=== PATIENT | male | born 1960 | race Caucasian/White ===

== ENCOUNTER 2018-11-03 10:24 | Observation (INO) ==
[2018-11-03 11:03] LABS: Basophils # 0.1 K/mm3 (0-0.2); Basophils % 1.2 % (0.1-2.0); Eosinophils # 0.2 K/mm3 (0.0-0.4); Eosinophils % 2.7 % (0.1-12.0); Hematocrit 49.9 % (42.0-52.0); Hemoglobin 16.5 g/dL (14.1-18.0); Lymphocytes % 28.2 % (10-50); Mean Corpuscular Hemoglobin 28.8 pg (27.0-31.2); Mean Corpuscular Volume 87.2 fl (80-94); Mean Platelet Volume 7.1 fl (7.4-10.4); Monocytes # 0.4 K/mm3 (0.1-1.0); Monocytes % 6.3 % (1.7-9.3); Neutrophils # 4.3 K/mm3 (1.8-7.8); Neutrophils % 61.7 % (37.0-80.0); Platelet Count 269 K/mm3 (142-424); Red Blood Count 5.72 M/mm3 (4.60-6.20); Red Cell Distribution Width 13.9 % (11.5-17.5)
[2018-11-03 11:18] LABS: Alanine Aminotransferase 35 U/L (12-78); Albumin Level 3.8 gm/dL (3.4-5.0); Albumin/Globulin Ratio 0.9 (1.1-1.8); Alkaline Phosphatase 97 U/L (46-116); Anion Gap 15.8 mEq/L (5-15); Aspartate Amino Transferase 18 U/L (15-37); Bilirubin,Total 0.5 mg/dL (0.2-1.0); Blood Urea Nitrogen 10 mg/dL (7-18); Calcium 9.2 mg/dL (8.5-10.1); Carbon Dioxide 25 mmol/L (21.0-32.0); Chloride 102 mmol/L (98-107); Globulin 4.4 gm/dl (1.3-3.2); Glucose 107 mg/dL (74-106); Potassium 3.8 mmoL/L (3.5-5.1); Sodium 139 mmol/L (136-145); Total Protein,Serum 8.2 gm/dL (6.4-8.2)
--- NOTE | 2018-11-03 11:21 | Consult Report ---
History of Present Illness Consult date: 11/03/18 Requesting physician: Yuri Marc Consult reason: chest pain Chief complaint: Fatigue, chest pain Additional Medical History:: 1. Obesity 2. Family history coronary artery disease in his father (smoker) age 54 and grandfather (non-smoker) age 62 3. Possible sleep apnea 4. History of nephrolithiasis 5. Status post appendectomy History of present illness: 58-year-old white male admitted from outpatient clinic for recurrent episodes of chest discomfort, fatigue and diaphoresis. Patient relates greater than 1 month history of recurrent chest discomfort described as a sharp sensation that may occur in the left chest, left armpit or back area and may last up to an hour and is non-exertion related. He relates occasional palpitations that may or may not be associated with the chest discomfort and SOA. Patient has noticed a gradual decline in his exercise capability. This has at times been accompanied by diaphoresis. Sometimes the symptoms have awoken him from sleep. Patient's reports he does snore and has not been resting well recently. Patient denies hypertension, hyperlipidemia, diabetes or tobacco use. EKG today shows sinus rhythm with first-degree AV block otherwise unremarkable. Lab work is pending at this time. [facility] History Medical History: Denies:: Cancer, Diabetes Mellitus Type 1, Diabetes Mellitus Type 2, MRSA Have you ever received a pneumonia vaccine?: No Have you received a flu vaccine this season?: No Laterality Cases: Bilateral: Arthroscopy Knee Other Surgeries: Yes: Appendectomy Amputation: No Fractures: No - *Social History Educational Level: Completed High School Smoking Status: Never smoker Alcohol Intake: never Occupational Status: employed Housing: house Household Members: spouse Travel in the last 8 weeks: None - Psychiatric History Expresses thoughts of harming self/others: None Suicide Plan Description: No Plan *Family Hx:: Cancer Meds Home Medications Medication Instructions Recorded Confirmed Type No Known Home Medications 11/03/18 11/03/18 History Allergies Allergy/AdvReac Type Severity Reaction Status Date / Time ANTI-INFLAMMATORY Allergy Unknown Uncoded 10/11/17 14:26 Review of Systems - *Cardiovascular Reports chest pain, Reports shortness of breath with activity - *Respiratory Reports shortness of breath with activity, Denies cough - *Gastrointestinal Denies abdominal pain, Denies nausea, Denies vomiting - *Genitourinary Denies blood in urine - *Musculoskeletal Denies joint pain, Denies back pain Exam Vital signs and Labs for Last 24 Hours: Temp Pulse Resp BP Pulse Ox 97.8 F 73 20 167/89 H 96 11/03/18 11:07 11/03/18 11:07 11/03/18 11:07 11/03/18 11:07 11/03/18 11:07 Laboratory Results - last 24 hr 11/03/18 10:40: WBC 7.0, RBC 5.72, Hgb 16.5, Hct 49.9, MCV 87.2, MCH 28.8, MCHC 33.0, RDW 13.9, Plt Count 269, MPV 7.1 L, Neut % (Auto) 61.7, Lymph % (Auto) 28.2, [place] % (Auto) 6.3, Eos % (Auto) 2.7, Baso % (Auto) 1.2, Neut # (Auto) 4.3, Lymph # (Auto) 2.0, [place] # (Auto) 0.4, Eos # (Auto) 0.2, Baso # (Auto) 0.1 I & O for Last 24 hours: Intake & Output 10/31/18 11/01/18 11/02/18 11/03/18 11:59 11:59 11:59 11:59 Weight 281 lb 7.003 oz - *Routine Neck Exam Present: supple. Absent: JVD, carotid bruit - *Routine Respiratory Exam Present: CTA bilaterally. Absent: accessory muscle use, rales, rhonchi, wheezes - *Routine Cardiovascular Exam Present: RRR. Absent: murmur, gallop, rubs - *Routine Abdominal Exam Present: soft. Absent: tenderness, distended, guarding - *Routine Extremities Exam Absent: edema, calf tenderness - *Routine Neurological Exam Present: alert, oriented X3, moving all extremities Assessment and Plan (1) Chest pain Current visit: Yes Status: Acute Category: Medical Code(s): R07.9 - Chest pain, unspecified (2) Fatigue Current visit: Yes Status: Acute Category: Medical Code(s): R53.83 - Other fatigue (3) Dyspnea Current visit: Yes Status: Acute Category: Medical Code(s): R06.00 - Dyspnea, unspecified (4) Obesity (BMI 35.0-39.9 without comorbidity) Current visit: Yes Status: Acute Category: Medical Code(s): E66.9 - Obesity, unspecified (5) Family history of atherosclerosis Current visit: Yes Status: Acute Category: Medical Code(s): Z82.49 - Family history of ischemic heart disease and other diseases of the circulatory system (6) First degree atrioventricular block by electrocardiogram Current visit: Yes Status: Acute Category: Medical Code(s): I44.0 - Atrioventricular block, first degree - Assessment and plan all Dx Assessment and Plan for all problems:: 1. Initial troponin is normal. Second troponin pending but if normal could discharge home. 2. Echocardiogram shows preserved ejection fraction without significant valve abnormalities. 3. Agree with ASA but will add omeprazole (or other PPI) for reflux, metoprolol succinate XL 25 mg daily for BP and one time dose of GI cocktail. 4. CT of the chest was obtained showing no evidence of pulmonary embolus or aortic dissection. Patient does have a moderate sized hiatal hernia with some distal esophageal thickening suggestive of reflux. Pt also has evidence of coronary artery calcification. In light of the normal troponin, echocardiogram showing preserved ejection fraction, EKG without ST segment changes and CT of the chest showing no pulmonary embolus or aortic dissection but with evidence of coronary artery calcification, it is felt that the patient could be discharged home for an outpatient workup. Medications as noted above. Recommend exercise Myoview stress testing next week.
[2018-11-03 11:29] LABS: Chol/HDL Ratio 6.3 (1-3.5); Thyroid Stimulating Hormone 2.15 uIU/ml (0.358-3.740)
--- NOTE | 2018-11-03 11:48 | Pharmacy Consult Notes ---
[facility] Pharmacy VTE Monitoring - Patient Demographics Admission date: 11/03/18 Report Date: 11/03/18 Time: 11:48 Allergies/Adverse Reactions: Patient Allergies ANTI-INFLAMMATORY Allergy (Unknown, Uncoded 10/11/17 14:26) Height: 1.91 m Weight: 127.658 kg Patient Problems: Current Active Problems Chest pain (Acute) Fatigue (Acute) Dyspnea (Acute) Obesity (BMI 35.0-39.9 without comorbidity) (Acute) Family history of atherosclerosis (Acute) First degree atrioventricular block by electrocardiogram (Acute) - VTE Risk Labs: VTE Related Lab Results Hgb 16.5 g/dL (14.1-18.0) 11/03/18 10:40 Hct 49.9 % (42.0-52.0) 11/03/18 10:40 Plt Count 269 K/mm3 (142-424) 11/03/18 10:40 BUN 10 mg/dL (7-18) 11/03/18 10:40 Creatinine 1.08 mg/dL (0.70-1.30) 11/03/18 10:40 Estimated Creat Clear 135 mL/min (50-200) 11/03/18 10:40 VTE Score: 2 VTE Risk Level: Very Low Risk - Prophylaxis VTE Prophylaxis Ordered?: Yes Types of VTE Prophylaxis: TEDS Knee High Location of Applied Device: Bilateral Lower Extremeties - VTE Diagnosis Confirmed Treatment or plan recommended: Continue Current Treatment
--- NOTE | 2018-11-03 12:54 | History & Physical Report ---
*Admission Date: 11/03/18 *Chief complaint: chest pain, shortness of breath, diaphoresis *History of present illness: 58 year old male who has had minimal healthcare due to lack of health insurance presented to PCP office with fatigue and shortness of breath that has increased over the last few weeks. Patient states he has "spells" of shortness of breath and diaphoresis, sometimes accompanied with chest pain or palpitations, sometimes not. Chest pain is on the left side and radiates to his back. Symptoms have occurred with exertion and at rest. Yesterday, he had a "spell" of shortness of breath, chest pain and diaphoresis that took "forever" to resolve. He has decreased exercise tolerance, becomes short of breath and fatigued with minimal exertion. Father at age 54 of [place], paternal grandfather at age 62 of [place] verses aneurysm. Last labs in 2014 show LDL 151. BMI is 35. He is not a smoker. Patient was direct admitted for serial enzymes and cardiology consultation. [facility] History I have reviewed the patient's past medical history: Yes Medical History: Denies:: Cancer, Diabetes Mellitus Type 1, Diabetes Mellitus Type 2, MRSA Have you ever received a pneumonia vaccine?: No Have you received a flu vaccine this season?: No Laterality Cases: Bilateral: Arthroscopy Knee Other Surgeries: Yes: Appendectomy Amputation: No Fractures: No - *Social History Educational Level: Completed High School Smoking Status: Never smoker Alcohol Intake: never Occupational Status: employed Housing: house Household Members: spouse Travel in the last 8 weeks: None - Psychiatric History Expresses thoughts of harming self/others: None Suicide Plan Description: No Plan *Family Hx:: Cancer Review of Systems - Review of Systems Review of systems:: pertinent systems reviewed and negative unless documented below - *Cardiovascular Reports chest pain, Reports excessive sweating, Reports shortness of breath with activity, Reports rapid, pounding, or irregular heartbeat Meds Home Medications Medication Instructions Recorded Confirmed Type No Known Home Medications 11/03/18 11/03/18 History Allergies Allergy/AdvReac Type Severity Reaction Status Date / Time ANTI-INFLAMMATORY Allergy Unknown Uncoded 10/11/17 14:26 Exam Vital signs and Labs for Last 24 Hours: Temp Pulse Resp BP Pulse Ox 97.8 F 73 20 167/89 H 96 11/03/18 11:07 11/03/18 11:07 11/03/18 11:07 11/03/18 11:07 11/03/18 11:07 Laboratory Results - last 24 hr 11/03/18 10:40: Triglycerides 276 H, Cholesterol 266 H, LDL Cholesterol 169 H, VLDL Cholesterol 55 H, HDL Cholesterol 42, Cholesterol/HDL Ratio 6.3 H, TSH 2.15 11/03/18 10:40: WBC 7.0, RBC 5.72, Hgb 16.5, Hct 49.9, MCV 87.2, MCH 28.8, MCHC 33.0, RDW 13.9, Plt Count 269, MPV 7.1 L, Neut % (Auto) 61.7, Lymph % (Auto) 28.2, [place] % (Auto) 6.3, Eos % (Auto) 2.7, Baso % (Auto) 1.2, Neut # (Auto) 4.3, Lymph # (Auto) 2.0, [place] # (Auto) 0.4, Eos # (Auto) 0.2, Baso # (Auto) 0.1 11/03/18 10:40: Sodium 139, Potassium 3.8, Chloride 102, Carbon Dioxide 25, Anion Gap 15.8 H, BUN 10, Creatinine 1.08, Estimated Creat Clear 135, Estimated GFR 70, Est GFR ( Amer) 85, Glucose 107 H, Calcium 9.2, Total Bilirubin 0.5, AST 18, ALT 35, Alkaline Phosphatase 97, Troponin I < 0.02, Total Protein 8.2, Albumin 3.8, Globulin 4.4 H, Albumin/Globulin Ratio 0.9 L I & O for Last 24 hours: Intake & Output 11/01/18 11/02/18 11/03/18 11/04/18 11:59 11:59 11:59 11:59 Weight 281 lb 7.003 oz Narrative: Alert and oriented x3. Rate and rhythm regular. No murmur. No LE edema. Abdomen soft and nontender. ENT exam unremarkable. No carotid bruit. No JVD. No thyromegaly. Skin is pink, warm and dry. No neuro deficits Assessment and Plan (1) Chest pain Current visit: Yes Status: Acute Category: Medical Code(s): R07.9 - Chest pain, unspecified (2) Fatigue Current visit: Yes Status: Acute Category: Medical Code(s): R53.83 - Other fatigue (3) Dyspnea Current visit: Yes Status: Acute Category: Medical Code(s): R06.00 - Dyspnea, unspecified (4) Obesity (BMI 35.0-39.9 without comorbidity) Current visit: Yes Status: Acute Category: Medical Code(s): E66.9 - Obesity, unspecified (5) Family history of atherosclerosis Current visit: Yes Status: Acute Category: Medical Code(s): Z82.49 - Family history of ischemic heart disease and other diseases of the circulatory system (6) First degree atrioventricular block by electrocardiogram Current visit: Yes Status: Acute Category: Medical Code(s): I44.0 - Atrioventricular block, first degree - Assessment and plan all Dx Assessment and Plan for all problems:: Admit for observation, serial enzymes and cardiology consult. Will obtain Echo and monitor telemetry.
--- NOTE | 2018-11-03 13:52 | Cardiology Report ---
PROCEDURE: 2-D M-mode and color Doppler study INDICATIONS FOR THE TEST: Chest pain+ COPD Heart Murmur Tobacco Smoking Palpitations Fatigue+ Syncope Edema Hypertension Diabetes Mellitus Rheumatic Fever SOB+ZHANG Obesity+Hyperlipidemia Family History HD+ Additional History CP,SOB PATIENT INFORMATION HEIGHT: 75 WEIGHT:281 GENDER: Male B/P:167/89 2-D/M-MODE INTERPRETATION: 2-D MEASUREMENTS OBSERVED VALUES IN CMS Right Ventricular Dimension (RVDd) 3.2 Interventricular Septum (Thickness)(IVsd) 0.9 Left Ventricular Internal Dimensions(LVIDd) 4.6 Left Ventricular Posterior Wall (Thickness)(LVPWd) 0.9 Aortic Root 3.0 Aortic Cusp Separation 2.5 Left Atrial Dimensions (LAD) 4.0 2D 1. Left atrium is mildly enlarged, left ventricle is normal size, mild qualitative concentric left ventricular hypertrophy, visually estimated ejection fraction 55% with no regional wall motion abnormality. 2. The right atrium and right ventricle are mildly enlarged with normal contractility. 3. The aortic valve is minimally thickened and fibrosed. 4. The mitral and tricuspid valve are grossly normal. 5. The pulmonic valve is poorly present. 6. No significant pericardial effusion noted. DOPPLER INTERROGATION: Doppler interrogation of the aortic, mitral and tricuspid valvular presence of mild mitral and tricuspid regurgitation, tricuspid regurgitation jet velocity is inadequate for calculation of the right ventricular systolic pressure, Doppler evidence of impaired relaxation seen. There is no tissue Doppler performed to calculate left atrial pressure CONCLUSION: 1. Technically difficult study, Definity contrast was placed to delineate endocardial surfaces. 2. Left atrium is mildly enlarged, left ventricle is normal size, mild concentric left ventricular hypertrophy, visually estimated ejection fraction 55% with no regional wall motion abnormality, Doppler evidence of impaired relaxation seen. 3. Mildly enlarged right ventricle with normal contractility. 4. Mild mitral and tricuspid regurgitation 5. No significant pericardial effusion noted.
--- NOTE | 2018-11-03 16:16 | Consult Report ---
*Admission Date: 11/03/18 *Chief complaint: Reflux, hiatal hernia, and epigastric fullness *History of present illness: This is a 58-year-old female seen in consultation from his primary service for evaluation of hiatal hernia, reflux, and epigastric fullness. He presented with fatigue, redness of air, and vague chest pain. He was admitted for further evaluation to include cardiology consultation. No significant acute abnormality apparently has been discovered with regard to his cardiac evaluation. Ongoing evaluation is planned as an outpatient. He does have a known history of significant reflux and states that over the past few months he has "gotten worse". He describes epigastric fullness and "pretty severe acid burn". He states that he "used to take Nexium". He states that "Nexium is the only medicine that worked". He has a known history of hiatal hernia and a recent CTA of the chest confirmed a moderately large hiatal hernia. Below is a forwarded copy of HPI from admission H&P: 58 year old male who has had minimal healthcare due to lack of health insurance presented to PCP office with fatigue and shortness of breath that has increased over the last few weeks. Patient states he has "spells" of shortness of breath and diaphoresis, sometimes accompanied with chest pain or palpitations, sometimes not. Chest pain is on the left side and radiates to his back. Symptoms have occurred with exertion and at rest. Yesterday, he had a "spell" of shortness of breath, chest pain and diaphoresis that took "forever" to resolve. He has decreased exercise tolerance, becomes short of breath and fatigued with minimal exertion. Father at age 54 of [place], paternal grandfather at age 62 of [place] verses aneurysm. Last labs in 2014 show LDL 151. BMI is 35. He is not a smoker. Patient was direct admitted for serial enzymes and cardiology consultation. Review of Systems - Constitutional Denies chills - Eyes Denies change in vision - *Cardiovascular Reports shortness of breath - *Respiratory Denies cough - *Gastrointestinal Reports bloating, Reports heartburn - Hematologic/Lymphatic Denies easy bleeding [facility] History Medical History: Denies:: Cancer, Diabetes Mellitus Type 1, Diabetes Mellitus Type 2, MRSA Have you ever received a pneumonia vaccine?: No Have you received a flu vaccine this season?: No Laterality Cases: Bilateral: Arthroscopy Knee Other Surgeries: Yes: Appendectomy Amputation: No Fractures: No - *Social History Educational Level: Completed High School Smoking Status: Never smoker Alcohol Intake: never Occupational Status: employed Housing: house Household Members: spouse Travel in the last 8 weeks: None - Psychiatric History Expresses thoughts of harming self/others: None Suicide Plan Description: No Plan *Family Hx:: Cancer Meds Home Medications Medication Instructions Recorded Confirmed Type No Known Home Medications 11/03/18 11/03/18 History Allergies Allergy/AdvReac Type Severity Reaction Status Date / Time ANTI-INFLAMMATORY Allergy Unknown Uncoded 10/11/17 14:26 Exam Vital signs and Labs for Last 24 Hours: Temp Pulse Resp BP Pulse Ox 97.8 F 66 17 139/79 96 11/03/18 15:32 11/03/18 15:32 11/03/18 15:32 11/03/18 15:32 11/03/18 15:32 Laboratory Results - last 24 hr 11/03/18 10:40: Triglycerides 276 H, Cholesterol 266 H, LDL Cholesterol 169 H, VLDL Cholesterol 55 H, HDL Cholesterol 42, Cholesterol/HDL Ratio 6.3 H, TSH 2.15 11/03/18 10:40: WBC 7.0, RBC 5.72, Hgb 16.5, Hct 49.9, MCV 87.2, MCH 28.8, MCHC 33.0, RDW 13.9, Plt Count 269, MPV 7.1 L, Neut % (Auto) 61.7, Lymph % (Auto) 28.2, [place] % (Auto) 6.3, Eos % (Auto) 2.7, Baso % (Auto) 1.2, Neut # (Auto) 4.3, Lymph # (Auto) 2.0, [place] # (Auto) 0.4, Eos # (Auto) 0.2, Baso # (Auto) 0.1 11/03/18 10:40: Sodium 139, Potassium 3.8, Chloride 102, Carbon Dioxide 25, Anion Gap 15.8 H, BUN 10, Creatinine 1.08, Estimated Creat Clear 135, Estimated GFR 70, Est GFR ( Amer) 85, Glucose 107 H, Calcium 9.2, Total Bilirubin 0.5, AST 18, ALT 35, Alkaline Phosphatase 97, Troponin I < 0.02, Total Protein 8.2, Albumin 3.8, Globulin 4.4 H, Albumin/Globulin Ratio 0.9 L 11/03/18 10:40: Hemoglobin A1c 5.5 11/03/18 13:52: Troponin I < 0.02 I & O for Last 24 hours: Intake & Output 11/01/18 11/02/18 11/03/18 11/04/18 11:59 11:59 11:59 11:59 Weight 281 lb 7.003 oz - Constitutional no acute distress - *Routine Respiratory Exam Absent: respiratory distress - *Routine Cardiovascular Exam Present: RRR - *Routine Abdominal Exam Present: soft Comments: Diastases in epigastric region. Fingertip umbilical defect. - Routine Psychiatric Exam Present: normal affect Results - Labs 11/03/18 10:40 11/03/18 10:40 Laboratory Results - last 24 hr 11/03/18 10:40: Triglycerides 276 H, Cholesterol 266 H, LDL Cholesterol 169 H, VLDL Cholesterol 55 H, HDL Cholesterol 42, Cholesterol/HDL Ratio 6.3 H, TSH 2.15 11/03/18 10:40: WBC 7.0, RBC 5.72, Hgb 16.5, Hct 49.9, MCV 87.2, MCH 28.8, MCHC 33.0, RDW 13.9, Plt Count 269, MPV 7.1 L, Neut % (Auto) 61.7, Lymph % (Auto) 28.2, [place] % (Auto) 6.3, Eos % (Auto) 2.7, Baso % (Auto) 1.2, Neut # (Auto) 4.3, Lymph # (Auto) 2.0, [place] # (Auto) 0.4, Eos # (Auto) 0.2, Baso # (Auto) 0.1 11/03/18 10:40: Sodium 139, Potassium 3.8, Chloride 102, Carbon Dioxide 25, Anion Gap 15.8 H, BUN 10, Creatinine 1.08, Estimated Creat Clear 135, Estimated GFR 70, Est GFR ( Amer) 85, Glucose 107 H, Calcium 9.2, Total Bilirubin 0.5, AST 18, ALT 35, Alkaline Phosphatase 97, Troponin I < 0.02, Total Protein 8.2, Albumin 3.8, Globulin 4.4 H, Albumin/Globulin Ratio 0.9 L 11/03/18 10:40: Hemoglobin A1c 5.5 11/03/18 13:52: Troponin I < 0.02 Assessment and Plan (1) Chest pain Current visit: Yes Status: Acute Category: Medical Code(s): R07.9 - Chest pain, unspecified (2) Fatigue Current visit: Yes Status: Acute Category: Medical Code(s): R53.83 - Other fatigue (3) Dyspnea Current visit: Yes Status: Acute Category: Medical Code(s): R06.00 - Dyspnea, unspecified (4) Obesity (BMI 35.0-39.9 without comorbidity) Current visit: Yes Status: Acute Category: Medical Code(s): E66.9 - Obesity, unspecified (5) Family history of atherosclerosis Current visit: Yes Status: Acute Category: Medical Code(s): Z82.49 - Family history of ischemic heart disease and other diseases of the circulatory system (6) First degree atrioventricular block by electrocardiogram Current visit: Yes Status: Acute Category: Medical Code(s): I44.0 - Atrioventricular block, first degree (7) GERD (gastroesophageal reflux disease) Current visit: Yes Status: Acute Category: Medical Code(s): K21.9 - Gastro -esophageal reflux disease without esophagitis Seemingly, the patient's symptoms have responded historically to Nexium and "nothing else". -Nexium and Zantac -EGD in near future (8) Hiatal hernia Current visit: Yes Status: Acute Category: Medical Code(s): K44.9 - Diaphragmatic hernia without obstruction or gangrene No need for acute surgical intervention. Initially restarting proton pump inhibition and evaluating with endoscopy warranted. If the patient does require evaluation for possible surgical intervention, I recommend he be seen by Dr. Carlton Uriostegui at the [facility] as fundoplications are no longer performed at this facility.
--- NOTE | 2018-11-03 16:20 | Discharge Summary ---
General - General Admission date:: 11/03/18 Discharge date: 11/03/18 HPI HPI: 58 year old male who has had minimal healthcare due to lack of health insurance presented to PCP office with fatigue and shortness of breath that has increased over the last few weeks. Patient states he has "spells" of shortness of breath and diaphoresis, sometimes accompanied with chest pain or palpitations, sometimes not. Chest pain is on the left side and radiates to his back. Symptoms have occurred with exertion and at rest. Yesterday, he had a "spell" of shortness of breath, chest pain and diaphoresis that took "forever" to resolve. He has decreased exercise tolerance, becomes short of breath and fatigued with minimal exertion. Father at age 54 of [place], paternal grandfather at age 62 of [place] verses aneurysm. Last labs in 2014 show LDL 151. BMI is 35. He is not a smoker. Patient was direct admitted for serial enzymes and cardiology consultation. Hospital Course Hospital Course: Patient was admitted for observation and serial enzymes. Troponins were obtained which were negative x2. Cardiology was consulted who ordered a CTA of the chest which showed a moderate sized hiatal hernia and thickening of lower esophagus, no PE. Echo was obtained which was unremarkable with EF 55%. Lipid panel showed LDL in the 160's. Glucose was slightly elevated and HA1C was added which was 5.5. Cardiology cleared patient for discharge home on metoprolol and aspirin for Nuclear Stress Test on Tuesday. Surgery was consulted to evaluate hiatal hernia prior to discharge who recommend PPI and endoscopy as outpatient. Discharge home on aspirin, metoprolol, atorvastatin and nexium. FU with myself in one week in [place] office. Keep scheduled appointment for nuclear stress test. FU with Dr. Scott for EGD. Objective Vital signs: Temp Pulse Resp BP Pulse Ox 97.8 F 66 17 139/79 96 11/03/18 15:32 11/03/18 15:32 11/03/18 15:32 11/03/18 15:32 11/03/18 15:32 Results Labs on day of discharge: Labs from last 24 hours 11/03/18 11/03/18 11/03/18 13:52 10:40 10:40 WBC RBC Hgb Hct MCV MCH MCHC RDW Plt Count MPV Neut % (Auto) Lymph % (Auto) [place] % (Auto) Eos % (Auto) Baso % (Auto) Neut # (Auto) Lymph # (Auto) [place] # (Auto) Eos # (Auto) Baso # (Auto) Sodium 139 Potassium 3.8 Chloride 102 Carbon Dioxide 25 Anion Gap 15.8 H BUN 10 Creatinine 1.08 Estimated Creat Clear 135 Estimated GFR 70 Est GFR ( Amer) 85 Glucose 107 H Hemoglobin A1c 5.5 Calcium 9.2 Total Bilirubin 0.5 AST 18 ALT 35 Alkaline Phosphatase 97 Troponin I < 0.02 < 0.02 Total Protein 8.2 Albumin 3.8 Globulin 4.4 H Albumin/Globulin Ratio 0.9 L Triglycerides Cholesterol LDL Cholesterol VLDL Cholesterol HDL Cholesterol Cholesterol/HDL Ratio TSH 11/03/18 11/03/18 10:40 10:40 WBC 7.0 RBC 5.72 Hgb 16.5 Hct 49.9 MCV 87.2 MCH 28.8 MCHC 33.0 RDW 13.9 Plt Count 269 MPV 7.1 L Neut % (Auto) 61.7 Lymph % (Auto) 28.2 Shelby % (Auto) 6.3 Eos % (Auto) 2.7 Baso % (Auto) 1.2 Neut # (Auto) 4.3 Lymph # (Auto) 2.0 Shelby # (Auto) 0.4 Eos # (Auto) 0.2 Baso # (Auto) 0.1 Sodium Potassium Chloride Carbon Dioxide Anion Gap BUN Creatinine Estimated Creat Clear Estimated GFR Est GFR ( Amer) Glucose Hemoglobin A1c Calcium Total Bilirubin AST ALT Alkaline Phosphatase Troponin I Total Protein Albumin Globulin Albumin/Globulin Ratio Triglycerides 276 H Cholesterol 266 H LDL Cholesterol 169 H VLDL Cholesterol 55 H HDL Cholesterol 42 Cholesterol/HDL Ratio 6.3 H TSH 2.15 DS: Diagnosis - Discharge Diagnosis (1) Chest pain Status: Acute (2) Fatigue Status: Acute (3) Dyspnea Status: Acute (4) Obesity (BMI 35.0-39.9 without comorbidity) Status: Acute (5) Family history of atherosclerosis Status: Acute (6) First degree atrioventricular block by electrocardiogram Status: Acute (7) Hiatal hernia Status: Acute Discharge Plan - Patient Discharge Instructions ACTIVITY: Continue current activity DIET: continue same diet - Follow up Plan Follow up with: Martha Pate APRN [Nurse Practitioner] - 1 week Pineda Scott MD [Staff Physician] - 1 week Unknown provider or service follow up:: Nuclear Stress Test on Tuesday Disposition: Home, Self-Halfway Medications: Home Medications Medication Instructions Recorded Confirmed Type Aspirin [Aspirin 81mg chewable 81 mg PO DAILY tab.chew 11/03/18 Rx tab] Atorvastatin Calcium [Lipitor 20mg 20 mg PO HS #30 tablet 11/03/18 Rx Tablet] Esomeprazole Magnesium [Nexium] 40 mg PO DAILY #30 capsule. 11/03/18 Rx Metoprolol Succinate [Toprol XL 25 mg PO DAILY #30 tab.er.24h 11/03/18 Rx 25mg tablet] Prescriptions/Medication Reconciliation: New Aspirin [Aspirin 81mg chewable tab] 81 mg PO DAILY tab.chew Atorvastatin Calcium [Lipitor 20mg Tablet] 20 mg PO HS #30 tablet Metoprolol Succinate [Toprol XL 25mg tablet] 25 mg PO DAILY #30 tab.er.24h Esomeprazole Magnesium [Nexium] 40 mg PO DAILY #30 capsule.
== END 2018-11-03 18:02 | disposition home or self-care (01) ==
LOC: 2ND
PROVIDERS: ADMIT Internal Medicine Adolescent Medicine; ATTEND Internal Medicine Adolescent Medicine
DX: E66.9 Obesity, unspecified; R06.00 Dyspnea, unspecified; Z84.89 Family history of other specified conditions; Z88.8 Allergy status to other drugs, medicaments and biological substances; Z82.49 Family history of ischemic heart disease and other diseases of the circulatory system; Z98.890 Other specified postprocedural states; R53.83 Other fatigue; R07.9 Chest pain, unspecified; I44.0 Atrioventricular block, first degree
CPT/HCPCS: 36415; 71275; 80053; 80061; 83036; 84443; 84484; 85025; 93005; 93306; G0378; Q9967

== ENCOUNTER → 2018-11-06 05:47 | Outpatient (CLI) | payer SELFPAY ==
--- NOTE | 2018-11-06 06:41 | NM_ITS ---
SPECT MYOCARDIAL PERFUSION SCAN, REST AND STRESS: EXERCISE STRESS: [facility] REVIEW QGS EF AND WALL MOTION EVALUATION: QPS - PERFUSION EVALUATION: HISTORY: Chest pain, SOB PROCEDURE: Rest imaging performed after administration of10.40 millicuries Tc MIBI. Dose administered at6:10 a.m., with imaging thereafter. Stress imaging was then performed following7 minutes of exercise stress. The patient achieved a heart [id number] with projected heart rate of138 . Resting BP172/88 with stress 170/90. At maximum exercise stress,32.8 millicuries Tc MIBI administered at7:55 a.m. with [id number] minutes thereafter. The EKG was abnormal and [address] segment depression and was accompanied by chest pain. FINDINGS: Perfusion Evaluation: The single slice spect images as well as the [facility] bull's-eye data summary were reviewed. Wall Motion and Ejection Fraction Evaluation: Gated SPECT review and analysis used to evaluate these features. There is a 62% % left ventricular ejection fraction. There seems to be good wall motion Stress images reveal decreased activity throughout the inferior wall and a portion of the lateral wall. Rest images reveal no change in the inferior wall with improvement in the lateral wall and decreased activity in the apical septum. Gated images corrected ejection fraction 62% with normal wall motion IMPRESSION: Exercise-induced angina pectoris with [address] segment depression. This is an abnormal high risk stress test with inferior defect which does not reverse. Reverse redistribution in the apex and septal wall and mild lateral wall ischemia. Normal ejection fraction and normal wall motion.
--- NOTE | 2018-11-06 06:47 | HMH.ITSHM ---
Current Home Medications as stated by this patient Anuj Vazquez or in store representative. []ATORVASTATIN ESOMEPRAZOLE METOPROLOL
== END ==
PROVIDERS: PCP Nurse Practitioner Family; Visit Provider Nurse Practitioner Family
DX: R07.9 Chest pain, unspecified (principal)
CPT/HCPCS: 78452; 93017; A9502

== ENCOUNTER → 2019-09-13 08:30 | Outpatient (CLI) | payer SELFPAY ==
--- NOTE | 2019-09-13 08:33 | FL_ITS ---
PROCEDURE: FL UPPER GI W AIR CLINICAL INDICATION: HIATAL HERNIA Bloating, prior hiatal hernia repair COMPARISON: No exams were available for comparison TECHNIQUE: FLUOROSCOPY TIME : Fluoroscopy time: 2 minutes and 57 seconds FINDINGS: Patient gives history of having recent hiatal hernia repair. There is persistent narrowing at the distal esophagus which could be related to Sharlene fundoplication surgery. Please correlate with patient's surgical history which is not available at the time of this reading. No esophageal obstruction is evident although there is some delayed emptying. There is residual food material/secretions within the stomach despite the patient pro claiming that he has had not had anything by mouth for over 12 hours. There is delayed gastric emptying suspected. No obvious mass. No ulcer evident. IMPRESSION: Delayed gastric emptying with residual gastric contents noted consistent with gastroparesis. Suggest nuclear medicine gastric emptying scan for confirmation. Narrowing of the distal esophagus with delayed emptying which may be due to recent Sharlene fundoplication surgery. Correlation with surgical history necessary Dictated by: Fahad Jean MD 09/13/2019 15:59 Electronically signed by Fahad Jean MD in [place] 09/13/2019 15:59
== END ==
PROVIDERS: PCP Nurse Practitioner Family; Visit Provider Surgery
DX: K44.9 Diaphragmatic hernia without obstruction or gangrene (principal)
CPT/HCPCS: 74247

== ENCOUNTER → 2020-04-03 15:58 | Outpatient (CLI) | payer SELFPAY | PROVIDERS: PCP Nurse Practitioner Family; Visit Provider Nurse Practitioner Family | DX: R55 Syncope and collapse (principal); R61 Generalized hyperhidrosis | CPT/HCPCS: 93270 ==

== ENCOUNTER → 2020-05-06 10:55 | Outpatient (CLI) | payer SELFPAY ==
--- NOTE | 2020-05-06 11:03 | CA_ITS ---
APPROVED REPORT [employer]ader: INGRID Laterality: Bilateral Study Quality: Good Indications: SYNCOPE Doppler Spectral Velocity Analysis dICA (R) 72.90/23.90 cm/s dICA (L) 82.70/33.60 cm/s Dolly (R) 69.50/26.70 cm/s Dolly (L) 65.20/23.20 cm/s pICA (R) 50.70/19.80 cm/s pICA (L) 56.50/14.70 cm/s dCCA (R) 118.50/29.20 cm/s dCCA (L) 106.00/35.60 cm/s pCCA (R) 116.40/23.30 cm/s pCCA (L) 106.00/31.50 cm/s Vert (R) 87.30/25.30 cm/s Vert (L) 52.50/16.40 cm/s ICA/CCA 0.60 ICA/CCA 0.80 Findings Duplex evaluation demonstrates stenosis of the right proximal internal carotid artery <20% with PSV <140 cm/sec, EDV <100 cm/sec, and IC/CC Ratio <4.0.Duplex evaluation demonstrates stenosis of the left proximal internal carotid artery <20% with PSV <140 cm/sec, EDV <100 cm/sec, and IC/CC Ratio <4.0.Antegrade flow seen bilateral vertebral arteries. Conclusion No increased velocities to suggest hemodynamically significant stenosis in either internal carotid artery. Electronically signed by : Fahad Jean MD 05/06/2020 17:20:11
== END ==
PROVIDERS: PCP Nurse Practitioner Family; Visit Provider Nurse Practitioner Family
DX: R55 Syncope and collapse (principal); R07.89 Other chest pain
CPT/HCPCS: 93880

== ENCOUNTER → 2020-07-11 11:42 | Outpatient (CLI) | payer SELFPAY ==
--- NOTE | 2020-07-11 11:47 | CA_ITS ---
APPROVED REPORT EXAM: Comprehensive 2D, Doppler, and color-flow Echocardiogram Advisory Internship: Erica Brady RDCS Ht: 6 ft 3 in Wt: 291lbs BSA: 2.57 BP: 134/83 mmHg Indications: TIA ( BUBBLE STUDY DONE APPEARS POSITIVE ) OBESITY, HTN, HLP 2D Dimensions LVOT 2.25 cm (M/F) 1.5-2.5 M-Mode Dimensions RVDd 3.10 cm (0.9-2.6) LVDd 5.61 cm (3.5-5.7) LVDs 4.25 cm (3.5-5.7) IVSd 0.81 cm (0.6-1.1) PWd 0.81 cm (0.6-1.1) EF (Teich) 47.60% FS 24.20% EDV (Teich) 154.30 mL ESV (Teich) 80.80 mL LV Diastology E/A Ratio 0.75 Mitral Valve MV A Velocity 60.00 (40-130 cm/s) Left Ventricle Left atrium is mildly enlarged, left ventricle is normal size, mild concentric left ventricular hypertrophy, visually estimated ejection fraction 55% with no regional wall motion abnormality, grade 1 diastolic dysfunction seen without tissue Doppler evidence of raise left atrial pressure. Right Ventricle Right atrium and right ventricle are normal size and contractility. Atria Intra-atrial septum appears to be intact, there is no obvious flow across the interatrial septum, agitated saline contrast study is inconclusive for intracardiac shunt. Aortic Valve Aortic valve is minimally thickened and fibrosed, there is no aortic stenosis or aortic insufficiency. Mitral Valve Mitral valve grossly normal, there is mild mitral regurgitation. Tricuspid Valve Tricuspid valve is grossly normal, there is mild tricuspid regurgitation, tricuspid regurgitation jet velocity is inadequate for calculation of the right ventricular systolic pressure. Pulmonic Valve Pulmonic valve is poorly visualized. Great Vessels Aortic root is normal size. Pericardium No significant pericardial effusion noted. Conclusion 1. Technically difficult study because of the patient factors and poor acoustic windows. 2. Mildly enlarged left atrium, normal left ventricular size, mild concentric left ventricular hypertrophy, visually estimated ejection fraction 55% with no regional wall motion abnormality, grade 1 diastolic dysfunction seen without tissue Doppler evidence of raise left atrial pressure. 3. Mild mitral and tricuspid regurgitation. 4. Agitated saline contrast study is inconclusive for intracardiac shunt, if clinically indicated a transesophageal echocardiogram is recommended. 5. No significant pericardial effusion noted. Electronically signed by : Henry Ken, 07/11/2020 13:53:54
== END ==
PROVIDERS: PCP Nurse Practitioner Family; Visit Provider Nurse Practitioner Family
DX: R55 Syncope and collapse (principal); G45.9 Transient cerebral ischemic attack, unspecified; R61 Generalized hyperhidrosis
CPT/HCPCS: 93306

== ENCOUNTER → 2020-07-15 07:47 | Outpatient (CLI) | payer SELFPAY ==
--- NOTE | 2020-07-15 08:09 | MR_ITS ---
PROCEDURE: MR ANGIO HEAD WO CON CLINICAL INDICATION: NEAR SYNCOPE, TIA EPISODES WEAKNESS AND NEAR SYNCOPE, COLD SWEATS, AND UNABLE TO SEE. SYMPTOMS [id number]. HEADACHE. EPISODES LAST MAYBE AN HOUR AND AFTER EPISODES HAS FATIGUE AND UNABLE TO REMEMBER. NO PRIOR. COMPARISON: No exams were available for comparison TECHNIQUE: 3D [id number] imaging with multi slab reformats. FINDINGS: Vertebral basilar system has an unremarkable appearance. The internal carotids are unremarkable. No evidence of aneurysm. No evidence of AVM or major intracranial occlusive process Single-shot MRV demonstrates incomplete visualization of the inferior aspect of the sagittal sinus. This is nonspecific and could be artifactual. The remaining sagittal sinus has an unremarkable appearance. IMPRESSION: 1. Unremarkable MRA of the brain. 2. Incomplete visualization of the inferior aspect of the sagittal sinus which may be artifactual. CTA with venography may provide further evaluation of this region if clinically warranted. Dictated by: Fahad Jean MD 07/16/2020 15:02 Fahad Jean MD in [place] 07/16/2020 15:02
--- NOTE | 2020-07-15 08:09 | MR_ITS ---
PROCEDURE: MR HEAD/BRAIN WO CON CLINICAL INDICATION: NEAR SYNCOPE, TIA EPISODES WEAKNESS AND NEAR SYNCOPE, COLD SWEATS, AND UNABLE TO SEE. SYMPTOMS [id number]. HEADACHE. EPISODES LAST MAYBE AN HOUR AND AFTER EPISODES HAS FATIGUE AND UNABLE TO REMEMBER. NO PRIOR. COMPARISON: No exams were available for comparison TECHNIQUE: Routine multiplanar multi echo sequences are performed without gadolinium enhancement. FINDINGS: No midline shift, mass effect, intracranial hemorrhage, or hydrocephalus is evident. The cerebellopontine angle, cerebellum, and brainstem have an unremarkable appearance. There is no evidence of acute infarction. There are a few scattered periventricular and subcortical T2 white matter hyperintensities which are nonspecific and may be related to ischemic gliotic change from microvascular disease. The temporal horns are symmetric. Hippocampal gyri are unremarkable. The pituitary, optic chiasm, corpus callosum, and craniocervical junction have an unremarkable appearance. No mastoid effusion or sinus air-fluid level. There is a small retention cyst in the right maxillary sinus medially. IMPRESSION: 1. No acute intracranial findings. 2. There are diffuse scattered periventricular and subcortical T2 white matter hyperintensities which may be related to ischemic gliotic foci. Migraine headache would be included in the differential diagnosis. Demyelinating process not totally excluded but felt to be less likely based on imaging characteristics. Dictated by: Fahad Jean MD 07/16/2020 13:37 Fahad Jean MD in [place] 07/16/2020 13:37
== END ==
PROVIDERS: PCP Nurse Practitioner Family; Visit Provider Nurse Practitioner Family
DX: G45.9 Transient cerebral ischemic attack, unspecified (principal); R55 Syncope and collapse; R61 Generalized hyperhidrosis
CPT/HCPCS: 70544; 70551

== ENCOUNTER → 2021-03-19 13:55 | Outpatient (CLI) | payer SELFPAY ==
[2021-03-19 14:21] LABS: Basophils # 0.1 K/mm3 (0-0.2); Basophils % 1.2 % (0.1-2.0); Eosinophils # 0.3 K/mm3 (0.0-0.4); Eosinophils % 2.8 % (0.1-12.0); Hematocrit 44.8 % (42.0-52.0); Hemoglobin 15.1 g/dL (14.1-18.0); Lymphocytes # 2.6 K/mm3 (0.7-4.5); Lymphocytes % 27.7 % (10-50); Mean Corpuscular HGB Conc 33.9 g/dL (31.8-35.4); Mean Corpuscular Hemoglobin 28.8 pg (27.0-31.2); Mean Platelet Volume 7.2 fl (7.4-10.4); Monocytes # 0.6 K/mm3 (0.1-1.0); Monocytes % 6.3 % (1.7-9.3); Neutrophils # 5.9 K/mm3 (1.8-7.8); Platelet Count 309 K/mm3 (142-424); Red Blood Count 5.27 M/mm3 (4.60-6.20); Red Cell Distribution Width 13.9 % (11.5-17.5); White Blood Count 9.4 K/mm3 (4.8-10.8)
[2021-03-19 14:31] LABS: Chloride 103 mmol/L (98-107); Sodium 138 mmol/L (136-145)
[2021-03-19 14:33] LABS: Alanine Aminotransferase 30 U/L (12-78); Aspartate Amino Transferase 36 U/L (17-59); Bilirubin,Total 0.6 mg/dl (0.2-1.3); Blood Urea Nitrogen 12 mg/dl (9-20); Estimated Glomerular Filt Rate 76 ml/min (>60); GFR (African American) 92 ML/MIN (>60)
[2021-03-19 14:34] LABS: Albumin Level 4.7 g/dl (3.5-5.0); Albumin/Globulin Ratio 1.3 (1.1-1.8); Alkaline Phosphatase 104 U/L (38-126); Calcium 9.4 mg/dl (8.4-10.2); Carbon Dioxide 27 mmol/L (22.0-30.0); Globulin 3.5 g/dL (1.3-3.2); Glucose 97 mg/dl (74-100); Total Protein,Serum 8.2 g/dl (6.3-8.2)
[2021-03-19 14:46] LABS: Troponin I < 0.01 ng/ml (0.00-0.034)
== END ==
PROVIDERS: Visit Provider Nurse Practitioner Family
DX: R07.9 Chest pain, unspecified (principal); R53.1 Weakness
CPT/HCPCS: 36415; 80053; 84484; 85025

== ENCOUNTER → 2021-05-23 11:43 | Outpatient (CLI) | payer SELFPAY ==
[2021-05-23 11:49] LABS: Microscopic, Urine URINE MICROSCOPIC (MICROSCOPIC)
[2021-05-23 12:02] LABS: Basophils # 0.1 K/mm3 (0-0.2); Basophils % 0.5 % (0.1-2.0); Eosinophils # 0.2 K/mm3 (0.0-0.4); Eosinophils % 1.2 % (0.1-12.0); Hematocrit 44.1 % (42.0-52.0); Hemoglobin 14.9 g/dL (14.1-18.0); Lymphocytes # 1.9 K/mm3 (0.7-4.5); Lymphocytes % 11.6 % (10-50); Mean Corpuscular HGB Conc 33.7 g/dL (31.8-35.4); Mean Corpuscular Hemoglobin 28.8 pg (27.0-31.2); Mean Corpuscular Volume 85.3 fl (80-94); Mean Platelet Volume 7.8 fl (7.4-10.4); Monocytes # 1.1 K/mm3 (0.1-1.0); Monocytes % 6.7 % (1.7-9.3); Neutrophils # 12.8 K/mm3 (1.8-7.8); Platelet Count 260 K/mm3 (142-424); Red Blood Count 5.17 M/mm3 (4.60-6.20); Red Cell Distribution Width 14.3 % (11.5-17.5)
[2021-05-23 12:03] LABS: MANUAL DIFFERENTIAL MANUAL DIFFERENTIAL (MANUAL DIFF)
[2021-05-23 12:41] LABS: Lymphocytes % 20 % (10-50); Monocytes % 2 % (2-9); Neutrophils % 78 % (42-76); Platelet Estimate Normal; RBC Morphology Normal; Total Cells Counted 100
[2021-05-23 12:48] LABS: Appearance,Urine CLEAR (Clear); Bilirubin,Urine Negative (Negative); Blood, Urine 3+ (Negative); Color,Urine YELLOW (Yellow); Glucose,Urine (UA) Negative (Negative); Ketones,Urine Negative (Negative); Leukocyte Esterase,Urine Negative (Negative); Nitrate,Urine Negative (Negative); Protein,Urine TRACE (Negative); Specific Gravity, Urine >= 1.030 (1.005-1.030); Urobilinogen,Urine 0.2 EU/dl (0.2)
[2021-05-23 12:57] LABS: Amorphous Sediment,Urine Trace /lpf; RBC,Urine 50-100 #/hpf (0-3); Squamous Epithelial Cell,Urine Occasional #/hpf (0-5)
[2021-05-23 13:04] LABS: Alanine Aminotransferase 23 U/L (12-78); Albumin Level 4.3 g/dl (3.5-5.0); Albumin/Globulin Ratio 1.4 (1.1-1.8); Alkaline Phosphatase 96 U/L (38-126); Anion Gap 14.2 mEq/L (5-15); Aspartate Amino Transferase 22 U/L (17-59); Bilirubin,Total 1.4 mg/dl (0.2-1.3); Blood Urea Nitrogen 12 mg/dl (9-20); Calcium 9.3 mg/dl (8.4-10.2); Carbon Dioxide 28 mmol/L (22.0-30.0); Chloride 101 mmol/L (98-107); Estimated Glomerular Filt Rate 76 ml/min (>60); GFR (African American) 92 ML/MIN (>60); Glucose 101 mg/dl (74-100); Potassium 4.2 mmoL/L (3.5-5.1); Sodium 139 mmol/L (136-145); Total Protein,Serum 7.3 g/dl (6.3-8.2)
== END ==
PROVIDERS: Visit Provider Internal Medicine Adolescent Medicine
DX: R10.32 Left lower quadrant pain (principal); R31.0 Gross hematuria
CPT/HCPCS: 36415; 80053; 81001; 85007; 85025; 87086

== ENCOUNTER 2021-08-13 19:24 | Observation (INO) | payer SELFPAY ==
[2021-08-13 19:25] VITALS: BP 166/98; PULSE 70; RESP 16; TEMP 36.8; O2SAT 96; BMI 33.7
--- NOTE | 2021-08-13 19:43 | CT_ITS ---
PROCEDURE INFORMATION: Exam: CT Abdomen And Pelvis Without Contrast Exam date and time: 08/13/2021 7:43 PM Age: 61 years old Clinical indication: Abdominal pain; Flank; Right; Prior surgery; Surgery date: 6+ months; Surgery type: Hernia mesh placed; Additional info: Abd pain TECHNIQUE: Imaging protocol: Computed tomography of the abdomen and pelvis without contrast. Radiation optimization: All CT scans at this facility use at least one of these dose optimization techniques: automated exposure control; mA and/or kV adjustment per patient size (includes targeted exams where dose is matched to clinical indication); or iterative reconstruction. COMPARISON: ABDPELW/O CT ABD PELVIS W/O CONTRAST 05/04/2015 9:28 AM FINDINGS: Lungs: No mass/infiltrate at either lung base. No pleural effusion. There is a metallic body which is noted between the right atrium and left atrium. This could represent an atrial septal occluder device. Liver: The liver is normal in size and attenuation. No intrahepatic biliary dilitation. Gallbladder and bile ducts: Normal. No calcified stones. No ductal dilation. Gallbladder wall thickness is normal. Pancreas: Normal. No ductal dilation. Spleen: Normal. No splenomegaly. Granulomatous calcifications are noted. Adrenal glands: Normal. No mass. Kidneys and ureters: Mild right hydronephrosis. There is a 4 mm calculus identified within the right ureteropelvic junction. There are 2 nonobstructing nephroliths within the left renal collecting system. The largest is present within the left renal pelvis and measures 8 mm in diameter. Stomach and bowel: Again, there is a moderate hiatal hernia noted. Diverticulosis of the transverse colon, descending colon, and sigmoid colon without evidence of diverticulitis. No obstruction. No mucosal thickening. Small bowel mesentery is normal. Appendix: The appendix is poorly visualized on this examination. Intraperitoneal space: Unremarkable. No free air. No significant fluid collection. Vasculature: There are atheromatous calcifications of the aorta. No abdominal aortic aneurysm. Lymph nodes: Unremarkable. No enlarged lymph nodes. Urinary bladder: Unremarkable as visualized. Reproductive: Unremarkable as visualized. Bones/joints: There are degenerative changes noted within the thoracic and lumbar spine and within the sacroiliac joints. No acute fracture. Soft tissues: There is a small umbilical hernia. IMPRESSION: 1. There is a 4 mm calculus identified within the right ureteropelvic junction associated with moderate right hydronephrosis. 2. There are nonobstructing nephroliths identified within the left kidney. 3. Moderate hiatal hernia again noted. 4. Diverticulosis of the colon without evidence of diverticulitis.
[2021-08-13 19:55] LABS: Basophils # 0.1 K/mm3 (0-0.2); Basophils % 1.2 % (0.1-2.0); Eosinophils # 0.3 K/mm3 (0.0-0.4); Eosinophils % 3.1 % (0.1-12.0); Hematocrit 43.3 % (42.0-52.0); Hemoglobin 14.8 g/dL (14.1-18.0); Lymphocytes # 2.7 K/mm3 (0.7-4.5); Lymphocytes % 29.9 % (10-50); Mean Corpuscular HGB Conc 34.2 g/dL (31.8-35.4); Mean Corpuscular Hemoglobin 29.6 pg (27.0-31.2); Mean Corpuscular Volume 86.6 fl (80-94); Mean Platelet Volume 7.9 fl (7.4-10.4); Monocytes # 0.7 K/mm3 (0.1-1.0); Monocytes % 7.1 % (1.7-9.3); Neutrophils # 5.4 K/mm3 (1.8-7.8); Neutrophils % 58.7 % (37.0-80.0); Platelet Count 317 K/mm3 (142-424); Red Cell Distribution Width 13.9 % (11.5-17.5); White Blood Count 9.2 K/mm3 (4.8-10.8)
--- NOTE | 2021-08-13 19:58 | HMH.EDGENADL ---
ED Disposition Clinical Impression: Nephrolithiasis, Pyelonephritis Disposition: Admitted As Inpatient Condition on Discharge: Fair Instructions: DI for Low Back Pain Referrals: Martha Pate APRN [Primary Care Provider] - - Critical Care Critical Care Time: No Attestation: On 08/13/21, the high probability of a clinically significant, sudden or life threatening deterioration of the following system(s) required my full and direct attention, intervention and personal management. The time I documented below is in addition to time spent performing reported procedures but includes the following listed in this critical care notation. Medical Decision Making - Medical Records Medical records reviewed: Yes: I reviewed the patient's medical records. - Tayo Inquiry Pt receiving controlled substance: No Vital Signs: 08/13/21 19:25 Temperature 98.2 F Temperature Source Oral Pulse Rate [Left] 70 Respiratory Rate 16 Blood Pressure [Right Arm] 166/98 H Blood Pressure Mean [Right Arm] 120 02 Sat by Pulse Oximetry 96 Oxygen Delivery Method Room Air - Lab Data Lab Results 08/13/21 19:44: WBC 9.2, RBC 5.00, Hgb 14.8, Hct 43.3, MCV 86.6, MCH 29.6, MCHC 34.2, RDW 13.9, Plt Count 317, MPV 7.9, Neut % (Auto) 58.7, Lymph % (Auto) 29.9, Moca % (Auto) 7.1, Eos % (Auto) 3.1, Baso % (Auto) 1.2, Neut # (Auto) 5.4, Lymph # (Auto) 2.7, Moca # (Auto) 0.7, Eos # (Auto) 0.3, Baso # (Auto) 0.1 08/13/21 19:44: Sodium 141, Potassium 4.0, Chloride 105, Carbon Dioxide 27, Anion Gap 13.0, BUN 10, Creatinine 1.20, Estimated Creat Clear 112, Estimated GFR 62, Est GFR ( Amer) 74, Glucose 110 H, Calcium 9.6, Total Bilirubin 0.3, AST 32, ALT 25, Alkaline Phosphatase 107, Total Protein 8.0, Albumin 4.4, Globulin 3.6 H, Albumin/Globulin Ratio 1.2, Amylase 79, Lipase 83 08/13/21 21:50: Urine Color Brown, Urine Appearance Turbid, Urine pH 5.0, Ur Specific [place] >= 1.030, Urine Protein 2+, Urine Glucose (UA) Negative, Urine Ketones Trace, Urine Blood 3+, Urine Nitrate Negative, Urine Bilirubin Negative, Urine Urobilinogen 0.2, Ur Leukocyte Esterase Negative, Urine RBC Tntc, Urine WBC 5-10, Ur Squamous Epith Cells 3-5, Calcium Oxalate Crystal Trace, Urine Bacteria 4+ Result diagrams: 08/13/21 19:44 08/13/21 19:44 Orders (Tests/Meds): ED MEDICATIONS Generic Name Dose Route Start Last Admin Trade Name Freq PRN Reason Stop Dose Admin Sodium Chloride 1,000 mls @ 999 mls/hr 08/13/21 19:45 08/13/21 19:48 Sod Chlor 0.9% 1000ml Bag IV 08/13/21 20:45 999 mls/hr .Q1H1M SUZANNE Administration Discontinued Medications Generic Name Dose Route Start Last Admin Trade Name Freq PRN Reason Stop Dose Admin Hydromorphone HCl 0.5 mg 08/13/21 21:39 08/13/21 21:43 Hydromorphone 2mg/Ml Syringe IV 08/13/21 21:40 0.5 mg ONCE ONE Administration Ketorolac Tromethamine 30 mg 08/13/21 19:45 08/13/21 19:48 Ketorolac 30mg/Ml Vial IV 08/13/21 19:46 30 mg ONCE ONE Administration Morphine Sulfate 4 mg 08/13/21 20:16 08/13/21 20:41 Morphine 4mg/Ml Syringe IV 08/13/21 20:17 4 mg ONCE ONE Administration Ondansetron HCl 4 mg 08/13/21 19:45 08/13/21 19:49 Ondansetron 4mg/2ml Vial IV 08/13/21 19:46 4 mg ONCE ONE Administration Promethazine HCl 25 mg 08/13/21 21:39 08/13/21 21:43 Promethazine Hcl 25mg/Ml 1ml Vial IV 08/13/21 21:40 25 mg ONCE ONE Administration Sodium Chloride 25 ml 08/13/21 21:39 08/13/21 21:40 Sodium Chloride 0.9% 25ml Bag IV 08/13/21 21:40 25 ml ONCE ONE Administration Tamsulosin HCl 0.4 mg 08/14/21 21:44 Tamsulosin 0.4mg Capsule PO 08/14/21 21:45 ONCE ONE Tamsulosin HCl 0.4 mg 08/13/21 21:58 08/13/21 21:59 Tamsulosin 0.4mg Capsule PO 08/13/21 21:59 0.4 mg ONCE ONE Administration ORDERS Category Date Time Status Urology Consult [Consult to Urology] [CONS] Routine Cons 08/13/21 23:23 Ordered Rapid PCR Covid and Flu A/B Stat Lab 08/13/21 2
[2021-08-13 20:14] LABS: Chloride 105 mmol/L (98-107); Sodium 141 mmol/L (136-145)
[2021-08-13 20:17] LABS: Alanine Aminotransferase 25 U/L (12-78); Albumin Level 4.4 g/dl (3.5-5.0); Albumin/Globulin Ratio 1.2 (1.1-1.8); Alkaline Phosphatase 107 U/L (38-126); Amylase 79 U/L (30-110); Aspartate Amino Transferase 32 U/L (17-59); Bilirubin,Total 0.3 mg/dl (0.2-1.3); Blood Urea Nitrogen 10 mg/dl (9-20); Calcium 9.6 mg/dl (8.4-10.2); Carbon Dioxide 27 mmol/L (22.0-30.0); Creatinine Clearance Estimated 112 mL/min (50-200); Estimated Glomerular Filt Rate 62 ml/min (>60); GFR (African American) 74 ML/MIN (>60); Globulin 3.6 g/dL (1.3-3.2); Glucose 110 mg/dl (74-100); Lipase 83 U/L (23-300)
[2021-08-13 21:57] LABS: Microscopic, Urine URINE MICROSCOPIC (MICROSCOPIC)
[2021-08-13 21:59] LABS: Appearance,Urine TURBID (Clear); Blood, Urine 3+ (Negative); Color,Urine BROWN (Yellow); Glucose,Urine (UA) Negative (Negative); Ketones,Urine TRACE (Negative); Leukocyte Esterase,Urine Negative (Negative); Nitrate,Urine Negative (Negative); Protein,Urine 2+ (Negative); Specific Gravity, Urine >= 1.030 (1.005-1.030); Urobilinogen,Urine 0.2 EU/dl (0.2)
[2021-08-13 22:08] LABS: Bilirubin,Urine Negative (Negative)
[2021-08-13 22:09] LABS: Bacteria,Urine 4+ /lpf; Calcium Oxalate Crystals,Urine Trace /lpf; RBC,Urine TNTC #/hpf (0-3)
[2021-08-13 23:19] LABS: Coronavirus 19, PCR Not Detected (NotDetected); Influenza A, PCR Not Detected (NotDetected); Influenza B, PCR Not Detected (NotDetected)
--- NOTE | 2021-08-13 23:59 | PC.NURSE ---
@[id number] Dr. Soto s/w Dr. Marc for admission. Agrees admit for Dr. Morales. @[id number] S/w [facility] for bed assignment.
[2021-08-14] VITALS (7 sets, daily range): BP systolic 114–141; BP diastolic 64–79; PULSE 59–67; RESP 16–22; TEMP 36.4–37.2; O2SAT 92–96; BMI 33.3; BMI 33.4
--- NOTE | 2021-08-14 00:14 | PC.NURSE ---
patient up to floor via wheelchair @ this time
--- NOTE | 2021-08-14 00:23 | PC.NURSE ---
Dr. Soto would like Rocephin 1gr IV q24 for uti. placed blood cx as well. Notified receiving ELIZABETH Grover that cx & iv abx need to be completed.
[2021-08-14 00:40] LABS: INR 1.05 (0.9-1.1); Prothrombin Time 11.8 seconds (10.1-12.5)
--- NOTE | 2021-08-14 04:15 | PC.NURSE ---
pt has rested well this shift. a&ox4. c/o pain, PRN dilaudid admin per dec. effectiveness noted. vss. remains on RA w/ no c/o SOA.
[2021-08-14 06:05] LABS: Basophils # 0.1 K/mm3 (0-0.2); Eosinophils # 0.1 K/mm3 (0.0-0.4); Monocytes # 0.7 K/mm3 (0.1-1.0); Neutrophils # 6.2 K/mm3 (1.8-7.8); White Blood Count 8.9 K/mm3 (4.8-10.8)
[2021-08-14 06:16] LABS: Basophils % 0.8 % (0.1-2.0); Eosinophils % 1.2 % (0.1-12.0); Hematocrit 43.9 % (42.0-52.0); Lymphocytes # 1.9 K/mm3 (0.7-4.5); Lymphocytes % 21.1 % (10-50); Mean Corpuscular HGB Conc 32.6 g/dL (31.8-35.4); Mean Corpuscular Hemoglobin 29.5 pg (27.0-31.2); Mean Corpuscular Volume 90.2 fl (80-94); Mean Platelet Volume 7.4 fl (7.4-10.4); Monocytes % 7.5 % (1.7-9.3); Neutrophils % 69.4 % (37.0-80.0); Platelet Count 265 K/mm3 (142-424); Red Blood Count 4.86 M/mm3 (4.60-6.20); Red Cell Distribution Width 13.7 % (11.5-17.5)
[2021-08-14 06:48] LABS: Hemoglobin 14.3 g/dL (14.1-18.0)
[2021-08-14 06:51] LABS: Chloride 105 mmol/L (98-107); Potassium 4.1 mmoL/L (3.5-5.1); Sodium 142 mmol/L (136-145)
[2021-08-14 06:54] LABS: Anion Gap 13.1 mEq/L (5-15); Blood Urea Nitrogen 12 mg/dl (9-20); Carbon Dioxide 28 mmol/L (22.0-30.0); Creatinine Clearance Estimated 111 mL/min (50-200); Estimated Glomerular Filt Rate 62 ml/min (>60); GFR (African American) 74 ML/MIN (>60); Glucose 97 mg/dl (74-100)
--- NOTE | 2021-08-14 07:26 | P.CONPHA_ITS ---
[facility] [place] Pharmacy VTE Monitoring - Patient Demographics Admission date: 08/14/21 Report Date: 08/14/21 Time: 07:26 Allergies/Adverse Reactions: Patient Allergies No Known Allergies Allergy (Verified 08/13/21 19:53) Height: 1.91 m Weight: 121.705 kg Patient Problems: Current Active Problems Nephrolithiasis (Acute) Pyelonephritis (Acute) - VTE Risk Labs: VTE Related Lab Results Hgb 14.3 g/dL (14.1-18.0) 08/14/21 05:36 Hct 43.9 % (42.0-52.0) 08/14/21 05:36 Plt Count 265 K/mm3 (142-424) 08/14/21 05:36 PT 11.8 seconds (10.1-12.5) 08/14/21 00:20 INR 1.05 (0.9-1.1) 08/14/21 00:20 BUN 12 mg/dl (9-20) 08/14/21 05:36 Creatinine 1.20 mg/dl (0.66-1.25) 08/14/21 05:36 Estimated Creat Clear 111 mL/min (50-200) 08/14/21 05:36 Was VTE Risk Assessment Performed: Yes VTE Score: 3 VTE Risk Level: Low Risk Clinical Trial Participant: No - Prophylaxis VTE Prophylaxis Ordered?: Yes Types of VTE Prophylaxis: TEDS Knee High
--- NOTE | 2021-08-14 09:00 | HMH.HP ---
*Admission Date: 08/14/21 *Chief complaint: right flank pain *History of present illness: Mr. Vazquez is a 61-year-old male with complaint of right flank/back pain. Has had a history of kidney stones in the left side. Noted dark urine over the past 24 hours. On presentation to the ER, work-up initiated. CT of abdomen positive for 4 mm stone at the UPJ junction. Mild hydronephrosis. Urine with gross hematuria. Given obstruction, pain control needs, patient admitted to medicine for further management. Urology consulted. On assessment this morning, patient states he still having pain. Making some urine, remains dark. Denies nausea, vomiting, fever. Pain responding to Toradol and Dilaudid. Of note, patient is on aspirin and Plavix. No recent stents at our facility. Plavix reportedly started in March. We will continue to hold for now given bleeding and need for intervention. [facility] History I have reviewed the patient's past medical history: Yes Medical History: Reports:: Congestive Heart Failure, Gastroesophageal Reflux Disease(GERD), Hiatal Hernia, Hyperlipidemia, Hypertension, Kidney Stones Denies:: Cancer, Diabetes Mellitus Type 1, Diabetes Mellitus Type 2, Internal Pacemaker, Lung Disease, MRSA, Seizures *Have you ever received a pneumonia vaccine?: No *Have you received a flu vaccine this season?: No Other Medical History: Reports: Arthritis Laterality Cases: Bilateral: Arthroscopy Knee Other Surgeries: Yes: Appendectomy, Cardiac Catheterization, Other. No: Pacemaker Amputation: No Fractures: No - *Social History Last grade of school completed: High school graduate Smoking Status: Never smoker Alcohol Intake: never Substance Use Type: denies use *Occupational Status:: employed Housing: house Household Members: spouse *Travel in the last 8 weeks: None Family Hx:: Cancer, Coronary Artery Disease, Heart Attack Review of Systems - Review of Systems Review of systems:: pertinent systems reviewed and negative unless documented below (14 point review of systems performed, pertinent positives and negatives as per HPI) Meds Home Medications Medication Instructions Recorded Confirmed Type Aspirin [Aspirin 81mg chewable 81 mg PO DAILY 02/21/19 08/14/21 History tab] Atorvastatin Calcium [Lipitor 20mg 20 mg PO HS 02/21/19 08/14/21 History Tablet*] Esomeprazole Magnesium [Nexium] 40 mg PO DAILY 02/21/19 08/14/21 History Metoprolol Succinate [Toprol XL 12.5 mg PO DAILY 02/21/19 08/14/21 History 25mg tablet] cetirizine 10 mg tablet 10 mg PO DAILY 05/14/19 08/14/21 History fluticasone propionate 50 1 spray INTRANASAL DAILYP PRN 05/14/19 08/14/21 History mcg/actuation nasal spray,suspension Clopidogrel Bisulfate [Clopidogrel 75 mg PO DAILY 08/14/21 08/14/21 History 75mg Tab] Furosemide [Furosemide 20mg Tab*] 10 mg PO DAILY 08/14/21 08/14/21 History Spironolactone [Spironolactone 12.5 mg PO DAILY 08/14/21 08/14/21 History 25mg Tablet] Allergies Allergy/AdvReac Type Severity Reaction Status Date / Time No Known Allergies Allergy Verified 08/13/21 19:53 Exam Vital signs and Labs for Last 24 Hours: Temp Pulse Resp BP Pulse Ox 97.5 F L 60 16 131/66 95 08/14/21 07:19 08/14/21 07:19 08/14/21 07:19 08/14/21 07:19 08/14/21 07:19 Laboratory Results - last 24 hr 08/13/21 19:44: WBC 9.2, RBC 5.00, Hgb 14.8, Hct 43.3, MCV 86.6, MCH 29.6, MCHC 34.2, RDW 13.9, Plt Count 317, MPV 7.9, Neut % (Auto) 58.7, Lymph % (Auto) 29.9, [place] % (Auto) 7.1, Eos % (Auto) 3.1, Baso % (Auto) 1.2, Neut # (Auto) 5.4, Lymph # (Auto) 2.7, [place] # (Auto) 0.7, Eos # (Auto) 0.3, Baso # (Auto) 0.1 08/13/21 19:44: Sodium 141, Potassium 4.0, Chloride 105, Carbon Dioxide 27, Anion Gap 13.0, BUN 10, Creatinine 1.20, Estimated Creat Clear 112, Estimated GFR 62, Est GFR ( Amer) 74, Glucose 110 H, Calcium 9.6, Total Bilirubin 0.3, AST 32, ALT 25, Alkaline Phosphatase 107, Total Protein 8.0, Albumin 4.4,
--- NOTE | 2021-08-14 11:19 | HMH.CONS ---
*Admission Date: 08/14/21 *Reason for consult:: Right ureteral calculus *History of present illness: Patient with history of nephrolithiasis admitted to the emergency room last night with right flank pain. CT scan reveals a 4 mm stone at the right UPJ with associated right hydronephrosis. There are also some small stones in the left kidney. Patient was admitted for pain control. His white count was normal and his creatinine was normal. [facility] History Medical History: Reports:: Congestive Heart Failure, Gastroesophageal Reflux Disease(GERD), Hiatal Hernia, Hyperlipidemia, Hypertension, Kidney Stones Denies:: Cancer, Diabetes Mellitus Type 1, Diabetes Mellitus Type 2, Internal Pacemaker, Lung Disease, MRSA, Seizures *Have you ever received a pneumonia vaccine?: No *Have you received a flu vaccine this season?: No Other Medical History: Reports: Arthritis Laterality Cases: Bilateral: Arthroscopy Knee Other Surgeries: Yes: Appendectomy, Cardiac Catheterization, Other. No: Pacemaker Amputation: No Fractures: No - *Social History Last grade of school completed: High school graduate Smoking Status: Never smoker Alcohol Intake: never Substance Use Type: denies use *Occupational Status:: employed Housing: house Household Members: spouse *Travel in the last 8 weeks: None Family Hx:: Cancer, Coronary Artery Disease, Heart Attack Review of Systems - Review of Systems Review of systems:: pertinent systems reviewed and negative unless documented below Meds Home Medications Medication Instructions Recorded Confirmed Type Aspirin [Aspirin 81mg chewable 81 mg PO DAILY 02/21/19 08/14/21 History tab] Atorvastatin Calcium [Lipitor 20mg 20 mg PO HS 02/21/19 08/14/21 History Tablet*] Esomeprazole Magnesium [Nexium] 40 mg PO DAILY 02/21/19 08/14/21 History Metoprolol Succinate [Toprol XL 25 mg PO DAILY 02/21/19 08/14/21 History 25mg tablet] cetirizine 10 mg tablet 10 mg PO DAILY 05/14/19 08/14/21 History fluticasone propionate 50 1 spray INTRANASAL DAILYP PRN 05/14/19 08/14/21 History mcg/actuation nasal spray,suspension Clopidogrel Bisulfate [Clopidogrel 75 mg PO DAILY 08/14/21 08/14/21 History 75mg Tab] Furosemide [Furosemide 20mg Tab*] 10 mg PO DAILY 08/14/21 08/14/21 History Spironolactone [Spironolactone 25 mg PO DAILY 08/14/21 08/14/21 History 25mg Tablet] Allergies Allergy/AdvReac Type Severity Reaction Status Date / Time No Known Allergies Allergy Verified 08/13/21 19:53 Exam Vital signs and Labs for Last 24 Hours: Temp Pulse Resp BP Pulse Ox 97.5 F L 60 16 131/66 95 08/14/21 07:19 08/14/21 07:19 08/14/21 07:19 08/14/21 07:19 08/14/21 07:19 Laboratory Results - last 24 hr 08/13/21 19:44: WBC 9.2, RBC 5.00, Hgb 14.8, Hct 43.3, MCV 86.6, MCH 29.6, MCHC 34.2, RDW 13.9, Plt Count 317, MPV 7.9, Neut % (Auto) 58.7, Lymph % (Auto) 29.9, [place] % (Auto) 7.1, Eos % (Auto) 3.1, Baso % (Auto) 1.2, Neut # (Auto) 5.4, Lymph # (Auto) 2.7, [place] # (Auto) 0.7, Eos # (Auto) 0.3, Baso # (Auto) 0.1 08/13/21 19:44: Sodium 141, Potassium 4.0, Chloride 105, Carbon Dioxide 27, Anion Gap 13.0, BUN 10, Creatinine 1.20, Estimated Creat Clear 112, Estimated GFR 62, Est GFR ( Amer) 74, Glucose 110 H, Calcium 9.6, Total Bilirubin 0.3, AST 32, ALT 25, Alkaline Phosphatase 107, Total Protein 8.0, Albumin 4.4, Globulin 3.6 H, Albumin/Globulin Ratio 1.2, Amylase 79, Lipase 83 08/13/21 21:50: Urine Color Brown, Urine Appearance Turbid, Urine pH 5.0, Ur Specific [place] >= 1.030, Urine Protein 2+, Urine Glucose (UA) Negative, Urine Ketones Trace, Urine Blood 3+, Urine Nitrate Negative, Urine Bilirubin Negative, Urine Urobilinogen 0.2, Ur Leukocyte Esterase Negative, Urine RBC Tntc, Urine WBC 5-10, Ur Squamous Epith Cells 3-5, Calcium Oxalate Crystal Trace, Urine Bacteria 4+ 08/13/21 23:14: SARS-CoV-2 (PCR) Not detected, Influenza A Untype (PCR) Not detected, Influenza Type B (PCR) Not detected 08/14/21
--- NOTE | 2021-08-14 19:32 | PC.NURSE ---
Pt has only had 200 cc u/othis shift and has been drinking minimally. Called Dr. Cesar litigation associate and he ordered NS @ 150 ML/HR and toradol 30 mg q 6 hrs prn. Pt stated he was having some breakthrough pain. He stated pain had eased after resting, although this RN went on and gave toradol 30 mg at 1820. Have strained urine and not noted any stones. Urine is dark and cloudy. has been at bedside this shift.
[2021-08-15] VITALS (18 sets, daily range): BP systolic 107–138; BP diastolic 48–75; PULSE 53–71; RESP 14–20; TEMP 36.4–36.9; O2SAT 92–100; BMI 34.0
--- NOTE | 2021-08-15 | XR_ITS ---
PROCEDURE: XR KUB CLINICAL INDICATION: URETEROSCOPY WITH STENT COMPARISON: No exams were available for comparison FINDINGS: Fluoroscopy time: 1 minutes and 49 seconds Single images submitted with the C-arm demonstrating a right ureteral stent in place with the upper aspect overlying the right upper quadrant. IMPRESSION: Status post fluoroscopic assisted stent placement Dictated by: Fahad Jean MD 08/25/2021 15:08 Fahad Jean MD in [facility] 08/25/2021 15:08
--- NOTE | 2021-08-15 04:14 | PC.NURSE ---
Pt a + o x4 t/o shift. C/O pain in right flank x1. Medicated with 0.5 mg Dilaudid per MAR. No other complaints voiced to staff. Pt urine has been strained, no stones collected. Pt currently resting in bed. VSS. CB in reach. Will continue to monitor.
--- NOTE | 2021-08-15 07:57 | HMH.ANESCL ---
[facility] Anesthesia Checklist - Patient Identification Patient Identification: Arm Band - Structural Data Admitted From: Inpatient Planned Operative Procedure/s: Ureteroscopy Consent for Planned Operative Procedure(s) Verified: Yes - NPO Status Verified Time NPO: 00:00 - Additional verifications Anesthesia Reactions: No - Airway Assessment C-Spine Mobility Assessed: Yes TMJ Mobility Assessed: Yes Dentition: Good Dentition - Neurological Assessment Level of Consciousness: Awake Hx Seizures: No Numbness or tingling in extremities: No - Anesthesia Plan Anesthesia Risk discussed: Yes Anesthesia Plan: Verified ASA Class: III Anesthesia Type: General [facility] History I have reviewed the patient's past medical history: Yes Medical History: Reports:: Congestive Heart Failure, Gastroesophageal Reflux Disease(GERD), Hiatal Hernia, Hyperlipidemia, Hypertension, Kidney Stones Denies:: Cancer, Diabetes Mellitus Type 1, Diabetes Mellitus Type 2, Internal Pacemaker, Lung Disease, MRSA, Seizures *Have you ever received a pneumonia vaccine?: No *Have you received a flu vaccine this season?: No Other Medical History: Reports: Arthritis Anesthesia experience/problems:: None Laterality Cases: Bilateral: Arthroscopy Knee Other Surgeries: Yes: Appendectomy, Cardiac Catheterization, Other. No: Pacemaker Amputation: No Fractures: No - *Social History Last grade of school completed: High school graduate Smoking Status: Never smoker Alcohol Intake: never Substance Use Type: denies use *Occupational Status:: employed Housing: house Household Members: spouse *Travel in the last 8 weeks: None Family Hx:: Cancer, Coronary Artery Disease, Heart Attack
--- NOTE | 2021-08-15 08:21 | HMH.ACPN2 ---
Internal Medicine - PN: Subj *Date: 08/15/21 *Time: 08:21 Interval history: Patient is in some pain today but otherwise under no distress. No chest pain or shortness of air. Pain is in his flank Exam Vital signs and Labs for Last 24 Hours: Temp Pulse Resp BP Pulse Ox 98.3 F 64 18 127/70 92 L 08/15/21 07:56 08/15/21 07:56 08/15/21 07:56 08/15/21 07:56 08/15/21 07:56 I & O for Last 24 hours: Intake & Output 08/12/21 08/13/21 08/14/21 08/15/21 11:59 11:59 11:59 11:59 Intake Total 840 / 840 1200 / 1200 Balance 840 / 840 1200 / 1200 Weight 268 lb 5 oz 274 lb 3 oz Microbiology Reports for the Last 24 Hours: Microbiology 08/13/21 21:50 Urine,Clean Catch Urine Culture - Preliminary NO GROWTH AFTER 24 HOURS - Constitutional no acute distress - *Routine HEENT Exam Head: Present: normocephalic Eye: Present: EOMI, PERRL ENT: Present: mucous membranes moist - *Routine Neck Exam Present: supple. Absent: lymphadenopathy - *Routine Respiratory Exam Present: CTA bilaterally - *Routine Cardiovascular Exam Present: RRR - *Routine Abdominal Exam Present: soft, normoactive bowel sounds. Absent: tenderness - *Routine Extremities Exam Absent: cyanosis, clubbing, edema - *Routine Skin Exam Present: warm. Absent: rash - *Routine Neurological Exam Present: alert, oriented X3 Assessment and Plan (1) Ureteral stone with hydronephrosis Status: Acute Category: Medical Code(s): N13.2 - Hydronephrosis with renal and ureteral calculous obstruction (2) Nephrolithiasis Status: Acute Category: Medical Code(s): N20.0 - Calculus of kidney (3) HLD (hyperlipidemia) Status: Chronic Qualifiers: Hyperlipidemia type: mixed hyperlipidemia Qualified Code(s): E78.2 - Mixed hyperlipidemia Category: Medical Code(s): E78.5 - Hyperlipidemia, unspecified (4) Obesity (BMI 35.0-39.9 without comorbidity) Status: Chronic Category: Medical Code(s): E66.9 - Obesity, unspecified - Assessment and plan all Dx Assessment and Plan for all problems:: Appreciate urology input today. If stone extraction/stent placement goes well may discharge patient this afternoon.
--- NOTE | 2021-08-15 08:43 | PC.NURSE ---
pt off floor with surgery
--- NOTE | 2021-08-15 09:37 | P.PN_ITS ---
[facility] Anesthesia Record Part I Intake, IV Amount: 100 Estimated blood loss (mL): 0 Urine output (mL): 0 Blood Pressure: 136/57 SaO2: 92 Pulse Rate: 64 Respiratory Rate: 18 Temperature: 97.6 F Patient is:: Awake Stable to PACU at:: 09:37
--- NOTE | 2021-08-15 10:20 | PC.NURSE ---
1005-detailed report called to ELIZABETH Sheehan 1007-pt transported to 2nd floor room 203 via hospital bed w/swapna rails up and left in care of ELIZABETH Sheehan with bed locked in lowest position, vss, pt stable
--- NOTE | 2021-08-15 10:21 | PC.NURSE ---
pt returned from pacu. He is alert and oriented, Denies pain. c/o feeling the need to void constantly. educated. post op vitals initiated. Will continue to monitor
--- NOTE | 2021-08-15 10:30 | HMH.OPNOTE ---
Date of procedure: 08/15/21 Pre-op Diagnosis:: 4 mm right proximal ureteral stone Post-op Diagnosis:: 4 mm proximal ureteral stone/mid ureteral stricture Procedure performed:: Right ureteroscopy, stone manipulation, right stent placement Surgeon:: Иван Conroy MD FIRE PRODUCTION OPERATOR:: Vannessa Lozoya Anesthesia: LMA Estimated blood loss (mL): 0 Clinical Note:: 61-year-old white male with history of nephrolithiasis admitted with a right renal colic. CT scan shows a 4 mm proximal right ureteral stone with hydronephrosis. He also has a 1 cm stone in the left renal pelvis for which he is asymptomatic. He presents for urologic management. Operative findings:: Right proximal ureteral stone manipulated into the renal pelvis, right mid ureteral stricture which was too tight to pass our flexible ureteroscope for a 6 Cymraes ureteral stent. 24.8 Cymraes stent was able to be passed. Operative note:: Patient taken to the operating room after informed consent was obtained. Was placed on the operating table in the supine position and general anesthesia administered. Sequential compression devices placed. He was on antibiotics on the floor. He was placed into the dorsal lithotomy position and prepped and draped in the standard surgical fashion. 20 Tomas passed into the urethra and into the bladder without difficulty. The bladder was examined in a systematic fashion and no abnormalities were noted. The ureteral orifices in their normal anatomic position. A 0.035 guidewire passed into the right ureteral orifice and under fluoroscopy passed up to the renal pelvis without resistance. There was some brownish debris elicited with passage of the wire indicating some relief of obstruction. We then removed the cystoscope and passed our flexible ureteroscope over a second guidewire that had been placed. There was some resistance to passing the scope into the right ureteral orifice so the ureteroscope was removed and then 09/05 navigator ureteral sheath was passed over the guidewire and into the right ureter. The sheath would not pass past a point in the junction between the mid and distal ureter. The ureteroscope was passed through the sheath and into the right ureter. The ureteroscope passed to the mid ureter where another stricture was noted in I was unable to pass the ureteroscope by this point. The ureteroscope was then removed and the cystoscope was replaced. A 5 Cymraes ureteral catheter was passed over the guidewire and the proximal ureteral stone was manipulated into the renal pelvis. A 6 x 26 Cymraes stent was then attempted to be passed over the guidewire but there was resistance at the point of the mid ureteral stricture so the 6 Cymraes stent was removed and a 4.8 Cymraes stent was passed over the guidewire and it passed up without difficulty. Under fluoroscopy the wire was removed and a good curl was noted proximally and distally. The string was left on for later removal. Urojet placed into the urethra and patient transported to the recovery in stable condition. I discussed the findings with the patient's and we will bring him back this week and with an x-ray and discussed ESWL the left kidney stone and assess the 4 mm right stone at that time as well. Condition: stable Disposition: PACU Specimens:: None Complications:: None
--- NOTE | 2021-08-15 14:26 | HMH.DCSUM ---
General - General Admission date:: 08/14/21 Discharge date: 08/15/21 HPI HPI: Mr. Vazquez is a 61-year-old male with complaint of right flank/back pain. Has had a history of kidney stones in the left side. Noted dark urine over the past 24 hours. On presentation to the ER, work-up initiated. CT of abdomen positive for 4 mm stone at the UPJ junction. Mild hydronephrosis. Urine with gross hematuria. Given obstruction, pain control needs, patient admitted to medicine for further management. Urology consulted. On assessment this morning, patient states he still having pain. Making some urine, remains dark. Denies nausea, vomiting, fever. Pain responding to Toradol and Dilaudid. Of note, patient is on aspirin and Plavix. No recent stents at our facility. Plavix reportedly started in March. We will continue to hold for now given bleeding and need for intervention. Hospital Course Hospital Course: Patient was admitted for observation and pain control, blood and urine cultures were obtained which were negative at the time of discharge. Urology consult the patient on the day after admission but patient had eaten that morning and as a result cystoscopy was held over until the next morning and was performed without difficulty. Appreciate urology input and operative notes were reviewed. Briefly, stent was placed, left in because of significant obstructive issues. Follow-up plan has been made by urology. Patient did well postoperatively and is eating and drinking well with much less pain. Plan will be to discharge home. Urology appointment has been scheduled, we will schedule follow-up in our office for with Ms. Pate, antibiotics and pain control prescribed as noted. Commended continuing holding Plavix given very remote history of atherosclerotic stents and current foreign body in bladder with risk of bleeding. Objective Vital signs: Temp Pulse Resp BP Pulse Ox 98.2 F 63 20 138/63 95 08/15/21 10:07 08/15/21 10:07 08/15/21 10:07 08/15/21 10:07 08/15/21 10:07 no acute distress - *Routine HEENT Exam Head: Present: normocephalic Eye: Present: EOMI, PERRL ENT: Present: mucous membranes moist - *Routine Neck Exam Present: supple - *Routine Respiratory Exam Present: CTA bilaterally - *Routine Cardiovascular Exam Present: RRR - *Routine Abdominal Exam Present: soft, normoactive bowel sounds. Absent: tenderness - *Routine Extremities Exam Absent: cyanosis, clubbing, edema - *Routine Skin Exam Present: warm. Absent: rash - Detailed Eye Exam Eyelids: Bilateral normal inspection Results Labs on day of discharge: Preliminary micro results at discharge 08/13/21 21:50 Urine Culture - Preliminary Urine,Clean Catch NO GROWTH AFTER 24 HOURS DS: Diagnosis - Discharge Diagnosis (1) Ureteral stone with hydronephrosis Status: Resolved (2) Nephrolithiasis Status: Chronic (3) HLD (hyperlipidemia) Status: Chronic (4) Obesity (BMI 35.0-39.9 without comorbidity) Status: Chronic Discharge Plan - Patient Discharge Instructions ACTIVITY: Continue current activity DIET: continue same diet, low salt diet Patient Instructions: Kidney Stones -- Adult, Kidney Infection, DI for Ureteroscopy - Follow up Plan Follow up with: Martha Pate APRN [Nurse Practitioner] - 08/20/21 Disposition: Home, Self-Care Condition at discharge:: Improved Home Medications: Home Medications Medication Instructions Recorded Confirmed Type Aspirin [Aspirin 81mg chewable 81 mg PO DAILY 02/21/19 08/14/21 History tab] Atorvastatin Calcium [Lipitor 20mg 20 mg PO HS 02/21/19 08/14/21 History Tablet*] Esomeprazole Magnesium [Nexium] 40 mg PO DAILY 02/21/19 08/14/21 History Metoprolol Succinate [Toprol XL 12.5 mg PO DAILY 02/21/19 08/14/21 History 25mg tablet] cetirizine 10 mg tablet 10 mg PO DAILY 05/14/19 08/14/21 History fluticasone propionate 50
--- NOTE | 2021-08-15 14:43 | HMH.PHAINT ---
MEDICATION DISCHARGE COUNSELING COMPLETED. DISCUSSED HOLDING THE PLAVIX DUE TO BLOOD IN URINE. PATIENT STATED THAT HE DIDN'T THINK HIS HEART DR WOULD WANT THAT. I ADVISED TO TELL THE ART DEALER HE WAS HAVING BLOOD IN HIS URINE AND TO ADDRESS THAT AT THIS FOLLOW UP UROLOGY APPOINTMENT. DISCUSSED THE LEVAQUIN, HOW TO TAKE, SIDE EFFECTS. PATIENT ENDORSED NO FURTHER QUESTIONS.
--- NOTE | 2021-08-15 15:17 | PC.NURSE ---
pt has been discharged @ 1505. Took all of his belongings with him and voiced understanding of all discharge education and follow up appts. will call Tuesday in am to schedule appt for per Dr. Ron. He denies any pain @ this time. Has urinated 3x. picked up prescription form clinic pharmacy. Educated to contact pcp or surgeon if any symptoms worsen
--- NOTE | 2021-08-17 07:12 | P.PN_ITS ---
[facility] Anesthesia Record Part II Discharge Time: 10:07 Destination: Second Floor PACU nurse assessment reviewed?: Yes Patient Condition:: Good Anesthesia Complications:: None Swallowing reflex intact?: Yes Cyanosis?: No Blood Pressure: 138/63 Pulse Rate: 63 Temperature: 98.2 F Mental Status: Alert & Oriented Pain level:: 0 Nausea and/or vomitting:: None Intake, IV Amount: 0
[2021-08-17 07:13] VITALS: BP 138/63; PULSE 63; TEMP 36.8
== END 2021-08-15 15:00 | disposition home or self-care (01) ==
LOC: ER 23:27 → 2ND 23:57
PROVIDERS: Emergency Medicine; Urology; Admitting Provider Internal Medicine Adolescent Medicine; Emergency Provider Internal Medicine Adolescent Medicine; PCP Internal Medicine Adolescent Medicine; Visit Provider Internal Medicine Adolescent Medicine
PROC: (CPT 52352; principal; 2021-08-15 08:00)
DX: N13.2 Hydronephrosis with renal and ureteral calculous obstruction (principal); I11.0 Hypertensive heart disease with heart failure; I50.9 Heart failure, unspecified; E78.5 Hyperlipidemia, unspecified; Z20.822 Contact with and (suspected) exposure to COVID-19
CPT/HCPCS: 52352; 52332; 36415; 74018; 74176; 76000; 80048; 80053; 81001; 82150; 83690; 85025; 85610; 87040; 87086; 99284; C2617; C9803; G0378; J2405; U0003; U0005

== ENCOUNTER → 2021-08-20 11:32 | Outpatient (CLI) | payer SELFPAY ==
--- NOTE | 2021-08-20 11:37 | XR_ITS ---
PROCEDURE: XR KUB CLINICAL INDICATION: urethral stone COMPARISON: CT CT ABDOMEN PELVIS WO CON from 08/13/2021 CR XR KUB from 08/15/2021 FINDINGS: A right ureteral stent is in place with the proximal aspect in the region the renal pelvis and the distal aspect curled in the region of the urinary bladder. A 3 mm stone is suspected at the right UPJ/proximal ureter region. 9 mm stone overlies the left renal pelvis. There is mild lumbar scoliosis convex left IMPRESSION: Status post right ureteral stent placement with proximal right ureteral stone and left nephrolithiasis. Dictated by: Fahad Jean MD 08/24/2021 07:32 Fahad Jean MD in [facility] 08/24/2021 07:32
== END ==
PROVIDERS: PCP Nurse Practitioner Family; Visit Provider Urology
DX: N21.1 Calculus in urethra (principal)
CPT/HCPCS: 74018

== ENCOUNTER → 2021-08-25 09:28 | Outpatient (CLI) | payer SELFPAY ==
--- NOTE | 2021-08-25 09:34 | XR_ITS ---
PROCEDURE: XR KUB CLINICAL INDICATION: urethral stone COMPARISON: CR XR KUB from 08/20/2021 FINDINGS: There is a right ureteral stent present in satisfactory position. A 3 mm stone is present in the lower pole of the right kidney. A 9 mm stone is noted in the mid aspect of the left kidney with smaller stones along the lower pole on the left. No obvious ureteral calculus. Previously noted stone along the proximal right ureter is no longer apparent. Mild lumbar scoliosis convex left. IMPRESSION: Right ureteral stent in place with bilateral nephrolithiasis Dictated by: Fahad Jean MD 08/25/2021 18:13 Fahad Jean MD in [facility] 08/25/2021 18:13
== END ==
PROVIDERS: PCP Nurse Practitioner Family; Visit Provider Urology
DX: N21.1 Calculus in urethra (principal)
CPT/HCPCS: 74018

== ENCOUNTER 2021-08-26 13:22 | Inpatient (IN) | payer SELFPAY ==
[2021-08-26] VITALS (9 sets, daily range): BP systolic 91–161; BP diastolic 48–78; PULSE 91–105; RESP 17; TEMP 36.7–37; O2SAT 90–96; BMI 33.7; BMI 33.6
--- NOTE | 2021-08-26 13:42 | CT_ITS ---
PROCEDURE: CT ABDOMEN PELVIS W CON CLINICAL INDICATION: abdominal pain Right-sided abdominal and flank pain COMPARISON: CT ABDPELW/O CT ABD PELVIS W/O CONTRAST from 05/04/[address] ABDOMEN PELVIS WO CON from 08/13/2021 TECHNIQUE: IV Contrast: 75ML Isovue 370 Oral Contrast None Axial images obtained with sagittal and coronal reformats. All CT scans at the facility use one or more dose reduction, viz: automated exposure control, ma/kV adjustment per patient size (including targeted exams where dose is matched to indication, i.e. head), or iterative reconstruction technique. FINDINGS: LOWER THORAX: No acute finding ABDOMEN & PELVIS: There is a subtle hypodensity in the right hepatic lobe at 7 mm nonspecific. An additional hypodensity is present in the right hepatic lobe inferiorly and laterally at 11 mm possibly due to small cyst unchanged from an older CT of 05/04/2015. There is a small hiatal hernia. The spleen, adrenal glands, and pancreas have an unremarkable appearance. No radiopaque gallstones apparent. A 7 mm stone is present in the left renal pelvis non-obstructing. There is mild right hydronephrosis and hydroureter secondary to a 3 mm stone in the mid to distal right ureter at the S1 level. There is mild haziness of the [place] ureteral fat proximal to this region. No evidence of appendicitis. No intestinal obstruction or free air. There is a tiny umbilical hernia containing fat. There is mild colonic diverticulosis. No evidence of diverticulitis. Degenerative changes are present in the lumbar spine with mild lumbar scoliosis convex left. There is sclerosis of the left SI joint with bridging anteriorly IMPRESSION: 3 mm stone in the mid to distal right ureter at the S1 level with mild right-sided hydronephrosis and hydroureter. Left nephrolithiasis. Nonspecific hepatic hypodensities possibly due to small cysts. Stability may be confirmed with follow-up. Dictated by: Fahad Jean MD 08/26/2021 16:05 Fahad Jean MD in [facility] 08/26/2021 16:05
--- NOTE | 2021-08-26 14:14 | PC.NURSE ---
Called rad spoke with yoli to notify about ct abdomen.
[2021-08-26 14:28] LABS: Chloride 104 mmol/L (98-107); Potassium 3.7 mmoL/L (3.5-5.1); Sodium 137 mmol/L (136-145)
[2021-08-26 14:31] LABS: Alanine Aminotransferase 25 U/L (12-78); Albumin Level 3.8 g/dl (3.5-5.0); Albumin/Globulin Ratio 1.2 (1.1-1.8); Alkaline Phosphatase 101 U/L (38-126); Amylase 58 U/L (30-110); Anion Gap 13.7 mEq/L (5-15); Aspartate Amino Transferase 28 U/L (17-59); Bilirubin,Total 1.1 mg/dl (0.2-1.3); Blood Urea Nitrogen 10 mg/dl (9-20); Calcium 8.9 mg/dl (8.4-10.2); Carbon Dioxide 23 mmol/L (22.0-30.0); Creatinine Clearance Estimated 122 mL/min (50-200); Estimated Glomerular Filt Rate 68 ml/min (>60); GFR (African American) 82 ML/MIN (>60); Globulin 3.2 g/dL (1.3-3.2); Glucose 109 mg/dl (74-100); Lipase 50 U/L (23-300)
[2021-08-26 14:33] LABS: Lactic Acid 2.1 mmol/L (0.7-2.1)
--- NOTE | 2021-08-26 14:43 | HMH.EDGENADL ---
ED Disposition Clinical Impression: Ureteral calculus, Pyelonephritis Disposition: Admitted as Observation Condition on Discharge: Fair Referrals: Martha Pate APRN [Primary Care Provider] - - Critical Care Critical Care Time: No Attestation: On 08/26/21, the high probability of a clinically significant, sudden or life threatening deterioration of the following system(s) required my full and direct attention, intervention and personal management. The time I documented below is in addition to time spent performing reported procedures but includes the following listed in this critical care notation. Medical Decision Making - Medical Records Medical records reviewed: Yes: I reviewed the patient's medical records. MR Comment: Reviewed prior CT abdomen and pelvis which showed a 4 mm right ureteral calculus. KUB performed yesterday showed no signs of ureteral calculus prior to stent removal. Reviewed Dr. Conroy's office note from yesterday. - Tay[place] Inquiry Pt receiving controlled substance: No Vital Signs: 08/26/21 13:34 08/26/21 14:31 08/26/21 15:00 Temperature 98.6 F Temperature Source Oral Pulse Rate 98 H 96 H Pulse Rate [Right Radial] 105 H Respiratory Rate 17 Blood Pressure 122/48 L 123/50 L Blood Pressure [Right Arm] 161/77 H Blood Pressure Mean 72 69 Blood Pressure Mean [Right Arm] 105 Blood Pressure Source [Right Arm] Automatic Cuff Blood Pressure Position [Right Arm] Sitting 02 Sat by Pulse Oximetry 94 L 91 L 90 L Oxygen Delivery Method Room Air - Lab Data Lab Results 08/26/21 14:08: Sodium 137, Potassium 3.7, Chloride 104, Carbon Dioxide 23, Anion Gap 13.7, BUN 10, Creatinine 1.10, Estimated Creat Clear 122, Estimated GFR 68, Est GFR ( Amer) 82, Glucose 109 H, Calcium 8.9, Total Bilirubin 1.1, AST 28, ALT 25, Alkaline Phosphatase 101, Total Protein 7.0, Albumin 3.8, Globulin 3.2, Albumin/Globulin Ratio 1.2, Amylase 58, Lipase 50 08/26/21 14:08: Lactate 2.1 08/26/21 14:08: Urine Color Yellow, Urine Appearance Cloudy, Urine pH 5.5, Ur Specific [place] >= 1.030, Urine Protein Trace, Urine Glucose (UA) Negative, Urine Ketones Negative, Urine Blood 3+, Urine Nitrate Negative, Urine Bilirubin Negative, Urine Urobilinogen 0.2, Ur Leukocyte Esterase 1+ A, Urine RBC 10-20, Urine WBC 20-50, Ur Squamous Epith Cells 3-5, Urine Bacteria 2+ 08/26/21 14:48: WBC 15.1 H, RBC 4.38 L, Hgb 12.8 L, Hct 38.5 L, MCV 87.8, MCH 29.1, MCHC 33.2, RDW 13.6, Plt Count 267, MPV 7.3 L, Neut % (Auto) 90.1 H, Lymph % (Auto) 5.3 L, [place] % (Auto) 3.6, Eos % (Auto) 0.7, Baso % (Auto) 0.4, Neut # (Auto) 13.6 H, Lymph # (Auto) 0.8, [place] # (Auto) 0.5, Eos # (Auto) 0.1, Baso # (Auto) 0.1, Total Counted 100, Neutrophils % (Manual) 91 H, Lymphocytes % (Manual) 3 L, Monocytes % (Manual) 6, Platelet Estimate Normal Result diagrams: 08/26/21 14:48 08/26/21 14:08 Orders (Tests/Meds): ED MEDICATIONS Generic Name Dose Route Start Last Admin Trade Name Freq PRN Reason Stop Dose Admin Cefepime HCl 2 gm/ Sodium 100 mls @ 100 mls/hr 08/26/21 16:30 Chloride IV 09/09/21 16:29 Q12H SUZANNE Discontinued Medications Generic Name Dose Route Start Last Admin Trade Name Freq PRN Reason Stop Dose Admin Sodium Chloride 1,000 mls @ 999 mls/hr 08/26/21 13:45 08/26/21 14:03 Sod Chlor 0.9% 1000ml Bag IV 08/26/21 14:45 999 mls/hr .Q1H1M SUZANNE Administration Iopamidol 75 ml 08/26/21 15:33 08/26/21 15:34 Iopamidol-370 (76%);100ml Bottle IV 08/26/21 15:34 75 ml ONCE ONE Administration Ketorolac Tromethamine 30 mg 08/26/21 13:43 08/26/21 14:03 Ketorolac 30mg/Ml Vial IV 08/26/21 13:44 30 mg ONCE ONE Administration Morphine Sulfate 4 mg 08/26/21 16:30 08/26/21 16:37 Morphine 4mg/Ml Syringe IV 08/26/21 16:31 4 mg ONCE ONE Administration Ondansetron HCl 4 mg 08/26/21 13:44 08/26/21 14:03 Ondansetron 4mg/2ml Vial IV 08/26/21 13:45 4 mg ONCE ONE Administration Ondansetr
[2021-08-26 15:07] LABS: Basophils # 0.1 K/mm3 (0-0.2); Basophils % 0.4 % (0.1-2.0); Eosinophils # 0.1 K/mm3 (0.0-0.4); Eosinophils % 0.7 % (0.1-12.0); Hematocrit 38.5 % (42.0-52.0); Hemoglobin 12.8 g/dL (14.1-18.0); Lymphocytes # 0.8 K/mm3 (0.7-4.5); Lymphocytes % 5.3 % (10-50); Mean Corpuscular HGB Conc 33.2 g/dL (31.8-35.4); Mean Corpuscular Hemoglobin 29.1 pg (27.0-31.2); Mean Corpuscular Volume 87.8 fl (80-94); Mean Platelet Volume 7.3 fl (7.4-10.4); Monocytes # 0.5 K/mm3 (0.1-1.0); Monocytes % 3.6 % (1.7-9.3); Neutrophils # 13.6 K/mm3 (1.8-7.8); Neutrophils % 90.1 % (37.0-80.0); Platelet Count 267 K/mm3 (142-424); Red Blood Count 4.38 M/mm3 (4.60-6.20); Red Cell Distribution Width 13.6 % (11.5-17.5); White Blood Count 15.1 K/mm3 (4.8-10.8)
--- NOTE | 2021-08-26 15:07 | PC.NURSE ---
called Diana in rad to reask someone to come and do a CT abdomen on Pt.
[2021-08-26 15:11] LABS: MANUAL DIFFERENTIAL MANUAL DIFFERENTIAL (MANUAL DIFF)
[2021-08-26 15:55] LABS: Microscopic, Urine URINE MICROSCOPIC (MICROSCOPIC)
[2021-08-26 15:59] LABS: Appearance,Urine CLOUDY (Clear); Bilirubin,Urine Negative (Negative); Blood, Urine 3+ (Negative); Color,Urine YELLOW (Yellow); Glucose,Urine (UA) Negative (Negative); Ketones,Urine Negative (Negative); Leukocyte Esterase,Urine 1+ (Negative); Nitrate,Urine Negative (Negative); PH,Urine 5.5 (5.0-8.5); Protein,Urine TRACE (Negative); Specific Gravity, Urine >= 1.030 (1.005-1.030); Urobilinogen,Urine 0.2 EU/dl (0.2)
[2021-08-26 16:23] LABS: Lymphocytes % 3 % (10-50); Monocytes % 6 % (2-9); Neutrophils % 91 % (42-76); Platelet Estimate Normal; Total Cells Counted 100
[2021-08-26 16:25] LABS: Bacteria,Urine 2+ /lpf; WBC,Urine 20-50 #/hpf (0-3)
--- NOTE | 2021-08-26 16:37 | PC.NURSE ---
reciprocating drill operator paging dr. small
--- NOTE | 2021-08-26 16:38 | PC.NURSE ---
LEONOR DIETZ speaking with dr small
[2021-08-26 16:57] LABS: Coronavirus 19, PCR Not Detected (NotDetected); Influenza A, PCR Not Detected (NotDetected); Influenza B, PCR Not Detected (NotDetected)
--- NOTE | 2021-08-26 17:34 | PC.NURSE ---
Spoke with joselito from lab, who passed a message from [facility] that covid swab is negative.
--- NOTE | 2021-08-26 17:37 | PC.NURSE ---
Called report to eleazar JOHNSON
--- NOTE | 2021-08-26 17:47 | PC.NURSE ---
pt arrived to the floor at this time
[2021-08-26 18:22] LABS: Reflex Lactic Add Lactic Reflex
[2021-08-26 19:18] LABS: Lactic Acid Follow Up (RFLX 1) 1.2 mmol/L (0.7-2.1)
--- NOTE | 2021-08-26 21:14 | HMH.HP ---
*Admission Date: 08/26/21 *Chief complaint: Left flank pain and chills *History of present illness: Complains of fevers and chills. States that he started chilling last night and had a temperature 101. Chills returned again today so he came to the emergency department. He was given some sort of fever medication this morning but does not know what it was. States that he had a ureteral stone and had a stent in his ureter since a week ago which was taken out yesterday in the office by Dr. Conroy. He said at that time Dr. Conroy told him that he thought he might have a little infection in his testicle and started him on an antibiotic. He has had 3 doses. First dose of his antibiotic was yesterday afternoon, before fevers and chills started. He says that Dr. Conroy thought he might have a mild infection in his testicle because it had been a little sore for a few days. However, he now says that his testicular soreness is completely gone and he has had no swelling of the testicle. He has some right flank pain. He has nausea. Above note per ER. CT scan showed evidence of a 3 mm stone in the mid ureter with evidence of mild hydronephrosis. Admitted to hospital for IV antibiotics, fluids, pain control and urology consultation. [facility] History I have reviewed the patient's past medical history: Yes Medical History: Reports:: Congestive Heart Failure, Gastroesophageal Reflux Disease(GERD), Hiatal Hernia, Hyperlipidemia, Hypertension, Kidney Stones Denies:: Cancer, Diabetes Mellitus Type 1, Diabetes Mellitus Type 2, Internal Pacemaker, Lung Disease, MRSA, Seizures *Have you ever received a pneumonia vaccine?: No *Have you received a flu vaccine this season?: No Other Medical History: Reports: Arthritis Laterality Cases: Bilateral: Arthroscopy Knee Other Surgeries: Yes: No Previous Surgery, Appendectomy, Cardiac Catheterization, Colonoscopy, Hernia Repair, Ureter Stent, Other (PFO Closure). No: Pacemaker Amputation: No Fractures: No - *Social History Smoking Status: Never smoker Alcohol Intake: never Substance Use Type: denies use *Occupational Status:: employed Housing: house Household Members: spouse *Travel in the last 8 weeks: None Family Hx:: No significant family history Review of Systems - Review of Systems Review of systems:: pertinent systems reviewed and negative unless documented below Meds Home Medications Medication Instructions Recorded Confirmed Type Aspirin [Aspirin 81mg chewable 81 mg PO DAILY 02/21/19 08/26/21 History tab] Atorvastatin Calcium [Lipitor 20mg 20 mg PO HS 02/21/19 08/26/21 History Tablet*] Metoprolol Succinate [Toprol XL 12.5 mg PO DAILY 02/21/19 08/26/21 History 25mg tablet] cetirizine 10 mg tablet 10 mg PO DAILY 05/14/19 08/26/21 History fluticasone propionate 50 1 spray INTRANASAL DAILYP PRN 05/14/19 08/26/21 History mcg/actuation nasal spray,suspension Furosemide [Furosemide 20mg Tab*] 10 mg PO DAILY 08/14/21 08/26/21 History Spironolactone [Spironolactone 12.5 mg PO DAILY 08/14/21 08/26/21 History 25mg Tablet] Allergies Allergy/AdvReac Type Severity Reaction Status Date / Time No Known Allergies Allergy Verified 08/26/21 16:55 Exam Vital signs and Labs for Last 24 Hours: Temp Pulse Resp BP Pulse Ox 98.0 F 91 H 17 91/51 L 94 L 08/26/21 17:53 08/26/21 18:23 08/26/21 18:23 08/26/21 17:53 08/26/21 18:23 Laboratory Results - last 24 hr 08/26/21 14:08: Sodium 137, Potassium 3.7, Chloride 104, Carbon Dioxide 23, Anion Gap 13.7, BUN 10, Creatinine 1.10, Estimated Creat Clear 122, Estimated GFR 68, Est GFR ( Amer) 82, Glucose 109 H, Calcium 8.9, Total Bilirubin 1.1, AST 28, ALT 25, Alkaline Phosphatase 101, Total Protein 7.0, Albumin 3.8, Globulin 3.2, Albumin/Globulin Ratio 1.2, Amylase 58, Lipase 50 08/26/21 14:08: Lactate 2.1 08/26/21 14:08: Urine Color Yellow, Urine Appearance Cloudy, Urine pH 5.5, Ur Specific [place] >= 1.03
[2021-08-27 00:48] VITALS: BP 135/49; PULSE 85; RESP 18; TEMP 37.6; O2SAT 97
[2021-08-27 04:00] VITALS: BP 116/43; PULSE 92; RESP 16; TEMP 38.1; O2SAT 90
--- NOTE | 2021-08-27 04:45 | PC.NURSE ---
pt complained of right flank pain, pain med given as ordered with some relief. pt with positive blood cultures called at 0400, pt febrile through the evening 100.6, attempted to treat with tylenol in which patient vomited after administration. urine continues to be strained with no signs of calculi.
[2021-08-27 05:13] VITALS: BMI 33.4
[2021-08-27 06:49] LABS: Basophils # 0.1 K/mm3 (0-0.2); Basophils % 0.4 % (0.1-2.0); Eosinophils % 0.1 % (0.1-12.0); Hematocrit 39.2 % (42.0-52.0); Hemoglobin 12.8 g/dL (14.1-18.0); Lymphocytes # 0.9 K/mm3 (0.7-4.5); Lymphocytes % 4.9 % (10-50); Mean Corpuscular HGB Conc 32.6 g/dL (31.8-35.4); Mean Corpuscular Hemoglobin 29.3 pg (27.0-31.2); Mean Corpuscular Volume 89.9 fl (80-94); Mean Platelet Volume 7.5 fl (7.4-10.4); Monocytes # 1.2 K/mm3 (0.1-1.0); Monocytes % 6.4 % (1.7-9.3); Neutrophils # 15.9 K/mm3 (1.8-7.8); Neutrophils % 88.1 % (37.0-80.0); Platelet Count 247 K/mm3 (142-424); Red Blood Count 4.36 M/mm3 (4.60-6.20); Red Cell Distribution Width 13.8 % (11.5-17.5)
[2021-08-27 06:52] LABS: MANUAL DIFFERENTIAL MANUAL DIFFERENTIAL (MANUAL DIFF)
[2021-08-27 06:57] LABS: Anion Gap 12.6 mEq/L (5-15); Blood Urea Nitrogen 12 mg/dl (9-20); Calcium 8.4 mg/dl (8.4-10.2); Carbon Dioxide 23 mmol/L (22.0-30.0); Chloride 105 mmol/L (98-107); Creatinine Clearance Estimated 122 mL/min (50-200); Estimated Glomerular Filt Rate 68 ml/min (>60); GFR (African American) 82 ML/MIN (>60); Glucose 116 mg/dl (74-100); Potassium 3.6 mmoL/L (3.5-5.1); Sodium 137 mmol/L (136-145)
--- NOTE | 2021-08-27 07:14 | HMH.PHAVTE ---
[facility] VTE Monitoring - Patient Demographics Admission date: 08/26/21 Report Date: 08/27/21 Time: 07:14 Allergies/Adverse Reactions: Patient Allergies No Known Allergies Allergy (Verified 08/26/21 16:55) Height: 1.91 m Weight: 122 kg Patient Problems: Current Active Problems Pyelonephritis (Acute) Ureteral calculus (Acute) - VTE Risk Labs: VTE Related Lab Results Hgb 12.8 g/dL (14.1-18.0) L 08/27/21 06:19 Hct 39.2 % (42.0-52.0) L 08/27/21 06:19 Plt Count 247 K/mm3 (142-424) 08/27/21 06:19 BUN 12 mg/dl (9-20) 08/27/21 06:00 Creatinine 1.10 mg/dl (0.66-1.25) 08/27/21 06:00 Estimated Creat Clear 122 mL/min (50-200) 08/27/21 06:00 Was VTE Risk Assessment Performed: Yes VTE Score: 3 VTE Risk Level: Low Risk Clinical Trial Participant: No - Prophylaxis VTE Prophylaxis Ordered?: Yes Types of VTE Prophylaxis: TEDS Knee High
--- NOTE | 2021-08-27 07:17 | HMH.PHAINT ---
clarified home medication list using list from [facility]
[2021-08-27 08:00] VITALS: BP 121/57; PULSE 59; RESP 19; TEMP 37; O2SAT 94
[2021-08-27 08:15] LABS: Lymphocytes % 6 % (10-50); Monocytes % 5 % (2-9); Neutrophils % 88 % (42-76); Platelet Estimate Normal; Total Cells Counted 100
--- NOTE | 2021-08-27 08:44 | HMH.ACPN2 ---
Internal Medicine - PN: Subj *Date: 08/27/21 *Time: 08:44 Interval history: Patient had some nausea and chills through the night. White count is slightly elevated over baseline this morning. He is alert, pleasant and talkative. N.p.o. for possible urologic procedure. Exam Vital signs and Labs for Last 24 Hours: Temp Pulse Resp BP Pulse Ox 98.6 F 59 L 19 121/57 L 94 L 08/27/21 08:00 08/27/21 08:00 08/27/21 08:00 08/27/21 08:00 08/27/21 08:00 Laboratory Results - last 24 hr 08/26/21 14:08: Sodium 137, Potassium 3.7, Chloride 104, Carbon Dioxide 23, Anion Gap 13.7, BUN 10, Creatinine 1.10, Estimated Creat Clear 122, Estimated GFR 68, Est GFR ( Amer) 82, Glucose 109 H, Calcium 8.9, Total Bilirubin 1.1, AST 28, ALT 25, Alkaline Phosphatase 101, Total Protein 7.0, Albumin 3.8, Globulin 3.2, Albumin/Globulin Ratio 1.2, Amylase 58, Lipase 50 08/26/21 14:08: Lactate 2.1 08/26/21 14:08: Urine Color Yellow, Urine Appearance Cloudy, Urine pH 5.5, Ur Specific [place] >= 1.030, Urine Protein Trace, Urine Glucose (UA) Negative, Urine Ketones Negative, Urine Blood 3+, Urine Nitrate Negative, Urine Bilirubin Negative, Urine Urobilinogen 0.2, Ur Leukocyte Esterase 1+ A, Urine RBC 10-20, Urine WBC 20-50, Ur Squamous Epith Cells 3-5, Urine Bacteria 2+ 08/26/21 14:48: WBC 15.1 H, RBC 4.38 L, Hgb 12.8 L, Hct 38.5 L, MCV 87.8, MCH 29.1, MCHC 33.2, RDW 13.6, Plt Count 267, MPV 7.3 L, Neut % (Auto) 90.1 H, Lymph % (Auto) 5.3 L, [place] % (Auto) 3.6, Eos % (Auto) 0.7, Baso % (Auto) 0.4, Neut # (Auto) 13.6 H, Lymph # (Auto) 0.8, [place] # (Auto) 0.5, Eos # (Auto) 0.1, Baso # (Auto) 0.1, Total Counted 100, Neutrophils % (Manual) 91 H, Lymphocytes % (Manual) 3 L, Monocytes % (Manual) 6, Platelet Estimate Normal 08/26/21 16:36: SARS-CoV-2 (PCR) Not detected, Influenza A Untype (PCR) Not detected, Influenza Type B (PCR) Not detected 08/26/21 18:40: Lactate 1.2 08/27/21 06:00: Sodium 137, Potassium 3.6, Chloride 105, Carbon Dioxide 23, Anion Gap 12.6, BUN 12, Creatinine 1.10, Estimated Creat Clear 122, Estimated GFR 68, Est GFR ( Amer) 82, Glucose 116 H, Calcium 8.4 08/27/21 06:19: WBC 18.0 H, RBC 4.36 L, Hgb 12.8 L, Hct 39.2 L, MCV 89.9, MCH 29.3, MCHC 32.6, RDW 13.8, Plt Count 247, MPV 7.5, Neut % (Auto) 88.1 H, Lymph % (Auto) 4.9 L, [place] % (Auto) 6.4, Eos % (Auto) 0.1, Baso % (Auto) 0.4, Neut # (Auto) 15.9 H, Lymph # (Auto) 0.9, [place] # (Auto) 1.2 H, Eos # (Auto) 0.0, Baso # (Auto) 0.1, Total Counted 100, Neutrophils % (Manual) 88 H, Lymphocytes % (Manual) 6 L, Monocytes % (Manual) 5, Blast Cells % 1.0, Platelet Estimate Normal I & O for Last 24 hours: Intake & Output 08/24/21 08/25/21 08/26/21 08/27/21 11:59 11:59 11:59 11:59 Output Total 500 / 500 Balance -500 / -500 Weight 268 lb 15.423 oz Microbiology Reports for the Last 24 Hours: Microbiology 08/26/21 14:08 Urine,Clean Catch Urine Culture - Preliminary 08/26/21 14:08 Blood Blood Culture - Preliminary 08/26/21 14:08 Blood Blood Culture - Preliminary - Constitutional no acute distress - *Routine HEENT Exam Head: Present: normocephalic Eye: Present: EOMI, PERRL ENT: Present: mucous membranes moist - *Routine Neck Exam Present: supple. Absent: lymphadenopathy - *Routine Respiratory Exam Present: CTA bilaterally - *Routine Cardiovascular Exam Present: RRR - *Routine Abdominal Exam Present: soft, normoactive bowel sounds. Absent: tenderness - *Routine Extremities Exam Absent: cyanosis, clubbing, edema - *Routine Skin Exam Present: warm. Absent: rash - *Routine Neurological Exam Present: alert, oriented X3 Assessment and Plan (1) Pyelonephritis Status: Acute Category: Medical Code(s): N12 - Tubulo-interstitial nephritis, not specified as acute or chronic (2) Ureteral calculus Status: Acute Category: Medical Code(s): N20.1 - Calculus of ureter (3) Bacteremia Status: Acute Category: Medical Code(s): R78.81 - Bacte
--- NOTE | 2021-08-27 11:16 | HMH.CONS ---
*Admission Date: 08/26/21 *Reason for consult:: Right ureteral calculus *History of present illness: Patient is a 61-year-old white male with history of a right ureteral calculus. Previous attempt at removing the ureteral calculus was unsuccessful due to a very narrow ureter and a stent was placed and the stone manipulated more proximally. Patient was seen back 2 days ago and desired the stent to be removed due to significant stent colic. A KUB at that time showed that the previously noted right ureteral calculus was now in the right lower pole. The stent was removed with use of the attached string. Patient states he began having some fevers and chills that evening and some right-sided flank pain yesterday and presented back to the emergency room. His CT scan showed that the right lower pole stone was now back in the mid to distal ureter with associated hydronephrosis. This morning he is comfortable but states he had a rough night. His white count is elevated for unknown reason. Likely from a urologic source denies any shortness of breath. He had been complaining of some left testicular pain 2 days ago in the office but he states that has resolved. His white count on admission was 15,000 and this morning was 18,000. His renal function is normal. He is on cefepime antibiosis. He does have a left-sided stone that is nonobstructing he is scheduled for bilateral ESWL next Tuesday. [facility] History Medical History: Reports:: Congestive Heart Failure, Gastroesophageal Reflux Disease(GERD), Hiatal Hernia, Hyperlipidemia, Hypertension, Kidney Stones Denies:: Cancer, Diabetes Mellitus Type 1, Diabetes Mellitus Type 2, Internal Pacemaker, Lung Disease, MRSA, Seizures *Have you ever received a pneumonia vaccine?: No *Have you received a flu vaccine this season?: No Other Medical History: Reports: Arthritis Laterality Cases: Bilateral: Arthroscopy Knee Other Surgeries: Yes: No Previous Surgery, Appendectomy, Cardiac Catheterization, Colonoscopy, Hernia Repair, Ureter Stent, Other (PFO Closure). No: Pacemaker Amputation: No Fractures: No - *Social History Smoking Status: Never smoker Alcohol Intake: never Substance Use Type: denies use *Occupational Status:: employed Housing: house Household Members: spouse *Travel in the last 8 weeks: None Family Hx:: No significant family history Review of Systems - Review of Systems Review of systems:: pertinent systems reviewed and negative unless documented below Meds Home Medications Medication Instructions Recorded Confirmed Type Aspirin [Aspirin 81mg chewable 81 mg PO DAILY 02/21/19 08/26/21 History tab] Atorvastatin Calcium [Lipitor 20mg 20 mg PO HS 02/21/19 08/26/21 History Tablet*] Metoprolol Succinate [Toprol XL 25 mg PO DAILY 02/21/19 08/27/21 History 25mg tablet] cetirizine 10 mg tablet 10 mg PO DAILY 05/14/19 08/26/21 History fluticasone propionate 50 1 spray INTRANASAL DAILYP PRN 05/14/19 08/26/21 History mcg/actuation nasal spray,suspension Furosemide [Furosemide 20mg Tab*] 10 mg PO DAILY 08/14/21 08/26/21 History Spironolactone [Spironolactone 25 mg PO DAILY 08/14/21 08/27/21 History 25mg Tablet] Clopidogrel Bisulfate [Clopidogrel 75 mg PO DAILY 08/27/21 08/27/21 History 75mg Tab] Allergies Allergy/AdvReac Type Severity Reaction Status Date / Time No Known Allergies Allergy Verified 08/26/21 16:55 Exam Vital signs and Labs for Last 24 Hours: Temp Pulse Resp BP Pulse Ox 98.6 F 59 L 19 121/57 L 94 L 08/27/21 08:00 08/27/21 08:00 08/27/21 08:00 08/27/21 08:00 08/27/21 08:00 Laboratory Results - last 24 hr 08/26/21 14:08: Sodium 137, Potassium 3.7, Chloride 104, Carbon Dioxide 23, Anion Gap 13.7, BUN 10, Creatinine 1.10, Estimated Creat Clear 122, Estimated GFR 68, Est GFR ( Amer) 82, Glucose 109 H, Calcium 8.9, Total Bilirubin 1.1, AST 28, ALT 25, Alkaline Phosphatase 101, Total Protein 7.0, Albumin 3.8, Globuli
[2021-08-27 15:36] VITALS: BP 123/56; PULSE 68; RESP 18; TEMP 36.9; O2SAT 93
--- NOTE | 2021-08-27 16:28 | PC.NURSE ---
Pt has been pleasant and cooperative this shift. A&O X4. Pt has had 1 complaint of abdominal pain thus far today and has been medicated with Morphine per MAR. Lungs CTA. No edema noted. Pt is on room air with sats. >90%. Pt is tolerating a cardiac diet well and has eaten about 75% of all meals. Abdomen is large, round, soft, and tender. Pt uses the urinal to void clear, yellow urine without issue. All urine output is being strained and no evidence of a stone has been found thus far. Pt is NPO after midnight tonight with intent for surgery tomorrow. 20 G peripheral IV in the RT AC is patent and infusing NS @ 100 ML/HR. VSS. Call light within reach. Will continue to monitor.
[2021-08-27 20:00] VITALS: O2SAT 96
[2021-08-28] VITALS (20 sets, daily range): BP systolic 106–146; BP diastolic 61–73; PULSE 60–75; RESP 16–22; TEMP 36.7–43; O2SAT 92–97; BMI 33.4
[2021-08-28 07:42] LABS: Basophils # 0.1 K/mm3 (0-0.2); Basophils % 0.4 % (0.1-2.0); Eosinophils # 0.3 K/mm3 (0.0-0.4); Eosinophils % 2.2 % (0.1-12.0); Hematocrit 37.7 % (42.0-52.0); Lymphocytes # 1.4 K/mm3 (0.7-4.5); Lymphocytes % 10.5 % (10-50); Mean Corpuscular HGB Conc 31.8 g/dL (31.8-35.4); Mean Corpuscular Hemoglobin 28.8 pg (27.0-31.2); Mean Corpuscular Volume 90.5 fl (80-94); Mean Platelet Volume 8.4 fl (7.4-10.4); Monocytes # 0.7 K/mm3 (0.1-1.0); Neutrophils # 10.8 K/mm3 (1.8-7.8); Neutrophils % 81.8 % (37.0-80.0); Platelet Count 248 K/mm3 (142-424); Red Blood Count 4.17 M/mm3 (4.60-6.20); White Blood Count 13.2 K/mm3 (4.8-10.8)
[2021-08-28 08:13] LABS: Alanine Aminotransferase 15 U/L (12-78); Albumin Level 3.4 g/dl (3.5-5.0); Albumin/Globulin Ratio 1.1 (1.1-1.8); Alkaline Phosphatase 79 U/L (38-126); Anion Gap 9.7 mEq/L (5-15); Aspartate Amino Transferase 20 U/L (17-59); Bilirubin,Total 0.7 mg/dl (0.2-1.3); Blood Urea Nitrogen 10 mg/dl (9-20); Calcium 8.4 mg/dl (8.4-10.2); Carbon Dioxide 25 mmol/L (22.0-30.0); Chloride 106 mmol/L (98-107); Creatinine Clearance Estimated 134 mL/min (50-200); Estimated Glomerular Filt Rate 86 ml/min (>60); GFR (African American) 104 ML/MIN (>60); Globulin 3.1 g/dL (1.3-3.2); Glucose 92 mg/dl (74-100); Potassium 3.7 mmoL/L (3.5-5.1); Sodium 137 mmol/L (136-145); Total Protein,Serum 6.5 g/dl (6.3-8.2)
--- NOTE | 2021-08-28 09:52 | HMH.ANESCL ---
[facility] Anesthesia Checklist - Patient Identification Patient Identification: Arm Band - Structural Data Admitted From: Home Planned Operative Procedure/s: Ureteroscopy Consent for Planned Operative Procedure(s) Verified: Yes - NPO Status Verified Time NPO: 00:00 - Additional verifications Anesthesia Reactions: No - Airway Assessment C-Spine Mobility Assessed: Yes TMJ Mobility Assessed: Yes Dentition: Good Dentition - Neurological Assessment Level of Consciousness: Awake Hx Seizures: No Numbness or tingling in extremities: No - Anesthesia Plan Anesthesia Risk discussed: Yes Anesthesia Plan: Verified ASA Class: III Anesthesia Type: General [facility] History I have reviewed the patient's past medical history: Yes Medical History: Reports:: Congestive Heart Failure, Gastroesophageal Reflux Disease(GERD), Hiatal Hernia, Hyperlipidemia, Hypertension, Kidney Stones Denies:: Cancer, Diabetes Mellitus Type 1, Diabetes Mellitus Type 2, Internal Pacemaker, Lung Disease, MRSA, Seizures *Have you ever received a pneumonia vaccine?: No *Have you received a flu vaccine this season?: No Other Medical History: Reports: Arthritis Anesthesia experience/problems:: None Laterality Cases: Bilateral: Arthroscopy Knee Other Surgeries: Yes: No Previous Surgery, Appendectomy, Cardiac Catheterization, Colonoscopy, Hernia Repair, Ureter Stent, Other (PFO Closure). No: Pacemaker Amputation: No Fractures: No - *Social History Smoking Status: Never smoker Alcohol Intake: never Substance Use Type: denies use *Occupational Status:: employed Housing: house Household Members: spouse *Travel in the last 8 weeks: None Family Hx:: No significant family history
--- NOTE | 2021-08-28 11:18 | P.PN_ITS ---
[facility] Anesthesia Record Part I Intake, IV Amount: 900 Estimated blood loss (mL): 0 Urine output (mL): 0 Blood Pressure: 118/73 SaO2: 92 Pulse Rate: 72 Respiratory Rate: 16 Temperature: 99.5 F Patient is:: Drowsy, Stable Stable to PACU at:: 11:15
--- NOTE | 2021-08-28 11:22 | XR_ITS ---
PROCEDURE: XR KUB CLINICAL INDICATION: URETEROSCOPY COMPARISON: No exams were available for comparison FINDINGS: Fluoroscopy time: 1 minutes and 43 seconds Single image obtained of the upper abdomen on the right shows that there is a right ureteral stent in place curled in the right upper quadrant. Distal aspect of the stent is not demonstrated IMPRESSION: Status post right ureteral stent placement with fluoroscopic assistance Dictated by: Fahad Jean MD 08/28/2021 14:10 Fahad Jean MD in [facility] 08/28/2021 14:10
--- NOTE | 2021-08-28 12:00 | HMH.OPNOTE ---
Date of procedure: 08/28/21 Pre-op Diagnosis:: Right ureteral calculus Post-op Diagnosis:: No evidence of stone in the ureter or kidney, ureteral edema. Procedure performed:: Right ureteroscopy and pyeloscopy, right stent placement Surgeon:: Иван Conroy MD METHODS SPECIALIST ENGINEER:: Franck Hancock Anesthesia: LMA Estimated blood loss (mL): 0 Clinical Note:: Patient is a 61-year-old white male with bilateral nephrolithiasis. He is status post previous right ureteral stent placement and then removal. After removal of the stent 3 mm stone again became lodged in the mid ureter patient hospitalized presents for urologic management. His white count improved this morning to 13,000. He is on IV antibiotics. Operative findings:: No evidence of stone in the course of the ureter or in the kidney. There was ureteral edema present. Operative note:: Patient taken to the operating room after informed consent was obtained. Was placed on the operating table in the supine position and general anesthesia administered. Sequential compression devices placed and he has been on IV antibiotics. He was then placed into the dorsal lithotomy position and prepped and draped in the standard surgical fashion. The 22 Jordanian cystoscope passed into the urethral meatus and into the bladder without difficulty. The bladder was examined in a systematic fashion. There is no evidence of mucosal normalities, stones, diverticula or trabeculation. The ureteral orifices were in their normal anatomic position and normal configuration. A 5 Jordanian ureteral catheter passed into the right ureteral orifice and a guidewire then passed through the ureteral catheter and under fluoroscopy the guidewire was passed easily up to the right renal pelvis. No evidence of calcifications were noted along the course of the ureter. The cystoscope then removed and the semirigid ureteroscope was passed into the bladder and into the right ureter and the scope was able to be passed to the upper part of the mid ureter without evidence of a stone. There was ureteral edema noted along the mid ureter. Then removed the semirigid ureteroscope passing a second wire and a 13/15 navigator ureteral sheath was passed over the second wire and the wire removed. A flexible ureteroscope was then passed through the sheath and the ureter proximally was examined up to the renal pelvis. No stone was noted in the upper ureter and the renal calyces were then examined for stone but no evidence of stone was noted in the calyces or on fluoroscopy. The ureteroscope was then removed examining the ureter all the way out and pulling the ureteral sheath out as we came. The ureter ureteroscope was removed and cystoscope was replaced over the safety wire and a 6 x 26 Jordanian stent was passed over the wire and the wire removed. A good curl was noted proximally and distally. String was left on for later removal. The bladder drained and Urojet placed. Patient tolerated procedure well without complication. Condition: stable Disposition: PACU Specimens:: None Complications:: None
--- NOTE | 2021-08-28 13:20 | HMH.ACPN2 ---
Internal Medicine - PN: Subj *Date: 08/28/21 *Time: 13:20 Interval history: 61-year-old male with obstructing nephrolithiasis and urosepsis. Positive blood culture for gram-negative rods. Remains afebrile over the past 24 hours. Denies nausea but continues to complain of back and flank pain. No shortness of breath. Hesitant to have stent placed. Showing gradual improvement today. Get improvement in white cell count. Exam Vital signs and Labs for Last 24 Hours: Temp Pulse Resp BP Pulse Ox 99.5 F 69 16 112/71 96 08/28/21 11:19 08/28/21 11:35 08/28/21 11:35 08/28/21 11:35 08/28/21 11:35 Laboratory Results - last 24 hr 08/28/21 07:13: WBC 13.2 H D, RBC 4.17 L, Hgb 12.0 L, Hct 37.7 L, MCV 90.5, MCH 28.8, MCHC 31.8, RDW 14.0, Plt Count 248, MPV 8.4, Neut % (Auto) 81.8 H, Lymph % (Auto) 10.5, [place] % (Auto) 5.0, Eos % (Auto) 2.2, Baso % (Auto) 0.4, Neut # (Auto) 10.8 H, Lymph # (Auto) 1.4, [place] # (Auto) 0.7, Eos # (Auto) 0.3, Baso # (Auto) 0.1 08/28/21 07:13: Sodium 137, Potassium 3.7, Chloride 106, Carbon Dioxide 25, Anion Gap 9.7, BUN 10, Creatinine 0.90, Estimated Creat Clear 134, Estimated GFR 86, Est GFR ( Amer) 104 D, Glucose 92, Calcium 8.4, Total Bilirubin 0.7, AST 20 D, ALT 15 D, Alkaline Phosphatase 79, Total Protein 6.5, Albumin 3.4 L, Globulin 3.1, Albumin/Globulin Ratio 1.1 I & O for Last 24 hours: Intake & Output 08/25/21 08/26/21 08/27/21 08/28/21 23:59 23:59 23:59 23:59 Intake Total 1336 / 1336 900 / 900 Output Total 500 / 500 625 / 625 Balance 836 / 836 275 / 275 Weight 122.101 kg 122 kg 122 kg Microbiology Reports for the Last 24 Hours: Microbiology 08/26/21 14:08 Blood Blood Culture - Preliminary Gram Negative Rods 08/26/21 14:08 Blood Blood Culture - Preliminary Gram Negative Rods 08/26/21 14:08 Urine,Clean Catch Urine Culture - Preliminary Gram Negative Rods - Constitutional mild distress, obese - *Routine HEENT Exam Head: Present: normocephalic Eye: Present: EOMI, PERRL ENT: Present: mucous membranes moist - *Routine Neck Exam Present: supple. Absent: lymphadenopathy - *Routine Respiratory Exam Present: CTA bilaterally - *Routine Cardiovascular Exam Present: RRR - *Routine Abdominal Exam Present: soft, normoactive bowel sounds. Absent: tenderness - *Routine Extremities Exam Absent: cyanosis, clubbing, edema - Routine Back/Spine/Pelvis Exam Back/Spine: Present: CVA tenderness (Negative on left, positive on right) - *Routine Skin Exam Present: warm. Absent: rash - *Routine Neurological Exam Present: alert, oriented X3 Assessment and Plan (1) Pyelonephritis Status: Acute Category: Medical Code(s): N12 - Tubulo-interstitial nephritis, not specified as acute or chronic (2) Ureteral calculus Status: Acute Category: Medical Code(s): N20.1 - Calculus of ureter (3) Bacteremia Status: Acute Category: Medical Code(s): R78.81 - Bacteremia - Assessment and plan all Dx Assessment and Plan for all problems:: 61-year-old male with obstructing nephrolithiasis. Positive blood culture for gram-negative rods. Continue IV antibiotics with cefepime. Awaiting speciation and sensitivity to de-escalate antibiotics. Urology planning to take patient to the OR today for stent placement and possible removal of stone. We will keep patient for 1 more day to assess for consistent effervescence of symptoms and tolerance of antibiotic regimen. If doing well in the morning, anticipate discharge home to complete antibiotic course. We will have close follow-up with urology in the outpatient setting. Resume diet after procedure Full code
--- NOTE | 2021-08-28 15:23 | P.PN_ITS ---
[facility] Anesthesia Record Part II Discharge Time: 11:35 Destination: Medical Surgical Department PACU nurse assessment reviewed?: Yes Patient Condition:: Good Anesthesia Complications:: None Swallowing reflex intact?: Yes Cyanosis?: No Blood Pressure: 112/71 Pulse Rate: 69 Temperature: 99.5 F Mental Status: Alert & Oriented Pain level:: 0 Nausea and/or vomitting:: None Intake, IV Amount: 0
--- NOTE | 2021-08-28 19:43 | PC.NURSE ---
aox4, able to make needs known to staff, tolerating diet well. no c/o pain.
[2021-08-29] VITALS: BP 124/69; PULSE 68; RESP 16; TEMP 36.6; O2SAT 94
[2021-08-29 04:00] VITALS: BP 125/73; PULSE 60; RESP 18; TEMP 36.4; O2SAT 97
[2021-08-29 07:32] LABS: Basophils % 0.1 % (0.1-2.0); Eosinophils % 0.2 % (0.1-12.0); Hematocrit 38.6 % (42.0-52.0); Hemoglobin 12.7 g/dL (14.1-18.0); Lymphocytes # 1.4 K/mm3 (0.7-4.5); Lymphocytes % 8.9 % (10-50); Mean Corpuscular HGB Conc 32.9 g/dL (31.8-35.4); Mean Corpuscular Hemoglobin 29.3 pg (27.0-31.2); Mean Corpuscular Volume 89.2 fl (80-94); Mean Platelet Volume 8.6 fl (7.4-10.4); Monocytes # 0.7 K/mm3 (0.1-1.0); Monocytes % 4.8 % (1.7-9.3); Neutrophils % 85.9 % (37.0-80.0); Platelet Count 287 K/mm3 (142-424); Red Blood Count 4.33 M/mm3 (4.60-6.20); Red Cell Distribution Width 13.8 % (11.5-17.5); White Blood Count 15.1 K/mm3 (4.8-10.8)
[2021-08-29 07:39] LABS: Anion Gap 10.3 mEq/L (5-15); Blood Urea Nitrogen 11 mg/dl (9-20); Calcium 8.7 mg/dl (8.4-10.2); Carbon Dioxide 22 mmol/L (22.0-30.0); Chloride 109 mmol/L (98-107); Creatinine Clearance Estimated 134 mL/min (50-200); Estimated Glomerular Filt Rate 115 ml/min (>60); GFR (African American) 139 ML/MIN (>60); Glucose 129 mg/dl (74-100); Potassium 4.3 mmoL/L (3.5-5.1); Sodium 137 mmol/L (136-145)
[2021-08-29 07:42] VITALS: BP 128/69; PULSE 68; RESP 16; TEMP 36.4; O2SAT 97
[2021-08-29 07:42] LABS: MANUAL DIFFERENTIAL MANUAL DIFFERENTIAL (MANUAL DIFF)
--- NOTE | 2021-08-29 07:49 | HMH.DCSUM ---
General - General Admission date:: 08/26/21 Discharge date: 08/29/21 HPI HPI: Complains of fevers and chills. States that he started chilling last night and had a temperature 101. Chills returned again today so he came to the emergency department. He was given some sort of fever medication this morning but does not know what it was. States that he had a ureteral stone and had a stent in his ureter since a week ago which was taken out yesterday in the office by Dr. Conroy. He said at that time Dr. Conroy told him that he thought he might have a little infection in his testicle and started him on an antibiotic. He has had 3 doses. First dose of his antibiotic was yesterday afternoon, before fevers and chills started. He says that Dr. Conroy thought he might have a mild infection in his testicle because it had been a little sore for a few days. However, he now says that his testicular soreness is completely gone and he has had no swelling of the testicle. He has some right flank pain. He has nausea. Above note per ER. CT scan showed evidence of a 3 mm stone in the mid ureter with evidence of mild hydronephrosis. Admitted to hospital for IV antibiotics, fluids, pain control and urology consultation. Hospital Course Hospital Course: 61-year-old male with obstructing nephrolithiasis. Positive blood culture for gram-negative rods. Initiated on IV antibiotics consisting of cefepime. Cultures grew gram-negative rods but no further speciation or sensitivity by time of discharge. Transition to Levaquin to complete 14-day empiric course for bacteremia. Urology was consulted during hospitalization, took patient to the OR yesterday for ureteral stent placement. See procedure note for full details. Plan to follow-up with urology in the coming week. Patient tolerating good p.o. intake, improvement in white cell count and kidney function. Medically stable for discharge home. New medications include Levaquin for 10 more days and Toradol for pain control. Examined on day of discharge Objective Vital signs: Temp Pulse Resp BP Pulse Ox 97.5 F L 60 18 125/73 97 08/29/21 04:00 08/29/21 04:00 08/29/21 04:00 08/29/21 04:00 08/29/21 04:00 no acute distress, obese - *Routine HEENT Exam Head: Present: normocephalic Eye: Present: EOMI, PERRL ENT: Present: mucous membranes moist - *Routine Neck Exam Present: supple - *Routine Respiratory Exam Present: CTA bilaterally - *Routine Cardiovascular Exam Present: RRR - *Routine Abdominal Exam Present: soft, normoactive bowel sounds. Absent: tenderness - *Routine Extremities Exam Absent: cyanosis, clubbing, edema - Routine Back/Spine/Pelvis Exam Back/Spine: Present: CVA tenderness (mild on right, none on left) - *Routine Skin Exam Present: warm. Absent: rash - Detailed Eye Exam Eyelids: Bilateral normal inspection Results Labs on day of discharge: Labs from last 24 hours 08/29/21 08/29/21 08/28/21 06:46 06:46 07:13 WBC 15.1 H RBC 4.33 L Hgb 12.7 L Hct 38.6 L MCV 89.2 MCH 29.3 MCHC 32.9 RDW 13.8 Plt Count 287 MPV 8.6 Neut % (Auto) 85.9 H Lymph % (Auto) 8.9 L [place] % (Auto) 4.8 Eos % (Auto) 0.2 Baso % (Auto) 0.1 Neut # (Auto) 13.0 H Lymph # (Auto) 1.4 [place] # (Auto) 0.7 Eos # (Auto) 0.0 Baso # (Auto) 0.0 Sodium 137 137 Potassium 4.3 3.7 Chloride 109 H 106 Carbon Dioxide 22 25 Anion Gap 10.3 9.7 BUN 11 10 Creatinine 0.70 D 0.90 Estimated Creat Clear 134 134 Estimated GFR 115 86 Est GFR ( Amer) 139 D 104 D Glucose 129 H D 92 Calcium 8.7 8.4 Total Bilirubin 0.7 AST 20 D ALT 15 D Alkaline Phosphatase 79 Total Protein 6.5 Albumin 3.4 L Globulin 3.1 Albumin/Globulin Ratio 1.1 Preliminary micro results at discharge 08/26/21 14:08 Blood Culture - Preliminary Blood Gram Ne
[2021-08-29 07:50] VITALS: O2SAT 95
[2021-08-29 09:54] LABS: Eosinophils % 1 % (0-3); Lymphocytes % 6 % (10-50); Monocytes % 5 % (2-9); Neutrophils % 86 % (42-76); Platelet Estimate Normal; Total Cells Counted 100
== END 2021-08-29 10:49 | disposition home or self-care (01) | DRG 660 ==
LOC: ER 16:36 → 2ND 08-27 07:11
PROVIDERS: Internal Medicine Adolescent Medicine; Urology; Admitting Provider Internal Medicine Adolescent Medicine; Emergency Provider Emergency Medicine; PCP Nurse Practitioner Family; Visit Provider Internal Medicine Adolescent Medicine
PROC: 0T768DZ Dilation of Right Ureter with Intraluminal Device, Via Natural or Artificial Opening Endoscopic (ICD-10-PCS; CPT 52352; principal; 2021-08-28 10:15)
DX: N13.6 Pyonephrosis (principal); I50.32 Chronic diastolic (congestive) heart failure; I11.0 Hypertensive heart disease with heart failure; M19.90 Unspecified osteoarthritis, unspecified site; E78.5 Hyperlipidemia, unspecified; Z20.822 Contact with and (suspected) exposure to COVID-19
CPT/HCPCS: 52332; 36415; 74018; 74177; 76000; 80048; 80053; 81001; 82150; 83605; 83690; 85007; 85025; 87040; 87077; 87086; 87088; 87186; 96365; 96375; 96376; 99284; C2617; C9803; J2405; Q9967; U0003; U0005

== ENCOUNTER → 2021-09-02 10:02 | Outpatient (CLI) | payer SELFPAY ==
[2021-09-02 10:03] LABS: MANUAL DIFFERENTIAL MANUAL DIFFERENTIAL (MANUAL DIFF)
[2021-09-02 10:25] LABS: Basophils # 0.1 K/mm3 (0-0.2); Basophils % 1.4 % (0.1-2.0); Eosinophils # 0.4 K/mm3 (0.0-0.4); Eosinophils % 4.4 % (0.1-12.0); Hematocrit 41.5 % (42.0-52.0); Hemoglobin 13.8 g/dL (14.1-18.0); Lymphocytes # 2.2 K/mm3 (0.7-4.5); Lymphocytes % 25.7 % (10-50); Mean Corpuscular HGB Conc 33.2 g/dL (31.8-35.4); Mean Corpuscular Hemoglobin 29.4 pg (27.0-31.2); Mean Corpuscular Volume 88.6 fl (80-94); Mean Platelet Volume 7.9 fl (7.4-10.4); Monocytes # 0.4 K/mm3 (0.1-1.0); Monocytes % 4.8 % (1.7-9.3); Neutrophils # 5.4 K/mm3 (1.8-7.8); Neutrophils % 63.7 % (37.0-80.0); Platelet Count 400 K/mm3 (142-424); Red Blood Count 4.69 M/mm3 (4.60-6.20); Red Cell Distribution Width 14.1 % (11.5-17.5); White Blood Count 8.5 K/mm3 (4.8-10.8)
[2021-09-02 13:47] LABS: Chloride 105 mmol/L (98-107); Sodium 141 mmol/L (136-145)
[2021-09-02 13:50] LABS: Blood Urea Nitrogen 11 mg/dl (9-20); Carbon Dioxide 27 mmol/L (22.0-30.0); Estimated Glomerular Filt Rate 98 ml/min (>60); GFR (African American) 119 ML/MIN (>60)
[2021-09-02 13:51] LABS: Calcium 9.3 mg/dl (8.4-10.2); Glucose 123 mg/dl (74-100)
[2021-09-02 13:55] LABS: Lymphocytes % 27 % (10-50); Monocytes % 10 % (2-9); Neutrophils % 63 % (42-76); Platelet Estimate Normal; RBC Morphology Normal; Total Cells Counted 100
== END ==
PROVIDERS: Visit Provider Urology
DX: Z01.812 Encounter for preprocedural laboratory examination (principal); Z11.52 Encounter for screening for COVID-19; N20.0 Calculus of kidney; N20.1 Calculus of ureter
CPT/HCPCS: 36415; 80048; 85007; 85014; 85018; 85048; 85049; C9803; U0003; U0005

== ENCOUNTER 2021-09-04 08:39 | Day surgery (SDC) | payer SELFPAY ==
[2021-09-02 13:38] VITALS: BMI 33.1
[2021-09-04] VITALS (10 sets, daily range): BP systolic 126–184; BP diastolic 67–87; PULSE 58–68; RESP 14–18; TEMP 36.2–36.7; O2SAT 92–96
--- NOTE | 2021-09-04 08:46 | XR_ITS ---
PROCEDURE: XR KUB CLINICAL INDICATION: URETERAL/KIDNEY STONE COMPARISON: CT CT ABDOMEN PELVIS W CON from 08/26/2021 XR KUB from 08/28/2021 FINDINGS: There is a right ureteral stent in position the proximal aspect curled over the upper aspect of the right kidney in the distal aspect region lower renal pelvis slightly toward the right. No obvious ureteral calculus. 9 mm stone projects over the mid to lower aspect of the left kidney medially. Mild lumbar scoliosis convex left.. IMPRESSION: Right ureteral stent in place. Left nephrolithiasis Dictated by: Fahad Jean MD 09/05/2021 07:29 Fahad Jean MD in [place] 09/05/2021 07:29
--- NOTE | 2021-09-04 11:07 | HMH.ANESCL ---
[facility] Anesthesia Checklist - Patient Identification Patient Identification: Arm Band, Verbal (Name & ) - Structural Data Admitted From: Home Planned Operative Procedure/s: Left ESWL Consent for Planned Operative Procedure(s) Verified: Yes Verified Documents: Surgical Consent - NPO Status Verified Time NPO: 00:00 - Additional verifications Anesthesia Reactions: No Hx Blood Transfusions: No Blood Transfusion Reaction: No - Cardiovascular Assessment Heart Sounds: S1 & S2 - Anesthesia Plan Anesthesia Risk discussed: Yes Anesthesia Type: General [facility] History I have reviewed the patient's past medical history: Yes Medical History: Reports:: Congestive Heart Failure, Gastroesophageal Reflux Disease(GERD), Hiatal Hernia, Hyperlipidemia, Hypertension, Kidney Stones, MRSA Denies:: Cancer, Diabetes Mellitus Type 1, Diabetes Mellitus Type 2, Internal Pacemaker, Lung Disease, Seizures *Have you ever received a pneumonia vaccine?: No *Have you received a flu vaccine this season?: No Other Medical History: Reports: Arthritis. Denies: Blood Transfusion Reaction Anesthesia experience/problems:: none Laterality Cases: Bilateral: Arthroscopy Knee Other Surgeries: Yes: No Previous Surgery, Appendectomy, Cardiac Catheterization, Colonoscopy, Hernia Repair, Ureter Stent, Other (PFO Closure). No: Pacemaker Amputation: No Fractures: No - *Social History Last grade of school completed: High school graduate Smoking Status: Never smoker Alcohol Intake: never Substance Use Type: denies use *Occupational Status:: employed Housing: house Household Members: spouse *Travel in the last 8 weeks: None Family Hx:: Diabetes, Heart Attack, Hypertension
--- NOTE | 2021-09-04 11:25 | HMH.ANESI ---
[facility] Anesthesia Record Part I Intake, IV Amount: 800 Estimated blood loss (mL): 0 Urine output (mL): 0 Blood Pressure: 129/77 SaO2: 92 Pulse Rate: 60 Respiratory Rate: 18 Temperature: 97.2 F Patient is:: Drowsy Stable to PACU at:: 11:21
--- NOTE | 2021-09-04 12:00 | SUR.PHASEI ---
1151- report given to fabrizio zuluaga at this time.
--- NOTE | 2021-09-04 12:34 | HMH.OPNOTE ---
Date of procedure: 09/04/21 Pre-op Diagnosis:: Left nephrolithiasis Post-op Diagnosis:: Left nephrolithiasis Procedure performed:: Left ESWL, removal of right ureteral stent with use of attached string Surgeon:: Иван Conroy MD [employer] LIMOUS[employer]:: Other (mahesh) Anesthesia: LMA Estimated blood loss (mL): 0 Clinical Note:: 61-year-old white male with history of bilateral stones presents today for left ESWL. His previous ureteral stone was not present on recent ureteroscopy and preoperative KUB today reveals no evidence of calcifications along the right collecting system. Operative findings:: 8 mm left renal pelvic stone Operative note:: Patient taken to the operating suite after informed consent was obtained. Was placed on the operating table in the supine position and general anesthesia administered. Preoperative antibiotics and sequential compression devices placed. He was then positioned so that the focal point of the lithotripter was focused onto the 8 mm left renal stone. His extremities were padded and his knees were flexed on that knee board and heels padded. Assessment to make sure there were no bubbles underneath the treatment point and 3000 shockwaves then delivered to the stone with good fragmentation. Maximum energy of 7 was used. Patient tolerated the procedure well no complications. At the end of the case the right ureteral stent was removed with use of the attached string that was at the urethral meatus. Stent was removed without difficulty. Patient tolerated procedure well no complications. Condition: stable Disposition: PACU Specimens:: Ureteral stent Complications:: None
--- NOTE | 2021-09-04 12:51 | P.PN_ITS ---
[facility] Anesthesia Record Part II Discharge Time: 11:51 Destination: [facility] PACU nurse assessment reviewed?: Yes Patient Condition:: Good Anesthesia Complications:: None Swallowing reflex intact?: Yes Cyanosis?: No Blood Pressure: 130/75 Pulse Rate: 61 Temperature: 98.0 F Mental Status: Alert & Oriented Pain level:: 0 Nausea and/or vomitting:: None Intake, IV Amount: 1,000
== END 2021-09-04 12:25 | disposition home or self-care (01) ==
LOC: OR 08:41
PROVIDERS: PCP Nurse Practitioner Family; Visit Provider Urology
PROC: (CPT 50590; principal; 2021-09-04 10:15)
DX: N20.0 Calculus of kidney (principal); Z87.442 Personal history of urinary calculi; K21.9 Gastro-esophageal reflux disease without esophagitis; E78.5 Hyperlipidemia, unspecified; M19.90 Unspecified osteoarthritis, unspecified site; I11.0 Hypertensive heart disease with heart failure; I50.9 Heart failure, unspecified; Z83.3 Family history of diabetes mellitus; Z82.3 Family history of stroke; Z82.49 Family history of ischemic heart disease and other diseases of the circulatory system
CPT/HCPCS: 50590; 74018; 96374; J2405

== ENCOUNTER → 2021-09-11 15:20 | Outpatient (CLI) | payer SELFPAY ==
--- NOTE | 2021-09-11 15:23 | XR_ITS ---
PROCEDURE: XR KUB CLINICAL INDICATION: kidney stone COMPARISON: CT CT ABDOMEN PELVIS W CON from 08/26/2021 CR XR KUB from 09/04/2021 FINDINGS: Right ureteral stent has been removed. Small stones present along the lower pole of the left kidney. There are a row of small calcification to the left of the L2 transverse process and could represent stones within the proximal left ureter. IMPRESSION: Interval removal of right ureteral stent. Left nephrolithiasis with possible proximal left ureteral calculi. Dictated by: Fahad Jean MD 09/11/2021 17:33 Fahad Jean MD in [facility] 09/11/2021 17:33
== END ==
PROVIDERS: PCP Nurse Practitioner Family; Visit Provider Urology
DX: N20.0 Calculus of kidney (principal)
CPT/HCPCS: 74018

== ENCOUNTER → 2021-09-11 18:21 | Outpatient (CLI) | payer SELFPAY ==
[2021-12-18 20:34] LABS: Size 2X3
[2021-12-18 20:35] LABS: Ca oxalate dihydrate 30
== END ==
PROVIDERS: Visit Provider Urology
DX: N20.0 Calculus of kidney (principal)
CPT/HCPCS: 82370

== ENCOUNTER 2021-09-15 21:23 | Observation (INO) | payer SELFPAY ==
[2021-09-15 21:24] VITALS: BP 134/66; PULSE 101; RESP 24; TEMP 37.7; O2SAT 95; BMI 33.1
--- NOTE | 2021-09-15 21:29 | HMH.EDGENADL ---
ED Disposition Clinical Impression: Kidney stones Disposition: Admitted As Inpatient Condition on Discharge: Fair Referrals: Martha Pate APRN [Primary Care Provider] - Time of Disposition: 00:31 - Critical Care Critical Care Time: No Attestation: On , the high probability of a clinically significant, sudden or life threatening deterioration of the following system(s) required my full and direct attention, intervention and personal management. The time I documented below is in addition to time spent performing reported procedures but includes the following listed in this critical care notation. Medical Decision Making - Medical Records Medical records reviewed: Yes: I reviewed the patient's medical records. - Tayo Inquiry Pt receiving controlled substance: No Vital Signs: 09/15/21 21:24 Temperature 99.8 F H Temperature Source Oral Pulse Rate [Right] 101 H Respiratory Rate 24 Blood Pressure [Right Arm] 134/66 Blood Pressure Mean [Right Arm] 88 02 Sat by Pulse Oximetry 95 - Lab Data Lab Results 09/15/21 21:40: Urine Color Brown, Urine Appearance Cloudy, Urine pH 6.5, Ur Specific [place] 1.025, Urine Protein 3+, Urine Glucose (UA) Negative, Urine Ketones 1+, Urine Blood 3+, Urine Nitrate Positive, Urine Bilirubin 2+ A, Urine Urobilinogen 4.0, Ur Leukocyte Esterase 2+ A, Urine RBC Tntc, Urine WBC 5-10, Ur Squamous Epith Cells None, Urine Bacteria 1+ 09/15/21 21:40: WBC 9.3, RBC 4.85, Hgb 14.2, Hct 43.3, MCV 89.3, MCH 29.2, MCHC 32.8, RDW 14.4, Plt Count 308, MPV 8.2, Neut % (Auto) 84.6 H, Lymph % (Auto) 12.2, [place] % (Auto) 1.2 L, Eos % (Auto) 1.5, Baso % (Auto) 0.5, Neut # (Auto) 7.8, Lymph # (Auto) 1.1, [place] # (Auto) 0.1, Eos # (Auto) 0.1, Baso # (Auto) 0.1 09/15/21 21:40: Sodium 142, Potassium 3.6, Chloride 104, Carbon Dioxide 27, Anion Gap 14.6, BUN 15, Creatinine 1.10, Estimated Creat Clear 120, Estimated GFR 68, Est GFR ( Amer) 82, Glucose 109 H, Calcium 9.5, Total Bilirubin 0.4, AST 29, ALT 25, Alkaline Phosphatase 110, Total Protein 7.4, Albumin 4.4, Globulin 3.0, Albumin/Globulin Ratio 1.5, Lipase 93 Result diagrams: 09/15/21 21:40 09/15/21 21:40 Orders (Tests/Meds): ED MEDICATIONS Generic Name Dose Route Start Last Admin Trade Name Freddy PRN Reason Stop Dose Admin Sodium Chloride 1,000 mls @ 999 mls/hr 09/15/21 22:00 09/15/21 21:47 Sod Chlor 0.9% 1000ml Bag IV 09/15/21 23:00 999 mls/hr .Q1H1M SUZANNE Administration Ceftriaxone Sodium 1 gm/ 50 mls @ 100 mls/hr 09/16/21 00:30 09/16/21 00:32 Sodium Chloride IV 09/30/21 00:29 100 mls/hr Q24H SUZANNE Administration Discontinued Medications Generic Name Dose Route Start Last Admin Trade Name Freddy PRN Reason Stop Dose Admin Hydromorphone HCl 1 mg 09/15/21 21:46 09/15/21 21:47 Hydromorphone 2mg/Ml Syringe IV 09/15/21 21:47 1 mg ONCE ONE Administration Iopamidol 75 ml 09/15/21 23:01 09/15/21 23:02 Iopamidol-370 (76%);100ml Bottle IV 09/15/21 23:02 75 ml ONCE ONE Administration Ketorolac Tromethamine 30 mg 09/16/21 00:33 09/16/21 00:37 Ketorolac 30mg/Ml Vial IV 09/16/21 00:34 30 mg ONCE ONE Administration Morphine Sulfate 4 mg 09/15/21 22:46 09/15/21 22:51 Morphine 4mg/Ml Syringe IV 09/15/21 22:47 4 mg ONCE ONE Administration Ondansetron HCl 4 mg 09/15/21 21:46 09/15/21 21:47 Ondansetron 4mg/2ml Vial IV 09/15/21 21:47 4 mg ONCE ONE Administration Sodium Chloride 10 ml 09/15/21 23:01 09/15/21 23:02 Sodium Chloride 0.9% 10ml Syr (Rad Only) IV 09/15/21 23:02 10 ml ONCE ONE Administration ORDERS Category Date Time Status Rapid PCR Covid and Flu A/B Stat Lab 09/16/21 01:12 Ordered Urine Culture Stat Micro 09/15/21 21:40 Received Medical Decision Narrative: In summary this is a 61-year-old male with history of nephrolithiasis presenting to the emergency department with left-sided flank, abdominal pain. Patient appears uncomfortable on arriv
[2021-09-15 21:43] VITALS: BMI 33.1
[2021-09-15 22:00] VITALS: BP 149/78; PULSE 96; O2SAT 92
[2021-09-15 22:08] LABS: Microscopic, Urine URINE MICROSCOPIC (MICROSCOPIC)
[2021-09-15 22:10] LABS: Basophils # 0.1 K/mm3 (0-0.2); Basophils % 0.5 % (0.1-2.0); Eosinophils # 0.1 K/mm3 (0.0-0.4); Eosinophils % 1.5 % (0.1-12.0); Hematocrit 43.3 % (42.0-52.0); Hemoglobin 14.2 g/dL (14.1-18.0); Lymphocytes # 1.1 K/mm3 (0.7-4.5); Lymphocytes % 12.2 % (10-50); Mean Corpuscular HGB Conc 32.8 g/dL (31.8-35.4); Mean Corpuscular Hemoglobin 29.2 pg (27.0-31.2); Mean Corpuscular Volume 89.3 fl (80-94); Mean Platelet Volume 8.2 fl (7.4-10.4); Monocytes # 0.1 K/mm3 (0.1-1.0); Monocytes % 1.2 % (1.7-9.3); Neutrophils # 7.8 K/mm3 (1.8-7.8); Neutrophils % 84.6 % (37.0-80.0); Platelet Count 308 K/mm3 (142-424); Red Blood Count 4.85 M/mm3 (4.60-6.20); Red Cell Distribution Width 14.4 % (11.5-17.5); White Blood Count 9.3 K/mm3 (4.8-10.8)
[2021-09-15 22:13] LABS: Appearance,Urine CLOUDY (Clear); Blood, Urine 3+ (Negative); Chloride 104 mmol/L (98-107); Color,Urine BROWN (Yellow); Glucose,Urine (UA) Negative (Negative); Ketones,Urine 1+ (Negative); Leukocyte Esterase,Urine 2+ (Negative); Nitrate,Urine POSITIVE (Negative); PH,Urine 6.5 (5.0-8.5); Protein,Urine 3+ (Negative); Specific Gravity, Urine 1.025 (1.005-1.030)
[2021-09-15 22:14] LABS: Potassium 3.6 mmoL/L (3.5-5.1); Sodium 142 mmol/L (136-145)
[2021-09-15 22:16] LABS: Alanine Aminotransferase 25 U/L (12-78); Alkaline Phosphatase 110 U/L (38-126); Anion Gap 14.6 mEq/L (5-15); Aspartate Amino Transferase 29 U/L (17-59); Bilirubin,Total 0.4 mg/dl (0.2-1.3); Blood Urea Nitrogen 15 mg/dl (9-20); Carbon Dioxide 27 mmol/L (22.0-30.0); Creatinine Clearance Estimated 120 mL/min (50-200); Estimated Glomerular Filt Rate 68 ml/min (>60); GFR (African American) 82 ML/MIN (>60); Lipase 93 U/L (23-300)
[2021-09-15 22:17] LABS: Albumin Level 4.4 g/dl (3.5-5.0); Albumin/Globulin Ratio 1.5 (1.1-1.8); Calcium 9.5 mg/dl (8.4-10.2); Glucose 109 mg/dl (74-100); Total Protein,Serum 7.4 g/dl (6.3-8.2)
[2021-09-15 22:30] VITALS: BP 129/75; PULSE 98; O2SAT 91
[2021-09-15 22:41] LABS: Bilirubin,Urine 2+ (Negative)
[2021-09-15 22:42] LABS: Bacteria,Urine 1+ /lpf; RBC,Urine TNTC #/hpf (0-3)
--- NOTE | 2021-09-15 22:45 | CT_ITS ---
PROCEDURE INFORMATION: Exam: CT Abdomen And Pelvis With Contrast Exam date and time: 09/15/2021 10:45 PM Age: 61 years old Clinical indication: Abdominal pain; Flank; Prior surgery; Surgery date: <1 month; Patient HX: Left abd pain, multiple recent cysto SX for stones; Additional info: Abdominal pain, left TECHNIQUE: Imaging protocol: Computed tomography of the abdomen and pelvis with contrast. Radiation optimization: All CT scans at this facility use at least one of these dose optimization techniques: automated exposure control; mA and/or kV adjustment per patient size (includes targeted exams where dose is matched to clinical indication); or iterative reconstruction. Contrast material: ISOVUE; Contrast volume: 75 ml; Contrast route: IV; COMPARISON: CT ABDOMEN PELVIS W CON 08/26/2021 3:22 PM FINDINGS: Tubes, catheters and devices: Intra-atrial device noted. Diaphragm: Small hiatal hernia. Liver: Of a subcentimeter hypodensity in the right hepatic lobe is stable. Mild hepatic hypoattenuation diffusely may represent steatosis. Another focal subcapsular hypodensity is seen on image 48 is also unchanged. Gallbladder and bile ducts: Normal. No calcified stones. No ductal dilation. Pancreas: Normal. No ductal dilation. Spleen: Normal. No splenomegaly. Adrenal glands: Normal. No mass. Kidneys and ureters: A few small stones are seen in the left kidney lower pole. The largest measures 4 mm. Mild left hydronephrosis and hydroureter. Mild periureteric stranding on the left. This is due to multiple stacked distal left ureteral stones. The largest measures 5 mm. No stones on the right. Stomach and bowel: Unremarkable. No obstruction. No mucosal thickening. Appendix: No evidence of appendicitis. Intraperitoneal space: Unremarkable. No free air. No significant fluid collection. Vasculature: Unremarkable. No abdominal aortic aneurysm. Lymph nodes: Unremarkable. No enlarged lymph nodes. Urinary bladder: Unremarkable as visualized. Reproductive: Unremarkable as visualized. Bones/joints: Unremarkable. No acute fracture. Soft tissues: Unremarkable. IMPRESSION: Mild left hydronephrosis due to the several stat distal ureteral stones, the largest of which measures 5 mm.
[2021-09-15 23:30] VITALS: BP 126/71; PULSE 98; O2SAT 93
[2021-09-16] VITALS (19 sets, daily range): BP systolic 93–137; BP diastolic 48–76; PULSE 64–113; RESP 14–18; TEMP 36.1–36.9; O2SAT 91–98; BMI 36.4
--- NOTE | 2021-09-16 | XR_ITS ---
PROCEDURE: XR KUB CLINICAL INDICATION: LT URETEROSCOPY WITH STONE EXTRACTION AND STENT PLACEMENT COMPARISON: CR XR KUB from 09/11/2021 FINDINGS: Fluoroscopy time: 1.10 minutes. Two images submitted showing a left ureteral stent in expected location. IMPRESSION: Status post stone extraction and left ureteral stent placement with fluoroscopic assistance Dictated by: Fahad Jean MD 09/16/2021 15:14 Fahad Jean MD in [facility] 09/16/2021 15:14
--- NOTE | 2021-09-16 01:11 | PC.NURSE ---
Elizabeth spoke with [facility] and [facility]. Pt being admitted [facility] to [facility] for kidney stone and uncontrolled pain
[2021-09-16 01:18] LABS: Coronavirus 19, PCR Not Detected (NotDetected); Influenza A, PCR Not Detected (NotDetected); Influenza B, PCR Not Detected (NotDetected)
--- NOTE | 2021-09-16 03:25 | PC.NURSE ---
patient up to floor via wheelchair @ this time.
--- NOTE | 2021-09-16 07:31 | HMH.HP ---
*Admission Date: 09/16/21 *Chief complaint: flank pain, dark urine *History of present illness: Mr. Vazquez is a pleasant 61-year-old male with history of kidney stones. Presented to the ER yesterday due to worsening left-sided flank pain. Also having abdominal pain and chills. No harika fever, nausea or vomiting. Of note has been followed by Dr. Conroy with a recent lithotripsy in the past few weeks. Initial work-up with labs and imaging. Imaging of abdomen and labs showing white blood cell count within normal limits. Renal function adequate. Urinalysis shows too numerous to count red blood cells. Also 2+ leuk esterase concerning for infection. CT scan of the abdomen pelvis shows multiple ureteral stones on the left with mild hydronephrosis. Largest of which is 5 mm. Patient given pain medication and IV antibiotics. Dr. Conroy was consulted, no plan for urgent intervention at this time. Admitted for IV fluids and pain control. Will monitor for passage of stones. This morning pain is stable. Urinating well. Afebrile. [facility] History I have reviewed the patient's past medical history: Yes Medical History: Reports:: Congestive Heart Failure, Gastroesophageal Reflux Disease(GERD), Hiatal Hernia, Hyperlipidemia, Hypertension, Lung Disease, Kidney Stones Denies:: Cancer, Diabetes Mellitus Type 1, Diabetes Mellitus Type 2, Internal Pacemaker, MRSA, Seizures *Have you ever received a pneumonia vaccine?: No *Have you received a flu vaccine this season?: No Other Medical History: Reports: Arthritis. Denies: Blood Transfusion Reaction Laterality Cases: Bilateral: Arthroscopy Knee, Other Other Surgeries: Yes: No Previous Surgery, Appendectomy, Cardiac Catheterization, Colonoscopy, EGD, Hernia Repair, Ureter Stent, Other (PFO Closure). No: Pacemaker Amputation: No Fractures: No - *Social History Last grade of school completed: High school graduate Smoking Status: Never smoker Alcohol Intake: never Substance Use Type: denies use *Occupational Status:: retired Housing: house Household Members: spouse *Travel in the last 8 weeks: None Family Hx:: Unable to obtain Review of Systems - Review of Systems Review of systems:: pertinent systems reviewed and negative unless documented below (14 point review of systems performed, pertinent positives and negatives as per HPI) Meds Home Medications Medication Instructions Recorded Confirmed Type Aspirin [Aspirin 81mg chewable 81 mg PO DAILY 02/21/19 09/16/21 History tab] Atorvastatin Calcium [Lipitor 20mg 20 mg PO HS 02/21/19 09/16/21 History Tablet*] Metoprolol Succinate [Toprol XL 25 mg PO DAILY 02/21/19 09/16/21 History 25mg tablet] cetirizine 10 mg tablet 10 mg PO DAILY 05/14/19 09/16/21 History fluticasone propionate 50 1 spray INTRANASAL DAILYP PRN 05/14/19 09/16/21 History mcg/actuation nasal spray,suspension Furosemide [Furosemide 20mg Tab*] 10 mg PO DAILY 08/14/21 09/16/21 History Spironolactone [Spironolactone 25 mg PO DAILY 08/14/21 09/16/21 History 25mg Tablet] Clopidogrel Bisulfate [Clopidogrel 75 mg PO DAILY 08/27/21 09/16/21 History 75mg Tab] Allergies Allergy/AdvReac Type Severity Reaction Status Date / Time No Known Allergies Allergy Verified 09/16/21 02:31 Exam Vital signs and Labs for Last 24 Hours: Temp Pulse Resp BP Pulse Ox 98.4 F 74 18 105/63 L 96 09/16/21 03:34 09/16/21 03:34 09/16/21 03:34 09/16/21 03:34 09/16/21 03:34 Laboratory Results - last 24 hr 09/15/21 21:40: Urine Color Brown, Urine Appearance Cloudy, Urine pH 6.5, Ur Specific [place] 1.025, Urine Protein 3+, Urine Glucose (UA) Negative, Urine Ketones 1+, Urine Blood 3+, Urine Nitrate Positive, Urine Bilirubin 2+ A, Urine Urobilinogen 4.0, Ur Leukocyte Esterase 2+ A, Urine RBC Tntc, Urine WBC 5-10, Ur Squamous Epith Cells None, Urine Bacteria 1+ 09/15/21 21:40: WBC 9.3, RBC 4.85, Hgb 14.2, Hct 43.3, MCV 89.3, MCH 29.2, MCHC 32.8, RDW 14.4,
--- NOTE | 2021-09-16 08:31 | P.CONPHA_ITS ---
[facility] Pharmacy VTE Monitoring - Patient Demographics Admission date: 09/16/21 Report Date: 09/16/21 Time: 08:31 Allergies/Adverse Reactions: Patient Allergies No Known Allergies Allergy (Verified 09/16/21 02:31) Height: 1.83 m Weight: 122 kg Patient Problems: Current Active Problems Nephrolithiasis (Chronic) - VTE Risk Labs: VTE Related Lab Results Hgb 14.2 g/dL (14.1-18.0) 09/15/21 21:40 Hct 43.3 % (42.0-52.0) 09/15/21 21:40 Plt Count 308 K/mm3 (142-424) 09/15/21 21:40 BUN 15 mg/dl (9-20) 09/15/21 21:40 Creatinine 1.10 mg/dl (0.66-1.25) 09/15/21 21:40 Estimated Creat Clear 120 mL/min (50-200) 09/15/21 21:40 Was VTE Risk Assessment Performed: Yes VTE Score: 4 VTE Risk Level: Low Risk Clinical Trial Participant: No - Prophylaxis VTE Prophylaxis Ordered?: Yes Types of VTE Prophylaxis: TEDS Knee High
--- NOTE | 2021-09-16 08:34 | HMH.PHAINT ---
VERIFIED HOME MEDICATION LIST USING LIST FROM OUTPATIENT PHARMACY
--- NOTE | 2021-09-16 12:06 | HMH.ANESCL ---
[facility] Anesthesia Checklist - Patient Identification Patient Identification: Arm Band, Verbal (Name & ) - Structural Data Admitted From: Home Planned Operative Procedure/s: Left Ureteroscopy Consent for Planned Operative Procedure(s) Verified: Yes Verified Documents: Surgical Consent - NPO Status Verified Time NPO: 00:00 - Chart Verification Results Verified: CBC, BMP - Additional verifications Anesthesia Reactions: No Hx Blood Transfusions: No Blood Transfusion Reaction: No - Cardiovascular Assessment Heart Sounds: S1 & S2 - Airway Assessment C-Spine Mobility Assessed: Yes TMJ Mobility Assessed: Yes Dentition: Partials - Neurological Assessment Level of Consciousness: Awake, Alert, Appropriate - Anesthesia Plan Anesthesia Risk discussed: Yes ASA Class: II Anesthesia Type: General [facility] History I have reviewed the patient's past medical history: Yes Medical History: Reports:: Congestive Heart Failure, Gastroesophageal Reflux Disease(GERD), Hiatal Hernia, Hyperlipidemia, Hypertension, Lung Disease, Kidney Stones Denies:: Cancer, Diabetes Mellitus Type 1, Diabetes Mellitus Type 2, Internal Pacemaker, MRSA, Seizures *Have you ever received a pneumonia vaccine?: No *Have you received a flu vaccine this season?: No Other Medical History: Reports: Arthritis. Denies: Blood Transfusion Reaction Anesthesia experience/problems:: none Laterality Cases: Bilateral: Arthroscopy Knee, Other Other Surgeries: Yes: No Previous Surgery, Appendectomy, Cardiac Catheterization, Colonoscopy, EGD, Hernia Repair, Ureter Stent, Other (PFO Closure). No: Pacemaker Amputation: No Fractures: No - *Social History Last grade of school completed: High school graduate Smoking Status: Never smoker Alcohol Intake: never Substance Use Type: denies use *Occupational Status:: retired Housing: house Household Members: spouse *Travel in the last 8 weeks: None Family Hx:: Unable to obtain
--- NOTE | 2021-09-16 13:10 | HMH.CONS ---
*Admission Date: 09/16/21 *Reason for consult:: Multiple left ureteral calculi with obstruction status post recent left ESW *History of present illness: 61-year-old white male status post left ESWL 2 weeks ago with left flank pain. CT scan reveals multiple left ureteral calculi with obstruction. Patient was admitted for pain control and continues to require IV pain medication for relief. His white count and renal function are normal. He has had some nausea yesterday with the onset of the pain. [facility] History Medical History: Reports:: Congestive Heart Failure, Gastroesophageal Reflux Disease(GERD), Hiatal Hernia, Hyperlipidemia, Hypertension, Lung Disease, Kidney Stones Denies:: Cancer, Diabetes Mellitus Type 1, Diabetes Mellitus Type 2, Internal Pacemaker, MRSA, Seizures *Have you ever received a pneumonia vaccine?: No *Have you received a flu vaccine this season?: No Other Medical History: Reports: Arthritis. Denies: Blood Transfusion Reaction Anesthesia experience/problems:: none Laterality Cases: Bilateral: Arthroscopy Knee, Other Other Surgeries: Yes: No Previous Surgery, Appendectomy, Cardiac Catheterization, Colonoscopy, EGD, Hernia Repair, Ureter Stent, Other (PFO Closure). No: Pacemaker Amputation: No Fractures: No - *Social History Last grade of school completed: High school graduate Smoking Status: Never smoker Alcohol Intake: never Substance Use Type: denies use *Occupational Status:: retired Housing: house Household Members: spouse *Travel in the last 8 weeks: None Family Hx:: Unable to obtain Review of Systems - Review of Systems Review of systems:: pertinent systems reviewed and negative unless documented below Meds Home Medications Medication Instructions Recorded Confirmed Type Aspirin [Aspirin 81mg chewable 81 mg PO DAILY 02/21/19 09/16/21 History tab] Atorvastatin Calcium [Lipitor 20mg 20 mg PO HS 02/21/19 09/16/21 History Tablet*] Metoprolol Succinate [Toprol XL 25 mg PO DAILY 02/21/19 09/16/21 History 25mg tablet] cetirizine 10 mg tablet 10 mg PO DAILY 05/14/19 09/16/21 History fluticasone propionate 50 1 spray INTRANASAL DAILYP PRN 05/14/19 09/16/21 History mcg/actuation nasal spray,suspension Furosemide [Furosemide 20mg Tab*] 10 mg PO DAILY 08/14/21 09/16/21 History Spironolactone [Spironolactone 25 mg PO DAILY 08/14/21 09/16/21 History 25mg Tablet] Clopidogrel Bisulfate [Clopidogrel 75 mg PO DAILY 08/27/21 09/16/21 History 75mg Tab] Allergies Allergy/AdvReac Type Severity Reaction Status Date / Time No Known Allergies Allergy Verified 09/16/21 02:31 Exam Vital signs and Labs for Last 24 Hours: Temp Pulse Resp BP Pulse Ox 97.0 F L 68 14 122/65 95 09/16/21 12:47 09/16/21 13:07 09/16/21 13:07 09/16/21 13:07 09/16/21 13:07 Laboratory Results - last 24 hr 09/15/21 21:40: Urine Color Brown, Urine Appearance Cloudy, Urine pH 6.5, Ur Specific [place] 1.025, Urine Protein 3+, Urine Glucose (UA) Negative, Urine Ketones 1+, Urine Blood 3+, Urine Nitrate Positive, Urine Bilirubin 2+ A, Urine Urobilinogen 4.0, Ur Leukocyte Esterase 2+ A, Urine RBC Tntc, Urine WBC 5-10, Ur Squamous Epith Cells None, Urine Bacteria 1+ 09/15/21 21:40: WBC 9.3, RBC 4.85, Hgb 14.2, Hct 43.3, MCV 89.3, MCH 29.2, MCHC 32.8, RDW 14.4, Plt Count 308, MPV 8.2, Neut % (Auto) 84.6 H, Lymph % (Auto) 12.2, [place] % (Auto) 1.2 L, Eos % (Auto) 1.5, Baso % (Auto) 0.5, Neut # (Auto) 7.8, Lymph # (Auto) 1.1, [place] # (Auto) 0.1, Eos # (Auto) 0.1, Baso # (Auto) 0.1 09/15/21 21:40: Sodium 142, Potassium 3.6, Chloride 104, Carbon Dioxide 27, Anion Gap 14.6, BUN 15, Creatinine 1.10, Estimated Creat Clear 120, Estimated GFR 68, Est GFR ( Amer) 82, Glucose 109 H, Calcium 9.5, Total Bilirubin 0.4, AST 29, ALT 25, Alkaline Phosphatase 110, Total Protein 7.4, Albumin 4.4, Globulin 3.0, Albumin/Globulin Ratio 1.5, Lipase 93 09/16/21 01:12: SARS-CoV-2 (PCR) Not detected, Influenza A Untype
--- NOTE | 2021-09-16 13:12 | P.OP_ITS ---
Date of procedure: 09/16/21 Pre-op Diagnosis:: Multiple left ureteral calculi Post-op Diagnosis:: Multiple left ureteral calculi with ureteral stenosis Procedure performed:: Left ureteroscopy with dilation of the left ureteral orifice, basket stone extraction of multiple ureteral stones and left stent placement Surgeon:: Иван Conroy MD SPOTTER DRIVER:: Other (mahesh) Anesthesia: LMA Estimated blood loss (mL): 0 Clinical Note:: 61-year-old white male status post recent left ESWL now with left renal colic. CT scan shows multiple stone fragments in the left ureter. He was admitted for pain control and wishes to proceed with urologic management of the ureteral stones under general anesthesia. Operative findings:: Multiple left ureteral calculi with narrowing of the ureter distally causing [place] Operative note:: Patient taken to the operating room after informed consent was obtained. He was placed on the operating room table in the supine position and general anesthesia administered. He was on IV antibiotics on the floor and no additional antibiotics were given. Sequential compression devices placed and turned on. He was then placed into the dorsal lithotomy position and prepped and draped in the standard surgical fashion. The 22 [place]utanese cystoscope passed into the urethral meatus and into the bladder without difficulty. The bladder was examined in a systematic fashion and showed no abnormalities. The ureteral orifices in their normal anatomic position. A guidewire was passed into the left ureteral orifice and passed into the left renal pelvis without resistance. The left ureteral orifice was stenotic so it was dilated with a 5 x 14 mm UroMax balloon dilator for 3 minutes. The dilator then deflated and removed. The semirigid ureteroscope then passed into the bladder and into the left ureter and proximally were multiple stones were noted. A 1.9 [place]anese stone basket was passed through the scope and all the stones were removed. There was some ureteral narrowing about 3 cm proximal to the ureteral orifice but we were able to bring the stones through the ureter without laser lithotripsy. All stone fragments in the ureter were removed. They were sent off as a specimen. The ureteroscope then removed and the cystoscope was replaced over the guidewire and a 4.8 x 26 [place]anese stent then passed over the guidewire. With use of fluoroscopy the wire was removed and a good curl was noted proximally and distally. String was left on for later removal. Urojet placed into the urethra for comfort measures. Patient tolerated well. Condition: stable Disposition: PACU Specimens:: Ureteral stones Complications:: None
--- NOTE | 2021-09-16 13:31 | SUR.PHASEI ---
1316- detailed report called to fabrizio pulido on medsurg floor. 1318- pt left in stable condition on med surg floor with fabrizio pulido at this time.
--- NOTE | 2021-09-16 13:48 | PC.NURSE ---
pt just passed 2 kidney stone fragments. Pieces placed in specimen cup and sent down to lab.
--- NOTE | 2021-09-16 18:09 | HMH.DCSUM ---
General - General Admission date:: 09/16/21 Discharge date: 09/16/21 HPI HPI: Mr. Vazquez is a pleasant 61-year-old male with history of kidney stones. Presented to the ER yesterday due to worsening left-sided flank pain. Also having abdominal pain and chills. No harika fever, nausea or vomiting. Of note has been followed by Dr. Conroy with a recent lithotripsy in the past few weeks. Initial work-up with labs and imaging. Imaging of abdomen and labs showing white blood cell count within normal limits. Renal function adequate. Urinalysis shows too numerous to count red blood cells. Also 2+ leuk esterase concerning for infection. CT scan of the abdomen pelvis shows multiple ureteral stones on the left with mild hydronephrosis. Largest of which is 5 mm. Patient given pain medication and IV antibiotics. Dr. Conroy was consulted, no plan for urgent intervention at this time. Admitted for IV fluids and pain control. Will monitor for passage of stones. This morning pain is stable. Urinating well. Afebrile. Hospital Course Hospital Course: Patient admitted for left flank pain and subjective fever. UA concerning for UTI. CT of abdomen showing obstructing nephrolithiasis with stacked stones and in the left ureter causing hydronephrosis and hydroureter. Also noted to have stranding around the left ureter. Urology consulted due to obstruction and need for intervention. Patient taken to the OR today for stent placement. Stones removed and stent left in place. Patient has had significant improvement in his pain. Plan to continue antibiotics empirically for a week given concern for UTI/pyelonephritis. Close follow-up with urology on Tuesday. We'll plan to see him in our office and 2 weeks. Continue tamsulosin to ease smooth muscle spasm and help relax ureter. Toradol for pain. Medically stable for discharge home. Patient's at bedside, updated on plan. Objective Vital signs: Temp Pulse Resp BP Pulse Ox 98.1 F 64 16 101/52 L 94 L 09/16/21 16:10 09/16/21 16:10 09/16/21 16:10 09/16/21 16:10 09/16/21 16:10 Narrative: - Constitutional NAD, obese - *Routine HEENT Exam Head: Present: normocephalic Eye: Present: EOMI, PERRL ENT: Present: mucous membranes moist - *Routine Neck Exam Present: supple. Absent: lymphadenopathy - *Routine Respiratory Exam Present: CTA bilaterally - *Routine Cardiovascular Exam Present: RRR - *Routine Abdominal Exam Present: soft, normoactive bowel sounds, intervally improved tenderness (minimal in Left abdomen) - *Routine Extremities Exam Absent: cyanosis, clubbing, edema - *Routine Skin Exam Present: warm. Absent: rash - *Routine Neurological Exam Present: alert, oriented X3 Results Labs on day of discharge: Labs from last 24 hours 09/16/21 09/15/21 09/15/21 01:12 21:40 21:40 WBC 9.3 RBC 4.85 Hgb 14.2 Hct 43.3 MCV 89.3 MCH 29.2 MCHC 32.8 RDW 14.4 Plt Count 308 MPV 8.2 Neut % (Auto) 84.6 H Lymph % (Auto) 12.2 [place] % (Auto) 1.2 L Eos % (Auto) 1.5 Baso % (Auto) 0.5 Neut # (Auto) 7.8 Lymph # (Auto) 1.1 [place] # (Auto) 0.1 Eos # (Auto) 0.1 Baso # (Auto) 0.1 Sodium 142 Potassium 3.6 Chloride 104 Carbon Dioxide 27 Anion Gap 14.6 BUN 15 Creatinine 1.10 Estimated Creat Clear 120 Estimated GFR 68 Est GFR ( Amer) 82 Glucose 109 H Calcium 9.5 Total Bilirubin 0.4 AST 29 ALT 25 Alkaline Phosphatase 110 Total Protein 7.4 Albumin 4.4 Globulin 3.0 Albumin/Globulin Ratio 1.5 Lipase 93 Urine Color Urine Appearance Urine pH Ur Specific [place] Urine Protein Urine Glucose (UA) Urine Ketones Urine Blood Urine Nitrate Urine Bilirubin Urine Urobilinogen Ur Leukocyte Esterase Urine RBC Urine WBC Ur Squamous Epith Cells Urine Bacteria SARS-CoV-2 (PCR) Not detecte
[2021-12-18 20:49] LABS: Size 4X4
[2021-12-18 20:50] LABS: Ca oxalate dihydrate 20
== END 2021-09-16 18:30 | disposition home or self-care (01) ==
LOC: ER 09-16 00:31 → 2ND 09-16 01:41
PROVIDERS: Urology; Admitting Provider Family Medicine; Emergency Provider Emergency Medicine; PCP Nurse Practitioner Family; Visit Provider Internal Medicine Adolescent Medicine
PROC: (CPT 52352; principal; 2021-09-16 11:30)
DX: N20.1 Calculus of ureter (principal); N13.1 Hydronephrosis with ureteral stricture, not elsewhere classified; R78.81 Bacteremia; I11.0 Hypertensive heart disease with heart failure; I50.9 Heart failure, unspecified; K21.9 Gastro-esophageal reflux disease without esophagitis; J44.9 Chronic obstructive pulmonary disease, unspecified; Z20.822 Contact with and (suspected) exposure to COVID-19
CPT/HCPCS: 52352; 52344; 52332; 74018; 74177; 76000; 80053; 81001; 82370; 83690; 85025; 87086; 87088; 87186; 96365; 96367; 96375; 99284; C2617; C9803; G0378; J1956; J2405; Q9967; U0003; U0005

== ENCOUNTER → 2021-09-21 13:58 | Outpatient (CLI) | payer SELFPAY ==
--- NOTE | 2021-09-21 14:02 | XR_ITS ---
PROCEDURE: XR KUB CLINICAL INDICATION: kidney stone COMPARISON: CR XR KUB from 09/16/2021 FINDINGS: 4 mm stone is present projecting over the lower pole of the left kidney. No obvious ureteral calculus. Mild lumbar scoliosis convex left. IMPRESSION: Left nephrolithiasis Dictated by: Fahad Jean MD 09/21/2021 16:08 Fahad Jean MD in [facility] 09/21/2021 16:08
== END ==
PROVIDERS: PCP Nurse Practitioner Family; Visit Provider Urology
DX: N20.0 Calculus of kidney (principal)
CPT/HCPCS: 74018

== ENCOUNTER → 2021-09-28 17:59 | Outpatient (CLI) | payer OTHER, SELFPAY | PROVIDERS: Visit Provider Internal Medicine Adolescent Medicine | DX: R30.0 Dysuria (principal); B96.20 Unspecified Escherichia coli [E. coli] as the cause of diseases classified elsewhere | CPT/HCPCS: 87086; 87088; 87186 ==

== ENCOUNTER 2021-10-02 10:48 | Outpatient (CLI) | payer OTHER, SELFPAY ==
[2021-10-02 12:27] VITALS: BMI 31.7
--- NOTE | 2021-10-02 12:28 | XR_ITS ---
PROCEDURE: XR CHEST PORTABLE PICC PLAC CLINICAL HISTORY: PICC line placement COMPARISON: CT AGCHEST CT angio chest from 11/03/2018 FINDINGS: Status post left upper extremity PICC line placement. The tip is in the region the SVC distally. Normal heart size. Calcified left perihilar lymph nodes and left-sided granuloma. Lungs are otherwise clear. No acute bony abnormalities. IMPRESSION: Left upper extremity PICC line tip in the region of the SVC. Dictated by: Fahad Jean MD 10/02/2021 12:58 Fahad Jean MD in [facility] 10/02/2021 12:58
[2021-10-02 13:24] VITALS: BP 125/79; PULSE 61; RESP 18; TEMP 36; O2SAT 96
[2021-10-02 14:00] VITALS: BP 117/70; PULSE 62; RESP 18; O2SAT 98
== END 2021-10-02 14:00 | disposition home or self-care (01) ==
LOC: INF 10:49
PROVIDERS: PCP Nurse Practitioner Family; Visit Provider Internal Medicine Adolescent Medicine
DX: N39.0 Urinary tract infection, site not specified (principal); B96.20 Unspecified Escherichia coli [E. coli] as the cause of diseases classified elsewhere; Z45.2 Encounter for adjustment and management of vascular access device
CPT/HCPCS: 36410; 36569; 71045; 96365; C1751; J1335

== ENCOUNTER 2021-10-03 12:28 | Outpatient (CLI) | payer OTHER, SELFPAY | END 2021-10-03 13:30 | disposition home or self-care (01) | LOC: INF 12:30 | PROVIDERS: PCP Nurse Practitioner Family; Visit Provider Internal Medicine Adolescent Medicine | DX: N39.0 Urinary tract infection, site not specified (principal); B96.20 Unspecified Escherichia coli [E. coli] as the cause of diseases classified elsewhere | CPT/HCPCS: 96365; J1335 ==

== ENCOUNTER 2021-10-04 13:28 | Outpatient (CLI) | payer OTHER, SELFPAY ==
[2021-10-04 13:36] VITALS: BP 117/74; PULSE 69; RESP 18; TEMP 36.6; O2SAT 95
== END 2021-10-04 14:30 | disposition home or self-care (01) ==
LOC: INF 13:28
PROVIDERS: PCP Nurse Practitioner Family; Visit Provider Internal Medicine Adolescent Medicine
DX: N39.0 Urinary tract infection, site not specified (principal); B96.20 Unspecified Escherichia coli [E. coli] as the cause of diseases classified elsewhere
CPT/HCPCS: 96365; J1335

== ENCOUNTER 2021-10-05 12:30 | Outpatient (CLI) | payer OTHER, SELFPAY ==
[2021-10-05 13:00] VITALS: BP 123/74; PULSE 62; RESP 18; TEMP 36.7; O2SAT 97
[2021-10-05 13:40] VITALS: BP 126/68; PULSE 78; RESP 18
== END 2021-10-05 13:40 | disposition home or self-care (01) ==
LOC: INF 12:31
PROVIDERS: PCP Nurse Practitioner Family; Visit Provider Internal Medicine Adolescent Medicine
DX: N39.0 Urinary tract infection, site not specified (principal); B96.20 Unspecified Escherichia coli [E. coli] as the cause of diseases classified elsewhere
CPT/HCPCS: 96365; J1335

== ENCOUNTER 2021-10-06 12:43 | Outpatient (CLI) | payer OTHER, SELFPAY ==
[2021-10-06 13:04] VITALS: BP 127/78; PULSE 68; RESP 18; TEMP 36.4; O2SAT 97
[2021-10-06 13:52] VITALS: BP 133/76; PULSE 71; RESP 18; O2SAT 98
== END 2021-10-06 13:56 | disposition home or self-care (01) ==
LOC: INF 12:44
PROVIDERS: PCP Nurse Practitioner Family; Visit Provider Internal Medicine Adolescent Medicine
DX: N39.0 Urinary tract infection, site not specified (principal); B96.20 Unspecified Escherichia coli [E. coli] as the cause of diseases classified elsewhere
CPT/HCPCS: 96365; J1335

== ENCOUNTER 2021-10-07 12:51 | Outpatient (CLI) | payer OTHER, SELFPAY ==
[2021-10-07 13:15] VITALS: BP 112/77; PULSE 60; RESP 18; TEMP 36.7; O2SAT 97
[2021-10-07 14:15] VITALS: BP 123/71; PULSE 68; RESP 18
== END 2021-10-07 14:15 | disposition home or self-care (01) ==
LOC: INF 12:52
PROVIDERS: PCP Nurse Practitioner Family; Visit Provider Internal Medicine Adolescent Medicine
DX: N39.0 Urinary tract infection, site not specified (principal); B96.20 Unspecified Escherichia coli [E. coli] as the cause of diseases classified elsewhere
CPT/HCPCS: 96365; J1335

== ENCOUNTER 2021-10-08 11:29 | Outpatient (CLI) | payer OTHER, SELFPAY ==
[2021-10-08 11:41] VITALS: BP 145/65; PULSE 60; RESP 18; TEMP 36.8; O2SAT 96
[2021-10-08 12:35] VITALS: BP 138/64; PULSE 63; RESP 18
== END 2021-10-08 12:35 | disposition home or self-care (01) ==
LOC: INF 11:30
PROVIDERS: PCP Nurse Practitioner Family; Visit Provider Internal Medicine Adolescent Medicine
DX: N39.0 Urinary tract infection, site not specified (principal); B96.20 Unspecified Escherichia coli [E. coli] as the cause of diseases classified elsewhere
CPT/HCPCS: 96365; J1335

== ENCOUNTER → 2021-10-09 12:44 | Outpatient (CLI) | payer OTHER, SELFPAY ==
[2021-10-09 13:10] VITALS: BP 132/71; PULSE 58; RESP 18; TEMP 36.6; O2SAT 96
[2021-10-09 13:10] LABS: Chloride 107 mmol/L (98-107); Sodium 140 mmol/L (136-145)
[2021-10-09 13:11] LABS: Potassium 4.2 mmoL/L (3.5-5.1)
[2021-10-09 13:13] LABS: Blood Urea Nitrogen 14 mg/dl (9-20); Estimated Glomerular Filt Rate 86 ml/min (>60); GFR (African American) 104 ML/MIN (>60)
[2021-10-09 13:14] LABS: Anion Gap 10.2 mEq/L (5-15); Calcium 9.2 mg/dl (8.4-10.2); Carbon Dioxide 27 mmol/L (22.0-30.0); Glucose 88 mg/dl (74-100)
[2021-10-09 14:00] VITALS: BP 127/53; PULSE 59; RESP 18
== END ==
PROVIDERS: PCP Internal Medicine Adolescent Medicine; Visit Provider Internal Medicine Adolescent Medicine
DX: N39.0 Urinary tract infection, site not specified (principal); B96.20 Unspecified Escherichia coli [E. coli] as the cause of diseases classified elsewhere
CPT/HCPCS: 80048; 96365; J1335

== ENCOUNTER → 2021-10-10 10:50 | Outpatient (CLI) | payer OTHER, SELFPAY ==
[2021-10-10 10:50] VITALS: BP 132/78; PULSE 86; RESP 18; TEMP 37.1; O2SAT 97
[2021-10-10 11:50] VITALS: BP 129/73; PULSE 77; RESP 16; O2SAT 98
== END ==
PROVIDERS: PCP Internal Medicine Adolescent Medicine; Visit Provider Internal Medicine Adolescent Medicine
DX: N39.0 Urinary tract infection, site not specified (principal); B96.20 Unspecified Escherichia coli [E. coli] as the cause of diseases classified elsewhere
CPT/HCPCS: 96365; J1335

== ENCOUNTER 2021-10-11 13:31 | Outpatient (CLI) | payer OTHER, SELFPAY ==
[2021-10-11 13:57] VITALS: BP 112/73; PULSE 65; RESP 18; TEMP 36.4; O2SAT 95
[2021-10-11 14:27] VITALS: BP 121/66; PULSE 65; RESP 17; TEMP 36.7; O2SAT 96
== END 2021-10-11 14:27 | disposition home or self-care (01) ==
LOC: INF 13:31
PROVIDERS: PCP Internal Medicine Adolescent Medicine; Visit Provider Internal Medicine Adolescent Medicine
DX: N39.0 Urinary tract infection, site not specified (principal); B96.20 Unspecified Escherichia coli [E. coli] as the cause of diseases classified elsewhere
CPT/HCPCS: 96365; J1335

== ENCOUNTER 2021-10-13 14:41 | Outpatient (CLI) | payer OTHER, SELFPAY ==
[2021-10-13 14:53] VITALS: BP 125/83; PULSE 79; RESP 16; TEMP 36.6; O2SAT 97
== END 2021-10-13 14:54 | disposition home or self-care (01) ==
LOC: INF 14:42
PROVIDERS: PCP Nurse Practitioner Family; Visit Provider Internal Medicine Adolescent Medicine
DX: Z45.2 Encounter for adjustment and management of vascular access device (principal); N12 Tubulo-interstitial nephritis, not specified as acute or chronic
CPT/HCPCS: G0463

== ENCOUNTER → 2022-03-09 09:26 | Outpatient (CLI) | payer OTHER, SELFPAY ==
--- NOTE | 2022-03-09 09:29 | XR_ITS ---
FINAL REPORT CLINICAL HISTORY: KIDNEY STONE f/u COMPARISON: September 21, 2021 FINDINGS: SINGLE VIEW ABDOMEN A single view of the abdomen was obtained. There is a nonobstructive bowel gas pattern. There are no abnormally dilated loops of small bowel. There is a 4 mm presumed stone in the lower pole of the left kidney, visually stable. No other definite renal stone is identified. There are stable phleboliths in the left pelvis. There are moderate degenerative changes of the lumbar spine. There is leftward curvature of the lumbar spine IMPRESSION: Nonobstructive bowel gas pattern. Reviewed, Interpreted and Dictated by Juice Ly III, MD Transcribed by Nancie Lew Authenticated by Juice Ly III, MD on 03/09/2022 10:31:28 AM [facility]
[2022-03-09 12:27] LABS: Prostate Specific Ag Screen 1.1 ng/ml (0.0-4.0)
== END ==
PROVIDERS: PCP Nurse Practitioner Family; Visit Provider Urology
DX: N20.0 Calculus of kidney (principal); Z12.5 Encounter for screening for malignant neoplasm of prostate
CPT/HCPCS: 36415; 74018; G0103

== ENCOUNTER 2023-01-18 02:24 | Observation (INO) | payer OTHER, SELFPAY ==
[2023-01-18] VITALS (7 sets, daily range): BP systolic 106–147; BP diastolic 55–82; PULSE 55–73; RESP 16–18; TEMP 36.6–37.1; O2SAT 93–99; BMI 32.5; BMI 32.9
--- NOTE | 2023-01-18 02:41 | CT_ITS ---
PROCEDURE INFORMATION: Exam: CT Abdomen And Pelvis With Contrast Exam date and time: 01/18/2023 3:31 AM Age: 62 years old Clinical indication: Nausea; Abdominal pain; Localized; Lower; Prior surgery; Surgery type: Hernia repair; Additional info: Abd pain TECHNIQUE: Imaging protocol: Computed tomography of the abdomen and pelvis with contrast. Radiation optimization: All CT scans at this facility use at least one of these dose optimization techniques: automated exposure control; mA and/or kV adjustment per patient size (includes targeted exams where dose is matched to clinical indication); or iterative reconstruction. Contrast material: ISOVUE; Contrast volume: 75 ml; Contrast route: IV; REPORTING DATA: Count of CT and Cardiac NM exams in prior 12 months: This patient has received 0 known CTs and 0 known cardiac nuclear medicine studies in the 12 months prior to the current study. COMPARISON: CT ABDOMEN PELVIS W CON 09/15/2021 11:00 PM FINDINGS: Diaphragm: Moderate-sized hiatal hernia. Liver: Liver is low in density. Gallbladder and bile ducts: Normal. No calcified stones. No ductal dilation. Pancreas: Normal. No ductal dilation. Spleen: Normal. No splenomegaly. Adrenal glands: Normal. No mass. Kidneys and ureters: 8 mm stone is seen in the lower pole collecting system of the left kidney. No hydronephrosis hydroureter or urolithiasis is noted. Stomach and bowel: Focal thickening of the junction of the descending and sigmoid colon is noted. There is adjacent edema present. No perforation or abscess noted. Appendix: No evidence of appendicitis. Intraperitoneal space: Unremarkable. No free air. No significant fluid collection. Vasculature: Unremarkable. No abdominal aortic aneurysm. Lymph nodes: Unremarkable. No enlarged lymph nodes. Urinary bladder: Unremarkable as visualized. Reproductive: Unremarkable as visualized. Bones/joints: Unremarkable. No acute fracture. Soft tissues: Unremarkable. IMPRESSION: 1. Mild diverticulitis at the junction of the descending and sigmoid colon, no abscess or obstruction noted. 2. Nonobstructing left-sided nephrolithiasis.
[2023-01-18 02:47] LABS: Basophils # 0.1 K/mm3 (0-0.2); Basophils % 1.2 % (0.1-2.0); Eosinophils # 0.4 K/mm3 (0.0-0.4); Eosinophils % 3.1 % (0.1-12.0); Hematocrit 45.2 % (42.0-52.0); Hemoglobin 14.9 g/dL (14.1-18.0); Lymphocytes # 2.1 K/mm3 (0.7-4.5); Lymphocytes % 17.9 % (10-50); Mean Corpuscular HGB Conc 32.9 g/dL (31.8-35.4); Mean Corpuscular Hemoglobin 28.5 pg (27.0-31.2); Mean Corpuscular Volume 86.5 fl (80-94); Mean Platelet Volume 7.9 fl (7.4-10.4); Monocytes # 0.7 K/mm3 (0.1-1.0); Monocytes % 6.4 % (1.7-9.3); Neutrophils # 8.2 K/mm3 (1.8-7.8); Neutrophils % 71.4 % (37.0-80.0); Platelet Count 267 K/mm3 (142-424); Red Blood Count 5.22 M/mm3 (4.60-6.20); Red Cell Distribution Width 14.3 % (11.5-17.5); White Blood Count 11.5 K/mm3 (4.8-10.8)
[2023-01-18 02:53] LABS: Chloride 105 mmol/L (98-107); Potassium 3.9 mmoL/L (3.5-5.1); Sodium 140 mmol/L (136-145)
[2023-01-18 02:55] LABS: Amylase 84 U/L (30-110); Blood Urea Nitrogen 16 mg/dl (9-20); Creatinine Clearance Estimated 116 mL/min (50-200); Estimated Glomerular Filt Rate 68 ml/min (>60); GFR (African American) 82 ML/MIN (>60)
[2023-01-18 02:56] LABS: Alanine Aminotransferase 24 U/L (12-78); Albumin Level 4.3 g/dl (3.5-5.0); Albumin/Globulin Ratio 1.2 (1.1-1.8); Alkaline Phosphatase 78 U/L (38-126); Anion Gap 8.9 mEq/L (5-15); Aspartate Amino Transferase 28 U/L (17-59); Bilirubin,Total 0.4 mg/dl (0.2-1.3); Calcium 9.4 mg/dl (8.4-10.2); Carbon Dioxide 30 mmol/L (22.0-30.0); Globulin 3.6 g/dL (1.3-3.2); Glucose 92 mg/dl (74-100); Lipase 101 U/L (23-300); Total Protein,Serum 7.9 g/dl (6.3-8.2)
[2023-01-18 03:17] LABS: Microscopic, Urine URINE MICROSCOPIC (MICROSCOPIC)
[2023-01-18 03:26] LABS: Lactic Acid 0.8 mmol/L (0.7-2.1)
--- NOTE | 2023-01-18 03:27 | PC.NURSE ---
pt to ct scan via wheelchair
[2023-01-18 03:29] LABS: Appearance,Urine CLEAR (Clear); Bilirubin,Urine Negative (Negative); Blood, Urine TRACE-I (Negative); Color,Urine YELLOW (Yellow); Glucose,Urine (UA) Negative (Negative); Ketones,Urine Negative (Negative); Leukocyte Esterase,Urine Negative (Negative); Nitrate,Urine Negative (Negative); PH,Urine 5.5 (5.0-8.5); Protein,Urine Negative (Negative); Specific Gravity, Urine >= 1.030 (1.005-1.030); Urobilinogen,Urine 0.2 EU/dl (0.2)
[2023-01-18 03:30] LABS: Bacteria,Urine 1+ /lpf; RBC,Urine Occasional #/hpf (0-3)
--- NOTE | 2023-01-18 03:38 | PC.NURSE ---
Pt back from RAD
[2023-01-18 04:11] LABS: NT Pro Brain Natriuretic Pep. 48.7 pg/mL (0-125)
--- NOTE | 2023-01-18 04:53 | PC.NURSE ---
Rounded on pt. Pt/family updated on POC. No needs or complaints voiced at this time.
--- NOTE | 2023-01-18 05:04 | PC.NURSE ---
Dr. Morales at
--- NOTE | 2023-01-18 05:18 | HMH.EDABDPAI ---
Discharge Plan Disposition Patient Disposition: Admitted As Inpatient Chief Complaint: Abdominal Pain Prescriptions Prescriptions: No Action cetirizine [Zyrtec] 10 mg tablet 10 mg PO DAILY fluticasone propionate 50 mcg/actuation spray,suspension 1 spray INTRANASAL DAILYP PRN (Reason: allergy symptoms) spironolactone 25 mg tablet See Rx Instructions .ROUTE .COMPLEX Qty: 90 1RF Dose Instruction: TAKE 1 TABLET BY MOUTH EVERY DAY Rx Instructions: TAKE 1 TABLET BY MOUTH EVERY DAY atorvastatin 20 MG tablet 20 mg PO HS aspirin 81 MG tablet,chewable 81 mg PO DAILY metoprolol succinate 25 MG tablet extended release 24 hr 25 mg PO DAILY furosemide 20 MG tablet 10 mg PO DAILY Rx Instructions: TAKE 1/2 TABLET (10mg) BY MOUTH EVERY DAY clopidogrel 75 MG tablet 75 mg PO DAILY ketorolac 10 MG tablet 10 mg PO Q6HP MDD 40mg/day PRN (Reason: PAIN) 4 Days Qty: 16 0RF Rx Instructions: Therapy initiated with IV INPATIENT AT [facility] Doctor's Order tamsulosin 0.4 MG capsule 0.4 mg PO HS Referrals Follow up/Referrals: Martha Pate APRN [Primary Care Provider] - See instructions Clinical Impressions Clinical Impression: Diverticulitis Instructions Patient Instructions: DI for Acute Abdominal Pain Discharge ED Provider: Andrew (ED)Al Abdominal Pain HPI General Chief Complaint: Abdominal Pain Stated Complaint: Cramps in lower abdomin with nausea Time Seen by Provider: 01/18/23 05:18 Mode of Arrival: Ambulatory Source of Information: Patient and Medical Record Limitations: No Limitations Description of Symptoms (Recalled from ER Triage Doc. by RN): Pt arrives to ED with c/o abd pain that started on Tuesday and has worsened over the weekend, pt stated he is nauseous and feels constipated as well. Last bowel movement was noted to be on . Pt has hx of diverticulitis. History of Present Illness HPI narrative: progressive lt sided abd pain over the last few days with nausea - MD complaint: abdominal pain Onset (ago): day(s) Consistency: intermittent Location: LLQ Severity: moderate Quality: dull Associated symptoms: denies other symptoms Related Data Home Medications Medication Instructions Recorded Confirmed aspirin 81 mg chewable tablet 81 mg PO DAILY heart health 02/21/19 03/09/22 atorvastatin 20 mg tablet 20 mg PO HS Cholesterol 02/21/19 03/09/22 metoprolol succinate 25 mg 25 mg PO DAILY Hypertension 02/21/19 03/09/22 tablet,extended release 24 hr cetirizine 10 mg tablet (Zyrtec) 10 mg PO DAILY Allergy symptoms 05/14/19 03/09/22 furosemide 20 mg tablet 10 mg PO DAILY diuretic 08/14/21 03/09/22 Lactobacillus acidophilus 10 10,000 mmu cells PO DAILY 01/18/23 01/18/23 billion cell capsule (Probiotic) Supplement spironolactone 25 mg tablet 12.5 mg PO DAILY High blood 01/18/23 01/18/23 pressure Allergies Allergy/AdvReac Type Severity Reaction Status Date / Time No Known Allergies Allergy Verified 03/09/22 10:19 [facility] Disclaimer: The information contained in this section may have been updated after the patient was seen, as this information can be updated by other users. Medical History (Updated 01/18/23 @ 05:41 by Al Morales (ED)MD) Abnormal EKG Diastolic dysfunction Endothelial dysfunction of coronary artery Preoperative clearance Social History Smoking Status: Never smoker second hand exposure: No alcohol intake: never substance use type: denies use current occupational status: employed Travel in the last 8 weeks: None household members: spouse housing: house current occupation: [employer] current occupational exposures/hazards: No caffeine: No ROS Obtained: Yes All systems reviewed & no additional complaints except as documented Physical Exam General General appearance: alert Head Head exam: normocephalic Eye Eye exam: Present PERRL and EOMI EN
--- NOTE | 2023-01-18 05:28 | PC.NURSE ---
Hospitalist, Griselda, at bedside
[2023-01-18 05:31] LABS: Coronavirus 19, PCR Not Detected (NotDetected); Influenza A, PCR Not Detected (NotDetected); Influenza B, PCR Not Detected (NotDetected)
--- NOTE | 2023-01-18 05:43 | EXP.HP ---
History of Present Illness *Admission Date: 01/18/23 *Reason for visit:: abdominal pain *History of present illness: this is a 62-year-old male with a past medical history of HTN, HLD, repair of hiatal hernia, prior PFO with repair who presents emergency department today with complaints of abdominal pain. He reports abdominal pain started in the left upper lower quadrant on Tuesday and has slowly progressed to worsening abdominal pain below the umbilicus. He reports a history of diverticulitis and feels similar but states the pain is more intense than the previous episode that he had. He also reports no bowel movement since Tuesday which is not typical for him. he reports that his normal bowel habits are daily. He reports very little flatulence as well. He notes chills at home but no recorded fever. He also endorses mild nausea. CT abdomen notable for Mild diverticulitis at the junction of the descending and sigmoid colon, no abscess present. Mild leukocytosis noted with a white count of 11. Given patient's degree of discomfort and pain, felt it was reasonable for admission to the hospital with IV antibiotics and pain control. [facility] Disclaimer: The information contained in this section may have been updated after the patient was seen, as this information can be updated by other users. Medical History (Updated 01/18/23 @ 10:01 by Maria Antonia Rice RN) Abnormal EKG Diastolic dysfunction Diverticulitis Endothelial dysfunction of coronary artery Hernia Hyperlipidemia Kidney stones Preoperative clearance TIA (transient ischemic attack) Surgical History (Updated 01/18/23 @ 10:01 by Maria Antonia Rice RN) H/O hernia repair H/O knee surgery History of appendectomy Status post percutaneous patent foramen ovale closure Family History (Updated 01/18/23 @ 10:01 by Maria Antonia Rice RN) Esophageal cancer Diabetes Heart attack COPD (chronic obstructive pulmonary disease) Social History (Updated 01/18/23 @ 10:01 by Maria Antonia Rice RN) Smoking Status: Never smoker second hand exposure: No alcohol intake: never substance use type: denies use current occupational status: employed Travel in the last 8 weeks: None household members: spouse housing: house marital status: current occupation: [employer] current occupational exposures/hazards: No caffeine: No Review of Systems Review of Systems Review of systems:: pertinent systems reviewed and negative unless documented below Constitutional Constitutional: Reports chills and Reports poor appetite *Gastrointestinal Gastrointestinal: Reports abdominal pain, Reports change in stool character and Reports constipation Meds Home Medications and Allergies Home Medications Medication Instructions Recorded Confirmed Type aspirin 81 mg chewable tablet 81 mg PO DAILY heart health 02/21/19 01/18/23 History atorvastatin 20 mg tablet 20 mg PO HS Cholesterol 02/21/19 01/18/23 History metoprolol succinate 25 mg 12.5 mg PO DAILY High blood 02/21/19 01/18/23 History tablet,extended release 24 hr pressure cetirizine 10 mg tablet (Zyrtec) 10 mg PO DAILY Allergy symptoms 05/14/19 01/18/23 History furosemide 20 mg tablet 10 mg PO DAILY Fluid 08/14/21 01/18/23 History Lactobacillus acidophilus 10 10,000 mmu cells PO DAILY 01/18/23 01/18/23 History billion cell capsule (Probiotic) Supplement spironolactone 25 mg tablet 12.5 mg PO DAILY High blood 01/18/23 01/18/23 History pressure New Prescriptions to Start Prescriptions: Allergies Allergy/AdvReac Type Severity Reaction Status Date / Time No Known Allergies Allergy Verified 03/09/22 10:19 Exam Data for Last 24 hours Vital signs and Labs for Last 24 Hours: Temp Pulse Resp BP Pulse Ox 97.9 F 71 16 106/56 L 96 01/18/23 02:25 01/18/23 04:00 01/18/23 02:25 01/18/23 04:00 01/18/23 04:00 Laboratory Results - last 24 hr 01/18/23 02:33: Urine Color Yellow, Urine Appearance Miguel
--- NOTE | 2023-01-18 05:59 | PC.NURSE ---
Pt assigned to room 216
--- NOTE | 2023-01-18 06:49 | PC.NURSE ---
Gave report to Misha dinh.
--- NOTE | 2023-01-18 09:17 | HMH.PHAINT1 ---
Pharmacy Intervention Comments: Reconciled patient's home medications using pharmacy fill records and patient/spouse interview.
[2023-01-19 04:00] VITALS: BP 110/62; PULSE 67; RESP 20; TEMP 36.9; O2SAT 94; BMI 33.0
[2023-01-19 07:32] LABS: Basophils # 0.1 K/mm3 (0-0.2); Eosinophils # 0.3 K/mm3 (0.0-0.4); Eosinophils % 3.4 % (0.1-12.0); Hematocrit 41.3 % (42.0-52.0); Hemoglobin 13.2 g/dL (14.1-18.0); Lymphocytes # 1.7 K/mm3 (0.7-4.5); Lymphocytes % 22.8 % (10-50); Mean Corpuscular Hemoglobin 28.1 pg (27.0-31.2); Mean Corpuscular Volume 87.8 fl (80-94); Mean Platelet Volume 7.7 fl (7.4-10.4); Monocytes # 0.6 K/mm3 (0.1-1.0); Monocytes % 8.1 % (1.7-9.3); Neutrophils # 4.8 K/mm3 (1.8-7.8); Neutrophils % 64.7 % (37.0-80.0); Platelet Count 252 K/mm3 (142-424); Red Cell Distribution Width 14.1 % (11.5-17.5); White Blood Count 7.4 K/mm3 (4.8-10.8)
[2023-01-19 07:44] LABS: Alanine Aminotransferase 16 U/L (12-78); Albumin Level 3.4 g/dl (3.5-5.0); Albumin/Globulin Ratio 1.1 (1.1-1.8); Alkaline Phosphatase 74 U/L (38-126); Anion Gap 8.8 mEq/L (5-15); Aspartate Amino Transferase 22 U/L (17-59); Bilirubin,Total 0.8 mg/dl (0.2-1.3); Blood Urea Nitrogen 10 mg/dl (9-20); Calcium 8.1 mg/dl (8.4-10.2); Carbon Dioxide 28 mmol/L (22.0-30.0); Chloride 103 mmol/L (98-107); Creatinine Clearance Estimated 119 mL/min (50-200); Estimated Glomerular Filt Rate 68 ml/min (>60); GFR (African American) 82 ML/MIN (>60); Glucose 87 mg/dl (74-100); Potassium 3.8 mmoL/L (3.5-5.1); Sodium 136 mmol/L (136-145); Total Protein,Serum 6.4 g/dl (6.3-8.2)
[2023-01-19 08:00] VITALS: BP 106/52; PULSE 62; RESP 18; TEMP 37; O2SAT 95
--- NOTE | 2023-01-19 12:20 | EXP.ACUTE.PN ---
Subjective *Date: 01/19/23 *Time: 12:20 Interval history: Patient had no bowel movement overnight. Stable on room air. Afebrile. Having some mild nausea but no emesis. Denies any chest pain or shortness of breath. Still having left abdominal pain. Tolerating clear liquids this morning Medical Exam Vital signs and Labs for Last 24 Hours: Vital Signs Temp Pulse Resp BP Pulse Ox 01/19/23 08:00 98.6 F 62 18 106/52 L 95 01/19/23 04:00 98.4 F 67 20 110/62 94 L 01/18/23 20:00 98.6 F 68 16 106/55 L 95 01/18/23 15:00 98.7 F 55 L 17 147/76 H 96 Intake and Output 01/18/23 01/19/23 01/19/23 23:59 07:59 15:59 Intake Total 480 / 960 2559 / 2559 Output Total 0 / 0 0 / 0 Balance 480 / 960 0 / 2559 2559 / 2559 Intake: Intake, Oral Amount 480 / 960 560 / 560 Intake, Total IV Amount 1998 0.9 % Sodium Chloride 1000ML 1998 000 ml @ 100 mls/hr IV .Q10H [facility] Rx#:[id number] Output: Output, Urine Amount 0 / 0 0 / 0 Other: Number of Unmeasured Voids 1 Weight 120.383 kg Patient Weight 01/19/23 23:59 Weight 120.383 kg Laboratory Results - last 24 hr 01/19/23 06:59: WBC 7.4 D, RBC 4.70, Hgb 13.2 L, Hct 41.3 L, MCV 87.8, MCH 28.1, MCHC 32.0, RDW 14.1, Plt Count 252, MPV 7.7, Neut % (Auto) 64.7, Lymph % (Auto) 22.8, [place] % (Auto) 8.1, Eos % (Auto) 3.4, Baso % (Auto) 1.0, Neut # (Auto) 4.8, Lymph # (Auto) 1.7, [place] # (Auto) 0.6, Eos # (Auto) 0.3, Baso # (Auto) 0.1 01/19/23 06:59: Sodium 136, Potassium 3.8, Chloride 103, Carbon Dioxide 28, Anion Gap 8.8, BUN 10 D, Creatinine 1.10, Estimated Creat Clear 119, Estimated GFR 68, Est GFR ( Amer) 82, Glucose 87, Calcium 8.1 L, Total Bilirubin 0.8, AST 22, ALT 16 D, Alkaline Phosphatase 74, Total Protein 6.4, Albumin 3.4 L D, Globulin 3.0, Albumin/Globulin Ratio 1.1 I & O for Labs for Last 24 Hours: Intake & Output 01/16/23 01/17/23 01/18/23 01/19/23 23:59 23:59 23:59 23:59 Intake Total 960 / 960 2559 / 2559 Output Total 0 / 0 0 / 0 Balance 960 / 960 2559 / 2559 Weight 119.522 kg 120.383 kg Constitutional: Present no acute distress and obese Head: Present atraumatic and normocephalic ENT: Present normal exam Neck: Present normal inspection Respiratory: Present normal respiratory effort; Absent accessory muscle use, rhonchi, wheezes or crackles Cardiac: Present Reg Rate and Rhythm GI: Present soft, tenderness (left portion of abdomen, guarding) and diminished bowel sounds; Absent distention Extremities: Present normal inspection and full ROM Skin: Present intact; Absent erythema Neuro: Present Cranial Nerve 2-12 Intact, Grossly Intact, alert, awake, oriented x 3 and moves all extremities Assessment and Plan *Assessment and plan (1) Diverticulitis: Status: Acute Category: Medical Code(s): K57.92 - Diverticulitis of intestine, part unspecified, without perforation or abscess without bleeding (2) Constipation: Status: Acute Category: Medical Code(s): K59.00 - Constipation, unspecified (3) HLD (hyperlipidemia): Status: Chronic Qualifiers: Hyperlipidemia type: mixed hyperlipidemia Qualified Code(s): E78.2 - Mixed hyperlipidemia Category: Medical Code(s): E78.5 - Hyperlipidemia, unspecified (4) Hypertension: Status: Acute Category: Medical Code(s): I10 - Essential (primary) hypertension (5) Class 1 obesity: Status: Chronic Category: Medical Code(s): E66.9 - Obesity, unspecified Plan admit to medicine Diverticulitis Constipation - significant pain on exam, but no abscess appreciated on CT. no bowel movement since last week. Attempted enema yesterday and MiraLAX, still no results, repeat MiraLAX and enema today. - Clear liquid diet -Continue Zosyn parenteral pain medication as needed antinausea medicine as needed HLD -Holding home medications in the setting of
[2023-01-19 16:00] VITALS: BP 126/70; PULSE 65; RESP 16; TEMP 36.9; O2SAT 94
--- NOTE | 2023-01-19 17:40 | PC.NURSE ---
All documentation and care by Lor Adler has been done under my direct supervision.
--- NOTE | 2023-01-19 18:11 | PC.NURSE ---
Pt is alert and oriented x4. Abdomen is distended, LLQ is tender to palpation. He's had a fleet enema and a mineral oil enema this shift with no significant relief. He was treated x1 for abdominal pain with favorable results. He is tolerating his clear liquid diet. No requests or complaints at this time. Bed is locked and in the lowest position, call light is within reach.
[2023-01-19 20:00] VITALS: BP 127/70; PULSE 61; RESP 18; TEMP 36.9; O2SAT 95
[2023-01-20 04:00] VITALS: BP 97/51; PULSE 59; RESP 18; TEMP 36.4; O2SAT 94; BMI 33.2
--- NOTE | 2023-01-20 05:24 | PC.NURSE ---
pt is A&OX4. no bowel movements this shift. medications given for pain x1 this shift with favorable results. no other complaints. family at bedside, call ashford is in reach.
[2023-01-20 06:54] LABS: Basophils # 0.1 K/mm3 (0-0.2); Basophils % 0.7 % (0.1-2.0); Eosinophils # 0.3 K/mm3 (0.0-0.4); Hematocrit 43.5 % (42.0-52.0); Hemoglobin 13.7 g/dL (14.1-18.0); Lymphocytes # 1.9 K/mm3 (0.7-4.5); Lymphocytes % 26.6 % (10-50); Mean Corpuscular HGB Conc 31.5 g/dL (31.8-35.4); Mean Corpuscular Hemoglobin 27.7 pg (27.0-31.2); Mean Corpuscular Volume 88.1 fl (80-94); Mean Platelet Volume 7.6 fl (7.4-10.4); Monocytes # 0.5 K/mm3 (0.1-1.0); Neutrophils # 4.5 K/mm3 (1.8-7.8); Neutrophils % 61.7 % (37.0-80.0); Platelet Count 265 K/mm3 (142-424); Red Blood Count 4.94 M/mm3 (4.60-6.20); White Blood Count 7.3 K/mm3 (4.8-10.8)
[2023-01-20 07:00] LABS: Chloride 105 mmol/L (98-107)
[2023-01-20 07:01] LABS: Potassium 3.7 mmoL/L (3.5-5.1); Sodium 136 mmol/L (136-145)
[2023-01-20 07:03] LABS: Alanine Aminotransferase 16 U/L (12-78); Alkaline Phosphatase 73 U/L (38-126); Aspartate Amino Transferase 21 U/L (17-59); Bilirubin,Total 0.7 mg/dl (0.2-1.3); Blood Urea Nitrogen 8 mg/dl (9-20); Creatinine Clearance Estimated 131 mL/min (50-200); Estimated Glomerular Filt Rate 76 ml/min (>60); GFR (African American) 92 ML/MIN (>60)
[2023-01-20 07:04] LABS: Albumin Level 3.7 g/dl (3.5-5.0); Albumin/Globulin Ratio 1.1 (1.1-1.8); Anion Gap 7.7 mEq/L (5-15); Calcium 8.4 mg/dl (8.4-10.2); Carbon Dioxide 27 mmol/L (22.0-30.0); Globulin 3.3 g/dL (1.3-3.2); Glucose 85 mg/dl (74-100)
[2023-01-20 07:34] VITALS: BP 127/72; PULSE 64; RESP 17; TEMP 36.7; O2SAT 96
--- NOTE | 2023-01-20 07:39 | EXP.ACUTE.PN ---
Subjective *Date: 01/20/23 *Time: 07:39 Interval history: No bowel movement with enemas. Mild abdominal pain. Ambulating. no other medical concerns at this time Medical Exam Vital signs and Labs for Last 24 Hours: Vital Signs Temp Pulse Resp BP Pulse Ox 01/20/23 04:00 97.6 F 59 L 18 97/51 L 94 L 01/19/23 20:00 98.4 F 61 18 127/70 95 01/19/23 16:00 98.5 F 65 16 126/70 94 L 01/19/23 08:00 98.6 F 62 18 106/52 L 95 Intake and Output 01/19/23 01/19/23 01/20/23 15:59 23:59 07:59 Intake Total 3159 / 5544 1232 / 5544 1153 / 1153 Output Total 0 / 0 0 / 0 150 / 150 Balance 3159 / 5544 1232 / 5544 1003 / 1003 Intake: Intake, Oral Amount 1160 / 1640 480 / 1640 0 / 0 Intake, Total IV Amount 1998 752 / 3904 1153 / 1153 0.9 % Sodium Chloride 1000ML 1, 1998 752 / 3854 1103 / 1103 000 ml @ 100 mls/hr IV .Q10H [facility] Rx#:[id number] Piperacillin/Tazo 3.375 gm In 0 50 / 50 .9 % Sodium Chloride 50 ml @ 100 mls/hr IV Q8H [facility] Rx#: [id number] Output: Output, Urine Amount 0 / 0 0 / 0 150 / 150 Other: Number of Unmeasured Voids 1 3 1 Number of Bowel Movements 1 Weight 121.308 kg Patient Weight 01/20/23 23:59 Weight 121.308 kg Laboratory Results - last 24 hr 01/19/23 06:59: Sodium 136, Potassium 3.8, Chloride 103, Carbon Dioxide 28, Anion Gap 8.8, BUN 10 D, Creatinine 1.10, Estimated Creat Clear 119, Estimated GFR 68, Est GFR ( Amer) 82, Glucose 87, Calcium 8.1 L, Total Bilirubin 0.8, AST 22, ALT 16 D, Alkaline Phosphatase 74, Total Protein 6.4, Albumin 3.4 L D, Globulin 3.0, Albumin/Globulin Ratio 1.1 01/20/23 06:27: WBC 7.3, RBC 4.94, Hgb 13.7 L, Hct 43.5, MCV 88.1, MCH 27.7, MCHC 31.5 L, RDW 14.0, Plt Count 265, MPV 7.6, Neut % (Auto) 61.7, Lymph % (Auto) 26.6, [place] % (Auto) 7.0, Eos % (Auto) 4.0, Baso % (Auto) 0.7, Neut # (Auto) 4.5, Lymph # (Auto) 1.9, [place] # (Auto) 0.5, Eos # (Auto) 0.3, Baso # (Auto) 0.1 01/20/23 06:27: Sodium 136, Potassium 3.7, Chloride 105, Carbon Dioxide 27, Anion Gap 7.7, BUN 8 L, Creatinine 1.00, Estimated Creat Clear 131, Estimated GFR 76, Est GFR ( Amer) 92, Glucose 85, Calcium 8.4, Total Bilirubin 0.7, AST 21, ALT 16, Alkaline Phosphatase 73, Total Protein 7.0, Albumin 3.7, Globulin 3.3 H, Albumin/Globulin Ratio 1.1 I & O for Labs for Last 24 Hours: Intake & Output 01/17/23 01/18/23 01/19/23 01/20/23 23:59 23:59 23:59 23:59 Intake Total 960 / 960 4391 / 5544 1153 / 1153 Output Total 0 / 0 0 / 0 150 / 150 Balance 960 / 960 4391 / 5544 1003 / 1003 Weight 119.522 kg 120.383 kg 121.308 kg Constitutional: Present no acute distress and obese Head: Present atraumatic and normocephalic ENT: Present normal exam Neck: Present normal inspection Respiratory: Present normal respiratory effort; Absent accessory muscle use, rhonchi, wheezes or crackles Cardiac: Present Reg Rate and Rhythm GI: Present soft, tenderness (left portion of abdomen, guarding) and diminished bowel sounds; Absent distention Extremities: Present normal inspection and full ROM Skin: Present intact; Absent erythema Neuro: Present Cranial Nerve 2-12 Intact, Grossly Intact, alert, awake, oriented x 3 and moves all extremities Assessment and Plan *Assessment and plan (1) Diverticulitis: Status: Acute Category: Medical Code(s): K57.92 - Diverticulitis of intestine, part unspecified, without perforation or abscess without bleeding (2) Constipation: Status: Acute Category: Medical Code(s): K59.00 - Constipation, unspecified (3) HLD (hyperlipidemia): Status: Chronic Qualifiers: Hyperlipidemia type: mixed hyperlipidemia Qualified Code(s): E78.2 - Mixed hyperlipidemia Category: Medical Code(s): E78.5 - Hyperlipidemia, unspecified (4) Hypertension: Status: Acute Category: Medical Code(s): I10 - Essential (primary) hypertension (5) Clas
--- NOTE | 2023-01-20 14:55 | XR_ITS ---
FINAL REPORT CLINICAL HISTORY: constipation COMPARISON: 03/09/2022 FINDINGS: A single supine view of the abdomen was obtained. The bowel gas pattern is nonspecific but nonobstructive. There is a normal amount of stool. There are no pathologic calcifications. There is a stable small left renal calculus. Pelvic calcifications are stable. IMPRESSION: No acute process Reviewed, Interpreted and Dictated by Mena Herman MD Transcribed by Nancie Lew Authenticated and . [facility]
[2023-01-20 14:56] VITALS: BP 115/65; PULSE 66; RESP 18; TEMP 36.9; O2SAT 97
--- NOTE | 2023-01-20 16:07 | PC.NURSE ---
A&OX4. TOLERATING RA WELL. PT IS UP INDEPENDENTLY IN ROOM. AT BEDSIDE. PT DOES HAVE ABD PAIN PER PALPATION. HAS NOT REQUIRED PAIN MEDICATION. PT HAS RECEIVED 2 SOAP SUDS ENEMAS THUS FAR, TOLERATED WELL. PT HAS ONLY HAD BROWN LIQUID OUT, NOTHING SUBSTANTIAL. KUB ORDERED, WAITING FOR REPORT. TOLERATING CLEAR DIET WELL. NO OTHER NEEDS OR C/O NOTED AT THIS TIME. VSS.
[2023-01-20 20:00] VITALS: BP 140/80; PULSE 61; RESP 18; TEMP 37; O2SAT 95
[2023-01-21 04:38] VITALS: BP 119/63; PULSE 55; RESP 18; TEMP 36.7; O2SAT 94
[2023-01-21 06:31] LABS: Alanine Aminotransferase 16 U/L (12-78); Albumin Level 3.8 g/dl (3.5-5.0); Albumin/Globulin Ratio 1.2 (1.1-1.8); Alkaline Phosphatase 72 U/L (38-126); Anion Gap 9.8 mEq/L (5-15); Aspartate Amino Transferase 24 U/L (17-59); Bilirubin,Total 0.5 mg/dl (0.2-1.3); Blood Urea Nitrogen 5 mg/dl (9-20); Calcium 8.4 mg/dl (8.4-10.2); Carbon Dioxide 25 mmol/L (22.0-30.0); Chloride 105 mmol/L (98-107); Creatinine Clearance Estimated 131 mL/min (50-200); Estimated Glomerular Filt Rate 86 ml/min (>60); GFR (African American) 103 ML/MIN (>60); Globulin 3.2 g/dL (1.3-3.2); Glucose 86 mg/dl (74-100); Potassium 3.8 mmoL/L (3.5-5.1); Sodium 136 mmol/L (136-145)
[2023-01-21 06:32] LABS: Basophils # 0.1 K/mm3 (0-0.2); Eosinophils # 0.3 K/mm3 (0.0-0.4); Hematocrit 43.9 % (42.0-52.0); Hemoglobin 13.7 g/dL (14.1-18.0); Lymphocytes # 1.7 K/mm3 (0.7-4.5); Mean Corpuscular HGB Conc 31.2 g/dL (31.8-35.4); Mean Corpuscular Hemoglobin 27.6 pg (27.0-31.2); Mean Corpuscular Volume 88.6 fl (80-94); Mean Platelet Volume 7.5 fl (7.4-10.4); Monocytes # 0.5 K/mm3 (0.1-1.0); Monocytes % 7.2 % (1.7-9.3); Neutrophils # 4.5 K/mm3 (1.8-7.8); Neutrophils % 63.6 % (37.0-80.0); Platelet Count 270 K/mm3 (142-424); Red Blood Count 4.96 M/mm3 (4.60-6.20); Red Cell Distribution Width 14.1 % (11.5-17.5)
[2023-01-21 08:00] VITALS: BP 125/76; PULSE 54; RESP 18; TEMP 36.9; O2SAT 95
--- NOTE | 2023-01-21 09:12 | P.PN_ITS ---
Subjective *Date: 01/21/23 *Time: 09:12 Medical Exam Vital signs and Labs for Last 24 Hours: Vital Signs Temp Pulse Resp BP Pulse Ox 01/21/23 08:00 98.5 F 54 L 18 125/76 95 01/21/23 04:38 98.0 F 55 L 18 119/63 94 L 01/20/23 20:00 98.6 F 61 18 140/80 95 01/20/23 14:56 98.4 F 66 18 115/65 97 Intake and Output 01/20/23 01/21/23 01/21/23 23:59 07:59 15:59 Intake Total 1255 / 3248 240 / 240 Output Total 200 / 350 100 / 100 Balance 1055 / 2898 -100 / 140 240 / 140 Intake: Intake, Oral Amount 360 / 1200 240 / 240 Intake, Total IV Amount 895 / 2048 0.9 % Sodium Chloride 1000ML 1, 795 / 1898 000 ml @ 100 mls/hr IV .Q10H [facility] Rx#:[id number] Piperacillin/Tazo 3.375 gm In 0 100 / 150 .9 % Sodium Chloride 50 ml @ 100 mls/hr IV Q8H [facility] Rx#: [id number] Output: Output, Urine Amount 200 / 350 100 / 100 Other: Number of Unmeasured Voids 1 Laboratory Results - last 24 hr 01/21/23 05:53: WBC 7.0, RBC 4.96, Hgb 13.7 L, Hct 43.9, MCV 88.6, MCH 27.6, MCHC 31.2 L, RDW 14.1, Plt Count 270, MPV 7.5, Neut % (Auto) 63.6, Lymph % (Auto) 24.0, [place] % (Auto) 7.2, Eos % (Auto) 4.0, Baso % (Auto) 1.0, Neut # (Auto) 4.5, Lymph # (Auto) 1.7, [place] # (Auto) 0.5, Eos # (Auto) 0.3, Baso # (Auto) 0.1 01/21/23 05:53: Sodium 136, Potassium 3.8, Chloride 105, Carbon Dioxide 25, Anion Gap 9.8, BUN 5 L D, Creatinine 0.90, Estimated Creat Clear 131, Estimated GFR 86, Est GFR ( Amer) 103, Glucose 86, Calcium 8.4, Total Bilirubin 0.5, AST 24, ALT 16, Alkaline Phosphatase 72, Total Protein 7.0, Albumin 3.8, Globulin 3.2, Albumin/Globulin Ratio 1.2 I & O for Labs for Last 24 Hours: Intake & Output 01/18/23 01/19/23 01/20/23 01/21/23 23:59 23:59 23:59 23:59 Intake Total 960 / 960 4391 / 5544 3248 / 3248 240 / 240 Output Total 0 / 0 0 / 0 350 / 350 100 / 100 Balance 960 / 960 4391 / 5544 2898 / 2898 140 / 140 Weight 119.522 kg 120.383 kg 121.308 kg The patient's infection will respond to the chosen ABx?: Yes (DIVERTICULITIS, WBC NORMALIZED.) Is the patient receiving the right drug, dose, and route?: Yes Could a more targeted ABx be ordered?: No
--- NOTE | 2023-01-21 11:56 | EXP.ACUTE.PN ---
Subjective *Date: 01/21/23 *Time: 11:56 Interval history: No issues overnight, still no bowel movement. Would like to stay until he has bm Medical Exam Vital signs and Labs for Last 24 Hours: Vital Signs Temp Pulse Resp BP Pulse Ox 01/21/23 08:00 98.5 F 54 L 18 125/76 95 01/21/23 04:38 98.0 F 55 L 18 119/63 94 L 01/20/23 20:00 98.6 F 61 18 140/80 95 01/20/23 14:56 98.4 F 66 18 115/65 97 Intake and Output 01/20/23 01/21/23 01/21/23 23:59 07:59 15:59 Intake Total 1255 / 3248 240 / 240 Output Total 200 / 350 100 / 100 Balance 1055 / 2898 -100 / 140 240 / 140 Intake: Intake, Oral Amount 360 / 1200 240 / 240 Intake, Total IV Amount 895 / 2048 0.9 % Sodium Chloride 1000ML 1, 795 / 1898 000 ml @ 100 mls/hr IV .Q10H [facility] Rx#:[id number] Piperacillin/Tazo 3.375 gm In 0 100 / 150 .9 % Sodium Chloride 50 ml @ 100 mls/hr IV Q8H [facility] Rx#: [id number] Output: Output, Urine Amount 200 / 350 100 / 100 Other: Number of Unmeasured Voids 1 Laboratory Results - last 24 hr 01/21/23 05:53: WBC 7.0, RBC 4.96, Hgb 13.7 L, Hct 43.9, MCV 88.6, MCH 27.6, MCHC 31.2 L, RDW 14.1, Plt Count 270, MPV 7.5, Neut % (Auto) 63.6, Lymph % (Auto) 24.0, [place] % (Auto) 7.2, Eos % (Auto) 4.0, Baso % (Auto) 1.0, Neut # (Auto) 4.5, Lymph # (Auto) 1.7, [place] # (Auto) 0.5, Eos # (Auto) 0.3, Baso # (Auto) 0.1 01/21/23 05:53: Sodium 136, Potassium 3.8, Chloride 105, Carbon Dioxide 25, Anion Gap 9.8, BUN 5 L D, Creatinine 0.90, Estimated Creat Clear 131, Estimated GFR 86, Est GFR ( Amer) 103, Glucose 86, Calcium 8.4, Total Bilirubin 0.5, AST 24, ALT 16, Alkaline Phosphatase 72, Total Protein 7.0, Albumin 3.8, Globulin 3.2, Albumin/Globulin Ratio 1.2 I & O for Labs for Last 24 Hours: Intake & Output 01/18/23 01/19/23 01/20/23 01/21/23 23:59 23:59 23:59 23:59 Intake Total 960 / 960 4391 / 5544 3248 / 3248 240 / 240 Output Total 0 / 0 0 / 0 350 / 350 100 / 100 Balance 960 / 960 4391 / 5544 2898 / 2898 140 / 140 Weight 119.522 kg 120.383 kg 121.308 kg Constitutional: Present no acute distress Respiratory: Present normal respiratory effort Cardiac: Present Reg Rate and Rhythm GI: Present normal bowel sounds; Absent tenderness Extremities: Present normal inspection and full ROM Skin: Present intact; Absent erythema Neuro: Present Grossly Intact and moves all extremities Assessment and Plan *Assessment and plan (1) Diverticulitis: Status: Acute Category: Medical Code(s): K57.92 - Diverticulitis of intestine, part unspecified, without perforation or abscess without bleeding (2) Constipation: Status: Acute Category: Medical Code(s): K59.00 - Constipation, unspecified (3) HLD (hyperlipidemia): Status: Chronic Qualifiers: Hyperlipidemia type: mixed hyperlipidemia Qualified Code(s): E78.2 - Mixed hyperlipidemia Category: Medical Code(s): E78.5 - Hyperlipidemia, unspecified (4) Hypertension: Status: Acute Category: Medical Code(s): I10 - Essential (primary) hypertension (5) Class 1 obesity: Status: Chronic Category: Medical Code(s): E66.9 - Obesity, unspecified Plan admit to medicine for diverticulitis and constipation. Still no bowel movement. Will monitor clinical improvement Diverticulitis Constipation - significant pain on exam, but no abscess appreciated on CT. no bowel movement since last week. Increase MiraLAX At that clinically Milk of molasses enema since episodes about work We will try GoLytely today until bowel movement. Add senna - Clear liquid diet Discontinue Zosyn and start p.o. antibiotics parenteral pain medication as needed antinausea medicine as needed -Colonoscopy about 3 years ago, may benefit from repeat on outpatient. Will defer to primary care physician. HLD -Holding home medications in the setting of acute abdominal
[2023-01-21 12:53] VITALS: BP 145/88; PULSE 60; RESP 20; TEMP 36.4; O2SAT 94
--- NOTE | 2023-01-21 12:54 | PC.NURSE ---
tech note; notified nurse of high blood pressure for 1200 vital signs. K Napoleon, SRNA
--- NOTE | 2023-01-21 13:55 | PC.NURSE ---
PT HAS RECEIVED MOLASSES AND MILK ENEMA. TOLERATED WELL. PT DID USE THE BATHROOM, WHICH SEEMED TO BE EXPULSION OF ENEMA CONTENTS ONLY. A FEW FLAKES OF STOOL SUBSTANCE PRESENT, BUT NO OTHER BOWEL MOVEMENT NOTED.
--- NOTE | 2023-01-21 14:23 | PC.NURSE ---
tech note; pt walked length of hallway twice Devi Bender, SRNA
[2023-01-21 16:00] VITALS: BP 147/85; PULSE 59; RESP 18; TEMP 36.4; O2SAT 98
--- NOTE | 2023-01-21 16:23 | PC.NURSE ---
ORDERED DIGITAL ASSESSMENT OF RECTUM, AND REMOVAL OF ANY BLOCKAGE. THIS NURSE, Truong PINTO RN, AND Kellie DELACRUZ RN IN ROOM TO PERFORM ASSESSMENT AT THIS TIME. NO FECAL MATTER WAS FELT OR SEEN UPON ASSESSMENT. UPDATED. NNO.
--- NOTE | 2023-01-21 16:34 | PC.NURSE ---
A&OX4. TOLERATING RA WELL. PT HAS HAD NO C/O PAIN T/O SHIFT. HAS TOLERATED EACH PROCEDURE WELL. TOLERATING LIQUID DIET. HAS NO NEEDS OR C/O THUS FAR. INDEPENDENT IN ROOM. AT BEDSIDE. VSS.
[2023-01-21 20:00] VITALS: BP 136/80; PULSE 52; RESP 17; TEMP 36.7; O2SAT 97
[2023-01-22 04:00] VITALS: BP 132/83; PULSE 59; RESP 17; TEMP 36.8; O2SAT 95; BMI 32.3
--- NOTE | 2023-01-22 04:35 | PC.NURSE ---
NO ACUTE CHANGES THIS SHIFT. PT HAS RESTED WELL NO C/O PAIN N/V/D THIS SHIFT. PT HAS NOT BEEN ABLE TO HAVE A BM THIS SHIFT. PT STATES HE IS NOT IN PAIN BUT STATES THAT HE FEELS MORE DISCOMFORT THAN PAIN. AMBULATING INDEPENDENTLY. VSS.
[2023-01-22 07:24] VITALS: BP 135/78; PULSE 58; RESP 17; TEMP 36.5; O2SAT 96
--- NOTE | 2023-01-22 07:43 | PC.NURSE ---
pt reports no BM in at least 8 or 9 days. Abd is tender to palpation. no c/o nausea or vomiting
--- NOTE | 2023-01-22 08:42 | PC.NURSE ---
courtesy tech note; rounded on pt, pt denies the need to use the restroom and denies need for a drink at this time. No further requests at this time, call light within reach. Devi Bejarano, JACINTA
[2023-01-22 09:06] LABS: Basophils # 0.1 K/mm3 (0-0.2); Basophils % 1.2 % (0.1-2.0); Eosinophils # 0.3 K/mm3 (0.0-0.4); Eosinophils % 3.8 % (0.1-12.0); Hematocrit 43.9 % (42.0-52.0); Hemoglobin 14.2 g/dL (14.1-18.0); Lymphocytes # 1.5 K/mm3 (0.7-4.5); Mean Corpuscular HGB Conc 32.3 g/dL (31.8-35.4); Mean Corpuscular Hemoglobin 28.2 pg (27.0-31.2); Mean Corpuscular Volume 87.5 fl (80-94); Mean Platelet Volume 7.7 fl (7.4-10.4); Monocytes # 0.3 K/mm3 (0.1-1.0); Neutrophils # 4.6 K/mm3 (1.8-7.8); Platelet Count 332 K/mm3 (142-424); Red Blood Count 5.02 M/mm3 (4.60-6.20); White Blood Count 6.7 K/mm3 (4.8-10.8)
[2023-01-22 09:27] LABS: Chloride 105 mmol/L (98-107); Potassium 3.9 mmoL/L (3.5-5.1); Sodium 138 mmol/L (136-145)
[2023-01-22 09:29] LABS: Blood Urea Nitrogen 5 mg/dl (9-20); Creatinine Clearance Estimated 128 mL/min (50-200); Estimated Glomerular Filt Rate 76 ml/min (>60); GFR (African American) 92 ML/MIN (>60)
[2023-01-22 09:30] LABS: Alanine Aminotransferase 21 U/L (12-78); Albumin Level 3.8 g/dl (3.5-5.0); Albumin/Globulin Ratio 1.3 (1.1-1.8); Alkaline Phosphatase 74 U/L (38-126); Anion Gap 11.9 mEq/L (5-15); Aspartate Amino Transferase 26 U/L (17-59); Bilirubin,Total 0.4 mg/dl (0.2-1.3); Calcium 8.8 mg/dl (8.4-10.2); Carbon Dioxide 25 mmol/L (22.0-30.0); Globulin 2.9 g/dL (1.3-3.2); Glucose 123 mg/dl (74-100); Magnesium 2.5 mg/dl (1.6-2.3); Phosphorous 2.3 mg/dl (2.5-4.5); Total Protein,Serum 6.7 g/dl (6.3-8.2)
--- NOTE | 2023-01-22 10:03 | PC.NURSE ---
courtesy tech note; pt ambulated the length of the hallway twice with no assistance. Ambulation tolerated well. K Napoleon, SRNA
--- NOTE | 2023-01-22 13:14 | EXP.ACUTE.PN ---
Subjective *Date: 01/22/23 *Time: 13:14 Interval history: Decreased abdominal pain. No nausea or vomiting. Ambulating around the halls. Afebrile. Hemodynamically stable. Has not had formed stool or dark bowel movement. Has had enema fluid expelled per rectum and some of bowel prep liquid from yesterday has been expelled, but generally clear liquid bowel movements per his report. Tolerating clear liquid diet. Medical Exam Vital signs and Labs for Last 24 Hours: Vital Signs Temp Pulse Resp BP Pulse Ox 01/22/23 07:24 97.7 F 58 L 17 135/78 96 01/22/23 04:00 98.2 F 59 L 17 132/83 95 01/21/23 20:00 98.1 F 52 L 17 136/80 97 01/21/23 16:00 97.6 F 59 L 18 147/85 H 98 Intake and Output 01/21/23 01/22/23 01/22/23 23:59 07:59 15:59 Intake Total 480 / 960 120 / 480 360 / 480 Output Total 300 / 600 400 / 400 0 / 400 Balance 180 / 360 -280 / 80 360 / 80 Intake: Intake, Oral Amount 480 / 960 120 / 480 360 / 480 Output: Output, Urine Amount 300 / 600 400 / 400 0 / 400 Other: Number of Unmeasured Voids 1 1 1 Number of Bowel Movements 1 Weight 118.206 kg Patient Weight 01/22/23 23:59 Weight 118.206 kg Laboratory Results - last 24 hr 01/22/23 08:45: WBC 6.7, RBC 5.02, Hgb 14.2, Hct 43.9, MCV 87.5, MCH 28.2, MCHC 32.3, RDW 14.0, Plt Count 332, MPV 7.7, Neut % (Auto) 68.0, Lymph % (Auto) 23.0, [place] % (Auto) 4.0, Eos % (Auto) 3.8, Baso % (Auto) 1.2, Neut # (Auto) 4.6, Lymph # (Auto) 1.5, [place] # (Auto) 0.3, Eos # (Auto) 0.3, Baso # (Auto) 0.1 01/22/23 08:45: Sodium 138, Potassium 3.9, Chloride 105, Carbon Dioxide 25, Anion Gap 11.9, BUN 5 L, Creatinine 1.00, Estimated Creat Clear 128, Estimated GFR 76, Est GFR ( Amer) 92, Glucose 123 H, Calcium 8.8, Phosphorus 2.3 L, Magnesium 2.5 H, Total Bilirubin 0.4, AST 26, ALT 21 D, Alkaline Phosphatase 74, Total Protein 6.7, Albumin 3.8, Globulin 2.9, Albumin/Globulin Ratio 1.3 I & O for Labs for Last 24 Hours: Intake & Output 01/19/23 01/20/23 01/21/23 01/22/23 23:59 23:59 23:59 23:59 Intake Total 4391 / 5544 3248 / 3248 960 / 960 480 / 480 Output Total 0 / 0 350 / 350 400 / 600 400 / 400 Balance 4391 / 5544 2898 / 2898 560 / 360 80 / 80 Weight 120.383 kg 121.308 kg 118.206 kg Constitutional: Present no acute distress and obese Head: Present atraumatic and normocephalic ENT: Present normal exam Neck: Present normal inspection Respiratory: Present normal respiratory effort; Absent accessory muscle use, rhonchi, wheezes or crackles Cardiac: Present Reg Rate and Rhythm GI: Present soft, tenderness (Minimal in left lower quadrant, intervally improved) and normal bowel sounds; Absent distention Extremities: Present normal inspection and full ROM Skin: Present intact; Absent erythema Neuro: Present Grossly Intact, alert, awake, oriented x 3 and moves all extremities Assessment and Plan *Assessment and plan (1) Diverticulitis: Status: Acute Category: Medical Code(s): K57.92 - Diverticulitis of intestine, part unspecified, without perforation or abscess without bleeding (2) Constipation: Status: Acute Category: Medical Code(s): K59.00 - Constipation, unspecified (3) HLD (hyperlipidemia): Status: Chronic Qualifiers: Hyperlipidemia type: mixed hyperlipidemia Qualified Code(s): E78.2 - Mixed hyperlipidemia Category: Medical Code(s): E78.5 - Hyperlipidemia, unspecified (4) Hypertension: Status: Acute Category: Medical Code(s): I10 - Essential (primary) hypertension (5) Class 1 obesity: Status: Chronic Category: Medical Code(s): E66.9 - Obesity, unspecified Plan admit to medicine for diverticulitis and constipation. Still no bowel movement. Will monitor clinical improvement Diverticulitis Constipation -Pain improving. Tolerating transition to oral antibiotics. Continue Augmentin for diverticulitis. -Still no suni
[2023-01-22 14:49] VITALS: BP 140/78; PULSE 60; RESP 19; TEMP 36.6; O2SAT 97
[2023-01-22 19:44] VITALS: BP 137/71; PULSE 60; RESP 16; TEMP 36.6; O2SAT 97
--- NOTE | 2023-01-22 21:05 | PC.NURSE ---
Addendum entered by Stephanie Whitt RN 01/23/23 04:18: correction- LIGHT brown Original Note: Pt reports dark brown type 6-type 7 BM at this time
[2023-01-23] VITALS: BP 147/67; PULSE 59; RESP 18; TEMP 36.6; O2SAT 97
[2023-01-23 04:00] VITALS: BP 139/75; PULSE 62; RESP 16; TEMP 36.5; O2SAT 95; BMI 32.5
--- NOTE | 2023-01-23 04:09 | PC.NURSE ---
Pt denies nausea and abdominal pain. Abdomen slightly tender upon palpation. Pt has had 3, light brown type 6-type 7 BMs so far this shift. BS active. Tolerating liquid diet well. Ambulates to bathroom independently. NS infusing @150 ml/hr per MAR.
--- NOTE | 2023-01-23 07:05 | EXP.DC.SUM ---
General Admission date:: 01/18/23 Discharge date: 01/23/23 HPI HPI HPI: this is a 62-year-old male with a past medical history of HTN, HLD, repair of hiatal hernia, prior PFO with repair who presents emergency department today with complaints of abdominal pain. He reports abdominal pain started in the left upper lower quadrant on Tuesday and has slowly progressed to worsening abdominal pain below the umbilicus. He reports a history of diverticulitis and feels similar but states the pain is more intense than the previous episode that he had. He also reports no bowel movement since Tuesday which is not typical for him. he reports that his normal bowel habits are daily. He reports very little flatulence as well. He notes chills at home but no recorded fever. He also endorses mild nausea. CT abdomen notable for Mild diverticulitis at the junction of the descending and sigmoid colon, no abscess present. Mild leukocytosis noted with a white count of 11. Given patient's degree of discomfort and pain, felt it was reasonable for admission to the hospital with IV antibiotics and pain control. Hospital Course Hospital Course Hospital Course: 62-year-old gentleman admitted to medicine for diverticulitis and constipation. Had not had a bowel movement for 5 days on admission. Started on bowel regimen. Initiated on IV antibiotics with Zosyn and monitored inpatient. Significant bowel regimen was necessary to start to have bowel movements. Patient has clinically improved and is tolerating full liquid diet. Medically stable for discharge home to complete oral antibiotics. Problems addressed as follows: Diverticulitis Constipation -Lower abdominal pain, constipation, nausea on admission. White cell count marginally elevated 11.5. Imaging of abdomen concerning for constipation and diverticulitis. Started on Zosyn. Initiated on bowel regimen that required significant increase during hospitalization as he had no results in the first 3 days of admission. Eventually started having liquid bowel movements and was able to advance diet. Transitioned to oral Augmentin. Plan to complete 10-day course total of antibiotics. At this time having loose brown bowel movements daily. Continue bowel regimen once home. Advance diet to usual diet. Medically stable for discharge home. Follow-up with PCP in a week to evaluate bowel regimen and resolution of diverticulitis. HLD: Held home medications in the setting of acute abdominal pain, constipation, diverticulitis, resume at discharge Hypertension: Held during admission,?stable at this time, will hold medicines given normal blood pressure Stable for discharge home, Close follow-up. Meds sent to [facility] Exam Data for Last 24 hours Vital signs and Labs for Last 24 Hours: Temp Pulse Resp BP Pulse Ox 97.7 F 62 16 139/75 95 01/23/23 04:00 01/23/23 04:00 01/23/23 04:00 01/23/23 04:00 01/23/23 04:00 Laboratory Results - last 24 hr 01/22/23 08:45: WBC 6.7, RBC 5.02, Hgb 14.2, Hct 43.9, MCV 87.5, MCH 28.2, MCHC 32.3, RDW 14.0, Plt Count 332, MPV 7.7, Neut % (Auto) 68.0, Lymph % (Auto) 23.0, [place] % (Auto) 4.0, Eos % (Auto) 3.8, Baso % (Auto) 1.2, Neut # (Auto) 4.6, Lymph # (Auto) 1.5, [place] # (Auto) 0.3, Eos # (Auto) 0.3, Baso # (Auto) 0.1 01/22/23 08:45: Sodium 138, Potassium 3.9, Chloride 105, Carbon Dioxide 25, Anion Gap 11.9, BUN 5 L, Creatinine 1.00, Estimated Creat Clear 128, Estimated GFR 76, Est GFR ( Amer) 92, Glucose 123 H, Calcium 8.8, Phosphorus 2.3 L, Magnesium 2.5 H, Total Bilirubin 0.4, AST 26, ALT 21 D, Alkaline Phosphatase 74, Total Protein 6.7, Albumin 3.8, Globulin 2.9, Albumin/Globulin Ratio 1.3 I & O for Last 24 hours: Intake & Output 01/20/23 01/21/23 01/22/23 01/23/23 23:59 23:59 23:59 23:59 Intake Total 3248 / 3248 960 / 960 480 / 480 953 / 953 Output Total 350 / 350 400 / 600 400 / 400 0 / 0 Balance 2898 / 2898 560 / 360 80 / 80 953 / 953 Weight 121.308 kg
[2023-01-23 07:15] VITALS: BP 131/80; PULSE 60; RESP 18; TEMP 37.1; O2SAT 94
[2023-01-23 08:24] LABS: Basophils # 0.1 K/mm3 (0-0.2); Basophils % 0.8 % (0.1-2.0); Eosinophils # 0.3 K/mm3 (0.0-0.4); Hematocrit 43.3 % (42.0-52.0); Hemoglobin 13.7 g/dL (14.1-18.0); Lymphocytes # 1.9 K/mm3 (0.7-4.5); Mean Corpuscular HGB Conc 31.5 g/dL (31.8-35.4); Mean Corpuscular Hemoglobin 27.7 pg (27.0-31.2); Mean Corpuscular Volume 87.9 fl (80-94); Mean Platelet Volume 7.9 fl (7.4-10.4); Monocytes # 0.4 K/mm3 (0.1-1.0); Monocytes % 6.3 % (1.7-9.3); Neutrophils # 3.9 K/mm3 (1.8-7.8); Neutrophils % 59.9 % (37.0-80.0); Platelet Count 325 K/mm3 (142-424); Red Blood Count 4.93 M/mm3 (4.60-6.20); Red Cell Distribution Width 14.1 % (11.5-17.5); White Blood Count 6.6 K/mm3 (4.8-10.8)
[2023-01-23 08:54] LABS: Chloride 106 mmol/L (98-107); Sodium 139 mmol/L (136-145)
[2023-01-23 08:57] LABS: Alanine Aminotransferase 24 U/L (12-78); Albumin Level 3.9 g/dl (3.5-5.0); Albumin/Globulin Ratio 1.3 (1.1-1.8); Alkaline Phosphatase 66 U/L (38-126); Aspartate Amino Transferase 42 U/L (17-59); Bilirubin,Total 0.4 mg/dl (0.2-1.3); Blood Urea Nitrogen 6 mg/dl (9-20); Carbon Dioxide 27 mmol/L (22.0-30.0); Creatinine Clearance Estimated 128 mL/min (50-200); Estimated Glomerular Filt Rate 86 ml/min (>60); GFR (African American) 103 ML/MIN (>60); Globulin 3.1 g/dL (1.3-3.2); Phosphorous 3.1 mg/dl (2.5-4.5)
[2023-01-23 08:58] LABS: Calcium 8.8 mg/dl (8.4-10.2); Glucose 99 mg/dl (74-100)
--- NOTE | 2023-01-24 15:31 | CARE MANAGER ---
Spoke with patient for post-discharge phone interview, no issues noted.
== END 2023-01-23 11:02 | disposition home or self-care (01) ==
LOC: ER 05:40 → 2ND 07:19
PROVIDERS: Nurse Practitioner Acute Care; Student in an Organized Health Care Education/Training Program; Admitting Provider Internal Medicine Adolescent Medicine; Emergency Provider Emergency Medicine; PCP Nurse Practitioner Family; Visit Provider Internal Medicine Adolescent Medicine
DX: E78.2 Mixed hyperlipidemia; I10 Essential (primary) hypertension; K59.00 Constipation, unspecified; Z79.899 Other long term (current) drug therapy; E66.9 Obesity, unspecified; Z68.32 Body mass index [BMI] 32.0-32.9, adult; K57.32 Diverticulitis of large intestine without perforation or abscess without bleeding
CPT/HCPCS: 36415; 74018; 74177; 80053; 81001; 82150; 83605; 83690; 83735; 83880; 84100; 85025; 99285; C9803; G0378; J2405; J2543; Q9967; U0003; U0005

== ENCOUNTER → 2023-01-25 12:15 | Outpatient (CLI) | payer OTHER, SELFPAY ==
--- NOTE | 2023-01-25 12:21 | XR_ITS ---
FINAL REPORT CLINICAL HISTORY: SLOW TRANSIT CONSTIPATION COMPARISON: 01/20/2023 FINDINGS: ABDOMEN SINGLE VIEW There is a nonspecific, nonobstructive bowel gas pattern. No bowel dilation is identified. No abnormal calcification is seen. No significant retained stool is identified. IMPRESSION: No acute process. Reviewed, Interpreted and Dictated by Antwon Oliveros MD Transcribed by Doris Last Authenticated and [facility]
== END ==
PROVIDERS: PCP Nurse Practitioner Family; Visit Provider Nurse Practitioner Family
DX: K59.01 Slow transit constipation (principal)
CPT/HCPCS: 74018

== ENCOUNTER → 2023-01-31 12:42 | Outpatient (CLI) | payer OTHER, SELFPAY ==
[2023-01-31 14:18] LABS: Basophils # 0.1 K/mm3 (0-0.2); Basophils % 0.3 % (0.1-2.0); Eosinophils # 0.1 K/mm3 (0.0-0.4); Eosinophils % 0.4 % (0.1-12.0); Hematocrit 44.1 % (42.0-52.0); Hemoglobin 14.6 g/dL (14.1-18.0); Lymphocytes # 1.5 K/mm3 (0.7-4.5); Lymphocytes % 9.5 % (10-50); Mean Corpuscular HGB Conc 33.2 g/dL (31.8-35.4); Mean Corpuscular Hemoglobin 28.3 pg (27.0-31.2); Mean Corpuscular Volume 85.3 fl (80-94); Mean Platelet Volume 8.1 fl (7.4-10.4); Monocytes % 6.4 % (1.7-9.3); Neutrophils # 12.8 K/mm3 (1.8-7.8); Neutrophils % 83.3 % (37.0-80.0); Platelet Count 296 K/mm3 (142-424); Red Blood Count 5.16 M/mm3 (4.60-6.20); Red Cell Distribution Width 14.2 % (11.5-17.5); White Blood Count 15.4 K/mm3 (4.8-10.8)
[2023-01-31 14:21] LABS: MANUAL DIFFERENTIAL MANUAL DIFFERENTIAL (MANUAL DIFF)
[2023-01-31 14:35] LABS: Alanine Aminotransferase 32 U/L (12-78); Albumin Level 4.1 g/dl (3.5-5.0); Albumin/Globulin Ratio 1.5 (1.1-1.8); Alkaline Phosphatase 77 U/L (38-126); Anion Gap 11.8 mEq/L (5-15); Aspartate Amino Transferase 29 U/L (17-59); Bilirubin,Total 0.9 mg/dl (0.2-1.3); Blood Urea Nitrogen 13 mg/dl (9-20); Carbon Dioxide 22 mmol/L (22.0-30.0); Chloride 103 mmol/L (98-107); Estimated Glomerular Filt Rate 76 ml/min (>60); GFR (African American) 92 ML/MIN (>60); Globulin 2.8 g/dL (1.3-3.2); Glucose 107 mg/dl (74-100); Potassium 3.8 mmoL/L (3.5-5.1); Sodium 133 mmol/L (136-145); Total Protein,Serum 6.9 g/dl (6.3-8.2)
[2023-01-31 15:55] LABS: Lymphocytes % 13 % (10-50); Monocytes % 5 % (2-9); Neutrophils % 82 % (42-76); Platelet Estimate Normal; RBC Morphology Normal; Total Cells Counted 100
== END ==
PROVIDERS: PCP Nurse Practitioner Family; Visit Provider Nurse Practitioner Family
DX: R19.7 Diarrhea, unspecified (principal); R50.9 Fever, unspecified
CPT/HCPCS: 36415; 80053; 85007; 85025

== ENCOUNTER → 2023-02-01 14:07 | Outpatient (CLI) | payer OTHER, SELFPAY ==
[2023-02-01 14:10] LABS: Adenovirus F 40/41, stool Not Detected (NotDetected); Astrovirus Not Detected (NotDetected); Campylobacter Not Detected (NotDetected); Cryptosporidium Not Detected (NotDetected); Cyclospora Cayetanesis Not Detected (NotDetected); Entamoeba histolytica Not Detected (NotDetected); Enteroaggregative E coli Not Detected (NotDetected); Enteropathogenic E coli Not Detected (NotDetected); Enterotoxigenic E coli Not Detected (NotDetected); Giardia lamblia Not Detected (NotDetected); Norovirus Not Detected (NotDetected); Plesimonas Shigalloides, PCR Not Detected (NotDetected); Rotavirus A Not Detected (NotDetected); Salmonella, PCR Not Detected (NotDetected); Shiga-like toxin E coli Not Detected (NotDetected); Shigella Enterovasive E coli Not Detected (NotDetected); Vibrio Cholerae Not Detected (NotDetected); Vibrio, PCR Not Detected (NotDetected); Yersinia Entercolitica, PCR Not Detected (NotDetected)
[2023-02-01 14:11] LABS: Sapovirus Not Detected (NotDetected)
[2023-02-01 18:25] LABS: Clostridium Difficile A/B, PCR Detected (NotDetected)
== END ==
PROVIDERS: PCP Nurse Practitioner Family; Visit Provider Nurse Practitioner Family
DX: R19.7 Diarrhea, unspecified (principal); A04.72 Enterocolitis due to Clostridium difficile, not specified as recurrent
CPT/HCPCS: 87507

== ENCOUNTER 2023-12-25 12:34 | Outpatient (CLI) | payer SELFPAY ==
[2023-12-25 13:05] LABS: Adenovirus F 40/41, stool Not Detected (NotDetected); Astrovirus Not Detected (NotDetected); Campylobacter Not Detected (NotDetected); Clostridium Difficile A/B, PCR Not Detected (NotDetected); Cryptosporidium Not Detected (NotDetected); Cyclospora Cayetanesis Not Detected (NotDetected); Entamoeba histolytica Not Detected (NotDetected); Enteroaggregative E coli Not Detected (NotDetected); Enteropathogenic E coli Not Detected (NotDetected); Enterotoxigenic E coli Not Detected (NotDetected); Giardia lamblia Not Detected (NotDetected); Norovirus Not Detected (NotDetected); Plesimonas Shigalloides, PCR Not Detected (NotDetected); Rotavirus A Not Detected (NotDetected); Salmonella, PCR Not Detected (NotDetected); Sapovirus Not Detected (NotDetected); Shiga-like toxin E coli Not Detected (NotDetected); Shigella Enterovasive E coli Not Detected (NotDetected); Vibrio Cholerae Not Detected (NotDetected); Vibrio, PCR Not Detected (NotDetected); Yersinia Entercolitica, PCR Not Detected (NotDetected)
[2023-12-30 14:12] LABS: Calprotectin, Fecal 29 ug/g (0-120)
[2023-12-31 00:08] LABS: Pancreatic Elastase, Fecal 183 (>200)
[2024-01-06 15:27] LABS: Fats, Neutral Normal (.); Fats, Total Increased (.)
== END 2023-12-25 23:59 ==
PROVIDERS: PCP Physician Assistant; Visit Provider Physician Assistant
DX: R19.7 Diarrhea, unspecified (principal); K86.81 Exocrine pancreatic insufficiency
CPT/HCPCS: 82656; 82705; 83993; 87177; 87507

== ENCOUNTER 2024-02-02 08:29 | Outpatient (CLI) | payer BC, SELFPAY ==
--- NOTE | 2024-02-02 08:34 | US_ITS ---
FINAL REPORT CLINICAL HISTORY: RUQ OF ABDOMEN TENDERNESS COMPARISON: None FINDINGS: Sonographic images of the right upper quadrant were obtained. The pancreas is partially obscured. There is diffuse increased echogenicity in the liver consistent with fatty infiltration of the liver. The gallbladder appears normal without evidence of gallstones.There is no evidence of biliary ductal dilatation.The common duct measures 3 mm. Limited images of the right kidney are unremarkable. IMPRESSION: Diffuse fatty infiltration of the liver. Otherwise unremarkable right upper quadrant ultrasound. Reviewed, Interpreted and Dictated by Juice Ly III, MD Transcribed by Opal Price Authenticated and [facility]
== END 2024-02-02 23:59 | disposition home or self-care (01) ==
LOC: RAD 08:29
PROVIDERS: PCP Nurse Practitioner Family; Visit Provider Physician Assistant
DX: R10.811 Right upper quadrant abdominal tenderness (principal); R10.9 Unspecified abdominal pain
CPT/HCPCS: 76705

== ENCOUNTER 2024-02-21 09:27 | Outpatient (CLI) | payer BC, SELFPAY ==
--- NOTE | 2024-02-21 09:35 | XR_ITS ---
FINAL REPORT CLINICAL HISTORY: LOWER ABD PAIN COMPARISON: 01/25/2023 FINDINGS: SINGLE VIEW ABDOMEN A single view of the abdomen was obtained. There is a nonobstructive bowel gas pattern. There are no abnormally dilated loops of small bowel. There are left pelvic calcifications consistent with phleboliths present. IMPRESSION: Nonobstructive bowel gas pattern. Reviewed, Interpreted and Dictated by Danny Basilio MD Transcribed by Opal Price Authenticated and [facility]
== END 2024-02-21 23:59 | disposition home or self-care (01) ==
LOC: RAD 09:27
PROVIDERS: PCP Nurse Practitioner Family; Visit Provider Nurse Practitioner Family
DX: R10.30 Lower abdominal pain, unspecified (principal)
CPT/HCPCS: 74018

== ENCOUNTER 2024-02-26 08:54 | Emergency (ER) | payer BC, SELFPAY ==
[2024-02-26 08:56] VITALS: BP 164/99; PULSE 70; RESP 18; TEMP 36.9; O2SAT 96; BMI 32.5
--- NOTE | 2024-02-26 09:03 | PC.NURSE ---
Dr. Roca at bedside
--- NOTE | 2024-02-26 09:04 | CT_ITS ---
PROCEDURE INFORMATION: Exam: CT Abdomen And Pelvis Without Contrast Exam date and time: 02/26/2024 9:15 AM Age: 63 years old Clinical indication: Abdominal pain; Flank; Right; Additional info: R flank pain multiple prior kidney stones TECHNIQUE: Imaging protocol: Computed tomography of the abdomen and pelvis without contrast. Radiation optimization: All CT scans at this facility use at least one of these dose optimization techniques: automated exposure control; mA and/or kV adjustment per patient size (includes targeted exams where dose is matched to clinical indication); or iterative reconstruction. COMPARISON: CT ABDOMEN PELVIS W CON 18/01/2023 03:31 FINDINGS: Lungs: The lung bases are clear. Diaphragm: Stable moderate-sized hiatus hernia. Liver: Hepatic steatosis. No focal liver lesion is appreciated. Gallbladder and bile ducts: Normal. No calcified stones. No ductal dilation. Pancreas: Normal. No ductal dilation. Spleen: Stable calcified granulomas in the spleen. Adrenal glands: Normal. No mass. Kidneys and ureters: Stable nonobstructing calculi in the lower pole calices of the left kidney. New mild right hydronephrosis secondary to a 2.5 mm calculus at the right UPJ. Stomach and bowel: The small bowel loops are normal in appearance. There are subtle strandy inflammatory changes surrounding a mid sigmoid colon diverticulum concerning for mild acute diverticulitis. No evidence of an abscess or perforation at this time. Appendix: No evidence of appendicitis. Intraperitoneal space: Unremarkable. No free air. No significant fluid collection. Vasculature: Unremarkable. No abdominal aortic aneurysm. Lymph nodes: Unremarkable. No enlarged lymph nodes. Urinary bladder: Unremarkable as visualized. Reproductive: Unremarkable as visualized. Bones/joints: Unremarkable. No acute fracture. Soft tissues: Unremarkable. IMPRESSION: 1. New mild right hydronephrosis secondary to a 2.5 mm calculus at the right UPJ 2. Mild focal strandy inflammatory changes surrounding a mid sigmoid colon diverticulum concerning for mild acute diverticulitis without abscess
--- NOTE | 2024-02-26 09:05 | ED_ITS ---
Discharge Plan Disposition Patient Disposition: Home, Self-Care Prescriptions Prescriptions: New metronidazole 500 mg tablet 500 mg PO QID Qty: 28 0RF ondansetron 4 mg tablet,disintegrating 4 mg PO Q8H PRN (Reason: nausea and vomiting) 4 Days Qty: 12 0RF tamsulosin 0.4 mg capsule 0.4 mg PO DAILY Qty: 14 0RF levofloxacin 750 mg tablet 750 mg PO DAILY 7 Days Qty: 7 0RF oxycodone 5 mg tablet 5 mg PO TID PRN (Reason: pain refractory to tylenol and ibuprofen) Qty: 10 0RF No Action cetirizine [Zyrtec] 10 mg tablet 10 mg PO DAILY atorvastatin 20 MG tablet 20 mg PO HS aspirin 81 MG tablet,chewable 81 mg PO DAILY metoprolol succinate 25 MG tablet extended release 24 hr 12.5 mg PO DAILY furosemide 20 MG tablet 10 mg PO DAILY Probiotic 10 billion cell Capsule 10,000 mmu cells PO DAILY spironolactone 25 mg tablet 12.5 mg PO DAILY sennosides-docusate sodium [Stool Softener-Stimulant Laxat] 8.6-50 mg Tablet 1 tab PO BID 10 Days Qty: 20 0RF amoxicillin-pot clavulanate 500-125 mg Tablet 1 ea PO TID 5 Days Qty: 15 0RF Referrals Follow up/Referrals: Martha Blackburn APRN [Primary Care Provider] - See instructions Activity Restrictions/Add. Instructions Additional Instructions/Restrictions: At this time it was felt you are safe to be discharged home. If new or worsening symptoms please do not hesitate to return the emergency department. Please take your medications as prescribed. For pain please take Tylenol 1000 mg and ibuprofen 800 mg every 6 hours, it is okay to take them at the same time. Please call and schedule follow-up with your urologist and family doctor has discussed. Clinical Impressions Clinical Impression: Ureterolithiasis, Diverticulitis Instructions Patient Instructions: DI for Kidney Stones, DI for Diverticulitis Discharge ED Provider: Elfego Roca General Adult HPI General Chief complaint: Urogenital-Male Stated complaint: lower back pain blood in urine Time Seen by Provider: 02/26/24 08:57 Mode of Arrival: Ambulatory Source of Information: Patient and Spouse Limitations: No Limitations Description of Symptoms (Recalled from ER Triage Doc. by RN): trouble urinating,flank pain. History of Present Illness HPI narrative: Patient is a 63-year-old male with past medical history of multiple previous kidney stones for which requiring intervention who presents emergency department for evaluation of flank pain. Onset was acute, occurring this morning, right low back pain radiating around his flank. He states it feels like his previous kidney stones. There is associated hematuria. No other acute complaints at this time. Related Data Home Medications Medication Instructions Recorded Confirmed aspirin 81 mg chewable tablet 81 mg PO DAILY heart health 02/21/19 01/18/23 atorvastatin 20 mg tablet 20 mg PO HS Cholesterol 02/21/19 01/18/23 metoprolol succinate 25 mg 12.5 mg PO DAILY High blood 02/21/19 01/18/23 tablet,extended release 24 hr pressure cetirizine 10 mg tablet (Zyrtec) 10 mg PO DAILY Allergy symptoms 05/14/19 01/18/23 furosemide 20 mg tablet 10 mg PO DAILY Fluid 08/14/21 01/18/23 Lactobacillus acidophilus 10 10,000 mmu cells PO DAILY 01/18/23 01/18/23 billion cell capsule (Probiotic) Supplement spironolactone 25 mg tablet 12.5 mg PO DAILY High blood 01/18/23 01/18/23 pressure Previous Rx's Medication Instructions Recorded amoxicillin 500 mg-potassium 1 ea PO TID 5 days #15 tabs 01/23/23 clavulanate 125 mg tablet sennosides 8.6 mg-docusate sodium 1 tab PO BID 10 days #20 tabs 01/23/23 50 mg tablet (Stool Softener-Stimulant Laxative) levofloxacin 750 mg tablet 750 mg PO DAILY diverticulitis 7 02/26/24 days #7 tabs metronidazole 500 mg tablet 500 mg PO QID diverticulitis #28 02/26/24 tabs ondansetron 4 mg disintegrating 4 mg PO Q8H PRN nausea and 02/26/24 tablet vomiting 4 days #12 tabs oxycodone 5 mg tablet 5 mg PO TID PRN pain refractory to 02/26/24 tylenol and ibuprofen #10 tabs tamsulosin 0.4 mg capsule 0.4 mg PO DAILY kidney stone #14 02/26/24 caps Allergies Allergy/AdvReac Type Severity Reaction Status Date / Time No Known Allergies Allergy Verified 03/09/22 10:19 [facility] Disclaimer: The information contained in this section may have been updated after the patient was seen, as this information can be updated by other users. Medical History (Updated 02/26/24 @ 11:00 by Elfego Roca MD) Hernia TIA (transient ischemic attack) Diverticulitis Kidney stones Hyperlipidemia Ureteral stone with hydronephrosis Abnormal EKG Preoperative clearance Diastolic dysfunction Endothelial dysfunction of coronary artery Surgical History (Updated 01/18/23 @ 10:01 by Maria Antonia Rice RN) History of appendectomy H/O knee surgery H/O hernia repair Status post percutaneous patent foramen ovale closure Family History (Updated 01/18/23 @ 10:01 by Maria Antonia Rice RN) Other COPD (chronic obstructive pulmonary disease) Diabetes Esophageal cancer Heart attack Social History (Updated 01/18/23 @ 10:01 by Maria Antonia Rice RN) Smoking Status: Never smoker second hand exposure: No alcohol intake: never substance use type: denies use current occupational status: employed Travel in the last 8 weeks: None household members: spouse housing: house marital status: current occupation: [employer] current occupational exposures/hazards: No caffeine: No ROS Obtained: Yes Systems reviewed as appropriate & no additional complaints except as documented Physical Exam General General appearance: alert and in no apparent distress Head Head exam: atraumatic and normocephalic Eye Eye exam: Present PERRL and EOMI ENT ENT exam: Present mucous membranes moist Neck Neck exam: Present normal inspection Chest Chest inspection: Present normal inspection and symmetric chest wall rise Respiratory Respiratory exam: Present normal lung sounds bilaterally; Absent respiratory distress Cardiovascular Cardiovascular exam: Present regular rate and normal rhythm Abdominal Exam Abdominal exam: Present soft and other; Absent tenderness exam: Present other (Mild right CVA tenderness) Extremities Exam Extremities exam: Present normal inspection Neurological Exam Neurological exam: Present alert Psychiatric Psychiatric exam: Present normal affect Skin Skin exam: Present warm and dry Medical Decision Making Tayo Inquiry Pt receiving controlled substance: No Vital Signs: 02/26/24 08:56 02/26/24 09:30 02/26/24 10:01 Temperature 98.4 F Temperature Source Oral Pulse Rate 61 60 Pulse Rate [Right] 70 Respiratory Rate 18 Blood Pressure 128/81 121/75 Blood Pressure [Right Arm] 164/99 H Blood Pressure Mean 90 Blood Pressure Mean [Right Arm] 120 02 Sat by Pulse Oximetry 96 95 93 L Oxygen Delivery Method Room Air Room Air 02/26/24 10:30 Temperature Temperature Source Pulse Rate 57 L Pulse Rate [Right] Respiratory Rate Blood Pressure 109/72 L Blood Pressure [Right Arm] Blood Pressure Mean Blood Pressure Mean [Right Arm] 02 Sat by Pulse Oximetry 96 Oxygen Delivery Method Room Air Lab Data Lab Results 02/26/24 09:00: WBC 8.6, RBC 5.08, Hgb 15.0, Hct 44.7, MCV 88.1, MCH 29.4, MCHC 33.4, RDW 14.4, Plt Count 255, MPV 7.7, Neut % (Auto) 67.7, Lymph % (Auto) 22.3, [place] % (Auto) 6.6, Eos % (Auto) 2.3, Baso % (Auto) 1.0, Neut # (Auto) 5.8, Lymph # (Auto) 1.9, [place] # (Auto) 0.6, Eos # (Auto) 0.2, Baso # (Auto) 0.1, Sodium 140, Potassium 3.9, Chloride 104, Carbon Dioxide 27, Anion Gap 12.9, BUN 12, Creatinine 1.00, Estimated Creat Clear 126, Estimated GFR 75, Est GFR ( Amer) 91, Glucose 106 H, Calcium 9.9, Total Bilirubin 0.9, AST 26, ALT 24, Alkaline Phosphatase 105, Total Protein 7.5, Albumin 4.3, Globulin 3.2, Albumin/Globulin Ratio 1.3, Lipase 58 02/26/24 09:00 02/26/24 09:00 Orders (Tests/Meds): ED MEDICATIONS Discontinued Medications Generic Name Dose Route Start Last Admin Trade Name Freq PRN Reason Stop Dose Admin Acetaminophen 1,000 mg 02/26/24 09:04 02/26/24 09:11 Acetaminophen 1,000mg/100ml Vial IV 02/26/24 09:05 1,000 mg ONCE ONE Administration Lactated Ringer's 1,000 mls @ 999 mls/hr 02/26/24 09:04 02/26/24 09:11 Lactated Ringer's 1000 Ml Bag IV 02/26/24 10:04 999 mls/hr .Q1H1M ONE Administration Ketorolac Tromethamine 30 mg 02/26/24 09:04 02/26/24 09:11 Ketorolac 30mg/Ml Vial IV 02/26/24 09:05 30 mg ONCE ONE Administration Ondansetron HCl 4 mg 02/26/24 09:04 02/26/24 09:11 Ondansetron 4mg/2ml Vial IV 02/26/24 09:05 4 mg ONCE ONE Administration Oxycodone HCl 5 mg 02/26/24 10:20 02/26/24 10:23 Oxycodone 5mg Immediate Release Tablet PO 02/26/24 10:21 5 mg ONCE ONE Administration ORDERS Category Date Time Status CT abdomen pelvis wo con Stat Cat Scan 02/26/24 09:04 Completed CBC w/Auto Diff [Complete Blood Count Auto Diff] Stat Lab 02/26/24 09:00 Completed CMP [Comprehensive Metabolic Panel] Stat Lab 02/26/24 09:00 Completed Lipase Stat Lab 02/26/24 09:00 Completed UA [Urinalysis and Microscopic] Stat Lab 02/26/24 10:50 Received Medical Decision Narrative: In summary patient is a 63-year-old male with past medical history described above who presents emergency department for evaluation of flank pain in the setting of multiple previous kidney stones. Patient is hemodynamically stable nontoxic-appearing upon arrival, afebrile. Patient does not have an appendix. History and physical strongly consistent with ureterolithiasis. Differential includes hemorrhagic cystitis, among others. Workup will be conducted with hematologic labs, urinalysis, CT abdomen pelvis without IV contrast. Initial interventions include Tylenol, Toradol, crystalloid bolus, Zofran. Initial workup reviewed by me, hematologic labs are nonactionable, no leukocytosis or critical electrolyte abnormality. CT informally interpreted by me, proximal right ureteral stone. Formal read shows 2.5 mm calculus at the right UPJ, mild focal stranding inflammatory changes surrounding the sigmoid colon diverticulum concerning for mild acute diverticulitis without abscess. Upon repeat evaluation patient states he does have some mild pain in his left lower quadrant. Pain is at acceptable level. Given this patient will be empirically covered with antibiotics with levofloxacin and metronidazole. Will also be discharged with oxycodone, tamsulosin, Zofran and will follow-up with PCP and urologist on an outpatient basis and was given return precautions. Critical Care Critical Care Time Critical Care Time: No
[2024-02-26 09:11] LABS: Basophils # 0.1 K/mm3 (0-0.2); Eosinophils # 0.2 K/mm3 (0.0-0.4); Eosinophils % 2.3 % (0.1-12.0); Hematocrit 44.7 % (42.0-52.0); Lymphocytes # 1.9 K/mm3 (0.7-4.5); Lymphocytes % 22.3 % (10-50); Mean Corpuscular HGB Conc 33.4 g/dL (31.8-35.4); Mean Corpuscular Hemoglobin 29.4 pg (27.0-31.2); Mean Corpuscular Volume 88.1 fl (80-94); Mean Platelet Volume 7.7 fl (7.4-10.4); Monocytes # 0.6 K/mm3 (0.1-1.0); Monocytes % 6.6 % (1.7-9.3); Neutrophils # 5.8 K/mm3 (1.8-7.8); Neutrophils % 67.7 % (37.0-80.0); Platelet Count 255 K/mm3 (142-424); Red Blood Count 5.08 M/mm3 (4.60-6.20); Red Cell Distribution Width 14.4 % (11.5-17.5); White Blood Count 8.6 K/mm3 (4.8-10.8)
[2024-02-26] MEDS: ACETAMINOPHEN 1,000MG/100ML VIAL 1000 MG IV (09:11)
[2024-02-26] MEDS: KETOROLAC 30MG/ML VIAL 30 MG IV (09:11)
[2024-02-26] MEDS: ONDANSETRON 4MG/2ML VIAL 4 MG IV (09:11)
[2024-02-26] MEDS: LACTATED RINGERS 1000ML 1,000 ML 999 ML IV (09:11)
--- NOTE | 2024-02-26 09:11 | PC.NURSE ---
pt to ct scan
--- NOTE | 2024-02-26 09:17 | PC.NURSE ---
pt returned from ct
[2024-02-26 09:23] LABS: Lipase 58 U/L (23-300)
[2024-02-26 09:24] LABS: Alanine Aminotransferase 24 U/L (12-78); Albumin Level 4.3 g/dl (3.5-5.0); Albumin/Globulin Ratio 1.3 (1.1-1.8); Alkaline Phosphatase 105 U/L (38-126); Anion Gap 12.9 mEq/L (5-15); Aspartate Amino Transferase 26 U/L (17-59); Bilirubin,Total 0.9 mg/dl (0.2-1.3); Blood Urea Nitrogen 12 mg/dl (9-20); Calcium 9.9 mg/dl (8.4-10.2); Carbon Dioxide 27 mmol/L (22.0-30.0); Chloride 104 mmol/L (98-107); Creatinine Clearance Estimated 126 mL/min (50-200); Estimated Glomerular Filt Rate 75 ml/min (>60); GFR (African American) 91 ML/MIN (>60); Globulin 3.2 g/dL (1.3-3.2); Glucose 106 mg/dl (74-100); Potassium 3.9 mmoL/L (3.5-5.1); Sodium 140 mmol/L (136-145); Total Protein,Serum 7.5 g/dl (6.3-8.2)
[2024-02-26 09:30] VITALS: BP 128/81; PULSE 61; O2SAT 95
[2024-02-26 10:01] VITALS: BP 121/75; PULSE 60; O2SAT 93
[2024-02-26] MEDS: OXYCODONE 5MG IMMEDIATE RELEASE TABLET 5 MG PO (10:23)
[2024-02-26 10:30] VITALS: BP 109/72; PULSE 57; O2SAT 96
[2024-02-26 10:55] LABS: Microscopic, Urine URINE MICROSCOPIC (MICROSCOPIC)
--- NOTE | 2024-02-26 10:58 | PC.NURSE ---
DR OAKLEY AT BEDSIDE TO UPDATE PT
[2024-02-26 11:03] LABS: Appearance,Urine CLEAR (Clear); Blood, Urine 3+ (Negative); Color,Urine YELLOW (Yellow); Glucose,Urine (UA) Negative (Negative); Ketones,Urine Negative (Negative); Leukocyte Esterase,Urine Negative (Negative); Nitrate,Urine POSITIVE (Negative); PH,Urine 5.5 (5.0-8.5); Protein,Urine 1+ (Negative); Specific Gravity, Urine >= 1.030 (1.005-1.030)
[2024-02-26 11:14] VITALS: BP 157/85; PULSE 50; O2SAT 95
[2024-02-26 11:23] VITALS: BP 157/85; PULSE 50; RESP 18; TEMP 36.7; O2SAT 95
[2024-02-26 11:27] LABS: Bacteria,Urine Trace /lpf; Bilirubin,Urine Negative (Negative); RBC,Urine 20-50 #/hpf (0-3); Squamous Epithelial Cell,Urine Occasional #/hpf (0-5); WBC,Urine Occasional #/hpf (0-3)
== END 2024-02-26 11:28 | disposition home or self-care (01) ==
PROVIDERS: Emergency Provider Emergency Medicine; PCP Nurse Practitioner Family
DX: N13.0 Hydronephrosis with ureteropelvic junction obstruction (principal); K57.92 Diverticulitis of intestine, part unspecified, without perforation or abscess without bleeding; M54.59 Other low back pain; R10.31 Right lower quadrant pain; E78.5 Hyperlipidemia, unspecified; I10 Essential (primary) hypertension
CPT/HCPCS: 74176; 80053; 81001; 83690; 85025; 96361; 96374; 96375; 99285; J0131; J2405

== ENCOUNTER 2024-02-28 22:20 | Emergency (ER) | payer BC, SELFPAY ==
[2024-02-28 22:21] VITALS: BP 144/75; PULSE 84; RESP 20; TEMP 36.5; O2SAT 94; BMI 25.7
--- NOTE | 2024-02-28 22:26 | HMH.EDGENADL ---
Discharge Plan Disposition Patient Disposition: Home, Self-Care Prescriptions Prescriptions: No Action cetirizine [Zyrtec] 10 mg tablet 10 mg PO DAILY atorvastatin 20 MG tablet 20 mg PO HS aspirin 81 MG tablet,chewable 81 mg PO DAILY metoprolol succinate 25 MG tablet extended release 24 hr 12.5 mg PO DAILY furosemide 20 MG tablet 10 mg PO DAILY Probiotic 10 billion cell Capsule 10,000 mmu cells PO DAILY spironolactone 25 mg tablet 12.5 mg PO DAILY sennosides-docusate sodium [Stool Softener-Stimulant Laxat] 8.6-50 mg Tablet 1 tab PO BID 10 Days Qty: 20 0RF amoxicillin-pot clavulanate 500-125 mg Tablet 1 ea PO TID 5 Days Qty: 15 0RF metronidazole 500 mg tablet 500 mg PO QID Qty: 28 0RF ondansetron 4 mg tablet,disintegrating 4 mg PO Q8H PRN (Reason: nausea and vomiting) 4 Days Qty: 12 0RF tamsulosin 0.4 mg capsule 0.4 mg PO DAILY Qty: 14 0RF levofloxacin 750 mg tablet 750 mg PO DAILY 7 Days Qty: 7 0RF oxycodone 5 mg tablet 5 mg PO TID PRN (Reason: pain refractory to tylenol and ibuprofen) Qty: 10 0RF Referrals Follow up/Referrals: Martha Blackburn APRN [Primary Care Provider] - See instructions Activity Restrictions/Add. Instructions Additional Instructions/Restrictions: Please continue taking antibiotics as prescribed. Please take Tylenol ibuprofen and oxycodone as needed for pain. Please follow-up with your primary care provider. Please return to the emergency department if you develop any new or worsening symptoms or become concerned for your health. Clinical Impressions Clinical Impression: Diverticulitis large intestine Qualifiers: Diverticulitis complication: without perforation or abscess Abdominal pain Qualifiers: Abdominal location: left lower quadrant Qualified Code(s): R10.32 - Left lower quadrant pain Instructions Patient Instructions: DI for Low Back Pain Discharge ED Provider: Skinny Stoner General Adult HPI <CUAUHTEMOC Cooley - Last Filed: 02/28/24 22:58> General Chief complaint: Back Pain/Injury Stated complaint: back pain, constipated Time Seen by Provider: 02/28/24 22:26 History of Present Illness HPI narrative: Patient presents for evaluation of left-sided abdominal pain. Patient has a complicated medical history including multiple kidney stones requiring multiple extractions, chronic constipation on Linzess with overflow diarrhea, atherosclerotic cardiovascular disease, hyperlipidemia, history of diastolic dysfunction. Patient was seen over the weekend and diagnosed with an 2.5 cm right UPJ obstructing stone. Patient reports that he believes that he has not passed the stone yet. Also seen on the same imaging was a segment sigmoid diverticulitis for which she was placed on antibiotics on discharge. Patient has since however developed increasing left-sided abdominal pain from the flank in the upper and lower quadrants. He has been compliant with his medications but reports that he is having nausea but not yet vomited. He also reports that he has not had a bowel movement in several days possibly a week. He denies chest pain fever chills hemoptysis hematochezia melena hematemesis . Related Data Home Medications Medication Instructions Recorded Confirmed aspirin 81 mg chewable tablet 81 mg PO DAILY heart health 02/21/19 01/18/23 atorvastatin 20 mg tablet 20 mg PO HS Cholesterol 02/21/19 01/18/23 metoprolol succinate 25 mg 12.5 mg PO DAILY High blood 02/21/19 01/18/23 tablet,extended release 24 hr pressure cetirizine 10 mg tablet (Zyrtec) 10 mg PO DAILY Allergy symptoms 05/14/19 01/18/23 furosemide 20 mg tablet 10 mg PO DAILY Fluid 08/14/21 01/18/23 Lactobacillus acidophilus 10 10,000 mmu cells PO DAILY 01/18/23 01/18/23 billion cell capsule (Probiotic) Supplement spironolactone 25 mg tablet 12.5 mg PO DAILY High blood 01/18/23 01/18/23 pressure Previous Rx's Medication Instructions Recorded amoxicillin 500 mg-potassium 1 ea PO TID 5 days #15 tabs 01/23/23 clavulanate 125 mg tablet sennosides 8.6 mg-docusate sodium 1 tab PO BID 10 days #20 tabs 01/23/23 50 mg tablet (Stool Softener-Stimulant Laxative) levofloxacin 750 mg tablet 750 mg PO DAILY diverticulitis 7 02/26/24 days #7 tabs metronidazole 500 mg tablet 500 mg PO QID diverticulitis #28 02/26/24 tabs ondansetron 4 mg disintegrating 4 mg PO Q8H PRN nausea and 02/26/24 tablet vomiting 4 days #12 tabs oxycodone 5 mg tablet 5 mg PO TID PRN pain refractory to 02/26/24 tylenol and ibuprofen #10 tabs tamsulosin 0.4 mg capsule 0.4 mg PO DAILY kidney stone #14 02/26/24 caps Allergies Allergy/AdvReac Type Severity Reaction Status Date / Time No Known Allergies Allergy Verified 03/09/22 10:19 [facility] <CUAUHTEMOC Cooley - Last Filed: 02/28/24 22:58> [facility] Disclaimer: The information contained in this section may have been updated after the patient was seen, as this information can be updated by other users. Medical History (Updated 02/29/24 @ 02:25 by Skinny Stoner MD) Hernia TIA (transient ischemic attack) Diverticulitis Kidney stones Hyperlipidemia Ureteral stone with hydronephrosis Abnormal EKG Preoperative clearance Diastolic dysfunction Endothelial dysfunction of coronary artery Surgical History (Updated 01/18/23 @ 10:01 by Maria Antonia Rice RN) History of appendectomy H/O knee surgery H/O hernia repair Status post percutaneous patent foramen ovale closure Family History (Updated 01/18/23 @ 10:01 by Maria Antonia Rice RN) Other COPD (chronic obstructive pulmonary disease) Diabetes Esophageal cancer Heart attack Social History (Updated 01/18/23 @ 10:01 by Maria Antonia Rice RN) Smoking Status: Never smoker second hand exposure: No alcohol intake: never substance use type: denies use current occupational status: employed Travel in the last 8 weeks: None household members: spouse housing: house marital status: current occupation: [employer] current occupational exposures/hazards: No caffeine: No <CUAUHTEMOC Cooley - Last Filed: 02/28/24 22:58> ROS Obtained: Yes Systems reviewed as appropriate & no additional complaints except as documented Physical Exam <CUAUHTEMOC Cooley - Last Filed: 02/28/24 22:58> General General appearance: alert Head Head exam: atraumatic Eye Eye exam: Present normal appearance ENT ENT exam: Present normal exam Neck Neck exam: Present normal inspection Chest Chest inspection: Present normal inspection Respiratory Respiratory exam: Present normal lung sounds bilaterally Cardiovascular Cardiovascular exam: Present regular rate and normal rhythm Abdominal Exam Abdominal exam: Present soft, tenderness (Patient is mildly tender diffusely but more focally so on the left upper and lower) and normal bowel sounds; Absent guarding, rebound or rigidity Extremities Exam Extremities exam: Present normal inspection and full ROM Back Exam Back exam: Present normal inspection, full ROM, CVA tenderness (R) and CVA tenderness (L) Neurological Exam Neurological exam: Present alert and oriented X3 Medical Decision Making <CUAUHTEMOC Cooley - Last Filed: 02/28/24 22:58> Medical Records Medical records reviewed: Yes I reviewed the patient's medical records. Tayo Inquiry Pt receiving controlled substance: No Vital Signs: 02/28/24 22:21 02/28/24 23:00 02/28/24 23:07 Temperature 97.7 F Temperature Source Oral Pulse Rate 75 75 Pulse Rate [Right Radial] 84 Respiratory Rate 20 Blood Pressure 127/59 L 116/80 Blood Pressure [Right Arm] 144/75 H Blood Pressure Mean [Right Arm] 98 Blood Pressure Source Blood Pressure Position 02 Sat by Pulse Oximetry 94 L 94 L 97 Oxygen Delivery Method Room Air 02/28/24 23:30 02/29/24 00:00 02/29/24 02:33 Temperature 97.7 F Temperature Source Oral Pulse Rate 69 65 68 Pulse Rate [Right Radial] Respiratory Rate 16 Blood Pressure 129/80 128/80 128/88 Blood Pressure [Right Arm] Blood Pressure Mean [Right Arm] Blood Pressure Source Automatic Cuff Blood Pressure Position Sitting 02 Sat by Pulse Oximetry 95 95 Oxygen Delivery Method Room Air Lab Data Lab results reviewed: Yes I reviewed the patient's lab results. Lab Results 02/28/24 23:12: WBC 8.3, RBC 4.76, Hgb 14.1, Hct 42.9, MCV 90.2, MCH 29.7, MCHC 32.9, RDW 14.3, Plt Count 255, MPV 7.7, Neut % (Auto) 57.2, Lymph % (Auto) 29.2, [place] % (Auto) 8.4, Eos % (Auto) 3.7, Baso % (Auto) 1.4, Neut # (Auto) 4.7, Lymph # (Auto) 2.4, [place] # (Auto) 0.7, Eos # (Auto) 0.3, Baso # (Auto) 0.1, PT 11.1, INR 1.03, Sodium 142, Potassium 3.8, Chloride 108 H, Carbon Dioxide 24, Anion Gap 13.8, BUN 15, Creatinine 1.20, Estimated Creat Clear 83, Estimated GFR 61, Est GFR ( Amer) 74, Glucose 99, Lactate 1.5, Calcium 9.6, Total Bilirubin 0.4, AST 26, ALT 21, Alkaline Phosphatase 97, Total Protein 6.7, Albumin 3.8, Globulin 2.9, Albumin/Globulin Ratio 1.3 02/29/24 00:20: Urine Color Yellow, Urine Appearance Clear, Urine pH 5.5, Ur Specific [place] >= 1.030, Urine Protein Negative, Urine Glucose (UA) Negative, Urine Ketones 1+, Urine Blood 2+, Urine Nitrate Negative, Urine Bilirubin Negative, Urine Urobilinogen 0.2, Ur Leukocyte Esterase Negative, Urine RBC 10-20, Urine WBC Occasional, Ur Squamous Epith Cells Occasional, Calcium Oxalate Crystal 2+, Urine Bacteria 1+ 02/28/24 23:12 02/28/24 23:12 Orders (Tests/Meds): ED MEDICATIONS Discontinued Medications Generic Name Dose Route Start Last Admin Trade Name Juan Pabloq PRN Reason Stop Dose Admin Acetaminophen 1,000 mg 02/28/24 22:36 02/28/24 22:59 Acetaminophen 1,000mg/100ml Vial IV 02/28/24 22:37 1,000 mg ONCE ONE Administration Hydromorphone HCl 1 mg 02/28/24 22:36 02/28/24 22:59 Hydromorphone 2mg/Ml Syringe IV 02/28/24 22:37 1 mg ONCE ONE Administration Iopamidol 75 ml 02/28/24 23:56 02/28/24 23:57 Iopamidol-370 (76%);100ml Bottle IV 02/28/24 23:57 75 ml ONCE ONE Administration Ketorolac Tromethamine 15 mg 02/28/24 22:36 02/28/24 22:59 Ketorolac 30mg/Ml Vial IV 02/28/24 22:37 15 mg ONCE ONE Administration Ondansetron HCl 4 mg 02/28/24 22:36 02/28/24 23:00 Ondansetron 4mg Odt SL 02/28/24 22:37 4 mg ONCE ONE Administration Oxycodone HCl 5 mg 02/29/24 02:23 02/29/24 02:25 Oxycodone 5mg Immediate Release Tablet PO 02/29/24 02:24 5 mg ONCE ONE Administration Sodium Chloride 10 ml 02/28/24 23:56 02/28/24 23:57 Sodium Chloride 0.9% 10ml Syr (Rad Only) IV 02/28/24 23:57 10 ml ONCE ONE Administration ORDERS Category Date Time Status CT abdomen pelvis w con Stat Cat Scan 02/28/24 22:36 Completed CBC w/Auto Diff [Complete Blood Count Auto Diff] Stat Lab 02/28/24 23:12 Completed CMP [Comprehensive Metabolic Panel] Stat Lab 02/28/24 23:12 Completed INR [Prothrombin Time INR] Stat Lab 02/28/24 23:12 Completed Lactic Acid Stat Lab 02/28/24 23:12 Completed UA [Urinalysis and Microscopic] Stat Lab 02/29/24 00:20 Completed Medical Decision Narrative: In summary patient is a 63-year-old male who presents to the emergency department for evaluation of sided abdominal pain. Patient is hemodynamically stable upon arrival, afebrile. Physical exam is remarkable for left-sided abdominal tenderness along with diffuse mild abdominal tenderness without rebound guarding rigidity. Differential diagnosis includes constipation, obstipation, complicated urinary tract infection, ureterolithiasis, hydronephrosis, diverticulitis etc. Initial workup started and is pending at the time of handoff with Dr. Stoner at 2300 hrs. <Skinny Stoner MD - Last Filed: 02/29/24 02:39> Vital Signs: 02/28/24 22:21 02/28/24 23:00 02/28/24 23:07 Temperature 97.7 F Temperature Source Oral Pulse Rate 75 75 Pulse Rate [Right Radial] 84 Respiratory Rate 20 Blood Pressure 127/59 L 116/80 Blood Pressure [Right Arm] 144/75 H Blood Pressure Mean [Right Arm] 98 Blood Pressure Source Blood Pressure Position 02 Sat by Pulse Oximetry 94 L 94 L 97 Oxygen Delivery Method Room Air 02/28/24 23:30 02/29/24 00:00 02/29/24 02:33 Temperature 97.7 F Temperature Source Oral Pulse Rate 69 65 68 Pulse Rate [Right Radial] Respiratory Rate 16 Blood Pressure 129/80 128/80 128/88 Blood Pressure [Right Arm] Blood Pressure Mean [Right Arm] Blood Pressure Source Automatic Cuff Blood Pressure Position Sitting 02 Sat by Pulse Oximetry 95 95 Oxygen Delivery Method Room Air Lab Data Lab Results 02/28/24 23:12: WBC 8.3, RBC 4.76, Hgb 14.1, Hct 42.9, MCV 90.2, MCH 29.7, MCHC 32.9, RDW 14.3, Plt Count 255, MPV 7.7, Neut % (Auto) 57.2, Lymph % (Auto) 29.2, [place] % (Auto) 8.4, Eos % (Auto) 3.7, Baso % (Auto) 1.4, Neut # (Auto) 4.7, Lymph # (Auto) 2.4, [place] # (Auto) 0.7, Eos # (Auto) 0.3, Baso # (Auto) 0.1, PT 11.1, INR 1.03, Sodium 142, Potassium 3.8, Chloride 108 H, Carbon Dioxide 24, Anion Gap 13.8, BUN 15, Creatinine 1.20, Estimated Creat Clear 83, Estimated GFR 61, Est GFR ( Amer) 74, Glucose 99, Lactate 1.5, Calcium 9.6, Total Bilirubin 0.4, AST 26, ALT 21, Alkaline Phosphatase 97, Total Protein 6.7, Albumin 3.8, Globulin 2.9, Albumin/Globulin Ratio 1.3 02/29/24 00:20: Urine Color Yellow, Urine Appearance Clear, Urine pH 5.5, Ur Specific [place] >= 1.030, Urine Protein Negative, Urine Glucose (UA) Negative, Urine Ketones 1+, Urine Blood 2+, Urine Nitrate Negative, Urine Bilirubin Negative, Urine Urobilinogen 0.2, Ur Leukocyte Esterase Negative, Urine RBC 10-20, Urine WBC Occasional, Ur Squamous Epith Cells Occasional, Calcium Oxalate Crystal 2+, Urine Bacteria 1+ Orders (Tests/Meds): ED MEDICATIONS Discontinued Medications Generic Name Dose Route Start Last Admin Trade Name Juan Pabloq PRN Reason Stop Dose Admin Acetaminophen 1,000 mg 02/28/24 22:36 02/28/24 22:59 Acetaminophen 1,000mg/100ml Vial IV 02/28/24 22:37 1,000 mg ONCE ONE Administration Hydromorphone HCl 1 mg 02/28/24 22:36 02/28/24 22:59 Hydromorphone 2mg/Ml Syringe IV 02/28/24 22:37 1 mg ONCE ONE Administration Iopamidol 75 ml 02/28/24 23:56 02/28/24 23:57 Iopamidol-370 (76%);100ml Bottle IV 02/28/24 23:57 75 ml ONCE ONE Administration Ketorolac Tromethamine 15 mg 02/28/24 22:36 02/28/24 22:59 Ketorolac 30mg/Ml Vial IV 02/28/24 22:37 15 mg ONCE ONE Administration Ondansetron HCl 4 mg 02/28/24 22:36 02/28/24 23:00 Ondansetron 4mg Odt SL 02/28/24 22:37 4 mg ONCE ONE Administration Oxycodone HCl 5 mg 02/29/24 02:23 02/29/24 02:25 Oxycodone 5mg Immediate Release Tablet PO 02/29/24 02:24 5 mg ONCE ONE Administration Sodium Chloride 10 ml 02/28/24 23:56 02/28/24 23:57 Sodium Chloride 0.9% 10ml Syr (Rad Only) IV 02/28/24 23:57 10 ml ONCE ONE Administration ORDERS Category Date Time Status CT abdomen pelvis w con Stat Cat Scan 02/28/24 22:36 Completed CBC w/Auto Diff [Complete Blood Count Auto Diff] Stat Lab 02/28/24 23:12 Completed CMP [Comprehensive Metabolic Panel] Stat Lab 02/28/24 23:12 Completed INR [Prothrombin Time INR] Stat Lab 02/28/24 23:12 Completed Lactic Acid Stat Lab 02/28/24 23:12 Completed UA [Urinalysis and Microscopic] Stat Lab 02/29/24 00:20 Completed Medical Decision Narrative: In summary patient is a 63-year-old male who presents to the emergency department for evaluation of sided abdominal pain. Patient is hemodynamically stable upon arrival, afebrile. Physical exam is remarkable for left-sided abdominal tenderness along with diffuse mild abdominal tenderness without rebound guarding rigidity. Differential diagnosis includes constipation, obstipation, complicated urinary tract infection, ureterolithiasis, hydronephrosis, diverticulitis etc. Initial workup started and is pending at the time of handoff with Dr. Stoner at 2300 hrs. Herbie DIETZ: I assumed care of the patient at the time of handoff from the prior provider. On reassessment patient reports that he is still having pain. He is given additional 5 mg oxycodone p.o. Laboratory studies independently interpreted by me and significant for no leukocytosis, no significant electrolyte derangement, normal renal function, urine without evidence of infection. CT imaging independently interpreted by me and significant for stable diverticulitis without evidence of abscess or perforation, bilateral punctate nephrolithiasis noted without significant obstruction. Please see radiology results for full details. I had an interactive discussion with patient regarding his presentation and workup. We also discussed his chronic abdominal pain, constipation and diarrhea. At this time there is no indication for admission or operative intervention. He is already on oral antibiotics at home for treatment. He was prescribed oxycodone recently but he has not been taking them. I discussed with him the importance of multimodal pain control including Tylenol ibuprofen and opiates. We had extensive discussion regarding return precautions. Patient was discharged in stable condition. I was consulted by the CAT, and we discussed the complexity of the problems being addressed. I approved the treatment and management plan for this patient?s care in the Emergency Department, thus performing a substantive portion of the medical decision making. Skinny Stoner MD Critical Care <CUAUHTEMOC Cooley - Last Filed: 02/28/24 22:58> Critical Care Time Critical Care Time: No
--- NOTE | 2024-02-28 22:36 | CT_ITS ---
PROCEDURE INFORMATION: Exam: CT Abdomen And Pelvis With Contrast Exam date and time: 02/28/2024 11:46 PM Age: 63 years old Clinical indication: Abdominal pain; Additional info: Abdominal pain, diverticulitis, ureterolithiasis TECHNIQUE: Imaging protocol: Computed tomography of the abdomen and pelvis with contrast. Radiation optimization: All CT scans at this facility use at least one of these dose optimization techniques: automated exposure control; mA and/or kV adjustment per patient size (includes targeted exams where dose is matched to clinical indication); or iterative reconstruction. Contrast material: ISOVUE; Contrast volume: 75 ml; Contrast route: IV; COMPARISON: CT ABDOMEN PELVIS WO CON 02/26/2024 9:15 AM FINDINGS: Tubes, catheters and devices: ASD closure device. Diaphragm: Moderate hiatal hernia. Liver: Suspected hepatic steatosis. Stable subcentimeter hypodense focus within the right hepatic lobe possibly representing a cyst. Gallbladder and bile ducts: Normal. No calcified stones. No ductal dilation. Pancreas: Fatty atrophy. No ductal dilation. Spleen: Few calcified granulomas. No splenomegaly. Adrenal glands: Normal. No mass. Kidneys and ureters: 5 mm left kidney inferior pole nonobstructing nephrolith. No hydronephrosis. Stomach and bowel: Mild inflammatory fat stranding surrounding a sigmoid colon diverticulum. Moderate severe colonic diverticular disease. No obstruction. No mucosal thickening. Appendix: No evidence of appendicitis. Intraperitoneal space: Unremarkable. No free air. No significant fluid collection. Vasculature: Mild atherosclerosis. No abdominal aortic aneurysm. Lymph nodes: Unremarkable. No enlarged lymph nodes. Urinary bladder: Unremarkable as visualized. Reproductive: Mildly enlarged prostate. Bones/joints: Degenerative changes. No acute fracture. Soft tissues: Tiny fat containing umbilical hernia. IMPRESSION: 1. Acute uncomplicated sigmoid colon diverticulitis. 2. Nonobstructing nephrolithiasis.
[2024-02-28] MEDS: ACETAMINOPHEN 1,000MG/100ML VIAL 1000 MG IV (22:59)
[2024-02-28] MEDS: KETOROLAC 30MG/ML VIAL 15 MG IV (22:59)
[2024-02-28] MEDS: HYDROMORPHONE 2MG/ML SYRINGE 1 MG IV (22:59)
[2024-02-28 23:00] VITALS: BP 127/59; PULSE 75; O2SAT 94
[2024-02-28] MEDS: ONDANSETRON 4MG ODT 4 MG SL (23:00)
[2024-02-28 23:07] VITALS: BP 116/80; PULSE 75; O2SAT 97
[2024-02-28 23:24] LABS: Basophils # 0.1 K/mm3 (0-0.2); Basophils % 1.4 % (0.1-2.0); Eosinophils # 0.3 K/mm3 (0.0-0.4); Eosinophils % 3.7 % (0.1-12.0); Hematocrit 42.9 % (42.0-52.0); Hemoglobin 14.1 g/dL (14.1-18.0); Lymphocytes # 2.4 K/mm3 (0.7-4.5); Lymphocytes % 29.2 % (10-50); Mean Corpuscular HGB Conc 32.9 g/dL (31.8-35.4); Mean Corpuscular Hemoglobin 29.7 pg (27.0-31.2); Mean Corpuscular Volume 90.2 fl (80-94); Mean Platelet Volume 7.7 fl (7.4-10.4); Monocytes # 0.7 K/mm3 (0.1-1.0); Monocytes % 8.4 % (1.7-9.3); Neutrophils # 4.7 K/mm3 (1.8-7.8); Neutrophils % 57.2 % (37.0-80.0); Platelet Count 255 K/mm3 (142-424); Red Blood Count 4.76 M/mm3 (4.60-6.20); Red Cell Distribution Width 14.3 % (11.5-17.5); White Blood Count 8.3 K/mm3 (4.8-10.8)
[2024-02-28 23:28] LABS: Chloride 108 mmol/L (98-107); Potassium 3.8 mmoL/L (3.5-5.1); Sodium 142 mmol/L (136-145)
[2024-02-28 23:30] VITALS: BP 129/80; PULSE 69; O2SAT 95
[2024-02-28 23:31] LABS: Alanine Aminotransferase 21 U/L (12-78); Alkaline Phosphatase 97 U/L (38-126); Anion Gap 13.8 mEq/L (5-15); Aspartate Amino Transferase 26 U/L (17-59); Bilirubin,Total 0.4 mg/dl (0.2-1.3); Blood Urea Nitrogen 15 mg/dl (9-20); Calcium 9.6 mg/dl (8.4-10.2); Carbon Dioxide 24 mmol/L (22.0-30.0); Creatinine Clearance Estimated 83 mL/min (50-200); Estimated Glomerular Filt Rate 61 ml/min (>60); GFR (African American) 74 ML/MIN (>60); Glucose 99 mg/dl (74-100); Lactic Acid 1.5 mmol/L (0.7-2.1)
[2024-02-28 23:32] LABS: Albumin Level 3.8 g/dl (3.5-5.0); Albumin/Globulin Ratio 1.3 (1.1-1.8); Globulin 2.9 g/dL (1.3-3.2); INR 1.03 (0.9-1.1); Prothrombin Time 11.1 seconds (10.1-12.5); Total Protein,Serum 6.7 g/dl (6.3-8.2)
--- NOTE | 2024-02-28 23:39 | PC.NURSE ---
pt to CT
[2024-02-28] MEDS: SODIUM CHLORIDE 0.9% 10ML SYR (RAD ONLY) 10 ML IV (23:57)
[2024-02-28] MEDS: IOPAMIDOL-370 (76%);100ML BOTTLE 75 ML IV (23:57)
[2024-02-29] VITALS: BP 128/80; PULSE 65; O2SAT 95
[2024-02-29 00:24] LABS: Microscopic, Urine URINE MICROSCOPIC (MICROSCOPIC)
[2024-02-29 00:26] LABS: Appearance,Urine CLEAR (Clear); Bilirubin,Urine Negative (Negative); Blood, Urine 2+ (Negative); Color,Urine YELLOW (Yellow); Glucose,Urine (UA) Negative (Negative); Ketones,Urine 1+ (Negative); Leukocyte Esterase,Urine Negative (Negative); Nitrate,Urine Negative (Negative); PH,Urine 5.5 (5.0-8.5); Protein,Urine Negative (Negative); Specific Gravity, Urine >= 1.030 (1.005-1.030); Urobilinogen,Urine 0.2 EU/dl (0.2)
[2024-02-29 00:51] LABS: Bacteria,Urine 1+ /lpf; Calcium Oxalate Crystals,Urine 2+ /lpf; Squamous Epithelial Cell,Urine Occasional #/hpf (0-5); WBC,Urine Occasional #/hpf (0-3)
[2024-02-29] MEDS: OXYCODONE 5MG IMMEDIATE RELEASE TABLET 5 MG PO (02:25)
[2024-02-29 02:33] VITALS: BP 128/88; PULSE 68; RESP 16; TEMP 36.5; O2SAT 95
== END 2024-02-29 02:37 | disposition home or self-care (01) ==
PROVIDERS: Physician Assistant; Emergency Provider Emergency Medicine; PCP Nurse Practitioner Family
DX: R10.32 Left lower quadrant pain (principal); K57.32 Diverticulitis of large intestine without perforation or abscess without bleeding; R11.0 Nausea; K59.09 Other constipation; N20.0 Calculus of kidney; I10 Essential (primary) hypertension; E78.5 Hyperlipidemia, unspecified
CPT/HCPCS: 74177; 80053; 81001; 83605; 85025; 85610; 96374; 96375; 99285; J0131; Q9967

== ENCOUNTER 2024-04-11 12:26 | Outpatient (CLI) | payer BC, SELFPAY ==
--- NOTE | 2024-04-11 | CA_ITS ---
APPROVED REPORT EXAM: Comprehensive 2D, Doppler, and color-flow Echocardiogram Hospital Monitor: Zenobia Caruso RT(R) Ht: 6 ft 3 in Wt: 255lbs BSA: 2.43 BP: 109/72 mmHg Indications: Hx PFO c losure, Hx-TIA, HLD Echo Enhancing Agent Indication: Rule Out Septal Defect Agent(s) / Amount(s) Used: Agitated Saline 15 cc 2D Dimensions LA Volume 37.50 mL LA Volume Index 15.10 mL/m2 (M/F) 16-34 EF AP4 51.60 % GL Strain -12.3 % M-Mode Dimensions RVDd 2.92 cm (0.9-2.6) LA Diam 3.58 cm (1.9-4.0) LVDd 4.78 cm (3.5-5.7) LVDs 3.13 cm (3.5-5.7) IVSd 1.10 cm (0.6-1.1) PWd 0.89 cm (0.6-1.1) EF (Teich) 63.60% FS 34.50% EDV (Teich) 106.50 mL ESV (Teich) 38.80 mL LV Diastology E Decel Time 270 (160-240 msec) E/A Ratio 0.97 Mitral Valve MV A Velocity 62.0 (40-130 cm/s) E/A Ratio 0.97 Left Ventricle The left ventricle is normal size. The left ventricular systolic function is normal. The left ventricular ejection fraction is within the normal range. There is increased LV wall thickness. There is normal LV segmental wall motion. The left ventricular diastolic function is normal. LVEF is 55%. Right Ventricle The right ventricle is mildly dilated. The right ventricular systolic function is normal. Atria Left atrium is mildly dilated. Right atrium is mildly dilated. s/p PFO closure. There is no Doppler evidence of interatrial shunt. Agitated saline administration at rest and with Valsalva demonstrates no evidence of interatrial shunt. Aortic Valve The aortic valve is mildly thickened. There is no aortic valvular stenosis. Trace aortic regurgitation is present. Mitral Valve The mitral valve is normal in structure. No evidence of mitral valve stenosis. Trace mitral regurgitation. Tricuspid Valve The tricuspid valve leaflets are thin and pliable. Trace tricuspid regurgitation. RVSP is normal. Pulmonic Valve The pulmonary valve is normal in structure. Trace pulmonic regurgitation. Great Vessels The aortic root is normal in size. The ascending aorta is normal in size. IVC is normal in size and collapses >50% with inspiration. Pericardium There is no pericardial effusion. Other Information Study Quality: Fair Conclusion Normal biventricular systolic function. Mild RV dilation. Mild biatrial dilation. No significant valvular stenosis or regurgitation. s/p PFO closure. There is no Doppler evidence of interatrial shunt. Agitated saline administration at rest and with Valsalva demonstrates no evidence of interatrial shunt. Electronically signed by : Arianne Myrick MD 04/14/2024 19:46:49
--- NOTE | 2024-04-11 | CA_ITS ---
FINAL REPORT CLINICAL HISTORY: Hx/O TIA, Hx-PFO closure FINDINGS: RIGHT CAROTID: CCA PSV - 98 cm/sec ICA PSV - 91 cm/sec ICA/CCA PSV ratio -1.1 . Comments: Mild plaque disease is noted. LEFTCAROTID: CCA PSV - 94. cm/sec ICA PSV - 97. cm/sec ICA/CCA PSV ratio - 1.4 . Comments: Mild plaque disease is noted. Antegrade flow is seen within the vertebral arteries. IMPRESSION: Carotid stenosis classified less than 50% Reviewed, Interpreted and Dictated by Danny Basilio MD Transcribed by Doris Last Authenticated and [facility]
== END 2024-04-11 23:59 | disposition home or self-care (01) ==
LOC: RT 12:27
PROVIDERS: PCP Nurse Practitioner Family; Visit Provider Nurse Practitioner Family
DX: G45.8 Other transient cerebral ischemic attacks and related syndromes (principal); R42 Dizziness and giddiness; Q21.12 Patent foramen ovale
CPT/HCPCS: 93306; 93880

== ENCOUNTER 2024-05-10 06:15 | Emergency (ER) | payer BC, SELFPAY ==
[2024-05-10] VITALS (7 sets, daily range): BP systolic 111–144; BP diastolic 65–87; PULSE 61–79; RESP 18–20; TEMP 36.8; O2SAT 95–97; BMI 31.8
--- NOTE | 2024-05-10 06:29 | PC.NURSE ---
Dr. Escamilla at bedside
[2024-05-10 06:32] LABS: Microscopic, Urine URINE MICROSCOPIC (MICROSCOPIC)
[2024-05-10 06:33] LABS: Appearance,Urine CLEAR (Clear); Blood, Urine Negative (Negative); Color,Urine YELLOW (Yellow); Glucose,Urine (UA) Negative (Negative); Ketones,Urine Negative (Negative); Leukocyte Esterase,Urine Negative (Negative); Nitrate,Urine Negative (Negative); PH,Urine 5.5 (5.0-8.5); Protein,Urine Negative (Negative); Specific Gravity, Urine >= 1.030 (1.005-1.030); Urobilinogen,Urine 0.2 EU/dl (0.2)
--- NOTE | 2024-05-10 06:33 | ED_ITS ---
Discharge Plan Disposition Patient Disposition: Home, Self-Care Condition: Good Prescriptions Prescriptions: No Action oxybutynin chloride 10 mg tablet extended release 24hr 10 mg PO DAILY Qty: 90 3RF tamsulosin 0.4 mg capsule 0.4 mg PO DAILY Qty: 14 0RF cetirizine [Zyrtec] 10 mg tablet 10 mg PO DAILY atorvastatin 20 MG tablet 20 mg PO HS aspirin 81 MG tablet,chewable 81 mg PO DAILY metoprolol succinate 25 MG tablet extended release 24 hr 12.5 mg PO DAILY furosemide 20 MG tablet 10 mg PO DAILY Probiotic 10 billion cell Capsule 10,000 mmu cells PO DAILY spironolactone 25 mg tablet 12.5 mg PO DAILY sennosides-docusate sodium [Stool Softener-Stimulant Laxat] 8.6-50 mg Tablet 1 tab PO BID 10 Days Qty: 20 0RF metronidazole 500 mg tablet 500 mg PO QID Qty: 28 0RF ondansetron 4 mg tablet,disintegrating 4 mg PO Q8H PRN (Reason: nausea and vomiting) 4 Days Qty: 12 0RF levofloxacin 750 mg tablet 750 mg PO DAILY 7 Days Qty: 7 0RF oxycodone 5 mg tablet 5 mg PO TID PRN (Reason: pain refractory to tylenol and ibuprofen) Qty: 10 0RF Referrals Follow up/Referrals: Martha Blackburn APRN [Primary Care Provider] - See instructions Activity Restrictions/Add. Instructions Additional Instructions/Restrictions: As we discussed, it appears that you have diverticulitis in your descending colon on the left side, you also have a small kidney stone on the left side but your urinalysis does not show any blood in your urine, so it is likely that your pain is due to the diverticulitis and not this kidney stone, however if you have pain in the future that seems similar to kidney stones I would let your doctor know that you do have a known kidney stone on the left. Please continue to drink plenty of liquids. Please return with any new or worsening symptoms. Clinical Impressions Clinical Impression: Diverticulitis Instructions Patient Instructions: DI for Acute Abdominal Pain Discharge ED Provider: Louis Steel Adult HPI <Nimisha Escamilla, - Last Filed: 05/10/24 06:48> General Chief complaint: Abdominal Pain Stated complaint: lower abdominal pain Time Seen by Provider: 05/10/24 06:19 History of Present Illness HPI narrative: This patient is a 64-year-old male with a history of recurrent kidney stones, diverticulitis, obesity, GERD, hypertension, hyperlipidemia, and BPH presenting to the emergency department for evaluation with concern for left flank pain radiating to his groin. He notes that he had this pain last week, but it resolved. Started again yesterday, and he thought maybe he had pulled a muscle in his low back. He used muscle relaxer at home with no improvement. He also notes some blood in his urine since yesterday. He denies any fevers, nausea, vomiting, changes in bowel movements, or other issues, but he does note some chills overnight. He also denies any testicular pain, tenderness, or swelling. No known falls or traumatic injuries. Related Data Home Medications Medication Instructions Recorded Confirmed aspirin 81 mg chewable tablet 81 mg PO DAILY heart health 02/21/19 04/09/24 atorvastatin 20 mg tablet 20 mg PO HS Cholesterol 02/21/19 04/09/24 metoprolol succinate 25 mg 12.5 mg PO DAILY High blood 02/21/19 04/09/24 tablet,extended release 24 hr pressure cetirizine 10 mg tablet (Zyrtec) 10 mg PO DAILY Allergy symptoms 05/14/19 04/09/24 furosemide 20 mg tablet 10 mg PO DAILY Fluid 08/14/21 04/09/24 Lactobacillus acidophilus 10 10,000 mmu cells PO DAILY 01/18/23 04/09/24 billion cell capsule (Probiotic) Supplement spironolactone 25 mg tablet 12.5 mg PO DAILY High blood 01/18/23 04/09/24 pressure Previous Rx's Medication Instructions Recorded sennosides 8.6 mg-docusate sodium 1 tab PO BID 10 days #20 tabs 01/23/23 50 mg tablet (Stool Softener-Stimulant Laxative) levofloxacin 750 mg tablet 750 mg PO DAILY diverticulitis 7 02/26/24 days #7 tabs metronidazole 500 mg tablet 500 mg PO QID diverticulitis #28 02/26/24 tabs ondansetron 4 mg disintegrating 4 mg PO Q8H PRN nausea and 02/26/24 tablet vomiting 4 days #12 tabs oxycodone 5 mg tablet 5 mg PO TID PRN pain refractory to 02/26/24 tylenol and ibuprofen #10 tabs oxybutynin chloride 10 mg 10 mg PO DAILY #90 tabs 04/09/24 tablet,extended release 24 hr tamsulosin 0.4 mg capsule 0.4 mg PO DAILY kidney stone #14 04/09/24 caps Allergies Allergy/AdvReac Type Severity Reaction Status Date / Time No Known Allergies Allergy Verified 04/09/24 10:39 PFSH <Nimisha Escamilla DO - Last Filed: 05/10/24 06:48> [facility] Disclaimer: The information contained in this section may have been updated after the patient was seen, as this information can be updated by other users. Medical History Hernia TIA (transient ischemic attack) Diverticulitis Kidney stones Hyperlipidemia Ureteral stone with hydronephrosis Abnormal EKG Preoperative clearance Diastolic dysfunction Endothelial dysfunction of coronary artery Surgical History History of appendectomy H/O knee surgery H/O hernia repair Status post percutaneous patent foramen ovale closure Family History Other COPD (chronic obstructive pulmonary disease) Diabetes Esophageal cancer Heart attack Social History Smoking Status: Never smoker second hand exposure: No alcohol intake: never substance use type: denies use current occupational status: employed Travel in the last 8 weeks: None household members: spouse housing: house marital status: current occupation: [employer] current occupational exposures/hazards: No caffeine: No <Nimisha Escamilla DO - Last Filed: 05/10/24 06:48> ROS Obtained: Yes All systems reviewed & no additional complaints except as documented Physical Exam <Nimisha Escamilla DO - Last Filed: 05/10/24 06:48> General General appearance: alert, in no apparent distress and obese Head Head exam: atraumatic and normocephalic Eye Eye exam: Present normal appearance, PERRL and EOMI ENT ENT exam: Present normal exam, normal oropharynx, mucous membranes moist and normal external ear exam Neck Neck exam: Present normal inspection, full ROM and trachea midline; Absent tenderness Chest Chest inspection: Present normal inspection and symmetric chest wall rise; Absent tenderness Respiratory Respiratory exam: Present normal lung sounds bilaterally; Absent respiratory distress, wheezes, stridor or accessory muscle use Cardiovascular Cardiovascular exam: Present regular rate and normal rhythm Abdominal Exam Abdominal exam: Present soft; Absent distention, tenderness or guarding Extremities Exam Extremities exam: Present normal inspection, full ROM and normal capillary refill; Absent tenderness or edema Back Exam Back exam: Present full ROM and CVA tenderness (L) Neurological Exam Neurological exam: Present alert, oriented X3, CN II-XII intact and normal gait; Absent motor sensory deficit Psychiatric Psychiatric exam: Present normal affect and normal mood Skin Skin exam: Present warm and dry Medical Decision Making <Nimisha Syd Escamilla, DO - Last Filed: 05/10/24 06:48> Medical Records Medical records reviewed: Yes I reviewed the patient's medical records. Tayo Inquiry Pt receiving controlled substance: No Vital Signs: 05/10/24 06:16 05/10/24 06:42 05/10/24 06:59 Temperature 98.3 F Temperature Source Oral Pulse Rate 71 65 Pulse Rate [Right Brachial] 79 Respiratory Rate 20 20 Blood Pressure 124/87 124/87 Blood Pressure [Right Arm] 144/75 H Blood Pressure Mean [Right Arm] 98 Blood Pressure Source Automatic Cuff Blood Pressure Source [Right Arm] Automatic Cuff Blood Pressure Position Supine Blood Pressure Position [Right Arm] Sitting 02 Sat by Pulse Oximetry 96 96 95 Oxygen Delivery Method Room Air Room Air Room Air Lab Data Lab results reviewed: Yes I reviewed the patient's lab results. Lab Results 05/10/24 06:20: Sodium 140, Potassium 3.8, Chloride 107, Carbon Dioxide 27, Anion Gap 9.8, BUN 14, Creatinine 1.20, Estimated Creat Clear 102, Estimated GFR 61, Est GFR ( Amer) 74, Glucose 111 H, Calcium 9.7, Total Bilirubin 0.7, AST 24, ALT 21, Alkaline Phosphatase 80, Total Protein 7.7, Albumin 4.3, G lobulin 3.4 H, Albumin/Globulin Ratio 1.3 05/10/24 06:30: Urine Color Yellow, Urine Appearance Clear, Urine pH 5.5, Ur Specific [place] >= 1.030, Urine Protein Negative, Urine Glucose (UA) Negative, Urine Ketones Negative, Urine Blood Negative, Urine Nitrate Negative, Urine Bilirubin Negative, Urine Urobilinogen 0.2, Ur Leukocyte Esterase Negative, Urine WBC Occasional, Ur Squamous Epith Cells Occasional, Urine Bacteria 1+, Urine Mucus 2+ 05/10/24 06:20 Orders (Tests/Meds): ED MEDICATIONS Discontinued Medications Generic Name Dose Route Start Last Admin Trade Name Freddy PRN Reason Stop Dose Admin Acetaminophen 1,000 mg 05/10/24 06:33 05/10/24 06:39 Acetaminophen 500mg Tab PO 05/10/24 06:34 1,000 mg ONCE ONE Administration Lactated Ringer's 1,000 mls @ 999 mls/hr 05/10/24 06:33 05/10/24 06:45 Lactated Ringer's 1000 Ml Bag IV 05/10/24 07:33 Not Given .Q1H1M ONE Sodium Chloride 500 mls @ 999 mls/hr 05/10/24 06:40 05/10/24 06:44 Sod Chlor 0.9% 1000ml Bag IV 05/10/24 07:10 Not Given .Q31M ONE Sodium Chloride 1,000 mls @ 999 mls/hr 05/10/24 06:43 05/10/24 06:46 Sod Chlor 0.9% 1000ml Bag IV 05/10/24 07:43 999 mls/hr .Q1H1M ONE Administration Iopamidol 75 ml 05/10/24 07:15 05/10/24 07:15 Iopamidol-370 (76%);100ml Bottle IV 05/10/24 07:16 75 ml ONCE ONE Administration Ketorolac Tromethamine 15 mg 05/10/24 06:33 05/10/24 06:38 Ketorolac 30mg/Ml Vial IV 05/10/24 06:34 15 mg ONCE ONE Administration Sodium Chloride 10 ml 05/10/24 07:15 05/10/24 07:15 Sodium Chloride 0.9% 10ml Syr (Rad Only) IV 05/10/24 07:16 10 ml ONCE ONE Administration ORDERS Category Date Time Status CT abdomen pelvis w con Stat Cat Scan 05/10/24 06:46 Completed Complete Blood Count Auto Diff Stat Lab 05/10/24 06:27 Ordered Comprehensive Metabolic Panel Stat Lab 05/10/24 06:20 Completed UA [Urinalysis and Microscopic] Stat Lab 05/10/24 06:30 Completed Urine Culture Stat Micro 05/10/24 06:30 Received Medical Decision Narrative: In summary, this patient is a 64-year-old male presenting to the Emergency Department for evaluation of left flank pain radiating into his groin as well as hematuria. Differential diagnoses considered include but are not limited to urolithiasis, pyelonephritis, cystitis, diverticulitis, colitis. Ruling out the most morbid conditions drove assessment. It should be noted patient's history includes hypertension, hyperlipidemia, BPH which may or may not be at goal therapy. This complicates all aspects of care by increasing patient's risk for morbidity. On exam, the patient is nontoxic-appearing. He does have left CVA tenderness, but abdominal exam is benign. Workup included CBC, CMP, urinalysis, urine culture, and CT abdomen and pelvis. He was given a bolus of IV fluids as well as IV Toradol and oral Tylenol for symptomatic improvement. Urine is positive for bacteria, however is negative for red blood cells, white blood cells, leukocyte esterase, and nitrates. It has occasional squamous epithelial cells, so bacteria could be contaminant. Patient care signed to the oncoming provider, Dr. Steel, pending lab evaluation as well as CT abdomen and pelvis. <Louis Steel MD - Last Filed: 05/10/24 08:11> Vital Signs: 05/10/24 06:16 05/10/24 06:42 05/10/24 06:59 Temperature 98.3 F Temperature Source Oral Pulse Rate 71 65 Pulse Rate [Right Brachial] 79 Respiratory Rate 20 20 Blood Pressure 124/87 124/87 Blood Pressure [Right Arm] 144/75 H Blood Pressure Mean [Right Arm] 98 Blood Pressure Source Automatic Cuff Blood Pressure Source [Right Arm] Automatic Cuff Blood Pressure Position Supine Blood Pressure Position [Right Arm] Sitting 02 Sat by Pulse Oximetry 96 96 95 Oxygen Delivery Method Room Air Room Air Room Air Lab Data Lab Results 05/10/24 06:20: Sodium 140, Potassium 3.8, Chloride 107, Carbon Dioxide 27, Anion Gap 9.8, BUN 14, Creatinine 1.20, Estimated Creat Clear 102, Estimated GFR 61, Est GFR ( Amer) 74, Glucose 111 H, Calcium 9.7, Total Bilirubin 0.7, AST 24, ALT 21, Alkaline Phosphatase 80, Total Protein 7.7, Albumin 4.3, G lobulin 3.4 H, Albumin/Globulin Ratio 1.3 05/10/24 06:30: Urine Color Yellow, Urine Appearance Clear, Urine pH 5.5, Ur Specific [place] >= 1.030, Urine Protein Negative, Urine Glucose (UA) Negative, Urine Ketones Negative, Urine Blood Negative, Urine Nitrate Negative, Urine Bilirubin Negative, Urine Urobilinogen 0.2, Ur Leukocyte Esterase Negative, Urine WBC Occasional, Ur Squamous Epith Cells Occasional, Urine Bacteria 1+, Urine Mucus 2+ Orders (Tests/Meds): ED MEDICATIONS Discontinued Medications Generic Name Dose Route Start Last Admin Trade Name Freddy PRN Reason Stop Dose Admin Acetaminophen 1,000 mg 05/10/24 06:33 05/10/24 06:39 Acetaminophen 500mg Tab PO 05/10/24 06:34 1,000 mg ONCE ONE Administration Lactated Ringer's 1,000 mls @ 999 mls/hr 05/10/24 06:33 05/10/24 06:45 Lactated Ringer's 1000 Ml Bag IV 05/10/24 07:33 Not Given .Q1H1M ONE Sodium Chloride 500 mls @ 999 mls/hr 05/10/24 06:40 05/10/24 06:44 Sod Chlor 0.9% 1000ml Bag IV 05/10/24 07:10 Not Given .Q31M ONE Sodium Chloride 1,000 mls @ 999 mls/hr 05/10/24 06:43 05/10/24 06:46 Sod Chlor 0.9% 1000ml Bag IV 05/10/24 07:43 999 mls/hr .Q1H1M ONE Administration Iopamidol 75 ml 05/10/24 07:15 05/10/24 07:15 Iopamidol-370 (76%);100ml Bottle IV 05/10/24 07:16 75 ml ONCE ONE Administration Ketorolac Tromethamine 15 mg 05/10/24 06:33 05/10/24 06:38 Ketorolac 30mg/Ml Vial IV 05/10/24 06:34 15 mg ONCE ONE Administration Sodium Chloride 10 ml 05/10/24 07:15 05/10/24 07:15 Sodium Chloride 0.9% 10ml Syr (Rad Only) IV 05/10/24 07:16 10 ml ONCE ONE Administration ORDERS Category Date Time Status CT abdomen pelvis w con Stat Cat Scan 05/10/24 06:46 Completed Complete Blood Count Auto Diff Stat Lab 05/10/24 06:27 Ordered Comprehensive Metabolic Panel Stat Lab 05/10/24 06:20 Completed UA [Urinalysis and Microscopic] Stat Lab 05/10/24 06:30 Completed Urine Culture Stat Micro 05/10/24 06:30 Received Medical Decision Narrative: In summary, this patient is a 64-year-old male presenting to the Emergency Department for evaluation of left flank pain radiating into his groin as well as hematuria. Differential diagnoses considered include but are not limited to urolithiasis, pyelonephritis, cystitis, diverticulitis, colitis. Ruling out the most morbid conditions drove assessment. It should be noted patient's history includes hypertension, hyperlipidemia, BPH which may or may not be at goal therapy. This complicates all aspects of care by increasing patient's risk for morbidity. On exam, the patient is nontoxic-appearing. He does have left CVA tenderness, but abdominal exam is benign. Workup included CBC, CMP, urinalysis, urine culture, and CT abdomen and pelvis. He was given a bolus of IV fluids as well as IV Toradol and oral Tylenol for symptomatic improvement. Urine is positive for bacteria, however is negative for red blood cells, white blood cells, leukocyte esterase, and nitrates. It has occasional squamous epithelial cells, so bacteria could be contaminant. Patient care signed to the oncoming provider, Dr. Steel, pending lab evaluation as well as CT abdomen and pelvis. Louis Steel MD: I assumed care of this patient from the previous emergency medicine physician. CT imaging reveals small nonobstructing left-sided urolith, however additional finding of descending uncomplicated diverticulitis. Upon reexamination patient has improvement of symptoms, is amenable to discharge at this time. He is not requesting any antiemetic or analgesic home therapy prescriptions at this time. He will return with any new or worsening symptoms. He is deemed stable for discharge at this time. Critical Care <Nimisha Escamilla, DO - Last Filed: 05/10/24 06:48> Critical Care Time Critical Care Time: No
[2024-05-10] MEDS: KETOROLAC 30MG/ML VIAL 15 MG IV (06:38)
[2024-05-10] MEDS: ACETAMINOPHEN 500MG TAB 1000 MG PO (06:39)
[2024-05-10 06:44] LABS: Bacteria,Urine 1+ /lpf; Bilirubin,Urine Negative (Negative); Mucus,Urine 2+ /lpf; Squamous Epithelial Cell,Urine Occasional #/hpf (0-5); WBC,Urine Occasional #/hpf (0-3)
[2024-05-10] MEDS: 0.9 % SODIUM CHLORIDE 1000ML 1,000 ML 999 ML IV (06:46)
--- NOTE | 2024-05-10 06:46 | CT_ITS ---
FINAL REPORT TECHNIQUE: After the administration of intravenous contrast, axial images were obtained through the abdomen and pelvis by computed tomography. This study was performed with technique to keep radiation doses as low as reasonably achievable, (ALARA). Individualized dose reduction techniques using automated exposure control or adjustment of the MA and/or KV according to the patient's size were employed. CLINICAL HISTORY: L flank pain rad to LLQ COMPARISON: 02/29/2024 FINDINGS: Abdomen: The lung bases are clear. There is diffuse fatty infiltration of the liver. There is a small hypodense lesion in the right hepatic lobe, favor cyst. Gallbladder is present. The spleen is unremarkable. The adrenals are normal. The pancreas is unremarkable. There is a nonobstructing left renal stone. There is no hydronephrosis or renal mass. The aorta is normal in caliber. There is no free fluid or adenopathy. There is a moderate size hiatal hernia. No evidence of small bowel obstruction is seen. Pelvis: The appendix is not identified. There are no secondary findings of appendicitis. There is focal wall thickening of the mid descending colon where there are multiple diverticula. There is pericolonic inflammation. There is no perforation or abscess. The urinary bladder is unremarkable. There is no free fluid or adenopathy. No acute osseous abnormalities are seen. IMPRESSION: Acute diverticulitis of the mid descending colon, not the location of previously seen diverticulitis. No evidence of abscess or perforation. Nonobstructing left renal stone. Reviewed, Interpreted and Dictated by Mena Herman MD Transcribed by Abigail Manuel Authenticated and [facility]
[2024-05-10 06:58] LABS: Alanine Aminotransferase 21 U/L (12-78); Albumin Level 4.3 g/dl (3.5-5.0); Albumin/Globulin Ratio 1.3 (1.1-1.8); Alkaline Phosphatase 80 U/L (38-126); Anion Gap 9.8 mEq/L (5-15); Aspartate Amino Transferase 24 U/L (17-59); Bilirubin,Total 0.7 mg/dl (0.2-1.3); Blood Urea Nitrogen 14 mg/dl (9-20); Calcium 9.7 mg/dl (8.4-10.2); Carbon Dioxide 27 mmol/L (22.0-30.0); Chloride 107 mmol/L (98-107); Creatinine Clearance Estimated 102 mL/min (50-200); Estimated Glomerular Filt Rate 61 ml/min (>60); GFR (African American) 74 ML/MIN (>60); Globulin 3.4 g/dL (1.3-3.2); Glucose 111 mg/dl (74-100); Potassium 3.8 mmoL/L (3.5-5.1); Sodium 140 mmol/L (136-145); Total Protein,Serum 7.7 g/dl (6.3-8.2)
[2024-05-10] MEDS: SODIUM CHLORIDE 0.9% 10ML SYR (RAD ONLY) 10 ML IV (07:15)
[2024-05-10] MEDS: IOPAMIDOL-370 (76%);100ML BOTTLE 75 ML IV (07:15)
--- NOTE | 2024-05-10 07:40 | PC.NURSE ---
ROUNDED ON PT, RESTING COMFORTABLY WITHOUT NEEDS AT THIS TIME. CALL LIGHT WITHIN REACH. AT BEDSIDE
--- NOTE | 2024-05-10 08:05 | PC.NURSE ---
DR MARQUEZ AT BEDSIDE TO UPDATE PT
[2024-05-10 10:17] LABS: Basophils # 0.1 K/mm3 (0-0.2); Basophils % 0.9 % (0.1-2.0); Eosinophils # 0.3 K/mm3 (0.0-0.4); Hematocrit 43.7 % (42.0-52.0); Hemoglobin 14.4 g/dL (14.1-18.0); Lymphocytes # 2.1 K/mm3 (0.7-4.5); Lymphocytes % 16.2 % (10-50); Mean Corpuscular HGB Conc 32.9 g/dL (31.8-35.4); Mean Corpuscular Hemoglobin 29.7 pg (27.0-31.2); Mean Corpuscular Volume 90.3 fl (80-94); Mean Platelet Volume 8.2 fl (7.4-10.4); Monocytes # 0.8 K/mm3 (0.1-1.0); Monocytes % 5.7 % (1.7-9.3); Neutrophils # 9.8 K/mm3 (1.8-7.8); Neutrophils % 75.3 % (37.0-80.0); Platelet Count 343 K/mm3 (142-424); Red Blood Count 4.84 M/mm3 (4.60-6.20); Red Cell Distribution Width 14.1 % (11.5-17.5); White Blood Count 13.1 K/mm3 (4.8-10.8)
== END 2024-05-10 08:10 | disposition home or self-care (01) ==
PROVIDERS: Emergency Medicine; Emergency Provider Emergency Medicine; PCP Nurse Practitioner Family
DX: K57.32 Diverticulitis of large intestine without perforation or abscess without bleeding (principal); R10.32 Left lower quadrant pain; M54.59 Other low back pain; N20.0 Calculus of kidney; B96.89 Other specified bacterial agents as the cause of diseases classified elsewhere; I10 Essential (primary) hypertension; E78.5 Hyperlipidemia, unspecified; K21.9 Gastro-esophageal reflux disease without esophagitis
CPT/HCPCS: 74177; 80053; 81001; 85025; 87086; 96361; 96374; 99285; J1885; Q9967

== ENCOUNTER 2024-05-29 07:17 | Outpatient (CLI) | payer BC, SELFPAY ==
[2024-05-30 10:14] LABS: Insulin Level Total 27.9 uIU/mL (2.6-24.9)
== END 2024-05-29 23:59 | disposition home or self-care (01) ==
LOC: LAB 07:18
PROVIDERS: PCP Nurse Practitioner Family; Visit Provider Nurse Practitioner Family
DX: R73.09 Other abnormal glucose (principal)
CPT/HCPCS: 36415; 82533; 83525

== ENCOUNTER 2025-01-17 08:41 | Outpatient (CLI) | payer BC, SELFPAY ==
[2025-01-17 09:28] LABS: Basophils # 0.1 K/mm3 (0-0.2); Basophils % 0.9 % (0.1-2.0); Eosinophils # 0.2 K/mm3 (0.0-0.4); Eosinophils % 3.3 % (0.1-12.0); Hemoglobin 14.6 g/dL (14.1-18.0); Lymphocytes % 29.7 % (10-50); Mean Corpuscular Hemoglobin 29.1 pg (27.0-31.2); Mean Corpuscular Volume 85.8 fl (80-94); Mean Platelet Volume 9.8 fl (7.4-10.4); Monocytes # 0.5 K/mm3 (0.1-1.0); Neutrophils # 3.9 K/mm3 (1.8-7.8); Neutrophils % 57.7 % (37.0-80.0); Platelet Count 267 K/mm3 (142-424); Red Blood Count 5.01 M/mm3 (4.60-6.20); Red Cell Distribution Width 13.7 % (11.5-17.5); White Blood Count 6.7 K/mm3 (4.8-10.8)
[2025-01-17 09:54] LABS: Chol/HDL Ratio 3.6 (1-3.5); Cholesterol 157 mg/dl (140-200); HDL Cholesterol 44 mg/dl (40-60); Triglycerides 134 mg/dl (30-150); VLDL Cholesterol 27 mg/dL (0-40)
[2025-01-17 10:07] LABS: Direct LDL Cholesterol 86.32 mg/dL (100-129)
[2025-01-17 10:11] LABS: Hemoglobin A1C 5.6 % (4.0-6.0)
[2025-01-18 06:33] LABS: Insulin Level Total 19.1 uIU/mL (2.6-24.9)
[2025-01-19 08:45] LABS: Calprotectin, Fecal 29 ug/g (0-120)
[2025-01-23 17:24] LABS: Lactoferrin, Fecal, Quant. <1.00 ug/mL(g) (0.00-7.24)
[2025-01-25 22:08] LABS: F001-IgE Egg White <0.10 kU/L (Class 0); F002-IgE Milk <0.10 kU/L (Class 0); F003-IgE Codfish <0.10 kU/L (Class 0); F004-IgE Wheat 0.24 kU/L (Class 0/I); F010-IgE Sesame Seed <0.10 kU/L (Class 0); F013-IgE Peanut <0.10 kU/L (Class 0); F014-IgE Soybean <0.10 kU/L (Class 0); F024-IgE Shrimp <0.10 kU/L (Class 0); F256-IgE Walnut <0.10 kU/L (Class 0); F338-IgE Scallop <0.10 kU/L (Class 0)
== END 2025-01-17 23:59 | disposition home or self-care (01) ==
LOC: LAB 08:42
PROVIDERS: PCP Nurse Practitioner Family; Visit Provider Nurse Practitioner Family
DX: E78.2 Mixed hyperlipidemia (principal); K52.9 Noninfective gastroenteritis and colitis, unspecified; R73.03 Prediabetes; E66.89 Other obesity not elsewhere classified
CPT/HCPCS: 36415; 80061; 83036; 83525; 83630; 83993; 85025; 86003; 86008

== ENCOUNTER 2025-08-19 09:22 | Outpatient (CLI) | payer MEDICARE, OTHER, SELFPAY ==
--- NOTE | 2025-08-19 09:26 | MR_ITS ---
FINAL REPORT CLINICAL HISTORY: LBP/OTHER CHRONIC pain runs down right leg 3-4 months FINDINGS: Multiplanar MR imaging of the lumbar spine was performed without contrast. On the sagittal T2-weighted images, decreased signal seen throughout the discs with moderate loss of height at L3-4 and L4-5. The vertebrae are of normal height. The vertebral alignment is normal. T12-L1: Unremarkable. L1-2: Mild broad-based midline disc protrusion with mild central canal stenosis. L2-3: Mild diffuse disc bulge with endplate hypertrophy. Moderate right and mild to moderate left neuroforaminal narrowing. L3-4: Mild diffuse disc bulge with left posterolateral disc protrusion. There is moderate bilateral neuroforaminal narrowing. L4-5: Left posterolateral disc protrusion with high-grade left neuroforaminal narrowing. L5-S1: Mild diffuse disc bulge with mild bilateral neuroforaminal narrowing. IMPRESSION: Multilevel changes of degenerative disc disease with disc protrusion most evident at L1 to and multilevel neuroforaminal narrowing. Reviewed, Interpreted and Dictated by Antwon Oliveros MD Transcribed by Abigail Manuel Authenticated and [facility]
--- OUTSIDE RECORDS SUMMARY | 2025-08-19 09:30 | XMS_ITS | Encounter Summary ---
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 Role Phone Unavailable Primary Care Provider Unavailabl e Encounter Details Date Type Department Care Team (Late st Contact Info) Description 04/28/2021 Transcribed Document [facility] Radiology [address] [place] [address] ProviderNomi MD Social History Tobacco Use Types Packs/Day Years Used Date Smoking Tobacco: Never Assessed Sex and Gender Information Value Date Recorded Sex Assigned at Not on file Legal Sex Male 7:21 PM CDT Gender Identity Not on file Sexual Orientation Not on file documented as of this encounter Miscellaneous Notes * Cerner Conversion Note - [facility] Abhay ProviderMD - 04/28/2021 11:52 AM EDT Nursing Discharge Summary Entered On: 04/28/2021 10:54 EDT Performed On: 04/28/2021 10:52 EDT by DILIP TORRES RN Discharge Documentation Discharge Date/Time : 04/28/2021 10:52 EDT Patient Disposition, General : Discharge Discharge To : Home with ambulatory/outpatient follow-up Mode Of Departure, General Discharge : Private vehicle Accompanied By, Discharge : Spouse IV Discontinued : Yes Personal Belongings With Patient : Yes Pt's Own Supply of Medications Returned : Yes Discharge Instructions Reviewed With, Opportunity For Questions Given : Patient, Spouse Patient Education Completed : Yes Teaching Method : Explanation, Printed materials Teaching Evaluation : Verbalizes understanding DILIP TORRES RN - 04/28/2021 10:52 EDT Electronically signed by Nomi Floyd Conversion Passenger Car Upholsterer Apprentice Cerner at 03/16/2023 1:30 PM CDT documented in this encounter Plan of Treatment Not on file documented as of this encounter Visit Diagnoses Not on filedocumented in this encounter
--- OUTSIDE RECORDS SUMMARY | 2025-08-19 09:30 | XMS_ITS | Encounter Summary ---
Author Organization Healthcare Address [address] [place] [address] Care Team Providers Care Bss Solution Architect Name Role Phone Gibran Espino MD Primary Care Provider + [phone] Encounter Details Date Type Department Care Team (Late st Contact Info) Description 07/15/2025 Telephone [facility] [address], [address] [place] [address] Timmy Heart MD [address] [facility] [address] [place] [address] Social History Tobacco Use Types Packs/Day Years Used Date Smoking Tobacco: Never Smokeless Tobacco: Never Alcohol Use Standard Drinks/Week Comments No 0 (1 standard drink = 0.6 oz pur e alcohol) PHQ-2 Answer Date Recorded Patient Health Questionnaire-2 Score 0 06/19/2025 Humiliation, Afraid, Rape, and Kick questionnair e Answer Date Recorded Within the last year, have y ou been afraid of your partner or ex-partner? No 04/05/2025 Within the last year, have y ou been humiliated or emotionally abused in other ways by your partner or ex-partner? No Within the last year, have y ou been kicked, hit, slapped, or otherwise physically hurt by your partner or ex-partner? No 04/05/2025 Within the last year, have y ou been raped or forced to have any kind of sexual activity by your partner or ex-partner? No 04/05/2025 Hunger Vital Sign Answer Date Recorded Within the past 12 months, y ou worried that your food would run out before you got the money to buy more. Never true 04/05/20 25 Within the past 12 months, t he food you bought just didn't last and you didn't have money to get more. Never true 04/05/2025 PRAPARE - Transportation Answer Date Re corded In the past 12 months, has l ack of transportation kept you from medical appointments or from getting medications? No 03/24 In the past 12 months, has l ack of transportation kept you from meetings, work, or from getting things needed for daily living? No 04/05/2025 Housing Stability Vital Sign Answer Noé e Recorded In the last 12 months, was t here a time when you were not able to pay the mortgage or rent on time? No 04/05/2025 Number of Times Moved in the Last Year Not on fi le 04/05/2025 At any time in the past 12 m [facility], were you homeless or living in a correction (including now)? No 04/05/2025 Utilities Answer Date Recorded In the past 12 months has th e electric, gas, oil, or water company threatened to shut off services in your home? No 04/05/2025 Sex and Gender Information Value Date Recorded Sex Assigned at Not on file Legal Sex Male 8:06 PM EDT Gender Identity Not on file Sexual Orientation Straight 04/04/2025 4: 55 PM EDT documented as of this encounter Miscellaneous Notes * Telephone Encounter - Mia Wise - 07/15/2025 1:28 PM EDT Called spouse back. She states since her and switched insurance his Jardiance is going to cost him 800. She believes they have part D although not listed in mychart. Pt requested rx sent to to see if they would qualify for MAP program. Rx sent and instructed pt to call back if still too expensive to fill. * Telephone Encounter - JARETT BIRCH - 07/15/2025 11:50 AM EDT Pt calling back, he ask that we call his 's phone at [phone]. * Telephone Encounter - Nancie Walton - 07/15/2025 11:31 AM EDT Attempted to reach patient. No answer, LVM to call back. documented in this encounter Plan of Treatment Upcoming Encounters Date Type Department Care Team (Late st Contact Info) Description 12/25/2025 4:20 PM EST Office Visit [facility] [address], [address] [place] [address] Timmy Heart MD [address] [facility] [address] [place] [address] documented as of this encounter Visit Diagnoses Not on filedocumented in this encounter Additional Health Concerns Assessment Noted Time A fall risk assessment has been complete d for the patient 06/19/2025 4:19 PM EDT A Body Mass Index follow-up plan has been documented for the patient 06/20/2025 7:35 PM EDT documented as of this encounter Care Teams Bss Solution Architect Relationship Specialty Start Date End Date Gibran Espino MD [address] [place] [address] PCP - General Internal Medicine 02/08/25 documented as of this encounter
--- OUTSIDE RECORDS SUMMARY | 2025-08-19 09:30 | XMS_ITS | Clinical Summary ---
Author Organization Healthcare Address [address] [place] [address] Care Team Providers Care Videotape Recording Engineer Name Role Phone Gibran Espino MD Primary Care Provider [phone] Allergies No known active allergies Medications * This document contains information received from the source organization and may not represent a complete record from that organization. metoprolol succinate XL (Toprol-XL) 25 MG 24 hr tablet Take 0.5 tablets by mouth daily. 10/06/2020 Active atorvastatin (Lipitor) 20 MG tablet Take 1 tablet by mouth daily. 02/28/2019 Active aspirin 81 MG EC tablet Take 1 tablet by mouth daily. 02/28/2019 Active cetirizine (ZyrTEC) 10 MG tablet Take 1 tablet by mouth daily. 09/18/2019 Active cyanocobalamin 1000 MCG tablet Take 1 tablet by mouth daily. Active fenofibrate (Tricor) 54 MG tablet Take 1 tablet by mouth daily. Active furosemide (Lasix) 20 MG tablet Take 0.5 tablets by mouth daily. 02/28/2019 Active spironolactone (Aldactone) 25 MG tablet Take 0.5 tablets by mouth daily. Active famotidine-calc ium carb-mag hydroxide (Pepcid Complete) 10-800-165 MG chewable tablet Chew 1 tablet daily as needed for heartburn. Active empagliflozin (Jardiance) 10 MGIndications:O ther heart failure Take 1 tablet by mouth daily. 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 Encounters Date Type Department Care Team Description 07/15/2025 Refill Reji Singh [facility] [address] [place] [address] Mia Wise Other heart failure 07/15/2025 Telephone [facility] [address], [address] [place] [address] Timmy Heart MD 06/19/2025 4:20 PM EDT Office Visit [facility] [address], [address] [place] [address] Timmy Heart MD Hypoglycemia (Primary Dx); Other heart failure 06/19/2025 Travel from Last 3 Months Immunizations Immunization Administration Dates Next Due TD (adult), 2 Lf tetanus tox oid, preservative free, adsorbed 10/31/1996 Family History Medical History Relation Name Comments Diabetes Father Heart attack Father Hypertension Father Asthma Mother COPD Mother Relation Name Status Comments Father Mother Social History Tobacco Use Types Packs/Day Years Used Date Smoking Tobacco: Never Smokeless Tobacco: Never Tobacco Cessation:Counseling Given: Not Answered Alcohol Use Standard Drinks/Week Comments No 0 [...] any time in the past 12 m [facility], were you homeless or living in a group home (including now)? No 04/05/2025 Utilities Answer Date [...] Orientation Straight 04/04/2025 4: 55 PM EDT Last Filed Vital Signs Vital Sign Reading Time Taken Comments Blood Pressure 123/79 06/19/2025 4:19 PM EDT Pulse 60 06/19/2025 4:19 PM EDT Temperature 36.9 C (98.4 F) 04/10/2025 11:06 AM EDT Respiratory Rate 16 04/08/2025 10:55 AM EDT Oxygen Saturation 95% 04/10/2025 11:06 AM EDT Inhaled Oxygen Concentration - - Weight 115 kg (253 lb 4.9 oz) 06/19/2025 4:19 PM EDT Height 190.5 cm (6' 3 ) 06/19/2025 4:19 PM EDT Body Mass Index 31.66 06/19/2025 4:19 PM EDT Plan of Treatment Upcoming Encounters Date Type Department Care Team (Late st Contact Info) Description 12/25/2025 4:20 PM EST Office Visit [facility] [address], [address] [place] [address] Timmy Heart MD [address] [place] [address] Health Maintenance Due Date Last Done Comments [facility]-Hepatitis C Screening 1960 [facility]-Medicare Annual Wellness (AWV) 1960 [facility]-/Child/Adol SDOH Screenings 1960 [id number] Vaccine (#1) 1965 [facility]-DTaP,Tdap,and Td Vaccines (1 - Tdap) 11/01/1996 10/31/1996 CT Colonography 2005 FIT-DNA 2005 FIT 2005 FOBT 2005 Sigmoidoscopy 2005 [facility]-Pneumococcal Vaccine: 50+ Years (1 of 1 - PCV) 2010 [facility]-Zoster Vaccines (1 of 2) 2010 [facility]-RSV Vaccine: 60+ Years or (1 - Risk 60-74 years 1-dose series) 2020 [facility]-Influenza Vaccine (#1) 2025 [facility]- SDOH Screenings 10/05/2025 [facility]-Adult SDOH Screenings 10/05/2025 04/05/2025 [facility]-Depression Screening 06/19/2026 06/19/2025 Colonoscopy 11/21/2029 11/21/2019 [facility]-Colorectal Cancer Screening 11/21/2029 [facility]-Obesity Intervention Completed 025, 04/10/2025, 04/03/2025, Additional history exists HPV Vaccines Aged Out No longer eligi ble based on patient's age to complete this topic [facility]-HIB Vaccines Aged Out No longer e ligible based on patient's age to complete this topic [facility]-Hepatitis A Vaccines Aged Out No longer eligible based on patient's age to complete this topic [facility]-IPV Vaccines Aged Out No longer e ligible based on patient's age to complete this topic [facility]-Rotavirus Vaccines Aged Out No lo nger eligible based on patient's age to complete this topic Procedures Procedure Name Priority Date/Time Associated Diagnosis Comments COLONOSCOPY 11/21/2019 from Last 3 Months or Most Recently Relevant to Health Maintenance Results * COLONOSCOPY (11/21/2019) Anatomical Region Laterality Modality Endoscopy Narrative 11/21/2019 Ordered by an unspecified provider. us Historical Provider GI PROCEDURE ORDERABLES Leah l Result from Last 3 Months or Most Recently Relevant to Health Maintenance Insurance MEDICARE Advance Directives * Full Code (Latest Code Status on File) Date Activated Date Inactivated Comments 04/04/2025 4:53 PM 04/08/2025 2:57 PM Question Answer Comments I have reviewed the capacity from the link above and, if needed, have updated to appropriate status: Yes Care Teams Videotape Recording Engineer Relationship Specialty Start Date End Date Gibran Espino MD [address] [place] [address] PCP - General Internal Medicine 02/08/25
--- OUTSIDE RECORDS SUMMARY | 2025-08-19 09:30 | XMS_ITS | Encounter Summary ---
Author Organization [employer] ([place], [place], [place], [place]) Address [address] [place] [address] Care Team Providers Care Doctor Podiatric Medicine Name Role Phone Unavailable Primary Care Provider Unavailabl e Encounter Details Date Type Department Care Team (Late st Contact Info) Description 04/28/2021 Transcribed Document [facility] Radiology [address] [place] [address] Provider, [facility] MD Abhay Social History Tobacco Use Types Packs/Day Years Used Date Smoking Tobacco: Never Assessed Sex and Gender Information Value Date Recorded Sex Assigned at Not on file Legal Sex Male 7:21 PM CDT Gender Identity Not on file Sexual Orientation Not on file documented as of this encounter Miscellaneous Notes * Cerner Conversion Note - [facility] Abhay Metz MD - 04/28/2021 11:54 AM EDT [facility] [place] [address] [place] [address] NARCISO ANUJ :1960 Visit Time:04/28/2021 Your Visit Summary Your Care Team Admitting Physician - NEDRA LEE MD-CAR Attending Physician - NEDRA LEE MD-CAR Primary Care Physician - HEATH OLIVEROS (REF)FRANCIA Referring Physician - HEATH OLIVEROS (REF)FRANCIA Your Diagnosis Atrial septal defect, Atrial septal defect Discharge Vitals Temperature 36.2 ??C Heart Rate (Monitored) 58 Respiratory Rate 16 Blood Pressure 98/58 What to do next Follow-Up Appointments Follow Up with FALLUJI, NEZAR M, MD-CAR When Within 2 to 3 days Comments Follow-up as instructed Where: [address] [facility] [address] [place] [address]- Medications What How Much When Instructions Next Dose aspirin (aspirin 81 mg oral delayed release tablet) 1 Tablet(s) Oral Every Day atorvastatin (atorvastatin 20 mg oral tablet) Oral Every Day bifidobacterium-lactobacillus (Probiotic Formula oral capsule) 1 Capsule(s) Oral Every Day cetirizine (ZyrTEC) 10 Milligram(s) Oral Every Day fluticasone nasal (Flonase Allergy Relief 50 mcg/ inh nasal spray) Every Day furosemide (Lasix 20 mg oral tablet) Oral Every Day metoprolol (metoprolol succinate 25 mg oral capsule, extended release) 0.5 Capsule(s) Oral Every Day psyllium (Metamucil 400 mg oral capsule) 2 Capsule(s) Oral Every Day as needed for as needed for constipation with at least 8 ounces of water spironolactone (spironolactone 25 mg oral tablet) 0.5 Tablet(s) Oral Every Day PLEASE TAKE ALL PRESCRIPTIONS PRESCRIBED BY YOUR DOCTOR Take your medications faithfully. Do NOT skip medication. Do NOT stop taking medications without the direction of a physician. Carry a list of your medications with you at all times, and take this medication list with you to your first follow up visit. Report any side effects. Avoid herbal remedies unless discussed with your physician. As part of your treatment plan, your physician may have prescribed a limited course of a controlled substance. This medication may be given to help people with moderate or severe pain or for other medical conditions, but there are risks involved with treatment. Common side effects may include nausea, constipation, drowsiness, sweating, itching, dry mouth, and rash. More serious side effects may include cognitive and motor impairment, like problems with thinking, concentrating, alertness, and movement (e.g. slowed reflexes), and driving and operating heavy machinery can be dangerous. It is important for you to talk to your physician if you have these side effects or questions. These controlled substances can produce physical dependence and be habit-forming if taken for an extended period of time, which means that the body has gotten used to them and may experience withdrawal symptoms if they are abruptly stopped. Withdrawal symptoms can include runny nose, sweating, goose bumps, diarrhea, abdominal cramping, rapid heartbeat, difficulty sleeping, and nervousness. Please dispose of unused and medications per your retail pharmacy guidance. Allergies No Known Allergies Immunizations This Visit No Immunizations Found Stroke/TIA Instructions Individualized Stroke Risk Factors Individualized Stroke Risk Factors *Q: High cholesterol, Hypertension/High blood pressure, Other: PFO Stroke/TIA Signs/Symptoms to Report Immediately: Sudden onset difficulty speaking, Sudden onset difficulty understanding speech, Sudden onset change in vision, Sudden onset weakness particulary on one side of the body, Sudden onset numbness/tingling, Sudden severe headache, Sudden dizziness or trouble with gait, Call : EMS activation is crucial Mutually Agreed Upon Goals My LDL Level: My LDL Level: Education Materials What to do if you are sick with coronavirus disease 2019 (COVID-19) If you are sick with COVID-19 or suspect you are infected with the virus that causes COVID-19, follow the steps below to help prevent the disease from spreading to people in your home and community. Missing Image - the embedded image is not supported COVID-19 and Animals for more information. Call ahead before visiting your doctor If you have a medical appointment, call the healthcare provider and tell them that you have or may have COVID-19. This will help the healthcare provider???s office take steps to keep other people from getting infected or exposed. Wear a facemask You should wear a facemask when you are around other people (e.g., sharing a room or vehicle) or pets and before you enter a healthcare provider???s office. If you are not able to wear a facemask (for example, because it causes trouble breathing), then people who live with you should not stay in the same room with you, or they should wear a facemask if they enter your room. Cover your coughs and sneezes Cover your mouth and nose with a tissue when you cough or sneeze. Throw used tissues in a lined trash can; immediately wash your hands with soap and water for at least 20 seconds or clean your hands with an alcohol-based hand respiratory coordinator that contains at least 60 to 95% alcohol, covering all surfaces of your hands and rubbing them together until they feel dry. Soap and water should be used preferentially if hands are visibly dirty. Avoid sharing personal household items You should not share dishes, drinking glasses, cups, eating utensils, towels, or bedding with other people or pets in your home. After using these items, they should be washed thoroughly with soap and water. Clean your hands often Wash your hands often with soap and water for at least 20 seconds. If soap and water are not available, clean your hands with an alcohol-based hand respiratory coordinator that contains at least 60% alcohol, covering all surfaces of your hands and rubbing them together until they feel dry. Soap and water should be used preferentially if hands are visibly dirty. Avoid touching your eyes, nose, and mouth with unwashed hands. Clean all ???high-touch?? surfaces every day High touch surfaces include counters, tabletops, doorknobs, bathroom fixtures, toilets, phones, keyboards, tablets, and bedside tables. Also, clean any surfaces that may have blood, stool, or body fluids on them. Use a household cleaning spray or wipe, according to the label instructions. Labels contain instructions for safe and effective use of the cleaning product including precautions you should take when applying the product, such as wearing gloves and making sure you have good ventilation during use of the product. Monitor your symptoms Seek prompt medical attention if your illness is worsening (e.g., difficulty breathing). Before seeking care, call your healthcare provider and tell them that you have, or are being evaluated for, COVID-19. Put on a facemask before you enter the facility. These steps will help the healthcare provider???s office to keep other people in the office or waiting room from getting infected or exposed. Ask your healthcare provider to call the local or state health department. Persons who are placed under active monitoring or facilitated self-monitoring should follow instructions provided by their local health department or occupational health professionals, as appropriate. If you have a medical emergency and need to call 911, notify the dispatch personnel that you have, or are being evaluated for COVID-19. If possible, put on a facemask before emergency medical services arrive. Discontinuing home isolation Patients with confirmed COVID-19 should remain under home isolation precautions until the risk of secondary transmission to others is thought to be low. The decision to discontinue home isolation precautions should be made on a bqkb-mh-[id number] basis, in consultation with healthcare providers and state and local health departments. For more information: HYPERLINK http://www.cdc.gov/COVID19 www.cdc.gov/COVID19 DISCLAIMER: COVID-19 information is rapidly changing and documents will be updated accordingly. December 28, 2019 It???s Cold and Flu Season ??? How are you protecting yourself? The start of each year is often met with the peak of cold and flu season. This year is no different except that we are facing the new strain of coronavirus, COVID-19, and the widespread media attention this public health outbreak is causing. It is understandable that many are feeling overwhelmed by the thought of catching coronavirus and are concerned about how to best care for ourselves and our loved ones during this challenging time. Take comfort in knowing there are simple things you can do each and every day to help ensure your health is protected. Scrub a dub! Wash your hands! As simple as this sounds, it truly is the most effective way to stop the spread of germs. Be sure to use soap, and to make sure you are being thorough enough, sing the ???Happy Birthday?? song which is just the right length to ensure a thorough cleaning of your hands. Wash all parts of your hands, including the ???webs?? between your fingers and thumbs. When without, use a squeeze! If you are unable to get to a sink for soap and water to thoroughly wash your hands, use hand respiratory coordinator. While handwashing is best, hand respiratory coordinator helps to reduce the spread of germs when you are out and about. Have hand respiratory coordinator in several locations so you can always have some on hand ??? think about placing some bottles in your car, your purse, your suitcase, the diaper bag, or even in your coat pocket. Don???t rub, don???t touch! As tempting as it is to rub those scratchy eyes during allergy season or to rub a runny nose, don???t. In fact, if you can, try to avoid touching your face as much as possible, especially with unclean hands. Our eyes, nose, and mouth are easy access points for germs to enter our bodies. When in doubt, don???t go out! If you are feeling under the weather, stay home. If your child is feeling sick, keep them home. It is so important to not only rest when you are starting to get sick or are already under the weather, but also staying home and away from others helps to keep people from also getting sick. Don???t [place] It! Sneezing this time of year is part of life, especially if you suffer from allergies or do have the cold or flu. To help minimize the spread of germs from sneezing or coughing, use a Kleenex or your elbow to protect against rogue spray and to help keep your hands clean. And remember, most people will have a runny nose, coughs and sneezes these days either from seasonal allergies, the cold or the flu, but if you do feel ill or feel like you need some help to feel better, please contact your Primary Care Provider to determine the best course of treatment for you which may include home care for mild cases or making an appointment to be seen to address more moderate needs. To find a PCP near you, please visit HYPERLINK [email or web address]. December 28, 2019 Transesophageal Echocardiogram Transesophageal echocardiogram (BILL) is a test that uses sound waves to take pictures of your heart. BILL is done by passing a flexible tube down the esophagus. The esophagus is the tube that carries food from the throat to the stomach. The pictures give detailed images of your heart. This can help your doctor see if there are problems with your heart. What happens before the procedure? Staying hydrated Follow instructions from your doctor about hydration, which may include: ??? Up to 3 hours before the procedure ??? you may continue to drink clear liquids, such as: ? Water. ? Clear fruit juice. ? Black coffee. ? Plain tea. Eating and drinking Follow instructions from your doctor about eating and drinking, which may include: ??? 8 hours before the procedure ??? stop eating heavy meals or foods such as meat, fried foods, or fatty foods. ??? 6 hours before the procedure ??? stop eating light meals or foods, such as toast or cereal. ??? 6 hours before the procedure ??? stop drinking milk or drinks that contain milk. ??? 3 hours before the procedure ??? stop drinking clear liquids. General instructions ??? You will need to take out any dentures or retainers. ??? Plan to have someone take you home from the hospital or clinic. ??? If you will be going home right after the procedure, plan to have someone with you for 24 hours. ??? Ask your doctor about: ? Changing or stopping your normal medicines. This is important if you take diabetes medicines or blood thinners. ? Taking ihrk-rae-negngie medicines, vitamins, herbs, and supplements. ? Taking medicines such as aspirin and ibuprofen. These medicines can thin your blood. Do not take these medicines unless your doctor tells you to take them. What happens during the procedure? To lower your risk of infection, your doctors will wash or clean their hands. ??? An IV will be put into one of your veins. ??? You will be given a medicine to help you relax (sedative). ??? A medicine may be sprayed or gargled. This numbs the back of your throat. ??? Your blood pressure, heart rate, and breathing will be watched. ??? You may be asked to lay on your left side. ??? A bite block will be placed in your mouth. This keeps you from biting the tube. ??? The tip of the BILL probe will be placed into the back of your mouth. ??? You will be asked to swallow. ??? Your doctor will take pictures of your heart. ??? The probe and bite block will be taken out. The procedure may vary among doctors and hospitals. What happens after the procedure? Your blood pressure, heart rate, breathing rate, and blood oxygen level will be watched until the medicines you were given have worn off. ??? When you first wake up, your throat may feel sore and numb. This will get better over time. You will not be allowed to eat or drink until the numbness has gone away. ??? Do not drive for 24 hours if you were given a medicine to help you relax. Summary ??? BILL is a test that uses sound waves to take pictures of your heart. ??? You will be given a medicine to help you relax. ??? Do not drive for 24 hours if you were given a medicine to help you relax. This information is not intended to replace advice given to you by your health care provider. Make sure you discuss any questions you have with your health care provider. Document Revised: 06/29/2019 Document Reviewed: 01/11/2018 [employer] Patient Education ?? 2020 [employer] Moderate Conscious Sedation, Adult, Care After These instructions provide you with information about caring for yourself after your procedure. Your health care provider may also give you more specific instructions. Your treatment has been planned according to current medical practices, but problems sometimes occur. Call your health care provider if you have any problems or questions after your procedure. What can I expect after the procedure? After your procedure, it is common: ??? To feel sleepy for several hours. ??? To feel clumsy and have poor balance for several hours. ??? To have poor judgment for several hours. ??? To vomit if you eat too soon. Follow these instructions at home: For at least 24 hours after the procedure: ??? Do not: ? Participate in activities where you could fall or become injured. ? Drive. ? Use heavy machinery. ? Drink alcohol. ? Take sleeping pills or medicines that cause drowsiness. ? Make important decisions or sign legal documents. ? Take care of children on your own. ??? Rest. Eating and drinking ??? Follow the diet recommended by your health care provider. ??? If you vomit: ? Drink water, juice, or soup when you can drink without vomiting. ? Make sure you have little or no nausea before eating solid foods. General instructions ??? Have a responsible adult stay with you until you are awake and alert. ??? Take svza-rpj-vqammdy and prescription medicines only as told by your health care provider. ??? If you smoke, do not smoke without supervision. ??? Keep all follow-up visits as told by your health care provider. This is important. Contact a health care provider if: ??? You keep feeling nauseous or you keep vomiting. ??? You feel light-headed. ??? You develop a rash. ??? You have a fever. Get help right away if: ??? You have trouble breathing. This information is not intended to replace advice given to you by your health care provider. Make sure you discuss any questions you have with your health care provider. Document Revised: 09/22/2018 Document Reviewed: 01/29/2017 [employer] Patient Education ?? 2019 [employer] Emergency Awareness and Preventative Care STROKE is an EMERGENCY Every Minute Counts Act FAST and Check for these signs: FACE Does the face look uneven? ARM Does one arm drift down? SPEECH Does their speech sound strange? TIME Call at any sign of stroke Stroke Risk Factors Atrial Fibrillation (irregular heartbeat) Diabetes Family history of stroke Heart Disease Heavy alcohol use High Blood Pressure High Cholesterol Physical inactivity and obesity Smoking Cigarette Smoking The facts are clear, cigarette smoking will shorten your life. Smoking can cause many illnesses along the way. As a healthcare provider, we recommend that you stop smoking. Assistance with quitting is available by contacting 4-696-FOREBromiumNOW. This is a free resource providing counseling, support, and referral. Or you may contact your personal physician. [employer] Suicide Prevention Lifeline: The National Suicide Prevention Lifeline is a national network of local crisis centers that provides free and confidential emotional support to people in suicidal crisis or emotional distress 24 hours a day, 7 days a week. Don't Wait! Stop a Heart Attack Before it Starts What is a heart attack? A heart attack is damage or to a part of the heart from severely decreased or lack of blood flow to the heart. Over time, arteries can become narrow from the buildup of fat and cholesterol, which is called plaque. The plaque can rupture causing a blood clot to form. When the blood clot forms, the artery can become severely narrowed or completely blocked, causing a heart attack. Heart attack is the leading cause of in the [place]. 85% of muscle damage occurs within the first 2 hours. Delay in the recognition of heart attack symptoms increases the chances of . Know the early symptoms of a heart attack: Nausea Feeling of fullness in chest Jaw Pain Pain that travels down one or both arms Fatigue/being tired Anxiety Back Pain Chest pressure, squeezing, or discomfort Shortness of breath Sweating, or a cold sweat Feeling of impending doom There are unusual signs of a heart attack, too! Women, the elderly, and diabetics may present with atypical symptoms: Fainting/dizziness Weakness Confusion Risk Factors for a Heart Attack Some heart disease risk factors, such as age and family history, cannot be changed. Others, like smoking and lack of exercise, can be changed. Smoking High Cholesterol High Blood Pressure Family History Obesity Age Gender (Males are at higher risk) Lack of Exercise Diabetes Diet Stress Excessive Alcohol Intake If you or someone you know is experiencing the signs and symptoms of a heart attack, DON???T DELAY. Call immediately and seek help. If someone collapses, perform CPR! Do not attempt to drive if you are having symptoms of heart attack. Hands-Only CPR Why Hands-Only CPR? Hands-Only CPR has been shown to be as effective as conventional CPR for cardiac arrests that occur outside of a hospital. Survival depends on immediately receiving CPR from someone nearby. How do you perform Hands-Only CPR? There are two easy steps: Call if you see a teen or adult collapse Push hard and fast in the center of the chest at a beat of 100 beats per minute. Save a life! 4 WAYS TO GET AHEAD OF SEPSIS SEPSIS is a MEDICAL EMERGENCY. Time matters! Infections put you and your family at risk for a life-threatening condition called sepsis. Sepsis is the body's extreme response to an infection. It is life-threatening, and without timely treatment, sepsis can rapidly lead to tissue damage, organ failure, and . Sepsis happens when an infection you already have-in your skin, lungs, urinary tract or somewhere else-triggers a chain reaction throughout your body. 1 PREVENT INFECTIONS Take good care of chronic conditions. Talk to your doctor about getting the recommended vaccines. 2 PRACTICE GOOD HYGIENE Wash your hands frequently. Keep cuts or open sores clean and covered until they are healed. 3 KNOW THE SYMPTOMS Confusion or disorientation Shortness of breath High heart rate Fever, shivering, or feeling very cold Extreme pain or discomfort Clammy or sweaty skin 4 ACT FAST Get medical care IMMEDIATELY if you suspect sepsis or if you have an infection that is not getting better or is getting worse. To learn more about sepsis and how to prevent infections, visit www.cdc.gov/sepsis. Test Results Laboratory or Other Results This Visit (last charted value for your 04/28/2021 visit) Microbiology 04/24/2021 2:45 PM SARS-CoV-2 (COVID19 PCR): Negative Patient Name:ANUJ VAZQUEZ I have received and understand this information and was given the opportunity to ask questions. Patient/Shingler Name: Patient/Shingler Signature: Relationship to Patient: Clinician/Hospital Shingler Signature: Date: Electronically signed by [place], [facility] Conversion President & Founder Dorys at 03/16/2023 1:30 PM CDT documented in this encounter Plan of Treatment Not on file documented as of this encounter Visit Diagnoses Not on filedocumented in this encounter
--- OUTSIDE RECORDS SUMMARY | 2025-08-19 09:30 | XMS_ITS | Encounter Summary ---
Author Organization [employer] ([place], [place], [place], [place]) Address [address] [place] [address] Care Team Providers Care Gridcap Machine Operator Name Role Phone Unavailable Primary Care Provider Unavailabl e Encounter Details Date Type Department Care Team (Late st Contact Info) Description 04/28/2021 Transcribed Document [facility] Radiology [address] [place] [address] Provider, Nomi Blank MD Social History Tobacco Use Types Packs/Day Years Used Date Smoking Tobacco: Never Assessed Sex and Gender Information Value Date Recorded Sex Assigned at Not on file Legal Sex Male 7:21 PM CDT Gender Identity Not on file Sexual Orientation Not on file documented as of this encounter Miscellaneous Notes * Cerner Conversion Note - corey Blank ProviderMD - 04/28/2021 11:37 AM EDT Stroke/Warfarin Instructions Entered On: 04/28/2021 10:37 EDT Performed On: 04/28/2021 10:37 EDT by DILIP TORRES RN Stroke/Warfarin Instructions Stroke/TIA Discharge Ins : Open Warfarin Discharge Ins : N/A DILIP TORRES RN - 04/28/2021 10:37 EDT Stroke/TIA Discharge Instructions Individualized Stroke Risk Factors *Q : High cholesterol, Hypertension/High blood pressure, Other: PFO Stroke Education Handouts Given *Q : Yes DILIP TORRES RN - 04/28/2021 10:37 EDT Stroke Education Materials Given-Grid Activation of EMS *Q : Verbalizes understanding Follow-up Care After Discharge *Q : Verbalizes understanding Medications prescribed at DC *Q : Verbalizes understanding Risk Factors for Stroke *Q : Verbalizes understanding Warning S&S of Stroke *Q : Verbalizes understanding DILIP TORRES RN - 04/28/2021 10:37 EDT Stroke/TIA Signs/Symptoms to Report Immediately : Sudden onset difficulty speaking, Sudden onset difficulty understanding speech, Sudden onset change in vision, Sudden onset weakness particulary on one side of the body, Sudden onset numbness/tingling, Sudden severe headache, Sudden dizziness or trouble with gait, Call : EMS activation is crucial My LDL Level: : LDL Level No qualifying data available. DILIP TORRES RN - 04/28/2021 10:37 EDT documented in this encounter Plan of Treatment Not on file documented as of this encounter Visit Diagnoses Not on filedocumented in this encounter
--- OUTSIDE RECORDS SUMMARY | 2025-08-19 09:30 | XMS_ITS | Encounter Summary ---
Author Organization Healthcare Address [address] [place] [address] Care Team Providers Care Filler Shredder Machine Name Role Phone Gibran Espino MD Primary Care Provider + [phone] Reason for Visit * Reason Onset Date Comments Med Refill 07/15/2025 Encounter Details Date Type Department Care Team (Late st Contact Info) Description 07/15/2025 Refill [facility] [address] [place] [address] Mia Wise J [address] [facility] [address] [place] [address] Other heart failure Social History Tobacco Use Types Packs/Day Years [...] any time in the past 12 m [facility], were you homeless or living in a penitentiary (including now)? No 04/05/2025 Utilities Answer Date [...] PM EDT documented as of this encounter Plan of Treatment Upcoming Encounters Date Type Department Care Team (Late st Contact Info) Description 12/25/2025 4:20 PM EST Office Visit [facility] [address], [address] [place] [address] Timmy Heart MD [facility] [place] [address] documented as of this encounter Visit Diagnoses Diagnosis Other heart failure documented in this encounter Additional Health Concerns Assessment Noted Time A fall risk assessment has been complete d for the patient 06/19/2025 4:19 PM EDT A Body Mass Index follow-up plan has been documented for the patient 06/20/2025 7:35 PM EDT documented as of this encounter Care Teams Filler Shredder Machine Relationship Specialty Start Date End Date Gibran Espino MD [address] [place] [address] PCP - General Internal Medicine 02/08/25 documented as of this encounter
--- OUTSIDE RECORDS SUMMARY | 2025-08-19 09:31 | XMS_ITS | Encounter Summary ---
Author Organization [employer] ([place], [place], [place], [place]) Address [address] [place] [address] Care Team Providers Care Saddle Mechanic Name Role Phone Unavailable Primary Care Provider Unavailabl e Encounter Details Date Type Department Care Team (Late st Contact Info) Description 04/28/2021 Transcribed Document [facility] Radiology [address] [place] [address] Provider, Nomi Blank MD Social History Tobacco Use Types Packs/Day Years Used Date Smoking Tobacco: Never Assessed Sex and Gender Information Value Date Recorded Sex Assigned at Not on file Legal Sex Male 7:21 PM CDT Gender Identity Not on file Sexual Orientation Not on file documented as of this encounter Miscellaneous Notes * Cerner Conversion Note - [facility] Abhay ProviderMD - 04/28/2021 8:53 AM EDT Pre Procedure Adult Entered On: 04/28/2021 7:53 EDT Performed On: 04/28/2021 7:53 EDT by DILIP TORRES RN Height and Weight, Clinical Dosing Height Source : Stated Height Entry Format : Bassett Height, Feet : 6 ft(Converted to: 183 cm, 72 Inch) Height, Inches : 3 Inch(Converted to: 0 ft 3 Inch, 7.62 cm) Clinical Height : 190.5 cm Weight Source : Standing scale Weight Entry Format : Bassett Clinical Dosing Weight : 123.18 kg Weight, Pounds : 271 lb Body Surface Area (BSA) : 2.5 m2 Body Mass Index : 33.9 kg/m2 (HI) Willard Body Weight : 83 kg DILIP TORRES RN - 04/28/2021 7:53 EDT Health Histories Smoking Status : Never (less than 100 in lifetime; none in last 30 days) Smokeless Tobacco Status : Never DILIP TORRES RN - 04/28/2021 7:53 EDT Social History (As Of: 04/28/2021 07:53:58 EDT) Alcohol: Alcohol Use Comment none. (Last Updated: 04/23/2015 15:51:53 EDT by ADRIEN MOTT RN) Substance Abuse: Comments: 04/23/2015 15:52 - ADRIEN MOTT RN: none (Last Updated: 04/23/2015 15:52:18 EDT by ADRIEN MOTT RN) Infectious Disease History Has the patient ever been tested for COVID-19? : Yes, Patient stated results Negative Where are the test results? : Scanned into EMR Date of COVID-19 test known? : Yes Date of COVID-19 Test : 04/24/2021 EDT Does patient have symptoms of COVID-19? : No COVID19 Screening : No Experiencing Infectious Disease Symptoms : No symptoms Physical contact outside [place] in the last 30 days : No Tuberculosis Symptoms : None Infectious Disease History : Mumps DILIP TORRES RN - 04/28/2021 7:54 EDT COVID19 PreProcedure Screening Is this an Emergent or Add on Procedure? : No Date PreProcedure COVID-19 test known? : Yes Date of PreProcedure COVID-19 : 04/24/2021 EDT Has patient been isolated since the test : Yes Exposed to COVID19 symptoms since test? : No DILIP TORRES RN - 04/28/2021 7:54 EDT Anesthesia/Transfusion History Family History of Anesthesia Reaction : No prior transfusion(s) Blood Transfusion Acceptable to Patient : Yes Transfusion History : No prior anesthesia Family History of Anesthesia Reaction : None DILIP TORRES RN - 04/28/2021 7:54 EDT Functional Assessment Living Situation : Home Current Home Treatments : None DILIP TORRES RN - 04/28/2021 7:54 EDT [place] Suicide Severity Rating Scale (C-SSRS) CSSRS Past Month Wish to be : No CSSRS Past Month Suicidal Thoughts : No CSSRS Lifetime Suicide Behavior : No Suicide Severity Rating Score : 0 Suicide Severity Rating : No Additional Care Required at this time DILIP TORRES RN - 04/28/2021 7:54 EDT Psychosocial History Currently in Unsafe Situation : No DILIP TORRES RN - 04/28/2021 7:54 EDT Advance Directive Patient has Advance Directive *Q : Yes, Advance Directive not with the patient Advance Directive Type : Living will Copy Advance Directive Verified/on Chart : No DILIP TORRES RN - 04/28/2021 7:54 EDT General Info Preferred Name : Nehemiah Fierro Family/Rep/Phys Notified of Admit : No Emergency Contact #1 : Gissel Emergency Contact #1 Phone Number : Emergency Contact #1 Relationship : [phone] Emergency Contact #2 : none Emergency Contact #2 Phone Number : none Emergency Contact #2 Relationship : none Primary Language : Polish Communication Barrier : None Craft Demonstrator Needed : No DILIP TORRES RN - 04/28/2021 7:54 EDT Sleep Apnea Risk Assmt Hx of Obstructive Sleep Apnea Diagnosis : No Snore Loudly : No Tired, Fatigued, or Sleepy During Day : No Observed Stopping Breathing During Sleep : No Have/Are Being Treated for Hypertension : Yes BMI Greater Than 35 kg/m2 : Yes Age over 50 Years Old : Yes Neck Circumference Greater Than 40 cm : Yes Gender Male : Yes STOP-BANG Sleep Apnea Risk Level Score : 5 DILIP TORRES RN - 04/28/2021 7:54 EDT Robert Scale Robert Sensory Perception : No impairment Robert Moisture : Rarely moist Robert Activity : Walks frequently Robert Mobility : No limitation Robert Nutrition : Adequate Robert Friction and Shear : No apparent problem Robert Score : 22 DILIP TORRES RN - 04/28/2021 7:54 EDT Fall Risk Scales ABCs Fall Injury Risk Identification : None JUDGE Hx Falls Immediate/Within 3 Months : No Judge Secondary Diagnosis : No JUDGE Use of Ambulatory Aid : None JUDGE IV Therapy or IV Access : Yes Judge Gait/Transferring : Normal, bedrest, immobile Judge Mental Status : Oriented to own ability Judge Fall Risk Score : 20 JUDGE Fall Scale Risk Level : 0-24 Low Risk Phyllis Fall Interventions : Adequate lighting, Assistive devices within reach, Call device within reach, Fall prevention handout/education per facility policy, Hourly comfort/safety rounds, Non-slip footwear, Personal items within reach, Reinforced to call for assistance before getting out of bed, Room free of clutter/spills, Upper side-rails up, Wheels locked, Wires/Cords secured DILIP TORRES RN - 04/28/2021 7:54 EDT Valuables and Belongings Valuables and Belongings : Clothing Clothing : Common streetwear Clothing Disposition : Bedside DILIP TORRES RN - 04/28/2021 7:54 EDT documented in this encounter Plan of Treatment Not on file documented as of this encounter Visit Diagnoses Not on filedocumented in this encounter
--- OUTSIDE RECORDS SUMMARY | 2025-08-19 09:31 | XMS_ITS | Encounter Summary ---
Author Organization [employer] ([place], [place], [place], [place]) Address [address] [place] [address] Care Team Providers Care Regulator Mechanic Name Role Phone Unavailable Primary Care Provider Unavailabl e Encounter Details Date Type Department Care Team (Late st Contact Info) Description 05/06/2021 Transcribed Document [facility] Radiology [address] [place] [address] ProviderNomi MD Social History Tobacco Use Types Packs/Day Years Used Date Smoking Tobacco: Never Assessed Sex and Gender Information Value Date Recorded Sex Assigned at Not on file Legal Sex Male 7:21 PM CDT Gender Identity Not on file Sexual Orientation Not on file documented as of this encounter Miscellaneous Notes * Cerner Conversion Note - [facility] Abhay ProviderMD - 05/06/2021 1:02 PM EDT UM Authorization Entered On: 05/06/2021 12:03 EDT Performed On: 05/06/2021 12:02 EDT by SCOTTIE CLEMENTS Rn-Utilization Review Primary Insurance Authorization Authorization and Policy Numbers : Insurance 1 Health Plan: SELF PAY Policy Number: Authorization Number: Insurance Primary Name : [facility] Historical Authorization Comments-Primary : No Authorization Comments Found SCOTTIE CLEMENTS Rn-Utilization Review - 05/06/2021 12:02 EDT documented in this encounter Plan of Treatment Not on file documented as of this encounter Visit Diagnoses Not on filedocumented in this encounter
--- OUTSIDE RECORDS SUMMARY | 2025-08-19 09:31 | XMS_ITS | Encounter Summary ---
Author Organization [employer] ([place], [place], [place], [place]) Address [address] [place] [address] Care Team Providers Care Glost Kiln Operator Name Role Phone Unavailable Primary Care Provider Unavailabl e Encounter Details Date Type Department Care Team (Late st Contact Info) Description 05/06/2021 Transcribed Document [facility] Cardiology [address] [place], [place] [id number] [place] [address] [place] [address] [address] [place] [address] Social History Tobacco Use Types Packs/Day Years Used Date Smoking Tobacco: Never Assessed Sex and Gender Information Value Date Recorded Sex Assigned at Not on file Legal Sex Male 7:21 PM CDT Gender Identity Not on file Sexual Orientation Not on file documented as of this encounter Miscellaneous Notes * Cerner Conversion Note - Tessy Alejandre MD - 05/06/2021 11:05 AM EDT Patient: ANUJ STUART Age: 60 years Sex: Male : 1960 Associated Diagnoses: None Author: BANDAR SINGH, PAC-CAT BASIC PCP: Primary Lawn Sprinkler Installer: Dr Alejandre Subjective Doing well Health Status Current medications: (Selected) Inpatient Medications Ordered Lasix: 20 mg, Oral, Daily Lipitor: 20 mg, Oral, Daily Normal Saline Flush: 10 mL, IV Push, Q12H Normal Saline Flush: 10 mL, IV Push, See Comment, PRN: IV Use Plavix: 75 mg, Oral, Daily Toprol-XL: 12.5 mg, Oral, Daily aspirin: 81 mg, Oral, Daily lactobacillus acidophilus: 1 Cap, Oral, Daily loratadine: 10 mg, Oral, Daily spironolactone: 12.5 mg, Oral, Daily, Home Medications (10) Active aspirin 81 mg oral delayed release tablet 81 mg = 1 Tab, Oral, Daily atorvastatin 20 mg oral tablet , Oral, Daily Flonase Allergy Relief 50 mcg/inh nasal spray , Daily Lasix 20 mg oral tablet , Oral, Daily Metamucil 400 mg oral capsule 800 mg = 2 Cap, PRN, Oral, Daily metoprolol succinate 25 mg oral capsule, extended release 12.5 mg = 0.5 Cap, Oral, Daily Plavix 75 mg oral tablet 75 mg = 1 Tab, Oral, Daily Probiotic Formula oral capsule 1 Cap, Oral, Daily spironolactone 25 mg oral tablet 12.5 mg = 0.5 Tab, Oral, Daily ZyrTEC 10 mg, Oral, Daily , Medications (10) Active Scheduled: (9) #NaCl 0.9% *FLUSH* inj 10 mL 10 mL, IV Push, Q12H aspirin EC 81 mg tab 81 mg 1 Tab, Oral, Daily atorvastatin 20 mg tab 20 mg 1 Tab, Oral, Daily clopidogrel 75 mg tab 75 mg 1 Tab, Oral, Daily furosemide 20 mg tab 20 mg 1 Tab, Oral, Daily lactobacillus acidophilus cap 1 Cap, Oral, Daily loratadine 10 mg tab 10 mg 1 Tab, Oral, Daily metoprolol succinate XL 25 mg tab 12.5 mg 0.5 Tab, Oral, Daily spironolactone 25 mg tab 12.5 mg 0.5 Tab, Oral, Daily Continuous: (0) PRN: (1) #NaCl 0.9% *FLUSH* inj 10 mL 10 mL, IV Push, See Comment Problem list: Active Problems (6) At risk for sleep apnea GERD - Gastro-esophageal reflux disease HLD (hyperlipidemia) Kidney stone PFO (patent foramen ovale) Seasonal allergies Objective Intake and Output 24 hour intake, 24 hour output VS/Measurements Vital Signs/Vital Measures 05/06/2021 8:28 EDT Systolic Blood Pressure 132 mmHg Diastolic Blood Pressure 78 mmHg Mean Arterial Pressure (MAP)-BMDI 90 Heart Rate, Apical 64 bpm Heart Rate Monitored 64 bpm 05/06/2021 6:36 EDT Systolic Blood Pressure 139 mmHg Diastolic Blood Pressure 90 mmHg Mean Arterial Pressure (MAP)-BMDI 103 Temperature Source Oral , Vitals Signs (last 24 hrs) Last Charted Minimum Maximum Temp 97.9 (MAY 06 06:36) 97.9 (MAY 06 06:36) 97.9 (MAY 05 18:27) Apical HR 64 (MAY 06 08:28) 64 (MAY 06 08:28) 64 (MAY 06 08:28) Mon HR 64 (MAY 06 08:28) 54 (MAY 05 13:30) 66 (MAY 05 18:27) Resp Rate 18 (MAY 06 06:36) L 13 (MAY 05 13:30) H 23 (MAY 05 12:00) SBP 132 (MAY 06 08:28) 93 (MAY 06 02:29) 139 (MAY 06 06:36) DBP 78 (MAY 06 08:28) L 53 (MAY 06 02:29) 90 (MAY 06 06:36) MAP 90 (MAY 06 08:28) 65 (MAY 06 02:29) 103 (MAY 06 06:36) SpO2 95 (MAY 06 06:36) 94 (MAY 05 13:30) 97 (MAY 05 10:45) General: Alert and oriented, No acute distress. HENT: Oral mucosa is moist. Neck: Supple, No jugular venous distention. Respiratory: Lungs are clear to auscultation, Respirations are non-labored, Breath sounds are equal. Cardiovascular: Normal rate, Regular rhythm, No murmur, No edema, femoral access C/D/I. Gastrointestinal: Soft, Normal bowel sounds. Musculoskeletal: Normal range of motion. Integumentary: Warm, Dry. Neurologic: Alert, Oriented. Psychiatric: Cooperative, Appropriate mood & affect. Results Review MAY 06 05:18 139 104 14 / 95 3.8 28 1.10 \ MAY 06 05:18 \ 14.0 / 9.2 212 / 42.2 \ Cardiac Markers (Current Encounter/Past 24 Hours) No Cardiac Marker Results Found (Past 24 Hours) No Radiology Results Found Impression and Plan IMPRESSION: *s/p PFO closure *HTN *HLD PLAN; Pt doing well. Continue dual antiplatelet therapy. Okay to DC home. Follow-up with Dr. Alejandre's office in one month. Patient advised to take antibiotic prophylactically before dental procedures. documented in this encounter Plan of Treatment Not on file documented as of this encounter Visit Diagnoses Not on filedocumented in this encounter
--- OUTSIDE RECORDS SUMMARY | 2025-08-19 09:31 | XMS_ITS | Encounter Summary ---
Author Organization [employer] ([place], [place], [place], [place]) Address [address] [place] [address] Care Team Providers Care Local Delivery Driver Name Role Phone Unavailable Primary Care Provider Unavailabl e Encounter Details Date Type Department Care Team (Late st Contact Info) Description 05/06/2021 Transcribed Document [facility] Radiology [address] [place] [address] Provider, Nomi Blank MD Social History Tobacco Use Types Packs/Day Years Used Date Smoking Tobacco: Never Assessed Sex and Gender Information Value Date Recorded Sex Assigned at Not on file Legal Sex Male 7:21 PM CDT Gender Identity Not on file Sexual Orientation Not on file documented as of this encounter Miscellaneous Notes * Cerner Conversion Note - corey Metz MD - 05/06/2021 11:15 AM EDT Final Discharge Planning Entered On: 05/06/2021 10:15 EDT Performed On: 05/06/2021 10:15 EDT by COLIN CHOUDHARY RN-Radiography Technician Final Discharge Planning Discharge Arrangements : Patient Post-Acute Information Patient Name: ANUJ VAZQUEZ Gender: Male : 60 Age: 60 Years No Post-Acute Placement(s) Listed No Post-Acute Service(s) Listed No [place] Referral(s) Listed Patient Offered Choice/Affiliations Explained : No Designation of Choice Signed : No Transportation Needs : Family/Friend Follow Up Appointment Scheduled : Yes Patient/Family Notified of Plan : Yes Support Person/Pt Rep Notified of Plan : Yes Is Patient Ready for Discharge? : Yes Physician Notified Patient is Ready for Discharge? : Yes Discharge To Care Management : Home/Residential/Intermediate or Self Care - COLIN CHOUDHARY RN-Radiography Technician - 05/06/2021 10:15 EDT Electronically signed by [facility] Conversion Heel Cover Softener Cerner at 03/16/2023 1:30 PM CDT documented in this encounter Plan of Treatment Not on file documented as of this encounter Visit Diagnoses Not on filedocumented in this encounter
--- OUTSIDE RECORDS SUMMARY | 2025-08-19 09:31 | XMS_ITS | Clinical Summary ---
Author Organization [facility] Address [address] [place] [phone] Phone Care Team Providers Care Bowling Ball Weigher And Packer Name Role Phone Unavailable Primary Care Provider Unavailabl e Allergies No known active allergies Medications aspirin 81 mg Oral Tablet, Delayed Release (E.C.) Take by mouth daily. Active metoprolol succinate (TOPROL-XL) 25 mg Oral Tablet Sustained Release 24 hr Take 12.5 mg by mouth daily. Active atorvastatin (LIPITOR) 20 mg Oral Tablet Take 20 mg by mouth daily. Active spironolactone (ALDACTONE) 25 mg Oral Tablet Take 12.5 mg by mouth 2 times daily. Active fUROsemide (LASIX) 20 mg Oral Tablet Take 20 mg by mouth every 12 hours. Active cetirizine (ZYRTEC) 10 mg Oral Tablet Take by mouth daily. Active fluticasone propionate (FLONASE) 50 mcg/actuation Nasl [place], Suspension by Nasal route daily. Active psyllium husk (METAMUCIL) 3.4 gram/5.4 gram Oral Powder Take by mouth. Active Active Problems Problem Noted Date Diagnosed Date Spell of generalized weakness 11/25/2020 PFO (patent foramen ovale) 11/25/2020 Social History Tobacco Use Types Packs/Day Years Used Date Smoking Tobacco: Never Smokeless Tobacco: Never Alcohol Use Standard Drinks/Week Comments Never 0 (1 standard drink = 0.6 oz pur e alcohol) AUDIT-C Answer Date Recorded Q1: How often do you have a drink containing alc ohol? Never 11/25/2020 Q2: How many drinks containi ng alcohol do you have on a typical day when you are drinking? Not asked 11/25/2020 Q3: How often do you have six or more drinks on one occasion? Never 11/25/2020 Sex and Gender Information Value Date Recorded Sex Assigned at Not on file Legal Sex Male 10:07 AM EST Gender Identity Not on file Sexual Orientation Not on file Last Filed Vital Signs Vital Sign Reading Time Taken Comments Blood Pressure 130/80 11/25/2020 8:59 AM EST Pulse 68 11/25/2020 8:59 AM EST Temperature - - Respiratory Rate - - Oxygen Saturation - - Inhaled Oxygen Concentration - - Weight 127.4 kg (280 lb 12.8 oz) 11/25/2020 8:59 AM EST Height 190.5 cm (6' 3 ) 11/25/2020 8:59 AM EST Body Mass Index 35.1 11/25/2020 8:59 AM EST Plan of Treatment Health Maintenance Due Date Last Done Comments Annual Wellness Exam 1963 Hepatitis C Screening 1978 DTaP/TDaP/Td (1 - Tdap) 1979 Cologuard 2005 Colon Cancer Screening 2005 Colonoscopy 2005 FIT 2005 Sigmoidoscopy 2005 Virtual Colonography 2005 Pneumococcal Vaccine 50+ (1 of 1 - PCV) 2010 Zoster (1 of 2) 2010 COVID-19 Vaccine (2024-2 6 season) 2025 Influenza Vaccine (#1) 2025 Hepatitis B Vaccine Aged Out No longe r eligible based on patient's age to complete this topic Meningococcal B Vaccine Aged Out No l onger eligible based on patient's age to complete this topic
--- OUTSIDE RECORDS SUMMARY | 2025-08-19 09:31 | XMS_ITS | Referral Summary ---
Author Organization [employer] ([place], [place], [place], [place]) Address [address] [place] [address] Care Team Providers Care Pre Press Proofer Name Role Phone Unavailable Primary Care Provider Unavailabl e Allergies No known active allergies Medications metoprolol succinate (TOPROL-XL) 25 MG 24 hr tablet Take 1 tablet (25 mg total) by mouth daily. Active furosemide (LASIX) 20 MG tablet Take 0.5 tablets (10 mg total) by mouth daily. Active atorvastatin (LIPITOR) 20 MG tablet Take 1 tablet (20 mg total) by mouth daily. Active spironolactone (ALDACTONE) 25 MG tablet Take 0.5 tablets (12.5 mg total) by mouth daily. Active metroNIDAZOLE (FLAGYL) 500 MG tablet Take 1 tablet (500 mg total) by mouth daily Look-alike /Sound-alike medication . Active cetirizine (ZyrTEC) 10 MG tablet Take 1 tablet (10 mg total) by mouth daily. Active aspirin 81 MG EC tablet Take 1 tablet (81 mg total) by mouth daily. Active linaCLOtide (Linzess) 72 mcg Cap Take 1 capsule (72 mcg total) by mouth daily. Active cyanocobalamin, vitamin B-12, (VITAMIN B-12 ORAL) Take by mouth. Active Active Problems Problem Noted Date Diagnosed Date PFO (patent foramen ovale) 05/28/2024 Overview (05/28/2024): Closure 05/05/2021 HLD (hyperlipidemia) 05/28/2024 HTN (hypertension) 05/28/2024 Social History Tobacco Use Types Packs/Day Years Used Date Smoking Tobacco: Never Smokeless Tobacco: Never Tobacco Cessation:Counseling Given: Not Answered Alcohol Use Standard Drinks/Week Comments Not Currently 0 (1 standard drink = 0.6 oz pur e alcohol) Family and Community Support Answer Noé e Recorded Help with Day to Day Activities Not on file 05/14/2024 Feeling Lonely or Isolated Not on file 05/14 Educational Attainment Answer Date Nikita rded Speak language other than Turkish at home Not on file 05/14/2024 Want help with school or training Not on file 05/14/2024 Substance Use Answer Date Recorded Used prescription meds for non-medical reasons N ot on file 05/14/2024 Used illegal drugs past 12 months Not on file 05/14/2024 Sex and Gender Information Value Date Recorded Sex Assigned at Not on file Legal Sex Male 7:21 PM CDT Gender Identity Not on file Sexual Orientation Not on file Last Filed Vital Signs Vital Sign Reading Time Taken Comments Blood Pressure 122/68 05/31/2024 11:13 AM EDT Pulse 59 05/31/2024 11:13 AM EDT Temperature - - Respiratory Rate - - Oxygen Saturation 96% 05/31/2024 11: 13 AM EDT Inhaled Oxygen Concentration - - Weight 119.5 kg (263 lb 6.4 oz) 024 11:13 AM EDT Height 190.5 cm (6' 3 ) 05/31/2024 11:1 3 AM EDT Body Mass Index 32.92 05/31/2024 11:13 AM EDT Plan of Treatment Not on file Insurance BLUE CROSS/BLUE SHIELD
--- OUTSIDE RECORDS SUMMARY | 2025-08-19 09:31 | XMS_ITS | Clinical Summary ---
Author Organization [employer] ([place], [place], [place], [place]) Address [address] [place] [address] Care Team Providers Care Rn Orthopaedics Name Role Phone Unavailable Primary Care Provider [...] 05/05/2021 HLD (hyperlipidemia) 05/28/2024 HTN (hypertension) 05/28/2024 Family History Medical History Relation Name Comments Coronary artery disease Other Relation Name Status Comments Other Social History Tobacco Use Types Packs/Day Years [...] Date Nikita rded Speak language other than Norwegian at home Not on file 05/14/2024 Want [...] 05/31/2024 11:13 AM EDT Plan of Treatment Health Maintenance Due Date Last Done Comments CT Colonography 1960 Colonoscopy 1960 Colorectal Cancer Screening 1960 FOBT/FIT 1960 Fit-DNA (Cologuard) 1960 Sigmoidoscopy 1960 Depression Screening (12+) 1972 HIV Screening 1975 Hepatitis C Screening 1978 Pneumococcal 50+ years (1 of 2 - PCV) 1979 Lipid Panel 1995 DTAP/TDAP/TD VACCINES (2 - Td or Tdap) 10/31/2006 Shingles Vaccine (Zoster) (1 of 2) 2010 Respiratory Syncytial Virus (RSV) Adult or (1 - Risk 60-74 years 1-dose series) 2020 Falls Risk Screening 10/24/2024 Tobacco Cessation Counseling and Screening (12+) 05/3105/31/2024 COVID-19 VACCINE ( - 2023- season) 2025 Influenza Vaccine (#1) 2025 Insurance BLUE CROSS/BLUE SHIELD
--- OUTSIDE RECORDS SUMMARY | 2025-08-19 09:31 | XMS_ITS | Encounter Summary ---
Author Organization [employer] ([place], [place], [place], [place]) Address [address] [place] [address] Care Team Providers Care Formula Technician Name Role Phone Unavailable Primary Care Provider Unavailabl e Encounter Details Date Type Department Care Team (Late st Contact Info) Description 05/06/2021 Transcribed Document [facility] Radiology [address] [place] [address] Provider, Nomi Blank MD Social History Tobacco Use Types Packs/Day Years Used Date Smoking Tobacco: Never Assessed Sex and Gender Information Value Date Recorded Sex Assigned at Not on file Legal Sex Male 7:21 PM CDT Gender Identity Not on file Sexual Orientation Not on file documented as of this encounter Miscellaneous Notes * Cerner Conversion Note - Nomi Blank ProviderMD - 05/06/2021 2:47 PM EDT Nursing Discharge Summary Entered On: 05/06/2021 13:47 EDT Performed On: 05/06/2021 13:47 EDT by June Aguilar RN Discharge Documentation Discharge Date/Time : 05/06/2021 13:47 EDT Transporter Signature : June Aguilar RN Patient Disposition, General : Discharge Discharge To : Home with ambulatory/outpatient follow-up Mode Of Departure, General Discharge : Private vehicle Accompanied By, Discharge : Spouse IV Discontinued : Yes Personal Belongings With Patient : Yes Pt's Own Supply of Medications Returned : No patient supply of medications to return Prescriptions Given to Patient : No Medications Given to Patient : No Discharge Instructions Reviewed With, Opportunity For Questions Given : Patient, Spouse Patient Education Completed : Yes Teaching Method : Explanation, Printed materials Teaching Evaluation : Verbalizes understanding June Aguilar, ELIZABETH - 05/06/2021 13:47 EDT Electronically signed by [facility] Conversion Qa Test Analyst Cerner at 03/16/2023 1:30 PM CDT documented in this encounter Plan of Treatment Not on file documented as of this encounter Visit Diagnoses Not on filedocumented in this encounter
--- OUTSIDE RECORDS SUMMARY | 2025-08-19 09:31 | XMS_ITS | Encounter Summary ---
Author Organization Healthcare Address [address] [place] [address] Care Team Providers Care Tow Car Driver Name Role Phone Martha Pate APRN Primary Care Provider Gibran Espino MD Primary Care Provider [phone] Reason for Referral * Consultation (Routine) - Closed Specialty Diagnoses / Procedures Referred By Contac t Referred To Contact Endocrinology Diagnoses Hypoglycemia, unspecified Martha Pate APRN [address] [address] Phone: tel: fax: [facility]ology [address] [place] [phone] Phone: tel: fax: Referral ID Status Reason Start Date Expiration Date V isits Requested Visits Authorized [id number] Closed Specialty Services Required 01/31/2025 08/02/2026 1 1 Encounter Details Date Type Department Care Team (Late st Contact Info) Description 01/31/2025 Community [facility] [address] [place] [address] Martha Pate APRN [address] [place] [address] Hypoglycemia, unspecified (Primary Dx) Social History Tobacco Use Types Packs/Day Years Used Date Smoking Tobacco: Never Alcohol Use Standard Drinks/Week Comments No 0 (1 standard drink = 0.6 oz pur e alcohol) Sex and Gender Information Value Date Recorded Sex Assigned at Not on file Legal Sex Male 8:06 PM EDT Gender Identity Not on file Sexual Orientation Straight 04/04/2025 4: 55 PM EDT documented as of this encounter Plan of Treatment Upcoming Encounters Date Type Department Care Team (Late st Contact Info) Description 12/25/2025 4:20 PM EST Office Visit [facility] [address], [address] [place] [address] Timmy Heart MD [address] [place] [address] Scheduled Referrals Name Type Priority Associated Diagnoses Order Schedule Ambulatory referral to Endocrinology Outpatient Referral Routine Hypoglycemia, unspecified Ordered: 01/31/2025 documented as of this encounter Visit Diagnoses Diagnosis Hypoglycemia, unspecified- Primary documented in this encounter Care Teams Tow Car Driver Relationship Specialty Start Date End Date Martha Pate, PROCESS CONTROL SUPERVISOR [address] [place] [address] PCP - General 03/06/21 02/07/25 Gibran Espino MD [address] [place] [address] PCP - General Internal Medicine 02/08/25 documented as of this encounter
--- OUTSIDE RECORDS SUMMARY | 2025-08-19 09:31 | XMS_ITS | Encounter Summary ---
Author Organization [employer] ([place], [place], [place], [place]) Address [address] [place] [address] Care Team Providers Care Lap Maker Name Role Phone Unavailable Primary Care Provider Unavailabl e Encounter Details Date Type Department Care Team (Late st Contact Info) Description 05/06/2021 Transcribed Document [facility] Radiology [address] [place] [address] ProviderNomi MD Social History Tobacco Use Types Packs/Day Years Used Date Smoking Tobacco: Never Assessed Sex and Gender Information Value Date Recorded Sex Assigned at Not on file Legal Sex Male 7:21 PM CDT Gender Identity Not on file Sexual Orientation Not on file documented as of this encounter Miscellaneous Notes * Cerner Conversion Note - Nomi Metz MD - 05/06/2021 1:02 PM EDT Patient Education Materials Follows: FAQ - Patient COVID-19 testing Why do I need a COVID-19 test in the hospital? We are testing patients as part of an overall effort to ensure the safety of our patients, staff and providers, and to limit the spread of the novel coronavirus throughout our community. What happens if I test positive for COVID-19? Any scheduled elective procedure will be postponed and treatment for the coronavirus will follow the protocol that is currently in place. If you are admitted to the hospital, we will use droplet precautions for patients who test positive for COVID-19. If I'm a patient, should I wear a mask? Yes. When you are in your room alone, you may remove your mask. When anyone enters your room, you should put your mask back on. Will I be allowed to have visitors if I am admitted to the hospital with COVID-19? As part of the standard care for COVID-19 patients, visitors will not be allowed to protect them from potential exposure to the novel coronavirus. If you have a health care support person with you during a pending test and the test comes back positive, your visitor will be asked to leave and follow up with their primary care provider. Public health may reach out to them to complete contact tracing. Will my status as COVID-19 positive be reported? Because COVID-19 is a public health threat, all positive cases are reported through the local health department and the [place] Department for Public Health. Those organizations are responsible for monitoring public health threats. What is contact tracing? The public health departments at the state and local levels use contact tracing to prevent the spread of infectious disease. They will work to identify people who have COVID-19 and their contacts who may have been exposed. What does contact tracing involve? Typically, a contact tracer will interview patients with COVID-19 to identify everyone with whom they have had close contact during the time they may have been infectious and then notify those contacts of potential exposure and refer them for testing. They may monitor the contacts for symptoms of COVID-19 and connect the contacts with services they may need during a recommended self-quarantine period. The patient's name is not revealed to anyone during the contact tracing interviews, even if a contact asks. Who would be considered a close contact ? According to the CDC, a close contact is defined as someone who was within 6 feet of an infected person for at least 15 minutes, starting from 48 hours before the person began feeling sick until the time the patient was isolated. What can a close contact expect during this process? A contact tracer from the health department will contact that person to inform them they have been exposed to COVID-19. If that happens, the contact should self-quarantine for 14 days, starting from the last date of possible exposure, monitor their health, wear a face covering and maintain social distancing - at least 6 feet from others at all times. Should a close contact seek medical care? Close contacts should take their temperature twice a day, watch for COVID-19 symptoms and notify the health department if they develop symptoms. They should also notify people with whom they have had recent close contact if they become ill. They should seek medical care if symptoms worsen or become severe, including trouble breathing, persistent pain or pressure in the chest, confusion, inability to wait or stay awake, or bluish lips or face. Steps to Help Prevent the Spread of COVID-19 if You Are Sick In all cases, follow the guidance of your health care provider and local health department. Your local health department determines the length of time for quarantine and will notify you with detailed information. Monitor your symptoms. Common symptoms of COVID-19 include fever, fatigue, diarrhea/vomiting, loss of taste and smell, and cough. Trouble breathing is a more serious symptom that means you should get medical attention. If you develop emergency warning signs for COVID-19 get medical attention immediately. Emergency warning signs include*: ??? Trouble breathing ??? Persistent pain or pressure in the chest ??? New confusion or inability to arouse ??? Bluish lips or face *This list is not all inclusive. Please consult your medical provider for any other symptoms that are severe or concerning. Call 911 if you have a medical emergency. If you have a medical emergency and need to call 911, notify the mailhouse operator that you have, or think you might have, COVID-19. If possible, put on a facemask before medical help arrives. Stay home except to get medical care. ??? Stay home: Most people with COVID-19 have mild illness and can recover at home without medical care. Do not leave your home, except to get medical care. Do not visit public areas. ??? Stay in touch with your doctor. Call before you get medical care. Be sure to get care if you have trouble breathing, or have any other emergency warning signs, or if you think it is an emergency. Separate yourself from other people in your home; this is known as home isolation. ??? Stay away from others: As much as possible, stay away from others. You should stay in a specific sick room if possible, and away from other people in your home. Use a separate bathroom, if available. Call ahead before visiting your doctor. ??? Call ahead: Many medical visits for routine care are being postponed or done by phone or telemedicine. If you have a medical appointment that cannot be postponed, call your doctor's office, and tell them you have or may have COVID-19. This will help the office protect themselves and other patients. If you are sick, wear a facemask in the following situations, if available. ??? If you are sick: You should wear a facemask, if available, when you are around other people (including before you enter a health care provider's office). ??? If you are caring for others: If the person who is sick is not able to wear a facemask (for example, because it causes trouble breathing), then as their caregiver, you should wear a facemask when in the same room with them. Visitors, other than caregivers, are not recommended. Cover your coughs and sneezes. ??? Cover: Cover your mouth and nose with a tissue when you cough or sneeze. ??? Dispose: Throw used tissues into a lined trash can. ??? Wash hands: Immediately wash your hands with soap and water for at least 20 seconds. If soap and water are not available, clean your hands with an alcohol-based hand multi purpose machine operator that contains at least 60% alcohol. Clean your hands often. ??? Wash hands: Wash your hands often with soap and water for at least 20 seconds when visibly dirty. This is especially important after blowing your nose, coughing or sneezing, and going to the bathroom, and before eating or preparing food. ??? Hand multi purpose machine operator: Use an alcohol-based hand multi purpose machine operator with at least 60% alcohol, covering all surfaces of your hands and rubbing them together until they feel dry. ??? Avoid touching: Avoid touching your eyes, nose and mouth with unwashed hands. Avoid sharing personal household items. ??? Do not share: Do not share dishes, drinking glasses, cups, eating utensils, towels or bedding with other people in your home. ??? Wash thoroughly after use: After using these items, wash them thoroughly with soap and water or put them in the quality nurse. Clean all high-touch surfaces every day. Clean high-touch surfaces in your isolation area ( sick room and bathroom) every day; let a caregiver clean and disinfect high-touch surfaces in other areas of the home. ??? Clean and disinfect: Routinely clean high-touch surfaces in your sick room and bathroom. Let someone else clean and disinfect surfaces in common areas, but not your bedroom and bathroom. ? If a caregiver or other person needs to clean and disinfect a sick person's bedroom or bathroom, they should do so on an as-needed basis. The caregiver/other person should wear a mask and wait as long as possible after the sick person has used the bathroom. ? High-touch surfaces include phones, remote controls, counters, tabletops, doorknobs, bathroom fixtures, toilets, keyboards, tablets and bedside tables. ??? Clean and disinfect areas that may have blood, stool, or body fluids on them. ??? Household sap crm developer and disinfectants: Clean the area or item with soap and water or another detergent if it is dirty. Then, use a household disinfectant. ?? Be sure to follow the instructions on the label to ensure safe and effective use of the product. Many products recommend keeping the surface wet for several minutes to ensure germs are killed. Many also recommend precautions such as wearing gloves and making sure you have good ventilation during use of the product. ?? Most EPA-registered household disinfectants should be effective. A full list of disinfectants can be found here: https://www.epa.gov/pesticide-registration/hzip-g-uhwrwizsuorlo-lal-uijqijv-si rs-cov-2 Cardiovascular Atrial Septal Defect, Adult An atrial septal defect (ASD) is a hole in the heart. This hole is located in the thin tissue (septum) that separates the two upper chambers of the heart (right atrium and left atrium). This hole is present at (congenital). A few minutes after , this hole normally closes so that blood is not able to go between the right atrium and left atrium. The two most common types of ASD are ostium primum or ostium secundum. A less common form of ASD is called sinus venosus. In a normal heart: 1. Blood from the right side of the heart is pumped to the lungs, where oxygen is added to it (oxygenated) and carbon dioxide is removed. 2. The oxygenated blood from the lungs is pumped to the left side of the heart. 3. From the left side of the heart, blood is pumped out to the rest of the body. When an ASD is present: 1. Blood from the left atrium mixes with blood in the right atrium. 2. The blood flows to the lungs and the left side of the heart. This means that the blood makes the trip twice. 3. From the left side of the heart, blood is pumped out to the rest of the body. An ASD makes the heart work harder by increasing the amount of blood in the right side of the heart. This causes heart overload and eventually weakens the heart's ability to pump. What are the causes? The cause of this condition is not known. What are the signs or symptoms? Symptoms of this condition include: ??? Tiredness or fatigue. ??? Trouble breathing or shortness of breath. ??? Irregular heartbeats (arrhythmias). ??? An extra swishing or whooshing sound (heart murmur) that is heard when listening to the heart. How is this diagnosed? This condition is diagnosed based on the results of one or more of the following tests: ??? Electrocardiogram, (ECG). This records the electrical activity of your heart and traces the patterns of your heartbeat onto paper. ??? Chest X-ray. ??? Echocardiogram. One of these two types may be done: ? Transthoracic echocardiogram (TTE). This type of echocardiogram is performed by moving a wand-like tool (transducer) over your chest. This device uses sound waves to produce an image of the heart. ? Transesophageal echocardiogram (BILL). In this test, a flexible tube with a camera is passed down the tube that connects the mouth and the stomach (esophagus). This device uses sound waves to take more detailed images of your heart and blood vessels. ??? MRI or CT scan. ??? Cardiac catheterization. In this test: ? A small, thin tube (catheter) is passed through a large vein in your neck, groin, or arm. ? Your regional extension service specialist (rn maternity) looks at the heart defect, checks how well the heart is pumping, and checks the function of the heart valves. How is this treated? Treatment for this condition depends on the size of the hole and the amount of blood that goes into the right atrium. ??? Small ASD. Treatment may not be needed if you have a small ASD. In this case, only a small amount of blood is moving back and forth (shunting) from the left to right atrium. You may not have any symptoms. ??? Large ASD. Larger ASDs cause symptoms. Treatment is required. Depending on the type and location of the defect, one of the following procedures will be used to close the ASD: ? A small incision. This treatment is done in a cardiac catheterization lab using an implantable device (e.g., Amplatzer). ? A minimally invasive surgery. ? An open heart surgery. This is performed if the first two procedures cannot be done. Contact a health care provider if: ??? You are short of breath. ??? You become , or are thinking about becoming . Get help right away if: ??? You are weak or tired when you are active. ??? You have chest pain. ??? You notice your fingertips or lips turning pale or blue. These symptoms may represent a serious problem that is an emergency. Do not wait to see if the symptoms will go away. Get medical help right away. Call your local emergency services (911 in the [place] Do not drive yourself to the hospital. Summary ??? An atrial septal defect (ASD) is a hole in the heart. This hole is located in the thin tissue (septum) that separates the chambers of the heart. ??? The cause of this condition is not known. Symptoms include fatigue, trouble breathing, shortness of breath, and heart murmur. ??? This condition is diagnosed based on the results of electrocardiogram, ECG, echocardiogram, chest X-ray, MRI, CT scan, or cardiac catheterization. ??? Get help right away if you are weak or tired when you are active, have chest pain, or notice blue or pale lips or fingertips. This information is not intended to replace advice given to you by your health care provider. Make sure you discuss any questions you have with your health care provider. Document Revised: 06/28/2019 Document Reviewed: 06/08/2019 [employer] Patient Education ? 2020 [employer] Radiology Femoral Site Care This sheet gives you information about how to care for yourself after your procedure. Your health care provider may also give you more specific instructions. If you have problems or questions, contact your health care provider. What can I expect after the procedure? After the procedure, it is common to have: ??? Bruising that usually fades within 1?2 weeks. ??? Tenderness at the site. Follow these instructions at home: Wound care ??? Follow instructions from your health care provider about how to take care of your insertion site. Make sure you: ? Wash your hands with soap and water before you change your bandage (dressing). If soap and water are not available, use hand multi purpose machine operator. ? Change your dressing as told by your health care provider. ? Leave stitches (sutures), skin glue, or adhesive strips in place. These skin closures may need to stay in place for 2 weeks or longer. If adhesive strip edges start to loosen and curl up, you may trim the loose edges. Do not remove adhesive strips completely unless your health care provider tells you to do that. ??? Do not take baths, swim, or use a hot tub until your health care provider approves. ??? You may shower 24-48 hours after the procedure or as told by your health care provider. ? Gently wash the site with plain soap and water. ? Pat the area dry with a clean towel. ? Do not rub the site. This may cause bleeding. ??? Do not apply powder or lotion to the site. Keep the site clean and dry. ??? Check your femoral site every day for signs of infection. Check for: ? Redness, swelling, or pain. ? Fluid or blood. ? Warmth. ? Pus or a bad smell. Activity ??? For the first 2?3 days after your procedure, or as long as directed: ? Avoid climbing stairs as much as possible. ? Do not squat. ??? Do not lift anything that is heavier than 10 lb (4.5 kg), or the limit that you are told, until your health care provider says that it is safe. ??? Rest as directed. ? Avoid sitting for a long time without moving. Get up to take short walks every 1?2 hours. ??? Do not drive for 24 hours if you were given a medicine to help you relax (sedative). General instructions ??? Take [id number] and prescription medicines only as told by your health care provider. ??? Keep all follow-up visits as told by your health care provider. This is important. Contact a health care provider if you have: ??? A fever or chills. ??? You have redness, swelling, or pain around your insertion site. Get help right away if: ??? The catheter insertion area swells very fast. ??? You pass out. ??? You suddenly start to sweat or your skin gets clammy. ??? The catheter insertion area is bleeding, and the bleeding does not stop when you hold steady pressure on the area. ??? The area near or just beyond the catheter insertion site becomes pale, cool, tingly, or numb. These symptoms may represent a serious problem that is an emergency. Do not wait to see if the symptoms will go away. Get medical help right away. Call your local emergency services (911 in the [place] Do not drive yourself to the hospital. Summary ??? After the procedure, it is common to have bruising that usually fades within 1?2 weeks. ??? Check your femoral site every day for signs of infection. ??? Do not lift anything that is heavier than 10 lb (4.5 kg), or the limit that you are told, until your health care provider says that it is safe. This information is not intended to replace advice given to you by your health care provider. Make sure you discuss any questions you have with your health care provider. Document Revised: 10/23/2018 Document Reviewed: 10/23/2018 [employer] Patient Education ? 2019 [employer] documented in this encounter Plan of Treatment Not on file documented as of this encounter Visit Diagnoses Not on filedocumented in this encounter
--- OUTSIDE RECORDS SUMMARY | 2025-08-19 09:31 | XMS_ITS | Encounter Summary ---
Author Organization [employer] ([place], [place], [place], [place]) Address [address] [place] [address] Care Team Providers Care Scourer Name Role Phone Unavailable Primary Care Provider Unavailabl e Encounter Details Date Type Department Care Team (Late st Contact Info) Description 05/05/2021 Transcribed Document [facility] Radiology [address] [place] [address] ProviderNomi MD Social History Tobacco Use Types Packs/Day Years Used Date Smoking Tobacco: Never Assessed Sex and Gender Information Value Date Recorded Sex Assigned at Not on file Legal Sex Male 7:21 PM CDT Gender Identity Not on file Sexual Orientation Not on file documented as of this encounter Miscellaneous Notes * Cerner Conversion Note - [facility] Abhay ProviderMD - 05/05/2021 2:48 PM EDT Event Note Entered On: 05/05/2021 13:48 EDT Performed On: 05/05/2021 13:48 EDT by DILIP TORRES RN Event Note Event Date/Time : 05/05/2021 13:48 EDT Description of Event : Report given to Barrera JOHNSON 4IC DILIP TORRES RN - 05/05/2021 13:48 EDT documented in this encounter Plan of Treatment Not on file documented as of this encounter Visit Diagnoses Not on filedocumented in this encounter
--- OUTSIDE RECORDS SUMMARY | 2025-08-19 09:31 | XMS_ITS | Encounter Summary ---
Author Organization [employer] ([place], [place], [place], [place]) Address [address] [place] [address] Care Team Providers Care Farm Equipment Operator Name Role Phone Unavailable Primary Care Provider Unavailabl e Encounter Details Date Type Department Care Team (Late st Contact Info) Description 05/06/2021 Transcribed Document [facility] Radiology [address] [place] [address] Provider, [facility] MD Abhay Social History Tobacco Use Types Packs/Day Years Used Date Smoking Tobacco: Never Assessed Sex and Gender Information Value Date Recorded Sex Assigned at Not on file Legal Sex Male 7:21 PM CDT Gender Identity Not on file Sexual Orientation Not on file documented as of this encounter Miscellaneous Notes * Cerner Conversion Note - [facility] Abhay Metz MD - 05/06/2021 1:09 PM EDT [facility] [address] [place] [address] NARCISO ANUJ :1960 Visit Time:05/05/2021 Your Visit Summary Your Care Team Admitting Physician - NEDRA ALEJANDRE MD-CAR Attending Physician - NEDRA ALEJANDRE MD-CAR Primary Care Physician - HEATH OLIVEROS (REF)FRANCIA Referring Physician - NEDRA ALEJANDRE MD-CAR Your Diagnosis Atrial septal defect, Atrial septal defect Discharge Vitals Temperature 36.6 ??C Heart Rate (Monitored) 59 Respiratory Rate 18 Blood Pressure 115/73 What to do next Instructions From Your Care Team Discharge Follow Up Instructions: follow up with Tim Cerna NP for Dr Alejandre in 4 weeks. Activity: Discharge Activity: Activity as tolerated Diet: Discharge Diet: Heart healthy diet Follow-Up Appointments Follow Up with TIM CERNA When 06/04/2021 09:30 AM EDT Comments Appointment has been made Where: [employer] [address] [place] [address]- [facility] (1) Medications What How Much When Instructions Next Dose clopidogrel (Plavix 75 mg oral tablet) 1 Tablet(s) Oral Every Day atorvastatin (atorvastatin 20 mg oral tablet) 1 Tablet(s) Oral Every Day fluticasone nasal (Flonase Allergy Relief 50 mcg/ inh nasal spray) 1 Gipsy(s) Nostrils Both Every Day furosemide (Lasix 20 mg oral tablet) 1 Tablet(s) Oral Every Day metoprolol (Metoprolol Succinate ER 25 mg oral tablet, extended release) 0.5 Tablet(s) Oral Every Day aspirin (aspirin 81 mg oral delayed release tablet) 1 Tablet(s) Oral Every Day bifidobacterium-lactobacillus (Probiotic Formula oral capsule) 1 Capsule(s) Oral Every Day cetirizine (ZyrTEC) 10 Milligram(s) Oral Every Day psyllium (Metamucil 400 mg oral capsule) 2 Capsule(s) Oral Every Day as needed for as needed for constipation with at least 8 ounces of water spironolactone (spironolactone 25 mg oral tablet) 0.5 Tablet(s) Oral Every Day Take your medications faithfully. Do NOT skip [...] Allergies Immunizations This Visit No Immunizations Found Education Materials FAQ ??? Patient COVID-19 testing Why do I need [...] patients who test positive for COVID-19. If I???m a patient, should I wear a mask? [...] through the local health department and the [place] Department for Public Health. Those organizations are [...] need during a recommended self-quarantine period. The patient???s name is not revealed to anyone during the contact tracing interviews, even if a contact asks. Who would be considered a ???close contact?? ? According to the CDC, a close [...] a face covering and maintain social distancing ??? at least 6 feet from others at [...] and need to call 911, notify the substation operator conversion that you have, or think you might [...] others. You should stay in a specific ???sick room?? if possible, and away from other people [...] (including before you enter a health care provider???s office). ??? If you are caring for [...] clean your hands with an alcohol-based hand property claims manager that contains at least 60% alcohol. Clean your hands often. ??? Wash hands: Wash your hands often with soap and water for at least 20 seconds when visibly dirty. This is especially important after blowing your nose, coughing or sneezing, and going to the bathroom, and before eating or preparing food. ??? Hand property claims manager: Use an alcohol-based hand property claims manager with at least 60% alcohol, covering all [...] and water or put them in the installer interior assemblies. Clean all high-touch surfaces every day. Clean high-touch surfaces in your isolation area (???sick room?? and bathroom) every day; let a caregiver clean and disinfect high-touch surfaces in other areas of the home. ??? Clean and disinfect: Routinely clean high-touch surfaces in your ???sick room?? and bathroom. Let someone else clean and disinfect surfaces in common areas, but not your bedroom and bathroom. ? If a caregiver or other person needs to clean and disinfect a sick person???s bedroom or bathroom, they should do so [...] or body fluids on them. ??? Household firefighter and disinfectants: Clean the area or item with soap and water or another detergent if it is dirty. Then, use a household disinfectant. ??? Be sure to follow the instructions on the label to ensure safe and effective use of the product. Many products recommend keeping the surface wet for several minutes to ensure germs are killed. Many also recommend precautions such as wearing gloves and making sure you have good ventilation during use of the product. ??? Most EPA-registered household disinfectants should be effective. A full list of disinfectants can be found here: https://www.epa.gov/pesticide-registration/onxi-g-wcqxlrkyvbkre-cny-bsjfwru-ah rs-cov-2 Femoral Site Care This sheet gives you information about how to care for yourself after your procedure. Your health care provider may also give you more specific instructions. If you have problems or questions, contact your health care provider. What can I expect after the procedure? After the procedure, it is common to have: ??? Bruising that usually fades within 1???2 weeks. ??? Tenderness at the site. Follow these instructions at home: Wound care ??? Follow instructions from your health care provider about how to take care of your insertion site. Make sure you: ? Wash your hands with soap and water before you change your bandage (dressing). If soap and water are not available, use hand property claims manager. ? Change your dressing as told by [...] bad smell. Activity ??? For the first 2???3 days after your procedure, or as long [...] Get up to take short walks every 1???2 hours. ??? Do not drive for 24 hours if you were given a medicine to help you relax (sedative). General instructions ??? Take [id number] and prescription medicines only as told by [...] to have bruising that usually fades within 1???2 weeks. ??? Check your femoral site every [...] provider. Document Revised: 10/23/2018 Document Reviewed: 10/23/2018 [employer] Patient Education ?? 2020 [employer] Atrial Septal Defect, Adult An atrial septal [...] your neck, groin, or arm. ? Your deaf/hard of hearing specialist (colorist dyer) looks at the heart defect, checks how [...] provider. Document Revised: 06/28/2019 Document Reviewed: 06/08/2019 [employer] Patient Education ?? 2020 [employer]. Emergency Awareness and Preventative Care STROKE is [...] Assistance with quitting is available by contacting 3-704-POCS-NOW. This is a free resource providing counseling, support, and referral. Or you may contact your personal physician. National Suicide Prevention Lifeline: The National Suicide Prevention [...] This Visit (last charted value for your 05/05/2021 visit) Hematology 05/06/2021 5:18 AM WBC: 9.2 K/uL -- Normal range between ( 3.6 and 9.5 ) RBC: 4.78 Million/uL -- Normal range between ( 4.20 and 5.70 ) Hct: 42.2 % -- Normal range between ( 40.1 and 51.0 ) Hgb: 14.0 g/dL -- Normal range between ( 13.5 and 17.3 ) Platelet Count: 212 K/uL -- Normal range between ( 163 and 369 ) MCH: 29.3 pg -- Normal range between ( 25.6 and 32.2 ) MCHC: 33.2 Gram/dL -- Normal range between ( 32.2 and 36.5 ) MCV: 88.3 fL -- Normal range between ( 79.0 and 94.8 ) Slide Review: No Eos %: 3.8 % -- Normal range between ( 0.0 and 7.0 ) Anderson #: 0.78 K/uL -- Normal range between ( 0.16 and 1.00 ) Eos #: 0.35 x10(3)/uL -- Normal range between ( 0.00 and 0.80 ) Anderson %: 8.5 % -- Normal range between ( 3.0 and 9.0 ) Baso %: 0.9 % -- Normal range between ( 0.0 and 1.5 ) Baso #: 0.08 x10(3)/uL -- Normal range between ( 0.00 and 0.20 ) RDW: 13.4 % -- Normal range between ( 11.7 and 14.9 ) Neut %: 60.0 % -- Normal range between ( 34.0 and 71.0 ) Neut #: 5.54 K/uL -- Normal range between ( 1.56 and 6.13 ) Lymph %: 25.9 % -- Normal range between ( 19.3 and 53.1 ) Lymph #: 2.39 x10(3)/uL -- Normal range between ( 1.00 and 3.90 ) MPV: 9.7 fL -- Normal range between ( 9.4 and 12.4 ) IG#: 0.08 x10(3)/uL -- Normal range between ( 0.00 and 0.05 ) IG%: 0.90 % -- Normal range between ( 0.00 and 0.60 ) 05/05/2021 6:51 AM Hemoglobin POC: 15.3 Gram/dL -- Normal range between ( 12.0 and 17.0 ) Hematocrit POC: 45.0 % -- Normal range between ( 38.0 and 51.0 ) Microbiology 05/05/2021 6:16 AM SARS-CoV-2 (COVID19 PCR): Negative General Chemistry 05/06/2021 5:18 AM Creatinine Level: 1.10 mg/dL -- Normal range between ( 0.70 and 1.30 ) Sodium Level: 139 mmol/L -- Normal range between ( 136 and 146 ) Potassium Level: 3.8 mmol/L -- Normal range between ( 3.5 and 5.1 ) Chloride Level: 104 mmol/L -- Normal range between ( 102 and 112 ) Carbon Dioxide Level: 28 mmol/L -- Normal range between ( 21 and 32 ) Anion Gap: 11 -- Normal range between ( 9 and 20 ) Bun/Creatinine: 12.7 -- Normal range between ( 8.0 and 20.0 ) Calcium Level: 8.9 mg/dL -- Normal range between ( 8.4 and 10.1 ) eGFR : >60 mL/min/1.73m2 eGFR NonAfrican: >60 mL/min/1.73m2 Glucose Level: 95 mg/dL -- Normal range between ( 74 and 106 ) Blood Urea Nitrogen: 14 mg/dL -- Normal range between ( 7 and 22 ) 05/05/2021 6:51 AM Sodium POC: 141 mmol/L -- Normal range between ( 138 and 146 ) Ca Ioniz POC: 1.32 mmol/L -- Normal range between ( 1.12 and 1.32 ) Potassium POC: 3.7 mmol/L -- Normal range between ( 3.5 and 4.9 ) Creatinine POC: 1.1 mg/dL -- Normal range between ( 0.6 and 1.3 ) BUN POC: 13 mg/dL -- Normal range between ( 8 and 26 ) CO2 POC: 24.0 mmol/L -- Normal range between ( 24.0 and 29.0 ) Chloride POC: 104 mmol/L -- Normal range between ( 98 and 109 ) Glucose POC: 103 mg/dL -- Normal range between ( 70 and 105 ) Anion Gap POC: 18.0 mmol/L -- Normal range between ( 10.0 and 20.0 ) Coagulation 05/05/2021 8:35 AM ACT POC: 219 Second(s) -- Normal range between ( 74 and 137 ) Echo 05/05/2021 11:52 AM EC Echo Complete: EC Echo Complete Vascular Ultrasound 05/05/2021 11:42 AM VL Vascular Access: VL Vascular Access Patient Name:ANUJ STUART I have received and understand this information and was given the opportunity to ask questions. Patient/Large Animal Husbandry Technician Name: Patient/Large Animal Husbandry Technician Signature: Relationship to Patient: Clinician/Hospital Large Animal Husbandry Technician Signature: Date: documented in this encounter Plan of Treatment Not on file documented as of this encounter Visit Diagnoses Not on filedocumented in this encounter
--- OUTSIDE RECORDS SUMMARY | 2025-08-19 09:31 | XMS_ITS | Data Portability ---
Author Organization [place] - [facility] [place] [facility] [place] Address [address] [place] [id number] Care Team Providers Care Economic Geographer Name Role Phone FREDI JALLOH Primary Care Provider Assessment Encounter Date Assessment Date Assessment LastModified by Organization Details LastModified Time 12/23/2023 12/23/2023 63-year-old male with persistent diarrhea for >2 months. He has a history of diverticulitis last year with recurrence in October based on clinical diagnosis. He also has a history of C. difficile infection 1 year ago. 1) Diarrhea: Obtain stool studies per below (faxed to [facility] per pt. request). EGD and colonoscopy have been scheduled. He may use loperamide as needed. 2) Abdominal pain/bloating: Endoscopies scheduled. 3) Hiatal hernia: He has a history of hiatal hernia repair with CHRISTINE fundoplication in 2019. He has been informed of recurrence of hiatal hernia based on recent imaging. He is not overtly symptomatic at this time in regards to reflux symptoms or dysphagia. [email or web address] Not available 12/23/2023 12:38:25 01/11/2024 01/11/2024 63-year-old male with persistent diarrhea for >2 months. He has a history of diverticulitis last year with recurrence in October based on clinical diagnosis. He also has a history of C. difficile infection 1 year ago. Recent colonoscopy was with poor prep. He is suspected to be experiencing overflow constipation. Duodenal and random colon biopsies were negative. 1) Diarrhea: Stool studies showed mildly decreased fecal elastase. -Avoid anti-diarrhea medications -Will start Linzess 290 mcg p.o. once daily for suspected overflow constipation. He will f/u in 2 weeks to assess his symptoms. -Consider trial of Creon if suspicion for EPI as a contributing etiology. Fecal elastase was mildly low. 2) RUQ tenderness to palpation: Mild. Will obtain a RUQ US. Bile acid malabsorption should also be considered. 3) Hiatal hernia: He has a history of hiatal hernia repair with CHRISTINE fundoplication in 2019. He had a 4 cm hiatal hernia noted on recent EGD as well as grade B esophagitis and evidence of reflux esophagitis on GE junction biopsy. He reports mild heartburn 2-3 days per week -recommended he start Pepcid complete 1 tablet 1-2 times daily PRN. [email or web address] Not available 01/11/2024 16:14:37 01/30/2024 01/30/2024 63-year-old male with persistent diarrhea for >2 months. He has a history of diverticulitis last year with recurrence in October based on clinical diagnosis. He also has a history of C. difficile infection 1 year ago. Recent colonoscopy was with poor prep. He was suspected to be experiencing overflow constipation. Duodenal and random colon biopsies were negative. Treatment with Linzess caused worsening diarrhea. 1) Diarrhea: -Stool studies showed mildly decreased fecal elastase. May consider trial of Creon in the future, however he appears to have a high copay for this until his deductible is met for the year. - Start Cholestyramine 1 scoop p.o. BID -If above treatment is ineffective after 1 week, I have recommended he start Miralax once daily. 2) RUQ tenderness to palpation: Mild. He was not contacted to schedule the RUQ US, will re send the order. 3) Hiatal hernia: He has a history of hiatal hernia repair with CHRISTINE fundoplication in 2019. He had a 4 cm hiatal hernia noted on recent EGD as well as grade B esophagitis and evidence of reflux esophagitis on GE junction biopsy. He reports mild heartburn 2-3 days per week -recommended he take Pepcid complete 1 tablet 1-2 times daily PRN. [email or web address] Not available 01/30/2024 12:15:09 Plan of Treatment Reminders Order Date Submit Date Provider Last Modified By Organization Details Last Modified Time Details Appointments None recorded. Lab gastrointes tinal pathogens panel, PCR, stool 2023 024 [facility] (Lab), [address], [place], [address], 4 09:17:44 O&P (ova & parasites), stool [address] (Lab), [address], [place], [address], 4 15:00:26 fecal fat, qualitative , stool [address] (Lab), [address], [place], [address], 4 15:00:26 pancreatic elastase, stool [address] (Lab), [address], [place], [address], 4 15:00:26 calprotecti n, stool [address] (Lab), [address], [place], [address], 4 15:00:26 Referral None recorded. Procedures None recorded. Surgeries None recorded. Imaging US, gallbladder [address] (Scheduling), [address], [place], [address], 4 08:08:40 US, gallbladder [address] (Scheduling), [address], [place], [address], 4 08:48:04 Medication Orders cholestyram ine (with sugar) 4 gram oral powder 2023 024 [facility], [address] [place] [address] [address], [place], [id number], 4 09:29:21 Patient TargetsNo targets recorded. Patient InstructionsNo instructions recorded. Reason for Referral None Reported. Results Created Date Observation Date Name Description Value Unit Range Abnormal Flag Note LastModifiedBy Organization Detail LastModifiedTime 12/29/19 24 12/29/2023 GASTR OINTE SHADIA L PANEL ,STL PCR campylobacte r NOT DETECT ED not detect ed CAMPY LOBAC TER AND CRYPT OSPOR IDIUM RESUL TS WILL BE CONFI RMED BEFOR E FINAL RESUL TS REPOR LOKESH. Not Available [facility] ([facility]) [address] [place], [address], 12/29/2023 12:59:45 12/29/19 24 12/29/2023 GASTR OINTE SHADIA L PANEL ,STL PCR C difficile toxin A/B NOT DETECT ED not detect ed Not Available [facility] ([facility]) [address] [place], [address], 12/29/2023 12:59:45 12/29/19 24 12/29/2023 GASTR OINTE SHADIA L PANEL ,STL PCR plesiomonas shigelloides NOT DETECT ED Not Available [facility] ([facility]) [address] [place], [address], 12/29/2023 12:59:45 12/29/19 24 12/29/2023 GASTR OINTE SHADIA L PANEL ,STL PCR salmonella NOT DETECT ED not detect ed Not Available [facility] ([facility]) [address] [place], [address], 12/29/2023 12:59:45 12/29/19 24 12/29/2023 GASTR OINTE SHADIA L PANEL ,STL PCR vibrio NOT DETECT ED not detect ed Not Available [facility] ([facility]) [address] [place], [address], 12/29/2023 12:59:45 12/29/19 24 12/29/2023 GASTR OINTE SHADIA L PANEL ,STL PCR vibrio cholerae NOT DETECT ED not detect ed Not Available [facility] ([facility]) [address] [place], [address], 12/29/2023 12:59:45 12/29/19 24 12/29/2023 GASTR OINTE SHADIA L PANEL ,STL PCR yersinia enterocoliti ca NOT DETECT ED not detect ed Not Available [facility] ([facility]) [address] [place], [address], 12/29/2023 12:59:45 12/29/19 24 12/29/2023 GASTR OINTE SHADIA L PANEL ,STL PCR enteroaggreg ative E coli NOT DETECT ED not detect ed Not Available [facility] ([facility]) [address] [place], [address], 12/29/2023 12:59:45 12/29/19 24 12/29/2023 GASTR OINTE SHADIA L PANEL ,STL PCR enteropathog enic E coli NOT DETECT ED not detect ed Not Available [facility] ([facility]) [address] [place], [address], 12/29/2023 12:59:45 12/29/19 24 12/29/2023 GASTR OINTE SHADIA L PANEL ,STL PCR enterotoxige grace E coli lt/st NOT DETECT ED not detect ed Not Available [facility] ([facility]) [address] [place], [address], 12/29/2023 12:59:45 12/29/19 24 12/29/2023 GASTR OINTE SHADIA L PANEL ,STL PCR shiga-toxin- producing E coli NOT DETECT ED not detect ed Not Available [facility] ([facility]) [address] [place], [address], 12/29/2023 12:59:45 12/29/19 24 12/29/2023 GASTR OINTE SHADIA L PANEL ,STL PCR E coli O157 N/A not detect ed Not Available [facility] ([facility]) [address] [facility], [place], [address], 12/29/2023 12:59:45 12/29/19 24 12/29/2023 GASTR OINTE SHADIA L PANEL ,STL PCR shigella/ent eroinvasive E coli NOT DETECT ED not detect ed Not Available [facility] ([facility]) [address] [facility], [place], [address], 12/29/2023 12:59:45 12/29/19 24 12/29/2023 GASTR OINTE SHADIA L PANEL ,STL PCR cryptosporid ium NOT DETECT ED not detect ed Not Available [facility] ([facility]) [address] [facility], [place], [address], 12/29/2023 12:59:45 12/29/19 24 12/29/2023 GASTR OINTE SHADIA L PANEL ,STL PCR cyclospora cayetanensis NOT DETECT ED not detect ed Not Available [facility] ([facility]) [address] [facility], [place], [address], 12/29/2023 12:59:45 12/29/19 24 12/29/2023 GASTR OINTE SHAIDA L PANEL ,STL PCR entamoeba histolytica NOT DETECT ED not detect ed Not Available [facility] ([facility]) [address] [place], [address], 12/29/2023 12:59:45 12/29/19 24 12/29/2023 GASTR OINTE SHADIA L PANEL ,STL PCR giardia lamblia NOT DETECT ED not detect ed Not Available [facility] ([facility]) [address] [place], [address], 12/29/2023 12:59:45 12/29/19 24 12/29/2023 GASTR OINTE SHADIA L PANEL ,STL PCR adenovirus F 40/41 NOT DETECT ED not detect ed Not Available [facility] ([facility]) [address] [facility], [place], [address], 12/29/2023 12:59:45 12/29/19 24 12/29/2023 GASTR OINTE SHADIA L PANEL ,STL PCR astrovirus NOT DETECT ED not detect ed Not Available [facility] ([facility]) [address] [facility], [place], [address], 12/29/2023 12:59:45 12/29/19 24 12/29/2023 GASTR OINTE SHADIA L PANEL ,STL PCR norovirus GI/gii NOT DETECT ED not detect ed Not Available [facility] ([facility]) [address] [facility], [place], [address], 12/29/2023 12:59:45 12/29/19 24 12/29/2023 GASTR OINTE SHADIA L PANEL ,STL PCR rotavirus A NOT DETECT ED not detect ed Not Available [facility] ([facility]) [address] [facility], [place], [address], 12/29/2023 12:59:45 12/29/19 24 12/29/2023 GASTR OINTE SHADIA L PANEL ,STL PCR sapovirus NOT DETECT ED not detect ed Test Metho d Limit ation s: This assay does not disti nguis h betwe en viabl e and non-v iable organ isms/ This test does not deter mine antib iotic susce ptibi litie s. The use of forme d or conta minat ed stool sampl es are not recom reynaldo d. Eliud eous resul ts may occur from impro per speci men colle ction , handl ing or stora ge, prese nce of inhib itors , prese nce of seque nce varia nts in the gene targe ts of the assay , techn ical error s or sampl e mix-u p. Posit abdifatah C.dif ficil e resul ts may not be clini kamilla relev ant in child blake under the age of two. Consu ltati on with an Infec tious Disea se Pedia trici an is recom reynaldo d. Test Metho dolog y: BioFi re FilmA rray GI Panel - Melti ng curve joshua sis, PCR, multi plex, rever se trans cript ase Not Available [facility] ([facility]) [address], [place], [address], 12/29/2023 12:59:45 02/02/20 24 02/02/2024 [place], toño hoffman No observ ation record ed. [facility] [address], [place], [address], 07/22/2024 20:44:29 02/09/20 24 02/02/2024 toño NOLAND No observ ation record ed. [facility] [address], [place], [address], 07/22/2024 20:44:30 02/17/20 24 02/02/2024 , toño hoffman No observ ation record ed. [facility] [address], [place], [address], 07/22/2024 20:44:30 Result Notes None recorded. Problems Name Problem SNOMED Code Status Onset Date Resolution Date Notes Provider Name and Address Organization Details Recorded Time Diarrhea 74833712 Active 2023 Senthil Price PA-C [address], [place], [address] , [facility] & [place] 4 10:48:29 Abdominal pain 65795916 Active 2023 Senthil Price PA-C [address], [place], [address] , [place] [facility] & [place] 4 10:49:39 Abdominal bloating 705405332 Active 2023 Senthil Price PA-C [address], [place], [place], [address] [place] [address] , [facility] - [facility] & [place] 4 10:49:48 Chronic diarrhea 891351916 Active 2023 Senthil Price PA-C [address], [place], [place], [address] [place] [address] , [facility] - [facility] & [place] 4 12:33:58 Chronic constipation with overflow 32453319 Active 2023 Senthil Price PA-C [address], [place], [place], [address] [place] [address] , [facility] - [facility] & [place] 4 12:34:06 Tenderness of right upper quadrant of abdomen 720273739 Active 2023 Senthil Price PA-C [address], [place] [address] , [facility] - [facility] & [place] 4 12:34:22 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 Procedures Surgical History Date Name Laterality Status Provider Name and Address Organization Details Recorded Time Colonoscopy completed Barrera TAYLOR - [facility] & [place] 01/11/2024 10:53:57 endoscopy completed Barrera TAYLOR - [facility] & [place] 01/11/2024 10:54:03 Imaging Results None recorded. Procedure Notes None recorded. Medical Equipment None Reported. Allergies No known drug allergies Medications Name Sig Start Date Stop Date Status Note LastModified by Organization Details LastModified Time eq senna-s 8.6-50mg tab TAKE 1 TABLET BY MOUTH TWICE DAILY FOR 10 DAYS active Not Available Not Available No t Available atorvastatin 20 mg tablet TAKE ONE TABLET BY MOUTH EVERY DAY AT BEDTIME active Not Available Not Available No t Available cetirizine 10 mg tablet TAKE ONE TABLET BY MOUTH EVERY DAY active Not Available Not Available No t Available prednisone 20 mg tablet TAKE ONE TABLET BY MOUTH EVERY DAY FOR 7 DAYS --TAKE WITH FOOD-- active Not Available Not Available Not Available metronidazol e 500 mg tablet TAKE ONE TABLET BY MOUTH THREE TIMES DAILY FOR 7 DAYS -- FINISH ALL MEDICINE -- --AVOID ANY PRODUCT(S) CONTAINING ALCOHOL WHILE TAKING THIS MEDICATION- - active Not Available Not Available No t Available spironolacto ne 25 mg tablet TAKE 1/2 TABLET BY MOUTH ONCE DAILY active Not Available Not Available No t Available furosemide 20 mg tablet TAKE 1/2 TABLET BY MOUTH EVERY DAY active Not Available Not Available No t Available metoprolol succinate ER 25 mg tablet,exten ded release 24 hr TAKE ONE TABLET BY MOUTH EVERY DAY active Not Available Not Available No t Available levofloxacin 500 mg tablet TAKE ONE TABLET BY MOUTH EVERY DAY FOR 10 DAYS -- FINISH ALL MEDICINE -- active Not Available Not Available Not Available amoxicillin 500 mg-potassium clavulanate 125 mg tablet TAKE 1 TABLET BY MOUTH THREE TIMES DAILY FOR 5 DAYS active Not Available Not Available N ot Available cholestyrami ne (with sugar) 4 gram oral powder mix DIRECTED AND take THE contents of 1 SCOOP BY MOUTH TWICE DAILY FOR DIARRHEA active Not Available Not Available No t Available Clenpiq 10 mg-3.5 gram-12 gram/160 mL oral solution Take 160 mL every day by oral route as directed for 2 days. 2023 active Not Available Not Available Not Nadir bazan Clenpiq 10 mg-3.5 gram-12 gram/175 mL oral solution take 175 ML BY MOUTH DAILY FOR 2 doses; take THE first DOSE AT 5-9pm THE evening BEFORE THE colonoscopy ; THEN take THE second DOSE THE NEXT DAY approximate ly 5 hours BEFORE colonoscopy active Not Available Not Available Not Available Vitals Date Recorded Body weight Body mass index (BMI) Body height Body temperature Oxygen saturation Oxygen saturation in Arterial blood by Pulse oximetry Heart rate Heart rate Systolic And Diastolic Provider Name and Address Organization Details Last Updated DateTime 4 694293. 6 g 33.4 kg/m2 190.5 cm 97.5 [degF] 96 % 96 % 72 /min 62 /min 128/68 mm[Hg] Alex Marion [place] - [facility] [place] [facility] [place] 4 10:59:33 Date Recorded Body height Body mass index (BMI) Body weight Body temperature Oxygen saturation Oxygen saturation in Arterial blood by Pulse oximetry Heart rate Systolic And Diastolic Provider Name and Address Organization Details Last Updated DateTime 4 190.5 cm 33.2 kg/m2 007896. 57 g 97.3 [degF] 96 % 96 % 79 /min 129/68 mm[Hg] Barrera polanco [place] - [facility] & [place] 4 10:52:42 Social History Question Answer Notes LastModified by [employer] Details LastModified Time Tobacco Smoking Status Never Smoker Alex [place] null, [place] - [facility] & [place] 12/23/2023 11:02:55 What Is Your Level Of Caffeine Consumption? Moderate [email or web address] Information not available 12/23/2023 Sex: Unknown Functional Status Question Answer Note LastModified by [employer] Details LastModified Time Do you use any illicit or recreational drugs? No Information not available 12/23/2023 What is your level of alcohol consumption? 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 Family History Relationship Description Onset Age of this Age Resolved Age Notes LastModified by Organization Details LastModified Time Mother Chronic obstructive pulmonary disease pt. added direct ly () [email or web address] Not available 12/22/2023 09:35:00 Sister Disorder of endocrine system pt. added direct ly () [email or web address] Not available 12/22/2023 09:35:50 Paternal Aunt Disorder of endocrine system pt. added direct ly () [email or web address] Not available 12/22/2023 09:35:50 Father Myocardial infarction pt. added direct ly () [email or web address] Not available 12/22/2023 09:36:04 Maternal Grandmother Osteoporosis pt. added direct ly () [email or web address] Not available 12/22/2023 09:36:23 Medical History No medical history recorded. Past Encounters Encounter ID Performer Location Encounter Start Date Encounter Closed Date Diagnosis/Indication Diagnosis SNOMED-CT Code Diagnosis ICD10 Code Diagnosis IMO Codes Diagnosis Note [id number] Senthil Price PA-C [facility] [address] [address] 12/23/2023 10:34:09 12/23/2023 11:46:13 Diarrhea 84169624 R19.7 History of intestinal infection caused by Clostridioides difficile 5485896400 77713 Z86.19 Abdominal pain 88648179 R10.9 Abdominal bloating 92660 9008 R14.0 [id number] Senthil Price PA-C [facility] [address] [address] 01/11/2024 10:45:42 01/11/2024 11:55:21 Chronic diarrhea 542813366 K52.9 Chronic co nstipation with overflow 20892217 R19.7 Tenderness of right upper quadrant of abdomen 198785417 R10.811 Diarrhea 02491114 R19.7 History of intestinal infection caused by Clostridioides difficile 0188379312 68258 Z86.19 Abdominal pain 49192727 R10.9 Abdominal bloating 39232 9008 R14.0 [id number] Senthil Price PA-C [facility] [address] [address] 01/30/2024 11:30:19 01/30/2024 11:51:05 Chronic diarrhea 365765521 K52.9 Chronic co nstipation with overflow 83647478 R19.7 Tenderness of right upper quadrant of abdomen 415658430 R10.811 History of intestinal infection caused by Clostridioides difficile 3661379807 29127 Z86.19 Abdominal pain 53463860 R10.9 Abdominal bloating 71865 9008 R14.0 Bile acid malabsorption syndrome 38553659 E78.70 Health Concerns Section Related Observation LastModified by Organization Detai ls LastModified Time None Recorded Concern Status LastModified by Organization Details LastModified Time None Recorded Advance Directives Directive None Recorded Payers Insurance Date Sequence Insurance Name Policy Number Policy Gee Covered Member ID Gee Member ID Guarantor Name 01/27/2024 1 FIDEL (PPO) [id number] Anuj Vazquze [id number] Anuj Vazquez 11/23/2023 1 [facility] Anuj Vazquez [id number] Anuj Vazquez 12/23/2023 1 *SELF PAY* Nory Vazquez Notes Date Note Type Note Provider Name and Address Organization Details Recorded Time 12/23/2023 text/html Mr. Vazquez is a very pleasant 63-year-old male who was referred by Dr. Gibran Espino for evaluation of persistent diarrhea. He has a history of diverticulitis x2 episodes, most recently in October 2023. He also has a history of C. difficile colitis last year following inpatient antibiotics for diverticulitis. He has a history of colonoscopy 3 years ago in [place] with polyps removed. He started experiencing frequent diarrhea 2 months ago. He has up to 12 watery BMs on some days, but will also go 2-3 days without a BM at times. He does not feel constipated. He has had come nocturnal fecal soiling. He reports seeing a small amount of blood with wiping that he believes was due to a hemorrhoid, but no rectal bleeding for the past couple of weeks. He reports excessive gas and belching. He has a history of hiatal hernia repair with CHRISTINE fundoplication in 2019. He was told recently that he had evidence of recurrent hiatal hernia on imaging. He denies overt heartburn or dysphagia. He denies a family history of GI related malignancy. Senthil Price PA-C [address] [facility], [place], [address], [facility] - [facility] - [place] & [place] 12/23/2023 12:38:32 01/11/2024 text/html PREVIOUS (12/23/23): Mr. Vazquez is a very pleasant 63-year-old male who was referred by Dr. Gibran Espino for evaluation of persistent diarrhea. He has a history of diverticulitis x2 episodes, most recently in October 2023. He also has a history of C. difficile colitis last year following inpatient antibiotics for diverticulitis. He has a history of colonoscopy 3 years ago in [place] with polyps removed. He started experiencing frequent diarrhea 2 months ago. He has up to 12 watery BMs on some days, but will also go 2-3 days without a BM at times. He does not feel constipated. He has had come nocturnal fecal soiling. He reports seeing a small amount of blood with wiping that he believes was due to a hemorrhoid, but no rectal bleeding for the past couple of weeks. He reports excessive gas and belching. He has a history of hiatal hernia repair with CHRISTINE fundoplication in 2019. He was told recently that he had evidence of recurrent hiatal hernia on imaging. He denies overt heartburn or dysphagia. He denies a family history of GI related malignancy. CURRENT (01/11/24): Mr. Vazquez returns to the office today for follow-up regarding persitent diarrhea. He underwent EGD and colonoscopy on 12/29/23 with EGD showing a 4 cm hiatal hernia and grade B esophagitis. His colonoscopy was noted with poor preparation, moderate sigmoid diveritculosis. Pathology showed mild chronic gastritis with focal intestinal metaplasia on gastric biopsy, negative for H. pylori, reflux esophagitis without Alvarado's esophagus, and with normal duodenal and random colon biopsies. He is suspected to have constipation with overflow stools. He has been taking senna and miralax once daily, but has not noticed much difference. He did feel that diarrhea was improved for 2-3 days following the colonoscopy prep. He denies heartburn or dyspepsia. Senthil Price PA-C [address] [facility], [place], [address], [place] - [facility] - [place] & [place] 01/11/2024 16:15:01 01/30/2024 text/html PREVIOUS (12/23/23): Mr. Vazquez is a very pleasant 63-year-old male who was referred by Dr. Gibran Espino for evaluation of persistent diarrhea. He has a history of diverticulitis x2 episodes, most recently in October 2023. He also has a history of C. difficile colitis last year following inpatient antibiotics for diverticulitis. He has a history of colonoscopy 3 years ago in [place] with polyps removed. He started experiencing frequent diarrhea 2 months ago. He has up to 12 watery BMs on some days, but will also go 2-3 days without a BM at times. He does not feel constipated. He has had come nocturnal fecal soiling. He reports seeing a small amount of blood with wiping that he believes was due to a hemorrhoid, but no rectal bleeding for the past couple of weeks. He reports excessive gas and belching. He has a history of hiatal hernia repair with CHRISTINE fundoplication in 2019. He was told recently that he had evidence of recurrent hiatal hernia on imaging. He denies overt heartburn or dysphagia. He denies a family history of GI related malignancy. PREVIOUS (01/11/24): Mr. Vazquez returns to the office today for follow-up regarding persitent diarrhea. He underwent EGD and colonoscopy on 12/29/23 with EGD showing a 4 cm hiatal hernia and grade B esophagitis. His colonoscopy was noted with poor preparation, moderate sigmoid diveritculosis. Pathology showed mild chronic gastritis with focal intestinal metaplasia on gastric biopsy, negative for H. pylori, reflux esophagitis without Alvarado's esophagus, and with normal duodenal and random colon biopsies. He is suspected to have constipation with overflow stools. He has been taking senna and miralax once daily, but has not noticed much difference. He did feel that diarrhea was improved for 2-3 days following the colonoscopy prep. He denies heartburn or dyspepsia. CURRENT (01/30/24): Mr. Vazquez presents via telephonic encounter today for follow-up regarding diarrhea. He was treated with Linzess due to suspected overflow stools. He states this caused watery diarrhea and he stopped because he could not leave his home. He has continued to have loose stools within 1 hour of meals. Otherwise, he is feeling well at this time. I spent a total of 12 minutes during this real-time clinical encounter that was initiated by the patient which started at 1131 and ended at 1143. Consent was obtained to engage in telephonic service. Greater than 50% of the time spent was devoted to counseling and coordinating care including review of patient record, patient lab data and studies as well as discussing diagnostic evaluation and workup, planned therapeutic intervention and further disposition of care. Senthil Price PA-C [address], [place], [address], [facility] - [place] & [place] 01/30/2024 12:15:25
--- OUTSIDE RECORDS SUMMARY | 2025-08-19 09:31 | XMS_ITS | Encounter Summary ---
Author Organization [employer] ([place], [place], [place], [place]) Address [address] [place] [address] Care Team Providers Care Paper Colorer Name Role Phone Unavailable Primary Care Provider Unavailabl e Encounter Details Date Type Department Care Team (Late st Contact Info) Description 05/05/2021 Transcribed Document [facility] Radiology [address] [place] [address] [facility] MD Abhay Social History Tobacco Use Types Packs/Day Years Used Date Smoking Tobacco: Never Assessed Sex and Gender Information Value Date Recorded Sex Assigned at Not on file Legal Sex Male 7:21 PM CDT Gender Identity Not on file Sexual Orientation Not on file documented as of this encounter Miscellaneous Notes * Cerner Conversion Note - [facility] Abhay ProviderMD - 05/05/2021 3:20 PM EDT Event Note Entered On: 05/05/2021 14:24 EDT Performed On: 05/05/2021 14:20 EDT by DILIP TORRES RN Event Note Event Date/Time : 05/05/2021 14:20 EDT DILIP TORRES RN - 05/05/2021 14:20 EDT Description of Event : Tranferred to [address] [place] [address] via stretcher. Room clean and in ordered. First set of vitals taken and groin assessed. Groin with no hematoma. Dressing clean dry and intact DILIP TORRES RN - 05/05/2021 14:25 EDT documented in this encounter Plan of Treatment Not on file documented as of this encounter Visit Diagnoses Not on filedocumented in this encounter
--- OUTSIDE RECORDS SUMMARY | 2025-08-19 09:31 | XMS_ITS | Encounter Summary ---
Author Organization [employer] ([place], [place], [place], [place]) Address [address] [place] [address] Care Team Providers Care Fountain Waitress/Waiter Name Role Phone Unavailable Primary Care Provider Unavailabl e Encounter Details Date Type Department Care Team (Late st Contact Info) Description 05/06/2021 Transcribed Document [facility] Radiology [address] [place] [address] ProviderNomi MD Social History Tobacco Use Types Packs/Day Years Used Date Smoking Tobacco: Never Assessed Sex and Gender Information Value Date Recorded Sex Assigned at Not on file Legal Sex Male 7:21 PM CDT Gender Identity Not on file Sexual Orientation Not on file documented as of this encounter Miscellaneous Notes * Cerner Conversion Note - Nomi Metz MD - 05/06/2021 1:01 PM EDT Stroke/Warfarin Instructions Entered On: 05/06/2021 12:01 EDT Performed On: 05/06/2021 12:01 EDT by June Aguilar RN Stroke/Warfarin Instructions Stroke/TIA Discharge Ins : N/A Warfarin Discharge Ins : N/A June Aguilar RN - 05/06/2021 12:01 EDT documented in this encounter Plan of Treatment Not on file documented as of this encounter Visit Diagnoses Not on filedocumented in this encounter
--- OUTSIDE RECORDS SUMMARY | 2025-08-19 09:31 | XMS_ITS | Encounter Summary ---
Author Organization [employer] ([place], [place], [place], [place]) Address [address] [place] [address] Care Team Providers Care Ambulatory Service Representative Name Role Phone Unavailable Primary Care Provider Unavailabl e Encounter Details Date Type Department Care Team (Late st Contact Info) Description 05/05/2021 Transcribed Document [facility] Radiology [address] [place] [address] ProviderNomi MD Social History Tobacco Use Types Packs/Day Years Used Date Smoking Tobacco: Never Assessed Sex and Gender Information Value Date Recorded Sex Assigned at Not on file Legal Sex Male 7:21 PM CDT Gender Identity Not on file Sexual Orientation Not on file documented as of this encounter Miscellaneous Notes * Cerner Conversion Note - [facility] Abhay ProviderMD - 05/05/2021 3:47 PM EDT Meds to Bed Enrollment Entered On: 05/06/2021 7:55 EDT Performed On: 05/05/2021 14:47 EDT by SHANNON HARRINGTON RPh Meds to Bed Enrollment Patient Enrollment Decision: : No/do not enroll in meds to bed program Reason for Declining Meds to Bed Program: : Prefer to use home pharmacy SHANNON HARRINGTON RPh - 05/06/2021 7:55 EDT documented in this encounter Plan of Treatment Not on file documented as of this encounter Visit Diagnoses Not on filedocumented in this encounter
--- OUTSIDE RECORDS SUMMARY | 2025-08-19 09:31 | XMS_ITS | Encounter Summary ---
Author Organization [employer] ([place], [place], [place], [place]) Address [address] [place] [address] Care Team Providers Care Solar Panel Technician Name Role Phone Unavailable Primary Care Provider Unavailabl e Encounter Details Date Type Department Care Team (Late st Contact Info) Description 05/06/2021 Transcribed Document [facility] Radiology 1 [place] [address] Provider, Nomi Blank MD Social History Tobacco Use Types Packs/Day Years Used Date Smoking Tobacco: Never Assessed Sex and Gender Information Value Date Recorded Sex Assigned at Not on file Legal Sex Male 7:21 PM CDT Gender Identity Not on file Sexual Orientation Not on file documented as of this encounter Miscellaneous Notes * Cerner Conversion Note - [facility] Abhay Metz MD - 05/06/2021 11:13 AM EDT Initial Discharge Planning Entered On: 05/06/2021 10:14 EDT Performed On: 05/06/2021 10:13 EDT by COLIN CHOUDHARY RN-Sales Associate Key Holder Initial Assessment I Previously Documented Living Environment : No qualifying data available. Living Situation : Home Patient Lives With : Spouse Is the Patient a Caregiver at Home? : No Emergency Contact #1 : Emergency Contact #1 Phone Number : Gissel Emergency Contact #1 Relationship : [phone] Emergency Contact #2 : none Emergency Contact #2 Phone Number : none Emergency Contact #2 Relationship : none Enter Doctors Name : mamadou wright Does Patient have PCP Listed? : Yes Medical Durable Power of Business Employment Specialist Name : no COLIN CHOUDHARY RN-Sales Associate Key Holder - 05/06/2021 10:13 EDT Initial Assessment II Sensory and Motor Deficits : None Current Home Treatments and Equipment : None COLIN CHOUDHARY RN-Sales Associate Key Holder - 05/06/2021 10:13 EDT Discharge Needs I Anticipated Discharge Date : 05/06/2021 EDT Anticipated Discharge To, CM : Home independently Current Home Treatment/Equipment : Current Home Treatment/Equipment No qualifying data available. Post Acute/Home Treatments : None Documentation Status Complete : Yes COLIN CHOUDHARY RN-Sales Associate Key Holder - 05/06/2021 10:13 EDT Discharge Needs II Professional Skilled Services : Professional Skilled Services No qualifying data available. Needs Assistance with Transportation : No Discharge Options Discussed with Patient : Discharge transportation, DME, Home Health COLIN CHOUDHARY RN-Sales Associate Key Holder - 05/06/2021 10:13 EDT Narrative Note Narrative Note : out patient in a bed. no discharge needs family to transport home . COLIN Ordonez RN-Sales Associate Key Holder - 05/06/2021 10:13 EDT documented in this encounter Plan of Treatment Not on file documented as of this encounter Visit Diagnoses Not on filedocumented in this encounter
--- OUTSIDE RECORDS SUMMARY | 2025-08-19 09:31 | XMS_ITS | Encounter Summary ---
Author Organization [employer] ([place], [place], [place], [place]) Address [address] [place] [address] Care Team Providers Care Software Integrator Name Role Phone Unavailable Primary Care Provider Unavailabl e Encounter Details Date Type Department Care Team (Late st Contact Info) Description 05/05/2021 Transcribed Document [facility] Radiology [address] [place] [address] Provider, Nomi Blank MD Social History Tobacco Use Types Packs/Day Years Used Date Smoking Tobacco: Never Assessed Sex and Gender Information Value Date Recorded Sex Assigned at Not on file Legal Sex Male 7:21 PM CDT Gender Identity Not on file Sexual Orientation Not on file documented as of this encounter Miscellaneous Notes * Cerner Conversion Note - [facility] Abhay Metz MD - 05/05/2021 7:36 AM EDT Pre Procedure Adult Entered On: 05/05/2021 6:40 EDT Performed On: 05/05/2021 6:36 EDT by DILIP TORRES RN Height and Weight, Clinical Dosing Height Source : Stated Height Entry Format : [place] Height, Feet : 6 ft(Converted to: 183 cm, 72 Inch) Height, Inches : 3 Inch(Converted to: 0 ft 3 Inch, 7.62 cm) Clinical Height : 190.5 cm Weight Source : Standing scale Weight Entry Format : [place] Clinical Dosing Weight : 123.64 kg Weight, Pounds : 272 lb Body Surface Area (BSA) : 2.5 m2 Body Mass Index : 34.1 kg/m2 (HI) [place] Body Weight : 83 kg DILIP TORRES RN - 05/05/2021 6:36 EDT Health Histories Smoking Status : Never (less than 100 in lifetime; none in last 30 days) Smokeless Tobacco Status : Never DILIP TORRES RN - 05/05/2021 6:36 EDT Social History (As Of: 05/05/2021 06:40:17 EDT) Alcohol: Alcohol Use Comment none. (Last Updated: 04/23/2015 15:51:53 EDT by ADRIEN MOTT RN) Substance Abuse: Comments: 04/23/2015 15:52 - ADRIEN MOTT RN: none (Last Updated: 04/23/2015 15:52:18 EDT by ADRIEN MOTT RN) Infectious Disease History Has the patient ever been tested for COVID-19? : Yes, Patient stated results pending Where are the test results? : Results Pending Date of COVID-19 test known? : Yes Date of COVID-19 Test : 05/05/2021 EDT Does patient have symptoms of COVID-19? : No COVID19 Screening : No Experiencing Infectious Disease Symptoms : No symptoms Physical contact outside [place] in the last 30 days : No Infectious Disease History : Mumps Tuberculosis Symptoms : None DILIP TORRES RN - 05/05/2021 6:36 EDT COVID19 PreProcedure Screening Is this an Emergent or Add on Procedure? : No Date PreProcedure COVID-19 test known? : Yes Date of PreProcedure COVID-19 : 05/05/2021 EDT Has patient been isolated since the test : Yes Exposed to COVID19 symptoms since test? : No DILIP TORRES RN - 05/05/2021 6:36 EDT Anesthesia/Transfusion History Family History of Anesthesia Reaction : No prior transfusion(s) Transfusion History : No prior anesthesia Family History of Anesthesia Reaction : None DILIP TORRES RN - 05/05/2021 6:36 EDT Functional Assessment Living Situation : Home Patient Lives With : Spouse Current Home Treatments : None DILIP TORRES RN - 05/05/2021 6:36 EDT [place] Suicide Severity Rating Scale (C-SSRS) CSSRS Past Month Wish to be : No CSSRS Past Month Suicidal Thoughts : No CSSRS Lifetime Suicide Behavior : No Suicide Severity Rating Score : 0 Suicide Severity Rating : No Additional Care Required at this time DILIP TORRES RN - 05/05/2021 6:36 EDT Psychosocial History Currently in Unsafe Situation : No DILIP TORRES RN - 05/05/2021 6:36 EDT Advance Directive Patient has Advance Directive *Q : No, patient refuses Advance Directive information DILIP TORRES RN - 05/05/2021 6:36 EDT General Info Preferred Name : Nehemiah Fierro Family/Rep/Phys Notified of Admit : No Emergency Contact #1 : Emergency Contact #1 Phone Number : Gissel Emergency Contact #1 Relationship : [phone] Emergency Contact #2 : none Emergency Contact #2 Phone Number : none Emergency Contact #2 Relationship : none Primary Language : Indonesian Communication Barrier : None X Ray Equipment Servicer Needed : No DILIP TORRES RN - 05/05/2021 6:36 EDT Sleep Apnea Risk Assmt Hx of [...] Score : 5 DILIP TORRES RN - 05/05/2021 6:36 EDT Robert Scale Robert Sensory Perception : No impairment Robert Moisture : Rarely moist Robert Activity : Walks frequently Robert Mobility : No limitation Robert Nutrition : Adequate Robert Friction and Shear : No apparent problem Robert Score : 22 DILIP TORRES RN - 05/05/2021 6:36 EDT Fall Risk Scales Judge Mental Status : Oriented to own ability Judge Fall Risk Score : 20 JUDGE Fall Scale Risk Level : 0-24 Low Risk [place] Fall Interventions : Adequate lighting, Assistive devices within reach, Bed in low position, Call device within reach, Fall prevention handout/education per facility policy, Hourly comfort/safety rounds, Non-slip footwear, Personal items within reach, Reinforced to call for assistance before getting out of bed, Room free of clutter/spills, Upper side-rails up, Wheels locked, Wires/Cords secured DILIP TORRES RN - 05/05/2021 6:40 EDT ABCs Fall Injury Risk Identification : Coagulation ABC Fall Injury Risk : Moderate to high injury risk JUDGE Hx Falls Immediate/Within 3 Months : No Judge Secondary Diagnosis : No JUDGE Use of Ambulatory Aid : None JUDGE IV Therapy or IV Access : Yes Judge Gait/Transferring : Normal, bedrest, immobile DILIP TORRES RN - 05/05/2021 6:36 EDT Valuables and Belongings Valuables and Belongings : Clothing Clothing : Common streetwear Clothing Disposition : Bedside DILIP TORRES RN - 05/05/2021 6:40 EDT documented in this encounter Plan of Treatment Not on file documented as of this encounter Visit Diagnoses Not on filedocumented in this encounter
--- OUTSIDE RECORDS SUMMARY | 2025-08-19 09:31 | XMS_ITS | Clinical Summary ---
Author Organization [facility] Address [facility] [place] [address] Phone Care Team Providers Care Sole Rounding Machine Operator Name Role Phone Martha Pate [employer] SWITCHBOARD OPERATOR Primary Care Provider [phone] Medications Metoprolol Succinate 25 MG CS24 Take by mouth. Activ e furosemide (LASIX) 20 MG TABS Take 20 mg by mouth. Active atorvastatin (LIPITOR) 20 MG TABS Take 20 mg by mouth daily. Active spironolactone (ALDACTONE) 25 MG TABS Take 25 mg by mouth daily. Active metroNIDAZOLE (FLAGYL) 500 mg/100 mL SOLN 500 mg by Intravenous route every 6 (six) hours. Active cetirizine (ZYRTEC) 10 mg tablet Take 10 mg by mouth daily. Active ASPIRIN 81 PO Take by mouth. A ctive linaCLOtide (LINZESS PO) Take 75 mg by mouth. Active metronidazole (FLAGYL) 500 mg tablet Take 500 mg by mouth daily. 4 Active vitamin B-12 (CYANOCOBALAMIN ) 1000 MCG TABS 1 tab(s) orally once a day Active metFORMIN (GLUCOPHAGE) 500 MG TABS Take 500 mg by mouth 2 (two) times daily with meals. Active fenofibrate (LOFIBRA) 54 MG TABS Take 54 mg by mouth daily. with food Active Probiotic Product (PROBIOTIC ADVANCED PO) Take by mouth. Ac tive Inulin (FIBER CHOICE PO) Take by mouth. Acti ve Active Problems No known active problems Family History Medical History Relation Name Comments Colon polyps Mother Relation Name Status Comments Mother Social History Tobacco Use Types Packs/Day Years Used Date Smoking Tobacco: Never Smokeless Tobacco: Never Tobacco Cessation:Counseling Given: Not Answered Alcohol Use Standard Drinks/Week Comments Not Currently 0 (1 standard drink = 0.6 oz pur e alcohol) Food Insecurities Answer Date Recorded Worried about running out of food Not on file 05/16/2024 Food Bought Not on file 05/16/2024 Housing/Utilities Answer Date Recorded Worried about losing home Not on file 2023 Stayed outside house Not on file 05/16/2024 Unable to get utilities Not on file 05/16/20 Interpersonal Safety Answer Date Record ed Feel physically or emotionally unsafe where curr ently live Not on file 05/16/2024 Harm by anyone Not on file 05/16/2024 Emotionally Harmed Not on file 05/16/2024 Transportation Answer Date Recorded Worried about transportation Not on file Utilities Answer Date Recorded Worried about losing home Not on file 2023 Stayed outside house Not on file 05/16/2024 Unable to get utilities Not on file 05/16/20 Sex and Gender Information Value Date Recorded Sex Assigned at Not on file Legal Sex Male 10:51 AM EDT Gender Identity Not on file Sexual Orientation Not on file Last Filed Vital Signs Vital Sign Reading Time Taken Comments Blood Pressure 114/76 07/16/2024 11:57 AM EDT Pulse 56 07/16/2024 11:57 AM EDT Temperature 37 C (98.6 F) 07/16/2024 11:57 AM EDT Respiratory Rate 17 06/07/2024 9:37 AM EDT Oxygen Saturation 91% 06/07/2024 9:37 AM EDT Inhaled Oxygen Concentration - - Weight 119.3 kg (263 lb) 07/16/2024 11:57 AM EDT Height 190.5 cm (6' 3 ) 07/16/2024 11:57 AM EDT Body Mass Index 32.87 07/16/2024 11:57 AM EDT Plan of Treatment Health Maintenance Due Date Last Done Comments Hepatitis C Screening 1960 DTap,Tdap,and Td (1 - Tdap) 11/01/1996 10/31/1996 PSA YEARLY 2010 Pneumococcal 50+ (1 of 1 - PCV) 2010 Shingrix (#1) 2010 Influenza Vaccine (#1) 2025 Colonoscopy 06/07/2034 06/07/2024 RSV Vaccine (60+ or ) (1 - 1-dose 75+ series) 2035 HPV Aged Out No longer eligi ble based on patient's age to complete this topic Meningococcal conjugate golden nt 4 (MCV4) Aged Out No longer eligible b ased on patient's age to complete this topic RSV Immunization (<20 months) Aged Out No longer eligible based on patient's age to complete this topic Goals Goal Patient Goal Type Associated Problems Recent Progress Patient-Stated? Author DODIE CC COLONOSCOPY PREP PATIENT EDUCATION GOAL TEMPLATE Care Plan MYC COLONOSCOPY PREP EDUCATION No Arslan Fernández Additional Health Concerns Active Problems Noted Date Diagnosed Date MYC COLONOSCOPY PREP EDUCATION 05/31/2024 Insurance [employer] [employer]TH[employer] NOT MEDICARE Care Teams Sole Rounding Machine Operator Relationship Specialty Start Date End Date Martha Pate NP PCP - General 05/29/24
== END 2025-08-19 23:59 | disposition home or self-care (01) ==
LOC: RAD 09:24
PROVIDERS: PCP Nurse Practitioner Family; Visit Provider Nurse Practitioner Family
DX: M47.816 Spondylosis without myelopathy or radiculopathy, lumbar region (principal); M51.26 Other intervertebral disc displacement, lumbar region; M99.73 Connective tissue and disc stenosis of intervertebral foramina of lumbar region
CPT/HCPCS: 72148

== ENCOUNTER 2025-09-17 14:00 | Outpatient (RCR) | payer MEDICARE, OTHER, SELFPAY ==
--- NOTE | 2025-09-10 15:58 | HMH.PTOPEV ---
PT Evaluation Rehab PT Outpatient Evaluation Start: 09/10/25 13:57 Freq: Status: Active Protocol: Document 09/10/25 13:57 LEIGHANNBERNA (Rec: 09/10/25 15:58 NORMAN [id number]) E-signed By Nimisha Hillman, PT Outpatient Therapy Subjective History Subjective History Pt is a 65 y/o male referred to PT for Bulging lumbar disc and arthritis. Pt reports chronic low back pain with worsening of symptoms 3 months ago without known trauma or injury. Pt reports central low back pain with intermittent radiating pain and paresthesia down the R >L lateral leg to his knees. Pt denies more distal LE symptoms or new b/b dysfunction. Pt had a lumbar spine MRI on 08/19/25 with findings of L1-2: Mild broad- based midline disc protrusion with mild central canal stenosis. L2-3: Mild diffuse disc bulge with endplate hypertrophy. Moderate right and mild to moderate left neuroforaminal narrowing. L3-4: Mild diffuse disc bulge with left posterolateral disc protrusion. There is moderate bilateral neuroforaminal narrowing. L4-5: Left posterolateral disc protrusion with high-grade left neuroforaminal narrowing. L5-S1: Mild diffuse disc bulge with mild bilateral neuroforaminal narrowing. Pt reports he was referred to a neurosurgeon which is scheduled to see tomorrow in [facility]. Pt reports he has been taking prescribed muscle relaxers without improvement in symptoms. Pt reports pain is aggravated standing, prolonged walking, and bending/lifting. Medical History: Hernia, TIA (transient ischemic attack ), Diverticulitis, Kidney stones, Hyperlipidemia, Ureteral stone with hydronephrosis, Abnormal EKG, Preoperative clearance, Diastolic dysfunction, Endothelial dysfunction of coronary artery +Slump test R>L New diagnosis of No cancer in past 12 months? Chief Complaint Pain Symptom Type Ache,Sharp,Dull,Numbness,Tingling Symptoms Relieved By Rest/Positioning,Prescription Meds Symptoms Aggravated Standing,Bending/Stooping,Physical Activity,Walking, By Lifting Current Functional Lifting,Standing,Recreation Activity,Walking,Bending/ Limitations Stooping Symptom Description Constant but Variable Level of pain today 7 (0-10) Pain scale - at its 3 best (0-10) Pain scale - at its 10 worst (0-10) Lumbopelvic Eval Posture Lumbar Spine Posture Flattened,Decreased Lordosis Standing Position Palapation tenderness bilateral lumbar spinal Yes: L3-L5 tenderness paraspinal Yes: R>L lumbar PS tenderness buttock tenderness Yes: R glute med/min, piriformis Lumbar/Sacral Tenderness Palpation Findings Lumbar/Sacral 2/4 TTP Palpation Overall Comment Accessory Movement L-spine Vertebrae Central P/A [place] Accessory Movements that Elicit Symptoms L3 bilateral L4 bilateral L5 bilateral Range of Motion Lumbar Spine Active 65 Flexion Range of Motion (degrees) Lumbar Spine Active 5 Extension Range of Motion (degrees) Left Lumbar Spine 5 Lateral Flexion Active Range of Motion (degrees) Right Lumbar Spine 5 Lateral Flexion Active Range of Motion (degrees) Manual Muscle Test Bilateral Knee Extension 5 Normal Strength Grade Knee Flexion 5 Normal Strength Grade Hip Flexion Strength 4 Good Grade Hip Abduction 4 Good Strength Grade Hip Adduction 4 Good Strength Grade Hip Extension 3+ Fair+ Strength Grade Ankle Dorsiflexion 5 Normal Strength Grade DTR Rt Patellar 2+ Lt Patellar 2+ Altered Sensation Bilateral Comment equal and intact to light touch sesnation Special Tests Sciatic Nerve Positive Left,Positive Right Tension Test Unilateral Straight Positive Left,Positive Right Leg Raise (Lasegue) Test Oswestry Index Section 1 Pain Intensity The pain comes and goes and is severe Section 2 Personal Care ( increase the pain, but I manage not to change my way of Washing,[place]resing) doing it Section 3 Lifting I can lift heavy weights, but it gives me extra pain Section 4 Walking I cannot walk at all without increasing pain Section 5 Sitting Pain prevents me from sitting for more than one hour Section 6 Standing I avoid standing because it increases the pain immediately Section 7 Sleeping Because of my pain, my normal night's sleep is less than 6 hours sleep Section 8 Social Life Pain has no significant effect on my social life apart from limiting Section 9 Traveling I get extra pain while traveling which compels me to seek alternate fo Section 10 Changing Degreee of My pain is rapidly getting worse Pain Score and Risk Level Oswestry Score 31 Oswestry Risk Level Severe Disability Outpatient Therapy Assessment Impairments Problems/ Palpation Tenderness,Impaired Range of Motion,Impaired Impairmments Strength,Impaired Gait Pattern,Impaired Walking, Impaired Standing,Impaired Lifting,Impaired Bending, Subjective C/O Pain,Impaired Self Care/Self Management Prognosis Rehab Potential Good Clinical Impression Consistent with Yes Diagnosis PT Patient Goals PT Patient Goals PT Short Term 3 weeks: Patient Goals 1. Verbalize compliance with HEP to assist with progress. 2. Improve pain at worst to 8/10 on VAS to improve overall QOL/function. 3. Improve DONNA score to 26 or less to improve overall QOL/function. 4. Demonstrate proper lifting mechanics to assist with ADLs/function. PT Client Operations Manager Patient 6 weeks: Goals 1. Improve TTP of lumbar PS, L3-5 motions segments to 0 -1/4 to assist with pain and mobility. 2. Improve lumbar AROM flex to at least 80, ext & LF to 10-15 to assist with mobility and function. 3. Improve bilateral hip MMT to 4-4+/5 grossly to assist with function. 4. Improve DONNA score to 21 or less to improve overall QOL/function. 5. Improve pain at worst to 6/10 or less on VAS to improve overall QOL/function. Outpatient Therapy Plan of Care Treatment Plan May Include Therapeutic Exercise Yes Including Home Exercise Program Manual Therapy Yes Techniques Neuromuscular Re- Yes education Therapeutic Yes Activities to Return to Previous Functional/Work Level ADL/Self Care Yes Education Mechanical Traction Yes Dry Needling Yes Thermal Modalities Yes Electrical Yes Stimulation Ultrasound/ Yes Phonophoresis Iontophoresis Yes Massage Yes Group Therapy for Yes Medicare Eval/Re-Eval Yes Frequency Times per week 2 Duration Number of Weeks 4-6 Addendums This patient is a No candidate for social or vocational rehab ? Patient/Guardian Yes verbally acknowledges understanding of treatment program and consents to further treatment? Patient/Guardian Yes verbally acknowledges understanding of diagnosis, prognosis and goals for treatment? Eval Complexity PT Charges 42600 - Low Complexity Shoulder/Elbow Eval Shoulder Objective Measurements Elbow Objective Measurements PHYSICIAN CERTIFICATION: I certify the specified therapy services for Anuj Vazquez are required, authorized, and reviewed every 30 days.
== END 2025-09-17 23:59 | disposition home or self-care (01) ==
LOC: PT 14:00
PROVIDERS: PCP Nurse Practitioner Family; Visit Provider Nurse Practitioner Family
DX: M51.26 Other intervertebral disc displacement, lumbar region (principal); M19.90 Unspecified osteoarthritis, unspecified site
CPT/HCPCS: 97014; 97110; 97161; G0283